=== PATIENT | female | born 1955 | race American Indian/Alaskan Native ===

== ENCOUNTER 2017-04-30 06:39 | Day surgery (SDC) | payer BC ==
[2017-04-27 11:33] VITALS: BMI 31.4
[2017-04-30] MEDS ORDERED: Phenylephrine 10 mg/ml Inj ONE (07:17)
[2017-04-30] MEDS ORDERED: Lidocaine 2% Inj (20ml) ONE (07:17)
[2017-04-30] MEDS ORDERED: Midazolam 2 MG/2 ML VIAL ONE ×2 (07:18→08:26)
[2017-04-30] MEDS ORDERED: Nitroglycerin 50mg in D5W 0 MG/0 ML BOTTLE IV ONE (07:19)
[2017-04-30] MEDS ORDERED: Iodixanol 320 MG/ML 100 ML BOTTLE IV ONE ×2 (07:19→09:02)
[2017-04-30] MEDS ORDERED: Iohexol 350mgl/ml 50 ML ONE (07:19)
[2017-04-30] MEDS ORDERED: Iodixanol 320 MG/ML 200 ML BOTTLE IV ONE (07:19)
[2017-04-30 07:31] LABS: BASO # 0.02 K/mm3 (0.0-2.0); BASO % 0.4 % (0.0-3.0); EOS # 0.1 (0.0-0.7); EOS % 2.6 % (1.5-5.0); GRAN # 2.81 (1.4-6.5); HEMATOCRIT 27.8 % (36.0-48.0); LYMPH # 1.2 (1.2-3.4); LYMPH % 27.3 % (22.0-35.0); MEAN CELL VOLUME 69.5 fl (80.0-105.0); MEAN CORPUSCULAR HGB CONC 31.7 g/dl (31.0-37.0); MONO # 0.4 (0.1-0.6); MONO % 7.7 % (1.0-6.0); PLATELET COUNT 159 10^3/uL (120.0-450.0); RED CELL DISTRIBUTION WIDTH 16.8 % (11.5-14.5); WHITE BLOOD COUNT 4.5 10^3/ul (4.5-11.0)
[2017-04-30 07:43] LABS: BLOOD UREA NITROGEN 27 mg/dL (7-21); CALCIUM 8.8 mg/dL (8.4-10.5); CARBON DIOXIDE 28 mmol/L (21-33); CHLORIDE 103 mmol/L (98-107); CHOLESTEROL 158 mg/dL (130-200); GFR AFRICAN-AMERICAN > 60; GLUCOSE,RANDOM 159 mg/dL (70-110); POTASSIUM 4.5 mmol/L (3.6-5.0); SODIUM 140 mmol/L (132-148)
[2017-04-30 07:45] LABS: PARTIAL THROMBOPLASTIN TIME 28.9 Seconds (25.1-36.5)
[2017-04-30] MEDS ORDERED: Sodium Chloride 0.9% 1,000 ML IV SCH (09:30)
--- NOTE | 2017-04-30 11:11 | CARDCATH ---
PROCEDURE DATE: 04/30/2017 HISTORY: The patient is a 62-year-old woman who is status post treatment for breast CA with multiple cardiac risk factors including diabetes mellitus, hypertension, hypercholesterolemia, who has been experiencing progressive shortness of breath on exertion. A stress test was notable for marked dyspnea with minimal exertion. A cardiac catheterization was recommended. PROCEDURE: Left heart catheterization with coronary arteriography and left ventriculogram followed by PTCA and stent of the circumflex artery. The right femoral artery was cannulated with a 6-Niuean sheath. There were no complications. The patient was given moderate sedation. I performed moderate sedation which included the presence of an independent trained observer that assisted in monitoring the patient's level of consciousness and physiologic status. After administration of Versed and fentanyl, my intra service time was 25 minutes. The right femoral artery was cannulated with 6-Niuean sheath. There were no complications. The findings on catheterization revealed a left ventricle that contracted normally. Estimated ejection fraction is 50-55%. Her coronary anatomy revealed a right dominant circulation. The RCA revealed diffuse atherosclerosis with a 50% stenosis in the proximal portion. The left main artery was unremarkable. The LAD and diagonal vessels revealed intimal irregularities without critical lesions. The circumflex artery revealed a 70% stenoses at the takeoff of a large obtuse marginal branch. The AV groove branch of the circumflex artery revealed intimal irregularities without significant stenoses. The patient was started on intravenous Angiomax. On the fluoroscopic guide, the guiding catheter was placed in the ostium of the left main artery. An ATW wire was used to cross the critical lesion. A 3.5 x 9 mm drug-eluting stent was placed and deployed at 10 atmospheres of pressure. Repeat coronary arteriography revealed an excellent result with no residual stenosis and ANDREA III flow. The Angio-Seal was used to close the femoral artery site. The patient tolerated the procedure well. In summary, the procedure with successful PTCA and stent of the circumflex artery, obtuse marginal branch with a drug-eluting stent. Cardiac catheterization reveals two-vessel CAD with a 50% proximal RCA stenosis as well as the obtuse marginal branch vessel. LV function is normal. Given these findings, the patient will need to remain on aspirin indefinitely and Plavix for at least a year and undergo a strict cardiac risk reduction program. Erich Slater MD [facility] # [id number]
--- NOTE | 2017-04-30 11:51 | CP.PCM.CON ---
History of Present Illness - History of Present Illness History of Present Illness: Heme/Onc Consult Note For Lev Wesley PGY2 Reason for consult: Anemia This is a 62yo female with past medical history of breast cancer s/p mastectomy and chemoradiation who was admitted for elective cardiac cath. Patient was seen last week by Dr. Griffith and her hgb was 9.6. She reported feeling short of breath on exertion and denies any overt blood loss. Dr. Slater spoke to Dr. Griffith to evaluate the patient her for anemia. Patient is status post cardiac cath this morning with stent placed in the circumflex artery. She tolerated the procedure well. This morning she denies chest pain, shortness of breath, nausea/vomiting/diarrhea, numbness/tingling, fever or chills. She does complain of fatigue. Past medical history: sickle cell trait, CAD, DM, HTN, breast cancer (ER/TN/Her- 2 all negative) s/p R mastectomy Past surgical history: hysterectomy, cholecystectomy, R mastectomy Home meds: As per AUG Allergies: NKDA Review of Systems - Review of Systems All systems: reviewed and no additional remarkable complaints except Review of Systems: + fatigue, dyspnea on exertion Past Patient History - Tetanus Immunizations Tetanus Immunization: Unknown - CARDIAC Hx Pacemaker: No - PULMONARY Hx Respiratory Disorders: No - NEUROLOGICAL Hx Paralysis: No - ENDOCRINE/METABOLIC Hx Diabetes Mellitus Type 2: Yes - HEMATOLOGICAL/ONCOLOGICAL Hx Blood Transfusions: Yes (2013) Hx Blood Transfusion Reaction: No - MUSCULOSKELETAL/RHEUMATOLOGICAL Hx Musculoskeletal Disorders: No - PSYCHIATRIC Hx Emotional Abuse: No Hx Physical Abuse: No Hx Substance Use: No - SURGICAL HISTORY Hx Surgeries: Yes - ANESTHESIA Hx Anesthesia Reactions: Yes (NAUSEA) Hx Malignant Hyperthermia: No Meds Allergies/Adverse Reactions: Allergies Allergy/AdvReac Type Severity Reaction Status Date / Time No Known Allergies Allergy Verified 01/06/14 11:23 - Medications Medications: Current Medications Aspirin (Ecotrin) 81 mg PO DAILY [facility] Last Admin: 04/30/17 11:25 Dose: 81 mg Atorvastatin Calcium (Lipitor) 20 mg PO DIN KLAUDIA Clopidogrel Bisulfate (Plavix) 75 mg PO DAILY [facility] Last Admin: 04/30/17 11:25 Dose: 75 mg Sodium Chloride (Sodium Chloride 0.9%) 1,000 mls @ 100 mls/hr IV .Q10H KLAUDIA Stop: 04/30/17 15:00 Metoprolol Tartrate (Lopressor) 25 mg PO BID [facility] Last Admin: 04/30/17 11:25 Dose: 25 mg Physical Exam - Constitutional Appears: No Acute Distress - Head Exam Head Exam: ATRAUMATIC, NORMAL INSPECTION, NORMOCEPHALIC - Eye Exam Eye Exam: Normal appearance, PERRL Pupil Exam: NORMAL ACCOMODATION, PERRL - ENT Exam ENT Exam: Mucous Membranes Moist - Respiratory Exam Respiratory Exam: Clear to Auscultation Bilateral, NORMAL BREATHING PATTERN. absent: Wheezes - Cardiovascular Exam Cardiovascular Exam: REGULAR RHYTHM, +S1, +S2 - GI/Abdominal Exam GI & Abdominal Exam: Soft. absent: Rebound, Rigid, Tenderness - Extremities Exam Extremities exam: Positive for: normal inspection. Negative for: pedal edema - Neurological Exam Neurological exam: Alert, CN II-XII Intact - Psychiatric Exam Psychiatric exam: Normal Affect, Normal Mood - Skin Skin Exam: Dry, Warm Additional comments: cath site in R femoral clean and dry . Results - Vital Signs Recent Vital Signs: Last Vital Signs Temp 98.6 F 04/30/17 07:20 Pulse 82 04/30/17 11:25 Resp 20 04/30/17 07:20 BP 130/78 04/30/17 11:25 Pulse Ox 96 04/30/17 07:20 - Labs Result Diagrams: 04/30/17 07:17 04/30/17 07:17 Labs: Laboratory Results - last 24 hr 04/30/17 04/30/17 04/30/17 07:17 07:17 07:17 WBC 4.5 D RBC 4.00 Hgb 8.8 L Hct 27.8 L MCV 69.5 L MCH 22.0 L MCHC 31.7 RDW 16.8 H Plt Count 159 Gran % 62.0 Lymph % (Auto) 27.3 Eagle % (Auto) 7.7 H Eos % (Auto) 2.6 Baso % (Auto) 0.4 Gran # 2.81 Lymph # 1.2 Eagle # 0.4 Eos # 0.1 Baso # 0.02 PT 11.0 INR 1.00 APTT 28.9 Sodium 140 Potassium 4.5 Chloride 103 Carbon Dioxide 28 Anion Gap 14 BUN 27 H Creatinine 1.1 Est GFR ( Amer) > 60 Est GFR (Non-Af Amer) 51 Random Glucose 159 H Calcium 8.8 Triglycerides 250 H Cholesterol 158 LDL Cholesterol Direct 69 HDL Cholesterol 49 Blood Type Antibody Screen BBK History Checked 04/30/17 07:17 WBC RBC Hgb Hct MCV MCH MCHC RDW Plt Count Gran % Lymph % (Auto) Eagle % (Auto) Eos % (Auto) Baso % (Auto) Gran # Lymph # Eagle # Eos # Baso # PT INR APTT Sodium Potassium Chloride Carbon Dioxide Anion Gap BUN Creatinine Est GFR ( Amer) Est GFR (Non-Af Amer) Random Glucose Calcium Triglycerides Cholesterol LDL Cholesterol Direct HDL Cholesterol Blood Type O NEGATIVE Antibody Screen Negative BBK History Checked Patient has bt Assessment & Plan - Assessment and Plan (Free Text) Assessment: This is a 62yo female with past medical history of breast cancer s/p mastectomy and chemoradiation who was admitted for elective cardiac cath. Patient was seen by Dr. Griffith last week with Hgb 9.6. She had dyspnea on exertion. Anemia can be secondary to sickle cell trait. Plan: - Will check iron studies - If ferritin >1000 will give Desferol - Will transfuse 1U (Pt agreed to transfusion) - Goal Hgb of 10.0 - Patient can follow up with Dr. Griffith next week for follow up Case seen, discussed and reviewed with Dr. Griffith. Lev Fox PGY2 - Date & Time Date: 04/30/17 Time: 11:00
[2017-04-30 13:06] LABS: IRON < 10 ug/dL (45-180)
--- NOTE | 2017-04-30 20:18 | CARD ---
APPROVED REPORT EKG Measurement Heart [id number] ID [id number] <Conclusion> Normal sinus rhythm Normal ECG
[2017-05-01 00:11] VITALS: RESP 18
[2017-05-01 06:01] VITALS: TEMP 97.8
[2017-05-01 06:33] LABS: BASO # 0.02 K/mm3 (0.0-2.0); BASO % 0.4 % (0.0-3.0); EOS # 0.1 (0.0-0.7); EOS % 1.6 % (1.5-5.0); GRAN # 2.97 (1.4-6.5); GRAN % 59.1 % (50.0-68.0); HEMATOCRIT 27.5 % (36.0-48.0); LYMPH # 1.6 (1.2-3.4); LYMPH % 31.5 % (22.0-35.0); MEAN CELL VOLUME 70.7 fl (80.0-105.0); MEAN CORPUSCULAR HEMOGLOBIN 22.1 pg (25.0-35.0); MEAN CORPUSCULAR HGB CONC 31.3 g/dl (31.0-37.0); MONO # 0.4 (0.1-0.6); MONO % 7.4 % (1.0-6.0); PLATELET COUNT 130 10^3/uL (120.0-450.0); RED CELL DISTRIBUTION WIDTH 17.1 % (11.5-14.5)
[2017-05-01 07:21] LABS: BLOOD UREA NITROGEN 23 mg/dL (7-21); CALCIUM 8.7 mg/dL (8.4-10.5); CARBON DIOXIDE 31 mmol/L (21-33); CHLORIDE 101 mmol/L (98-107); GFR AFRICAN-AMERICAN > 60; GLUCOSE,RANDOM 192 mg/dL (70-110); POTASSIUM 4.5 mmol/L (3.6-5.0); SODIUM 138 mmol/L (132-148)
[2017-05-01] MEDS ORDERED: Insulin Lispro (humaLOG) LOW Coverage SC SCH (07:30)
[2017-05-01 08:26] LABS: HEMATOCRIT 27.5 % (36.0-48.0)
[2017-05-01 09:08] VITALS: BP 154/66
--- NOTE | 2017-05-01 09:20 | CP.PCM.PN ---
Subjective - Date & Time of Evaluation Date of Evaluation: 05/01/17 Time of Evaluation: 09:13 - Subjective Subjective: Heme/Onc Progress Note for Lev Wesley PGY2 Patient seen and examined at bedside. As per nursing staff, there were no acute overnight events. Patient reports her shortness of breath improved. She denies chest pain, SOB, nausea/vomiting/diarrhea, numbness/tingling, fever or chills. She reports that she would really like to go home. Objective - Vital Signs/Intake and Output Vital Signs (last 24 hours): Temp Pulse Resp BP Pulse Ox 97.8 F 78 18 154/66 H 100 05/01/17 06:00 05/01/17 09:07 05/01/17 06:00 05/01/17 09:07 05/01/17 06:00 Intake and Output: 05/01/17 05/01/17 06:59 18:59 Intake Total 240 Balance 240 - Medications Medications: Current Medications Aspirin (Ecotrin) 81 mg PO DAILY [facility] Last Admin: 05/01/17 09:07 Dose: 81 mg Atorvastatin Calcium (Lipitor) 20 mg PO DIN [facility] Last Admin: 04/30/17 18:21 Dose: 20 mg Clopidogrel Bisulfate (Plavix) 75 mg PO DAILY [facility] Last Admin: 05/01/17 09:07 Dose: 75 mg Insulin Human Lispro (Humalog Low) 0 units SC ACHS [facility] PRN Reason: Protocol Last Admin: 05/01/17 08:03 Dose: 2 units Metoprolol Tartrate (Lopressor) 25 mg PO BID [facility] Last Admin: 05/01/17 09:07 Dose: 25 mg - Labs Labs: 05/01/17 08:00 05/01/17 06:00 PT 11.0 SECONDS (9.4-12.5) 04/30/17 07:17 INR 1.00 (0.93-1.08) 04/30/17 07:17 APTT 28.9 Seconds (25.1-36.5) 04/30/17 07:17 - Constitutional Appears: No Acute Distress - Head Exam Head Exam: ATRAUMATIC, NORMAL INSPECTION, NORMOCEPHALIC - Eye Exam Eye Exam: PERRL Pupil Exam: NORMAL ACCOMODATION, PERRL - ENT Exam ENT Exam: Mucous Membranes Moist - Respiratory Exam Respiratory Exam: Clear to Ausculation Bilateral, NORMAL BREATHING PATTERN. absent: Rales, Rhonchi, Wheezes - Cardiovascular Exam Cardiovascular Exam: REGULAR RHYTHM, +S1, +S2. absent: Gallop, Rubs - GI/Abdominal Exam GI & Abdominal Exam: Soft, Normal Bowel Sounds. absent: Tenderness - Extremities Exam Extremities Exam: Normal Inspection. absent: Calf Tenderness, Pedal Edema - Neurological Exam Neurological Exam: Alert, Awake, CN II-XII Intact - Skin Skin Exam: Dry, Warm Assessment and Plan - Assessment and Plan (Free Text) Assessment: This is a 62yo female with past medical history of breast cancer s/p mastectomy and chemoradiation who was admitted for elective cardiac cath. Patient was seen by Dr. Griffith last week with Hgb 9.6. She had dyspnea on exertion. Anemia can be secondary to sickle cell trait. Patient is status post 1U PRBC. Hgb stayed the same despite blood transfusion. Plan: - Iron studies showed low iron - Ferritin <1000 - Patient will need to keep Hgb above 10 - Recommend for OTC iron - Patient can have blood transfusion at the outpatient center. - Patient can follow up with Dr. Griffith next week for follow up Case seen, discussed and reviewed with Dr. Griffith. Lev Fox PGY2
[2017-05-01 10:07] VITALS: PULSE 75; O2SAT 99
--- NOTE | 2017-05-01 10:51 | PN ---
CARDIOLOGY FOLLOWUP DATE OF FOLLOWUP: 05/01/2017 SUBJECTIVE: The patient is chest pain free. No shortness of breath. The patient is ambulating in the [facility]. PHYSICAL EXAMINATION: VITAL SIGNS: Blood pressure is 140/74, the heart rate in the 70s. NECK: Negative JVD. LUNGS: Without rales. HEART: S1, S2. EXTREMITIES: Without edema. LABORATORY DATA: Hemoglobin is 8.7. Chemistries, BUN and creatinine is unremarkable. IMPRESSION: 1. Status post percutaneous transluminal coronary angioplasty and stent of the circumflex artery. 2. Coronary artery disease. 3. Hypercholesterolemia. 4. Chronic anemia. 5. History of breast cancer. Given these findings, the patient is doing well. The patient can be discharged today. Followup instructions have been given to the patient in detail. She will need to be on aspirin indefinitely and Plavix for least a year. Erich Slater MD
--- NOTE | 2017-05-01 22:14 | CARD ---
APPROVED REPORT EKG Measurement Heart [id number] <Conclusion> Normal sinus rhythm Normal ECG
== END 2017-05-01 12:01 | disposition home or self-care (01) ==
LOC: CATH 06:39 → 2RSO 09:31 → CATH 05-01 12:01
PROVIDERS: ATTEND Internal Medicine Cardiovascular Disease
DX: I25.10 Atherosclerotic heart disease of native coronary artery without angina pectoris (principal); I10 Essential (primary) hypertension; E78.00 Pure hypercholesterolemia, unspecified; E11.9 Type 2 diabetes mellitus without complications; Z85.3 Personal history of malignant neoplasm of breast; Z90.11 Acquired absence of right breast and nipple
CPT/HCPCS: 36415; 36430; 80048; 82728; 80061; 83540; 83550; 85025; 85610; 85730; 86850; 86900; 86920; 93005; 93458; 99152; 99153; C1760; C1769 ×2; C1874; C1887; C2629; C9600; J0583; J1644; J2250; J3010; J7040 ×2; P9016; Q9967 ×2

== ENCOUNTER 2017-08-03 14:36 | Emergency (ER) | payer BC ==
[2017-08-03 15:24] VITALS: BMI 30.7
--- NOTE | 2017-08-03 15:53 | ED PDOC ---
Arrival/HPI - General Chief Complaint: Chest Pain Time Seen by Provider: 08/03/17 14:47 Historian: Patient - History of Present Illness Narrative History of Present Illness (Text): 08/03/17 14:50 Nicole Merida is a 62 year old female, whose past medical history includes significant cardiac history, Coronary stents places in April 2017, right- sided breast cancer, mastectomy, and chemotherapy a few months ago, who presents to the emergency department sent by PMD complaining of back pain for 2 weeks that was severe this morning and chest pain but has resolved since arrival. As per PMD report, Patient had a CT scan of the abdomen which showed some lymphadenopathy. Patient denies any shortness of breath, fever, or any other complaints at this time. PMD: Dr. Wilkerson Oncologist: Dr. Griffith Time/Duration: < month Symptom Onset: Gradual Symptom Course: Unchanged Context: Home Past Medical History - Provider Review Nursing Documentation Reviewed: Yes - Tetanus Immunization Tetanus Immunization: Unknown - Cardiac Hx Pacemaker: No - Pulmonary Hx Respiratory Disorders: No - Neurological Hx Paralysis: No - Endocrine/Metabolic Hx Diabetes Mellitus Type 2: Yes - Hematological/Oncological Hx Blood Transfusions: Yes (2013) Hx Blood Transfusion Reaction: No - Musculoskeletal/Rheumatological Hx Musculoskeletal Disorders: No - Psychiatric Hx Emotional Abuse: No Hx Physical Abuse: No Hx Substance Use: No - Surgical History Hx Mastectomy: Yes (right) - Anesthesia Hx Anesthesia Reactions: Yes (NAUSEA) Hx Malignant Hyperthermia: No - Suicidal Assessment Feels Threatened In Home Enviroment: No Family/Social History - Physician Review Nursing Documentation Reviewed: Yes Family/Social History: No Known Family HX Smoking Status: Never Smoked Hx Alcohol Use: Yes (SPECIAL OCCASIONS) Hx Substance Use: No Allergies/Home Meds Allergies/Adverse Reactions: Allergies No Known Allergies Allergy (Verified 01/06/14 11:23) Home Medications: Home Meds Medication Instructions Recorded Confirmed Ergocalciferol (Vitamin D2) 50,000 iu PO MON 10/01/15 08/03/17 [Vitamin D] Gabapentin [Neurontin] 600 mg PO BID 10/01/15 08/03/17 Insulin Aspart, Recombinant 20 unit SC ACTID 10/01/15 08/03/17 [Novolog] Insulin Detemir [Levemir] 20 unit SC HS 10/01/15 08/03/17 Meclizine [Antivert] 12.5 mg PO BID PRN 10/01/15 08/03/17 Metoprolol Tartrate [Lopressor] 25 mg PO BID 10/01/15 08/03/17 Folic Acid 1 mg PO DAILY 04/27/17 08/03/17 Gemfibrozil 600 mg PO DAILY 04/27/17 08/03/17 Ramipril [Altace] 5 mg PO DAILY 04/27/17 08/03/17 Clopidogrel [Plavix] 75 mg PO DAILY 05/01/17 08/03/17 Ferrous Sulfate [Feosol] 325 mg PO BID 05/01/17 08/03/17 Review of Systems - Physician Review All systems were reviewed & negative as marked: Yes - Review of Systems Constitutional: absent: Fevers, Night Sweats Eyes: absent: Vision Changes ENT: absent: Hearing Changes Respiratory: absent: SOB, Cough Cardiovascular: Chest Pain. absent: Syncope Gastrointestinal: absent: Abdominal Pain Genitourinary Female: absent: Dysuria, Frequency Musculoskeletal: Back Pain. absent: Arthralgias Skin: absent: Rash, Pruritis Neurological: absent: Headache, Dizziness Endocrine: absent: Diaphoresis Hemo/Lymphatic: absent: Adenopathy Psychiatric: absent: Anxiety, Depression Physical Exam Vital Signs Reviewed: Yes Vital Signs Pulse Resp BP Pulse Ox 08/03/17 16:24 79 18 123/79 99 Appearance: Positive for: Other (obese) - Systems Exam Head: Present: Atraumatic, Normocephalic Pupils: Present: PERRL Extroacular Muscles: Present: EOMI Conjunctiva: Present: Normal Mouth: Present: Moist Mucous Membranes Neck: Present: Normal Range of Motion Respiratory/Chest: Present: Clear to Auscultation, Good Air Exchange, Other ( Venous access port to right upper chest). No: Respiratory Distress, Accessory Muscle Use, Tender to Palpation Cardiovascular: Present: Regular Rate and Rhythm, Normal S1, S2. No: Murmurs Abdomen: Present: Normal Bowel Sounds. No: Tenderness, Distention, Peritoneal Signs Back: Present: CVA Tenderness (Questionable CVA tenderness posteriorly), Other ( No pain with inspiration; Pain is not reproducible with palpation) Upper Extremity: Present: Normal Inspection. No: Cyanosis, Edema Lower Extremity: Present: Normal Inspection. No: Edema Neurological: Present: GCS=15, CN II-XII Intact, Speech Normal Skin: Present: Warm, Dry, Normal Color. No: Rashes Psychiatric: Present: Alert, Oriented x 3, Normal Insight, Normal Concentration Medical Decision Making ED Course and Treatment: 08/03/17 15:56 Impression: 62 year old female complaining of back pain for 2 weeks that was severe this morning and chest pain but has resolved since arrival. Plan: -- Chest X-ray -- Labs -- Reassess and disposition Progress Notes: EKG: Ordered, reviewed, and independently interpreted the EKG. Rate : 72 BPM Rhythm : NSR Interpretation : No ST-segment elevations or depressions, no T-wave inversions, normal intervals. - Lab Interpretations Lab Results: 08/03/17 15:16 08/03/17 15:16 Lab Results 08/03/17 15:16: Sodium 138, Potassium 4.6, Chloride 98, Carbon Dioxide 26, Anion Gap 19, BUN 19, Creatinine 1.9 H, Est GFR ( Amer) 33, Est GFR (Non- Af Amer) 27, Random Glucose 220 H, Calcium 9.9, Total Bilirubin 0.3, AST 31, ALT 31, Alkaline Phosphatase 101, Troponin I < 0.01, Total Protein 7.9, Albumin 4.2, Globulin 3.7, Albumin/Globulin Ratio 1.2 08/03/17 15:16: D-Dimer, Quantitative 254 H 08/03/17 15:16: WBC 6.6 D, RBC 4.21, Hgb 9.2 L, Hct 29.6 L, MCV 70.3 L, MCH 21.9 L, MCHC 31.1, RDW 16.9 H, Plt Count 190, MPV 10.2, Gran % 58.8, Lymph % ( Auto) 31.1, Parke % (Auto) 9.0 H, Eos % (Auto) 0.8 L, Baso % (Auto) 0.3, Gran # 3.85, Lymph # (Auto) 2.0, Parke # (Auto) 0.6, Eos # (Auto) 0.1, Baso # (Auto) 0.02 - RAD Interpretation Radiology Orders: 08/03/17 15:44 CHEST PORTABLE [RAD] Stat 08/03/17 16:24 LUNG PERF & VENT SCAN [NM] Stat - Scribe Statement The provider has reviewed the documentation as recorded by the Umair Jeffrey Provider Scribe Attestation: All medical record entries made by the Scribe were at my direction and personally dictated by me. I have reviewed the chart and agree that the record accurately reflects my personal performance of the history, physical exam, medical decision making, and the department course for this patient. I have also personally directed, reviewed, and agree with the discharge instructions and disposition. Disposition/Present on Arrival - Present on Arrival History of DVT/PE: No History of Uncontrolled Diabetes: No Urinary Catheter: No History of Decub. Ulcer: No History Surgical Site Infection Following: None - Disposition Referrals: Soraida Wilkerson DO [Primary Care Provider] - Follow up with primary Forms: [employer] (Czech)
[2017-08-03 16:05] LABS: BASO # 0.02 K/mm3 (0.0-2.0); BASO % 0.3 % (0.0-3.0); EOS # 0.1 (0.0-0.7); EOS % 0.8 % (1.5-5.0); GRAN # 3.85 (1.4-6.5); GRAN % 58.8 % (50.0-68.0); HEMOGLOBIN 9.2 g/dL (12.0-16.0); LYMPH % 31.1 % (22.0-35.0); MEAN CELL VOLUME 70.3 fl (80.0-105.0); MEAN CORPUSCULAR HEMOGLOBIN 21.9 pg (25.0-35.0); MEAN CORPUSCULAR HGB CONC 31.1 g/dl (31.0-37.0); MEAN PLATELET VOLUME 10.2 fl (7.0-11.0); MONO # 0.6 (0.1-0.6); RBC 4.21 10^6/uL (3.5-6.1); RED CELL DISTRIBUTION WIDTH 16.9 % (11.5-14.5); WHITE BLOOD COUNT 6.6 10^3/ul (4.5-11.0)
[2017-08-03 16:13] LABS: ALB/GLOB RATIO 1.2 (1.1-1.8); ALBUMIN 4.2 g/dL (3.0-4.8); ALT/SGPT 31 U/L (7-56); AST/SGOT 31 U/L (14-36); BLOOD UREA NITROGEN 19 mg/dL (7-21); CALCIUM 9.9 mg/dL (8.4-10.5); GFR AFRICAN-AMERICAN 33; GFR NON-AFRICAN AMERICAN 27
[2017-08-03 16:24] LABS: TROPONIN I < 0.01 ng/mL
[2017-08-03 16:36] VITALS: RESP 18
--- NOTE | 2017-08-03 17:26 | RAD ---
HISTORY: Right back pain. Portable study 15:54 COMPARISON: 04/26/2014 FINDINGS: LUNGS: No active pulmonary disease. PLEURA: No significant pleural effusion identified, no pneumothorax apparent. CARDIOVASCULAR: No radiographic findings to suggest acute or significant cardiovascular disease. OSSEOUS STRUCTURES: No significant abnormalities. VISUALIZED UPPER ABDOMEN: Normal. OTHER FINDINGS: Prior left mastectomy. This cons for differences in overall appearance of the 2 lungs. The right lung is hazy related to overlying breast tissue relative to the left. IMPRESSION: No active disease. No significant interval change compared to the prior examination(s).
--- NOTE | 2017-08-03 17:51 | CARD ---
APPROVED REPORT EKG Measurement Heart [id number] <Conclusion> Normal sinus rhythm Normal ECG
--- NOTE | 2017-08-03 18:35 | CT ---
CT chest without IV contrast CT abdomen without IV contrast Indication: Breast cancer, right chest pain Technique: Contiguous axial images were obtained through the chest and abdomen without intravenous contrast enhancement. Sagittal and coronal reconstructions were generated and reviewed. This CT exam was performed using 1 or more of the following dose reduction techniques: Automated exposure control, adjustment of the MAA and/or kV according to patient size, and/or use of iterative reconstruction technique. Radiation dose (DLP): 420.10 MGy-cm. Comparison: None available. Findings: Right-sided MediPort extends to the SVC. Visualized portions of the inferior thyroid gland appear unremarkable. The mediastinal and hilar vascular structures appear within normal limits. The heart appears within normal limits of size. Small left hilar calcification may reflect granuloma. No focal consolidation. No pleural effusion. No pneumothorax. Numerous bilateral pulmonary nodules consistent with metastases. Largest nodule measures approximately 15 mm at the left lower lobe. Extensive mesenteric and retroperitoneal soft tissue presumably due to bulky adenopathy. Additional prominent retroperitoneal lymph nodes evident. The noncontrast liver, spleen, and adrenal glands appear grossly unremarkable. No hydronephrosis or obstructing renal calculi evident. Cholecystectomy. 7 mm probable splenule. Right breast prosthesis. No acute osseous abnormality is detected. This patient with history of breast cancer, if concern for osseous metastases suggest further evaluation with nuclear medicine bone scan. Impression: Right-sided MediPort. Numerous bilateral pulmonary nodules consistent with metastases. Largest nodule measures approximately 15 mm at the left lower lobe. Recommend comparison with prior study in if indicated further evaluation with PET-CT if indicated. Extensive mesenteric and retroperitoneal soft tissue presumably due to metastatic disease/ bulky adenopathy. Additional prominent retroperitoneal lymph nodes evident. Additional findings as above.
[2017-08-03 21:02] LABS: URINE BILIRUBIN NEGATIVE (NEGATIVE); URINE BLOOD NEGATIVE (NEGATIVE); URINE GLUCOSE (UA) NEGATIVE (NEGATIVE); URINE LEUKOCYTE ESTERASE NEGATIVE Leu/uL (NEGATIVE); URINE NITRATE NEGATIVE (NEGATIVE); URINE PROTEIN 100 mg/dL (<30 mg/dL); URINE UROBILINOGEN 0.2 E.U./dL (<1 E.U./dL)
[2017-08-03 21:05] LABS: URINE COLOR YELLOW (YELLOW)
[2017-08-03 21:06] LABS: URINE APPEARANCE SL CLOUDY (CLEAR)
[2017-08-03 21:11] LABS: URINE RBC 0 - 2 /hpf (0-2)
[2017-08-03 21:12] LABS: URINE BACTERIA LARGE (NEG); URINE WBC 0 - 2 /hpf (0-6)
--- NOTE | 2017-08-03 22:25 | ED PDOC ---
Physical Exam Vital Signs Reviewed: Yes Vital Signs Pulse Resp BP Pulse Ox 08/03/17 16:24 79 18 123/79 99 Blood Pressure: Normal Pulse: Regular Respiratory Rate: Normal Appearance: Positive for: Well-Appearing, Non-Toxic, Comfortable Pain Distress: None Mental Status: Positive for: Alert and Oriented X 3 Medical Decision Making ED Course and Treatment: 08/03/17 22:24 Case signed out to me by Dr. De La Rosa. Pending VQ scan, CAT scan and urine results. VQ scan showed no PE, CT scan of chest, abdomen and pelvis showed new metastatic disease of lungs from previous breast cancer. Still awaiting on urine since 19:00. Patient is aware that pending urine results, refusing to be straight cath. 08/03/17 22:42 Case and results discussed with Dr. Patel, who advised patient to be discharged and to follow up with him as outpatient for followup PET scan. - Lab Interpretations Lab Results: 08/03/17 15:16 08/03/17 15:16 Lab Results 08/03/17 20:54: Urine Color Yellow, Urine Appearance Sl cloudy, Urine pH 6.0, Ur Specific [place] 1.025, Urine Protein 100 H, Urine Glucose (UA) Negative, Urine Ketones Trace H, Urine Blood Negative, Urine Nitrate Negative, Urine Bilirubin Negative, Urine Urobilinogen 0.2, Ur Leukocyte Esterase Negative, Urine RBC 0 - 2, Urine WBC 0 - 2, Ur Epithelial Cells 10 - 12, Urine Bacteria Large 08/03/17 15:16: Sodium 138, Potassium 4.6, Chloride 98, Carbon Dioxide 26, Anion Gap 19, BUN 19, Creatinine 1.9 H, Est GFR ( Amer) 33, Est GFR (Non- Af Amer) 27, Random Glucose 220 H, Calcium 9.9, Total Bilirubin 0.3, AST 31, ALT 31, Alkaline Phosphatase 101, Troponin I < 0.01, Total Protein 7.9, Albumin 4.2, Globulin 3.7, Albumin/Globulin Ratio 1.2 08/03/17 15:16: D-Dimer, Quantitative 254 H 08/03/17 15:16: WBC 6.6 D, RBC 4.21, Hgb 9.2 L, Hct 29.6 L, MCV 70.3 L, MCH 21.9 L, MCHC 31.1, RDW 16.9 H, Plt Count 190, MPV 10.2, Gran % 58.8, Lymph % ( Auto) 31.1, [place] % (Auto) 9.0 H, Eos % (Auto) 0.8 L, Baso % (Auto) 0.3, Gran # 3.85, Lymph # (Auto) 2.0, [place] # (Auto) 0.6, Eos # (Auto) 0.1, Baso # (Auto) 0.02 I have reviewed the lab results: Yes - RAD Interpretation Radiology Orders: 08/03/17 15:44 CHEST PORTABLE [RAD] Stat 08/03/17 16:24 LUNG PERF & VENT SCAN [NM] Stat 08/03/17 17:19 CHEST W/O CONTRAST [CT] Stat 08/03/17 17:20 ABDOMEN W/O CONTRAST [CT] Stat - 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 - Scribe Statement The provider has reviewed the documentation as recorded by the Umair Leong Provider Scribe Attestation: All medical record entries made by the Scribe were at my direction and personally dictated by me. I have reviewed the chart and agree that the record accurately reflects my personal performance of the history, physical exam, medical decision making, and the department course for this patient. I have also personally directed, reviewed, and agree with the discharge instructions and disposition. Disposition/Present on Arrival - Present on Arrival Any Indicators Present on Arrival: No History of DVT/PE: No History of Uncontrolled Diabetes: No Urinary Catheter: No History of Decub. Ulcer: No History Surgical Site Infection Following: None - Disposition Have Diagnosis and Disposition been Completed?: Yes Diagnosis: Atypical chest pain, Back pain, Metastatic disease Disposition: HOME/ ROUTINE Disposition Time: 22:45 Patient Plan: Discharge Condition: GOOD Discharge Instructions (ExitCare): Chest Pain (ED) Additional Instructions: Mrs Merida- So sorry that you are going through all of this right now.... See Dr PATEL tomorrow and move towards the PET Scan. Return to us if any problems. Attila- Dr. Toni Castro Referrals: Soraida Wilkerson DO [Primary Care Provider] - Follow up with primary Forms: [employer] (J[place]ican)
--- NOTE | 2017-08-03 23:08 | CARD ---
APPROVED REPORT EKG Measurement Heart [id number] <Conclusion> Normal sinus rhythm Normal ECG
[2017-08-03 23:12] VITALS: O2SAT 100
[2017-08-03 23:15] VITALS: BP 126/88; PULSE 82
--- NOTE | 2017-08-04 10:10 | NM ---
COMPARISON: Portable chest 08/03/2017 TECHNIQUE: 30.3 mCi technetium 99-m DTPA aerosol. 2.95 mCI technetium 99-m MAA administered intravenously. FINDINGS: VENTILATION COMPONENT: Normal. PERFUSION COMPONENT: Normal. IMPRESSION: Lowprobability ventilation perfusion scan for pulmonary embolism.
== END 2017-08-03 23:05 | disposition home or self-care (01) ==
LOC: ED 14:36
DX: R07.89 Other chest pain (principal); M54.9 Dorsalgia, unspecified; C79.9 Secondary malignant neoplasm of unspecified site

== ENCOUNTER 2017-08-20 07:19 | Day surgery (SDC) | payer BC ==
[2017-08-11 11:06] VITALS: BMI 30.4
[2017-08-20 08:01] LABS: BASO # 0.01 K/mm3 (0.0-2.0); BASO % 0.2 % (0.0-3.0); EOS # 0.1 (0.0-0.7); EOS % 1.8 % (1.5-5.0); GRAN # 3.75 (1.4-6.5); GRAN % 62.9 % (50.0-68.0); HEMOGLOBIN 8.7 g/dL (12.0-16.0); LYMPH # 1.6 (1.2-3.4); LYMPH % 27.5 % (22.0-35.0); MEAN CELL VOLUME 70.5 fl (80.0-105.0); MEAN CORPUSCULAR HEMOGLOBIN 21.6 pg (25.0-35.0); MEAN CORPUSCULAR HGB CONC 30.6 g/dl (31.0-37.0); MONO # 0.5 (0.1-0.6); MONO % 7.6 % (1.0-6.0); RBC 4.03 10^6/uL (3.5-6.1)
[2017-08-20 08:14] LABS: INR 1.01 (0.93-1.08); PARTIAL THROMBOPLASTIN TIME 30.3 Seconds (25.1-36.5); PROTHROMBIN TIME 11.6 SECONDS (9.4-12.5)
[2017-08-20 08:18] LABS: BLOOD UREA NITROGEN 25 mg/dL (7-21); CALCIUM 9.5 mg/dL (8.4-10.5); GFR AFRICAN-AMERICAN > 60; GFR NON-AFRICAN AMERICAN 51
[2017-08-20] MEDS ORDERED: Midazolam 2 MG/2 ML VIAL ONE ×2 (09:12→09:42)
[2017-08-20] MEDS ORDERED: Lidocaine 1% Inj (20ml) ONE (09:27)
[2017-08-20] MEDS ORDERED: Oxycodone/Acetaminophen 5/325 mg Tab PO PRN (10:08)
[2017-08-20] MEDS ORDERED: Sodium Chloride 0.45% 1,000 ML IV SCH (10:15)
[2017-08-20 11:17] VITALS: TEMP 98.6
[2017-08-20 11:54] VITALS: BP 150/99; PULSE 74; RESP 18; O2SAT 96
--- NOTE | 2017-08-20 20:22 | CT ---
PROCEDURE: CT guided retroperitoneal lymph node biopsy. HISTORY: Metastatic breast CA. Confluent retroperitoneal lymphadenopathy. Evaluate for metastatic disease PHYSICIAN(S): Erich Chery MD. TECHNIQUE: The relative risks and indications of the procedure were explained to the patient and consent obtained. The patient was placed prone on the CT scanner and preliminary images through the mid av obtained. Conscious sedation and monitoring were provided throughout the procedure by a nurse. Confluent adenopathy is noted measuring approximately 3.6 x 6.7 cm the level of the kidneys.. A right posterior paraspinal approach was selected and the area prepped and draped in the usual sterile fashion. 1% Xylocaine was used to anesthetize the skin and soft tissues. A 17-gauge guiding needle was advanced into the 3.6 x 6.7 cm compliment adenopathy in the pericaval region. Its position was confirmed with CT. Using coaxial technique, multiple core biopsies were obtained. The postprocedure images show no evidence of significant hemorrhage. IMPRESSION: 1. CT-guided retroperitoneal lymph node biopsy as described above.
== END 2017-08-20 12:40 | disposition home or self-care (01) ==
LOC: SDS 07:19
PROVIDERS: ATTEND Radiology Vascular & Interventional Radiology
DX: C83.30 Diffuse large B-cell lymphoma, unspecified site (principal); I10 Essential (primary) hypertension; E11.9 Type 2 diabetes mellitus without complications; E66.9 Obesity, unspecified; D64.9 Anemia, unspecified; Z68.30 Body mass index [BMI] 30.0-30.9, adult; Z85.3 Personal history of malignant neoplasm of breast
CPT/HCPCS: 36415; 38505; 77012; 80048; 85025; 85610; 85730; 88305; 99152; 99153; J1642; J2250; J2405; J3010; J7030

== ENCOUNTER 2018-05-24 17:55 | Inpatient (IN) | payer BC ==
[2018-05-24 18:17] VITALS: BMI 27.0
--- NOTE | 2018-05-24 18:17 | ED PDOC ---
Arrival/HPI - General Historian: Patient - History of Present Illness Narrative History of Present Illness (Text): 05/24/18 18:15 63yo female with pmhx of breast CA, nonhodkgin lymphoma, lung lesion, referred to ED by Dr. Griffith for admission for intractable right arm pain. Patient's son by the bedside states right arm has been intermittent for over a month now, but this pain started yesterday and worse this time. Also report headache. States right arm pain starts from her shoulder to her distal upper arm. States she is on analgesic at home. Denies trauma, focal weakness. paresthesia, chest pain, SOB, diaphoresis, facial droop, arm swelling, redness, fever, chills, any other complaint. Past Medical History - Provider Review Nursing Documentation Reviewed: Yes - Tetanus Immunization Tetanus Immunization: Unknown - Cardiac Hx Hypertension: Yes - Pulmonary Hx Respiratory Disorders: No - Neurological Hx Paralysis: No - Endocrine/Metabolic Hx Diabetes Mellitus Type 2: Yes - Hematological/Oncological Hx Blood Transfusions: Yes (2013) Hx Blood Transfusion Reaction: No - Musculoskeletal/Rheumatological Hx Musculoskeletal Disorders: No - Psychiatric Hx Emotional Abuse: No Hx Physical Abuse: No Hx Substance Use: No - Surgical History Hx Mastectomy: Yes (right) - Anesthesia Hx Anesthesia Reactions: Yes (NAUSEA) Hx Malignant Hyperthermia: No - Suicidal Assessment Feels Threatened In Home Enviroment: No Family/Social History - Physician Review Nursing Documentation Reviewed: Yes Family/Social History: Unknown Family HX Smoking Status: Never Smoked Hx Alcohol Use: Yes (SPECIAL OCCASIONS) Hx Substance Use: No Allergies/Home Meds Allergies/Adverse Reactions: Allergies No Known Allergies Allergy (Verified 01/06/14 11:23) Home Medications: Home Meds Medication Instructions Recorded Confirmed Ergocalciferol (Vitamin D2) 50,000 iu PO MON 10/01/15 03/25/18 [Vitamin D] Gabapentin [Neurontin] 600 mg PO BID 10/01/15 05/24/18 Insulin Aspart, Recombinant 20 unit SC ACTID 10/01/15 03/25/18 [Novolog] Insulin Detemir [Levemir] 20 unit SC HS 10/01/15 03/25/18 Metoprolol Tartrate [Lopressor] 25 mg PO BID 10/01/15 05/24/18 RX: Meclizine [Antivert] 12.5 mg PO BID PRN 10/01/15 05/24/18 RX: Folic Acid 1 mg PO DAILY 04/27/17 05/24/18 RX: Gemfibrozil 600 mg PO DAILY 04/27/17 08/20/17 Clopidogrel [Plavix] 75 mg PO DAILY 05/01/17 05/24/18 RX: Ferrous Sulfate [Feosol] 325 mg PO BID 05/01/17 03/25/18 RX: traMADol [Ultram] 50 mg PO DAILY PRN 08/11/17 05/24/18 Aspirin [Adult Low Dose Aspirin EC] 81 mg PO DAILY 03/25/18 05/24/18 Atorvastatin [Lipitor] 20 mg PO DAILY 03/25/18 03/25/18 Diazepam [Valium] 2 mg PO HS PRN 05/24/18 05/24/18 Oxycodone HCl [Oxycontin] 10 mg PO Q6 05/24/18 05/24/18 Oxycodone HCl [Roxicodone] 5 mg PO Q6 05/24/18 05/24/18 RX: Morphine Sulfate [Morphine 15 mg PO Q12 05/24/18 05/24/18 Sulfate ER] RX: Omeprazole 20 mg PO DAILY 05/24/18 05/24/18 Repaglinide [Prandin] 0.5 mg PO BID 05/24/18 05/24/18 Zolpidem [Ambien] 5 mg PO HS 05/24/18 05/24/18 cloNIDine [clonidine HCl] 0.1 mg PO DAILY 05/24/18 05/24/18 Review of Systems - Physician Review All systems were reviewed & negative as marked: Yes - Review of Systems Constitutional: Normal Eyes: Normal ENT: Normal Respiratory: Normal Cardiovascular: Normal Gastrointestinal: Normal Genitourinary Female: Normal Musculoskeletal: Arthralgias (Right arm pain) Skin: Normal Neurological: Headache. absent: Dizziness, Focal Weakness Endocrine: Normal Hemo/Lymphatic: Normal Psychiatric: Normal Physical Exam Vital Signs Reviewed: Yes Temperature: Afebrile Blood Pressure: Hypertensive Pulse: Regular Respiratory Rate: Normal Appearance: Positive for: Well-Appearing, Non-Toxic, Comfortable Pain Distress: None Mental Status: Positive for: Alert and Oriented X 3 - Systems Exam Head: Present: Atraumatic, Normocephalic Pupils: Present: PERRL Extroacular Muscles: Present: EOMI Conjunctiva: Present: Normal Mouth: Present: Moist Mucous Membranes Neck: Present: Normal Range of Motion Respiratory/Chest: Present: Clear to Auscultation, Good Air Exchange. No: Respiratory Distress, Accessory Muscle Use Cardiovascular: Present: Regular Rate and Rhythm, Normal S1, S2. No: Murmurs Abdomen: No: Tenderness, Distention, Peritoneal Signs Back: Present: Normal Inspection Upper Extremity: Present: NORMAL PULSES, Tenderness (Right shoulder and upper arm), Neurovascularly Intact, Capillary Refill < 2s. No: Cyanosis, Edema, Normal ROM (Limited on abduction secondary to pain), Swelling, Erythema, [place] rature Abnormalties Lower Extremity: Present: Normal Inspection. No: Edema Neurological: Present: GCS=15, CN II-XII Intact, Speech Normal, Motor Func Grossly Intact, Normal Sensory Function Skin: Present: Warm, Dry, Normal Color. No: Rashes Psychiatric: Present: Alert, Oriented x 3, Normal Insight, Normal Concentration Medical Decision Making ED Course and Treatment: 05/24/18 22:14 CT Head without Intravenous Contrast. CLINICAL HISTORY: Headache pt uncooperative TECHNIQUE: Axial computed tomography images of the head/brain without intravenous contrast. Study was technically limited due to motion artifact. 2280.00 mGy-cm COMPARISON: None provided. FINDINGS: BRAIN No acute intraparenchymal hemorrhage. No mass lesion. No CT evidence for acute territorial infarct. No midline shift or extra-axial collections. VENTRICLES: No hydrocephalus. ORBITS: The orbits are unremarkable. SINUSES AND MASTOIDS: The paranasal sinuses and mastoid air cells are clear. BONES: No fracture. SOFT TISSUES: Unremarkable. IMPRESSION: No acute intracranial abnormality. Technically limited study. 05/25/18 01:17 Pt was referred to ED by Dr. Griffith for admission for intractable pain to her right arm. Labs EKG Head CT shoulder xray EKG NSR @ 93bpm Head CT as noted above Shoulder xray - No acute finding Lab was reviewed and hypomagnesia was noted which was repleted Her BP was elevated in ED and she noted that she did not take her evening BP medication and it was given. On re evaluation it improved. Result was DW the pt and pt was admitted. Disposition/Present on Arrival - Present on Arrival Any Indicators Present on Arrival: No History of DVT/PE: No History of Uncontrolled Diabetes: No Urinary Catheter: No History Surgical Site Infection Following: None - Disposition Have Diagnosis and Disposition been Completed?: Yes Diagnosis: Intractable pain, Hypomagnesemia Disposition: HOSPITALIZED Disposition Time: 22:10 Patient Plan: Admission Patient Problems: Current Active Problems Problem Status Onset Hypomagnesemia Acute Intractable pain Acute Condition: FAIR
[2018-05-24 20:35] LABS: GRAN # 2.41 (1.4-6.5); GRAN % 77.2 % (50.0-68.0); LYMPH # 0.6 (1.2-3.4); LYMPH % 19.9 % (22.0-35.0); MEAN CELL VOLUME 69.8 fl (80.0-105.0); MEAN CORPUSCULAR HEMOGLOBIN 22.6 pg (25.0-35.0); MEAN CORPUSCULAR HGB CONC 32.4 g/dl (31.0-37.0); MONO # 0.1 (0.1-0.6); MONO % 2.9 % (1.0-6.0); PLATELET COUNT 115 10^3/uL (120.0-450.0); RBC 4.43 10^6/uL (3.5-6.1); RED CELL DISTRIBUTION WIDTH 15.2 % (11.5-14.5); WHITE BLOOD COUNT 3.1 10^3/uL (4.5-11.0)
[2018-05-24 20:40] LABS: INR 1.06; PARTIAL THROMBOPLASTIN TIME 55.6 Seconds (25.1-36.5); PROTHROMBIN TIME 12.1 SECONDS (9.4-12.5)
[2018-05-24 20:44] LABS: ALB/GLOB RATIO 1.6 (1.1-1.8); ALBUMIN 3.6 g/dL (3.0-4.8); ALT/SGPT 32 U/L (7-56); AST/SGOT 30 U/L (14-36); BLOOD UREA NITROGEN 15 mg/dL (7-21); CALCIUM 7.9 mg/dL (8.4-10.5); GFR NON-AFRICAN AMERICAN > 60
[2018-05-24 20:55] LABS: TROPONIN I 0.02 ng/mL
[2018-05-24] MEDS: Magnesium Sulfate 1 gm in D5W 1 GM/100 ML BAG IVPB ONE ×2 (21:45→22:30)
[2018-05-24 22:59] LABS: VENOUS BLOOD GAS BASE EXCESS 2.4 mmol/L (0.0-2.0); VENOUS BLOOD GAS PO2 78 mm/Hg (30-55); VENOUS BLOOD PH 7.36 (7.32-7.43)
--- NOTE | 2018-05-25 08:03 | CT ---
Date of service: 05/24/2018 PROCEDURE: CT HEAD WITHOUT CONTRAST. HISTORY: headache COMPARISON: None available. TECHNIQUE: Axial computed tomography images were obtained through the head/brain without intravenous contrast. Radiation dose: Total exam DLP = 2342.02 mGy-cm. This CT exam was performed using one or more of the following dose reduction techniques: Automated exposure control, adjustment of the mA and/or kV according to patient size, and/or use of iterative reconstruction technique. The patient was uncooperative. There is motion artifact. FINDINGS: HEMORRHAGE: No intracranial hemorrhage. BRAIN: No mass effect or edema. No atrophy or chronic microvascular ischemic changes. VENTRICLES: Unremarkable. No hydrocephalus. CALVARIUM: Unremarkable. PARANASAL SINUSES: Unremarkable as visualized. No significant inflammatory changes. MASTOID AIR CELLS: Unremarkable as visualized. No inflammatory changes. OTHER FINDINGS: The report concurs with the preliminary [facility] report IMPRESSION: No acute intracranial findings
[2018-05-25] MEDS ORDERED: DiphenhydrAMINE 50 mg/ml Inj IVP STA (08:16)
[2018-05-25] MEDS ORDERED: Morphine 15 mg Immediate Release Tab PO PRN (08:22)
[2018-05-25] MEDS: Sodium Chloride 0.9% 1,000 ML IV SCH ×2 (09:07→22:26)
[2018-05-25 09:27] LABS: GRAN # 2.96 (1.4-6.5); GRAN % 69.8 % (50.0-68.0); HEMOGLOBIN 10.6 g/dL (12.0-16.0); LYMPH # 0.7 (1.2-3.4); LYMPH % 17.5 % (22.0-35.0); MEAN CELL VOLUME 68.6 fl (80.0-105.0); MEAN CORPUSCULAR HEMOGLOBIN 22.6 pg (25.0-35.0); MONO # 0.5 (0.1-0.6); MONO % 12.7 % (1.0-6.0); RBC 4.68 10^6/uL (3.5-6.1); RED CELL DISTRIBUTION WIDTH 15.1 % (11.5-14.5); WHITE BLOOD COUNT 4.2 10^3/uL (4.5-11.0)
[2018-05-25 09:40] LABS: ALB/GLOB RATIO 1.7 (1.1-1.8); ALBUMIN 4.2 g/dL (3.0-4.8); ALT/SGPT 38 U/L (7-56); AST/SGOT 34 U/L (14-36); BLOOD UREA NITROGEN 21 mg/dL (7-21); CALCIUM 9.5 mg/dL (8.4-10.5); GFR NON-AFRICAN AMERICAN > 60
--- NOTE | 2018-05-25 09:40 | RAD ---
Date of service: 05/24/2018 HISTORY: Sepsis Patient COMPARISON: Portable chest 08/03/2017. FINDINGS: LUNGS: Right MediPort unchanged in position. Increased interstitial markings are appreciate the mid to inferior lung zones though slightly greater the right than left. PLEURA: No significant pleural effusion identified, no pneumothorax apparent. CARDIOVASCULAR: No aortic atherosclerotic calcification present. Normal cardiac size. Hilar vascular markings appear somewhat prominent and pulmonary vascular congestion is suggested. OSSEOUS STRUCTURES: No significant abnormalities. VISUALIZED UPPER ABDOMEN: Normal. OTHER FINDINGS: None. IMPRESSION: Mild pulmonary vascular congestion suggested including increased interstitial markings though interstitial pulmonary process such as atypical pneumonitis is not excluded. Further clinical correlation advised. No additional interval changes.
--- NOTE | 2018-05-25 09:43 | RAD ---
Date of service: 05/24/2018 PROCEDURE: Radiographs of the Right Shoulder HISTORY: shoulder pain COMPARISON: No prior. FINDINGS: BONES: No acute fracture or destructive bony lesion identified. JOINTS: Mild degenerative changes seen the acromioclavicular joint, borderline at the glenohumeral joint. No dislocation identified. SOFT TISSUES: Normal. OTHER FINDINGS: None. IMPRESSION: No acute fracture or dislocation right shoulder. Limited degenerative changes acromioclavicular joint.
[2018-05-25 11:10] LABS: PLATELET COUNT 109 10^3/uL (120.0-450.0)
[2018-05-25] MEDS: Morphine 15 mg SR Tab PO SCH ×2 (12:48→22:11)
[2018-05-25] MEDS ORDERED: Magnesium Sulfate 2 GM in 50 ml Water IVPB ONE (12:51)
[2018-05-25] MEDS ORDERED: Magnesium Sulfate 2 GM in Sodium Chloride 0.9% 100 ML IV ONE (12:51)
--- NOTE | 2018-05-25 14:00 | CP.PCM.CON ---
History of Present Illness - History of Present Illness History of Present Illness: Ms Merida is a 63 year old female with a history of a right breast cancer in 2014 status post mastectomy now with increasing pain in the right arm. She was originally diagnosed in 2013. She underwent a mastectomy followed by ACT chemotherapy. She had radiation therapy with Dr Holder to 4600cGy to the right SCV region and 5040cGy to the right chestwall with a scar boost of 1000cGy. She did well until July 2017 when she was found to have pulmonary nodules as well as mesentery and retroperitoneal nodes. 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 She was treated with chemotherapy at [facility] and reportedly did well. Because of the pulmonary nodules persisted, she reportedly had a lung biopsy which revealed metastatic breast cancer. She was recently started on Keytruda yesterday with you. She was admitted yesterday due to intractable right arm pain. She had a CT of the head which was negative. She also had an x-ray of the right shoulder which was negative for fracture. She had a CT/PET on February 22, 2018 which revealed in the left IJ region, 3 subcentimeter nodes 3-4mm with SUV of 6.8. There was a linear focus of hypermetabolism on the right lateral breast which persistent with SUV of 7.2. There were multiple subcentimeter nodes in the right axillary region with a SUV of 10.3 which was worse than before. There were a few subpectoral nodes as well. There was a right paratracheal node measuring 2.0cm with a SUV of 17. There was a new left paratracheal node with a SUV of 6.3 measuring 0.8 x 1cm. There were a few hypermetabolic lung nodules which were worse than prior exam. There were no enlarged nodes in the abdomen or pelvis. We were asked to see the patient to ascertain possibility of reirradiation. Review of Systems - Musculoskeletal Musculoskeletal: Muscle Weakness Additional comments: pain in right axillary and chestwall Past Patient History - Infectious Disease Hx of Infectious Diseases: None - Tetanus Immunizations Tetanus Immunization: Unknown - Past Social History Smoking Status: Never Smoked Alcohol: None - CARDIAC Hx Hypercholesterolemia: Yes Hx Hypertension: Yes - PULMONARY Hx Respiratory Disorders: No - NEUROLOGICAL Hx Paralysis: No - ENDOCRINE/METABOLIC Hx Diabetes Mellitus Type 2: Yes - HEMATOLOGICAL/ONCOLOGICAL Hx Cancer: Yes (BREAST) - MUSCULOSKELETAL/RHEUMATOLOGICAL Hx Unsteady Gait: Yes - PSYCHIATRIC Hx Substance Use: (UNKNOWN) - SURGICAL HISTORY Hx Mastectomy: Yes (right breast cancer status post mastectomy in 2013, chemo and radiation ) - ANESTHESIA Hx Anesthesia Reactions: Yes (NAUSEA) Hx Malignant Hyperthermia: No Meds Allergies/Adverse Reactions: Allergies Allergy/AdvReac Type Severity Reaction Status Date / Time No Known Allergies Allergy Verified 01/06/14 11:23 - Medications Medications: Current Medications Aspirin (Ecotrin) 81 mg PO DAILY [facility] Last Admin: 05/25/18 09:11 Dose: 81 mg Atorvastatin Calcium (Lipitor) 20 mg PO DIN [facility] Clonidine HCl (Catapres) 0.1 mg PO Q4H PRN PRN Reason: hypertension Clopidogrel Bisulfate (Plavix) 75 mg PO DAILY [facility] Last Admin: 05/25/18 09:11 Dose: 75 mg Sodium Chloride (Sodium Chloride 0.9%) 1,000 mls @ 75 mls/hr IV .[id number] [facility] Last Admin: 05/25/18 09:07 Dose: 75 mls/hr Insulin Detemir (Levemir) 12 unit SC HS [facility] Insulin Human Lispro (Humalog Low) 0 units SC ACHS [facility]; Protocol Insulin Human Lispro (Humalog) 4 units SC AC [facility] Losartan Potassium (Cozaar) 50 mg PO DAILY [facility] Magnesium Oxide (Mag-Ox) 400 mg PO BID [facility] Metoprolol Succinate (Toprol Xl) 25 mg PO BRK [facility] Morphine Sulfate (Morphine Extended Release Tab) 15 mg PO Q12 [facility] Last Admin: 05/25/18 12:48 Dose: 15 mg Morphine Sulfate (Morphine Immediate Release Tab) 15 mg PO Q4 PRN PRN Reason: Pain, severe (8-10) Physical Exam - Eye Exam Eye Exam: EOMI - Respiratory Exam Respiratory Exam: Clear to Auscultation Bilateral - Cardiovascular Exam Cardiovascular Exam: REGULAR RHYTHM - GI/Abdominal Exam GI & Abdominal Exam: Normal Bowel Sounds - Extremities Exam Additional comments: right axillary adenopathy and capsular contracture along lateral implant from her radiation in 2014 - Neurological Exam Neurological exam: Alert, CN II-XII Intact Additional comments: right upper extremity weakness 4/5 Results - Vital Signs Recent Vital Signs: Last Vital Signs Temp 98.6 F 05/25/18 08:30 Pulse 77 05/25/18 09:11 Resp 18 05/25/18 08:30 BP 170/92 H 05/25/18 09:11 Pulse Ox 99 05/25/18 08:30 - Labs Result Diagrams: 05/25/18 09:00 05/25/18 09:00 Labs: Laboratory Results - last 24 hr 05/24/18 05/24/18 05/24/18 20:20 20:20 20:20 WBC 3.1 L RBC 4.43 Hgb 10.0 L Hct 30.9 L MCV 69.8 L MCH 22.6 L MCHC 32.4 RDW 15.2 H Plt Count 115 L Gran % 77.2 H Lymph % (Auto) 19.9 L [place] % (Auto) 2.9 Eos % (Auto) 0.0 L Baso % (Auto) 0.0 Gran # 2.41 Lymph # (Auto) 0.6 L [place] # (Auto) 0.1 Eos # (Auto) 0.0 Baso # (Auto) 0.00 PT 12.1 INR 1.06 APTT 55.6 H pO2 VBG pH VBG pCO2 VBG HCO3 VBG Total CO2 VBG O2 Sat (Calc) VBG Base Excess VBG Potassium Glucose Lactate FiO2 Sodium Potassium Chloride Carbon Dioxide Anion Gap BUN Creatinine Est GFR ( Amer) Est GFR (Non-Af Amer) POC Glucose (mg/dL) Random Glucose Calcium Phosphorus Magnesium Total Bilirubin AST ALT Alkaline Phosphatase Troponin I Total Protein Albumin Globulin Albumin/Globulin Ratio Procalcitonin 0.05 L Venous Blood Potassium Blood Type Antibody Screen BBK History Checked 05/24/18 05/24/18 05/24/18 20:20 22:20 22:20 WBC RBC Hgb Hct MCV MCH MCHC RDW Plt Count Gran % Lymph % (Auto) [place] % (Auto) Eos % (Auto) Baso % (Auto) Gran # Lymph # (Auto) [place] # (Auto) Eos # (Auto) Baso # (Auto) PT INR APTT pO2 78 H VBG pH 7.36 VBG pCO2 51.0 VBG HCO3 28.8 H VBG Total CO2 30.4 H VBG O2 Sat (Calc) 96.3 H VBG Base Excess 2.4 H VBG Potassium 4.5 Glucose 266 H Lactate 1.9 FiO2 21.0 Sodium 136 134.0 Potassium 3.7 Chloride 104 98.0 Carbon Dioxide 24 Anion Gap 12 BUN 15 Creatinine 0.6 L Est GFR ( Amer) > 60 Est GFR (Non-Af Amer) > 60 POC Glucose (mg/dL) Random Glucose 220 H Calcium 7.9 L Phosphorus 3.0 Magnesium 1.1 L Total Bilirubin 0.2 AST 30 ALT 32 Alkaline Phosphatase 74 Troponin I 0.02 D Total Protein 5.8 Albumin 3.6 Globulin 2.2 Albumin/Globulin Ratio 1.6 Procalcitonin Venous Blood Potassium 4.5 Blood Type O NEGATIVE Antibody Screen Negative BBK History Checked Patient has bt 05/25/18 05/25/18 05/25/18 07:41 08:17 09:00 WBC 4.2 L D RBC 4.68 Hgb 10.6 L Hct 32.1 L MCV 68.6 L MCH 22.6 L MCHC 33.0 RDW 15.1 H Plt Count 109 L Gran % 69.8 H Lymph % (Auto) 17.5 L [place] % (Auto) 12.7 H Eos % (Auto) 0.0 L Baso % (Auto) 0.0 Gran # 2.96 Lymph # (Auto) 0.7 L [place] # (Auto) 0.5 Eos # (Auto) 0.0 Baso # (Auto) 0.00 PT INR APTT pO2 VBG pH VBG pCO2 VBG HCO3 VBG Total CO2 VBG O2 Sat (Calc) VBG Base Excess VBG Potassium Glucose Lactate FiO2 Sodium Potassium Chloride Carbon Dioxide Anion Gap BUN Creatinine Est GFR ( Amer) Est GFR (Non-Af Amer) POC Glucose (mg/dL) 199 H 194 H Random Glucose Calcium Phosphorus Magnesium Total Bilirubin AST ALT Alkaline Phosphatase Troponin I Total Protein Albumin Globulin Albumin/Globulin Ratio Procalcitonin Venous Blood Potassium Blood Type Antibody Screen BBK History Checked 05/25/18 09:00 WBC RBC Hgb Hct MCV MCH MCHC RDW Plt Count Gran % Lymph % (Auto) [place] % (Auto) Eos % (Auto) Baso % (Auto) Gran # Lymph # (Auto) [place] # (Auto) Eos # (Auto) Baso # (Auto) PT INR APTT pO2 VBG pH VBG pCO2 VBG HCO3 VBG Total CO2 VBG O2 Sat (Calc) VBG Base Excess VBG Potassium Glucose Lactate FiO2 Sodium 134 Potassium 3.8 Chloride 97 L Carbon Dioxide 26 Anion Gap 14 BUN 21 Creatinine 0.8 Est GFR ( Amer) > 60 Est GFR (Non-Af Amer) > 60 POC Glucose (mg/dL) Random Glucose 227 H Calcium 9.5 Phosphorus Magnesium Total Bilirubin 0.4 AST 34 ALT 38 Alkaline Phosphatase 82 Troponin I Total Protein 6.6 Albumin 4.2 Globulin 2.4 Albumin/Globulin Ratio 1.7 Procalcitonin Venous Blood Potassium Blood Type Antibody Screen BBK History Checked Assessment & Plan - Assessment and Plan (Free Text) Assessment: Ms Merida has a history of a right breast cancer status post mastectomy, chemotherapy and radiation in 2013/2014 now with metastases to the lung and nodes. She is not a great historian, but states that she has had pain in the right axillary and chestwall region since 2013. However, it is assumed this has been recently getting worse. Her last imaging study was in January 2018. She will be getting a MRI of the shoulder and head for further evaluation. She may benefit from possible reirradiation especially if her axillary disease is affecting the brachial plexus, however we will need to obtain her radiation plan and records from Dr Holder. There would be some risk with retreatment including further soft tissue fibrosis and damage to the nerves given the location of her metastases. We will finalize a recommendation after we are able to review recent imaging studies.
--- NOTE | 2018-05-25 15:18 | CARD ---
APPROVED REPORT Date of service: 05/24/2018 EKG Measurement Heart [id number] <Conclusion> Normal sinus rhythm Normal ECG
[2018-05-25] MEDS ORDERED: Gadodiamide 287 MG/ML VIAL (15ML) IV ONE (15:58)
[2018-05-25] MEDS ORDERED: Insulin Reg-LOW-Coverage SC SCH (16:30)
--- NOTE | 2018-05-25 17:40 | MRI ---
Date of service: 05/25/2018 PROCEDURE: MRI BRAIN WITH AND WITHOUT CONTRAST HISTORY: Change in mental status COMPARISON: No prior similar study available for comparison. CT of the head without contrast was performed on 05/24/2018 TECHNIQUE: Multiplanar, multisequence MR images of the brain were obtained with and without intravenous contrast enhancement. FINDINGS: HEMORRHAGE: None DWI: There are small less than 5 millimeter foci of diffusion restriction noted in the left frontal left parietal left thalamus and right frontal lobes suggestive of acute lacunar infarcts. Given the distribution of these diffusion restriction foci in multiple territory the possibility of embolic disease should be considered. BRAIN PARENCHYMA: No mass,mass effect or edema. Mild volume loss and mild periventricular white matter changes are noted suggestive but nonspecific for chronic microvascular ischemic changes. ENHANCEMENT: No evidence of enhancing mass lesion in the brain parenchyma. The coronal and sagittal T1 postcontrast images degraded by motion. VENTRICLES: Unremarkable. No hydrocephalus. CRANIUM: Unremarkable. ORBITS: Grossly unremarkable. PARANASAL SINUSES/MASTOIDS: Clear VASCULAR SYSTEM: Skull base flow voids intact. OTHER FINDINGS: None . 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 Further assessment of the carotid arteries by CTA or MRA is suggested. No evidence of enhancing mass lesion in the brain.
--- NOTE | 2018-05-25 18:35 | CON ---
DATE OF CONSULTATION: 05/25/2018 NEUROLOGY CONSULTATION CHIEF COMPLAINT: Change in mental status. HISTORY OF PRESENT ILLNESS: This is a 63-year-old woman with history of right breast cancer in 2014, status post mastectomy, chemotherapy and radiation in 2013 and 2015 with metastasis to the lungs and nodes. She is not a great historian, but states that she had pain in right axilla and chest wall region since 2014; however, symptoms recently getting worse, going from her right shoulder, down to the right forearm, for which she is getting MRI of her right shoulder. I was consulted for change in mental status. She became more agitated, and there was a behavioral change and was not cooperating; therefore, an MRI of the brain was ordered during my evaluation with her, and the MRI showed some scarred infarcts, especially in the right frontal lobe, tiny infarct as well as some scarred on the left MCA territory, especially in the periventricular area, preliminary with some underlying chronic ischemic changes, but no evidence of mets. Therefore, we will consult Cardiology given that she has a history of cancer with hypercoagulable state and likely get another echo as well as a carotid Doppler. Her right arm pain could be a neurologic-form pain from underlying cancer given that she had mastectomy in the right breast area. Currently, she is alert and oriented to person and place, but combative, not cooperative and giving some answers, but moves all extremities equally. PAST MEDICAL HISTORY: As above. ALLERGIES: NO KNOWN DRUG ALLERGIES. SOCIAL HISTORY: No illicit drug use, smoking, or EtOH abuse. FAMILY HISTORY: Noncontributory. MEDICATIONS: Reviewed by nurses' reconciliation sheet. REVIEW OF SYSTEMS: A 14-point review of systems is negative except as per the HPI. PHYSICAL EXAMINATION: VITAL SIGNS: Temperature 98.6, pulse rate 77, blood pressure of 170/90, respiratory rate of 18, oxygen saturation 99% on room air. GENERAL: The patient is lying in bed, mildly lethargic, following simple commands. HEENT: Atraumatic, normocephalic. PERRLA. Extraocular muscles intact. NECK: Supple. No JVD, no adenopathy noted. LUNGS: Clear to auscultation. No adventitious sounds. HEART: S1, S2. Normal rate and rhythm. No murmurs, rubs or gallops. ABDOMEN: Soft, nontender and nondistended. Bowel sounds are present. EXTREMITIES: No clubbing. No cyanosis. Peripheral pulses 2+ felt bilaterally. BREAST: Visual findings, there is a right axillary adenopathy and capsular contracture along the lateral implants from her radiation in 2015. NEUROLOGIC: The patient is alert and oriented to person and place. Recall after 5 minutes is 0/3. Poor attention span. Slow thought process. Agitated behaviorally and follows simple commands. Cranial nerves II through XII are intact. Motor exam: Has some questionable right upper extremity weakness due to pain; otherwise, moves all extremities. Toes are upgoing bilaterally. Sensory exam: Decreased light touch, pinprick up to the calves bilaterally. Decreased vibration of the toes. DTRs are 2+ throughout and 1 at both knees and ankles. Coordination: Gait is deferred for now. LABORATORY DATA: Sodium is 134, potassium 3.8, chloride 97, carbon dioxide 26, BUN of 14, creatinine 2.1, random glucose of 227. ASSESSMENT AND PLAN: This is a 63-year-old woman with history of right breast cancer, status post mastectomy, chemotherapy and radiation therapy in 2013 and 2014, metastasized to the lungs and to nodes; history of coronary artery disease as well as dyslipidemia; type 2 diabetes mellitus; diabetic peripheral neuropathy, who comes in for right shoulder pain, right chest wall pain to the right forearm, seems neuralgiform in nature, undergoing MRI of the right shoulder at this point and was consulted for change in mental status, seems more combative and agitated. MRI of the brain was done, preliminarily read by me in the MRI machine showing some small punctate infarcts in the right frontal area as well as the left frontal as well as the left periventricular areas, likely secondary to hypercoagulable state and diffuse atherosclerotic disease with uncontrolled hypertension. At this time, we will recommend: 1. Aspirin 81 mg. In addition, we will likely recommend, if Cardiology agrees, Eliquis 2.5 mg p.o. b.i.d. instead of Plavix for her hypercoagulable state. 2. Lipitor, instead of 20, 40 mg p.o. daily to consider for dyslipidemia given elevated LDL and triglycerides. 3. MRI of the right shoulder to assess for any issues causing her pain and could recommend gabapentin 200 mg p.o. at bedtime for neuropathic relief. 4. Follow up with Oncology and Radiation Oncology in regards to her underlying cancer and continue current present medical management. I recommend Cardiology consult for underlying hypercoagulable state regarding new infarcts, hypertension, and coronary artery disease, and their recommendations to [place]. In addition, get a carotid Doppler and echocardiogram. Thank you for this consult. Bari Buitrago MD
--- NOTE | 2018-05-25 19:33 | US ---
PROCEDURE: Bilateral carotid artery duplex ultrasound HISTORY: Carotid stenosis PHYSICIAN(S): Erich Chery MD. TECHNIQUE: Duplex sonography and color-flow Doppler were used to evaluate the carotid bifurcations and limited segments of the vertebral arteries bilaterally. FINDINGS: There is mild smooth hypoechoic plaque noted at the carotid bifurcations bilaterally. The peak systolic velocity in the proximal right internal carotid artery is 69 cm/sec. This corresponds to a 20 to 39% proximal right ICA stenosis. Normal systolic velocities are noted in the proximal right external carotid artery. There is antegrade flow in the right vertebral artery. The peak systolic velocity in the proximal left internal carotid artery is 82 cm/sec. This corresponds to a 20 to 39% proximal left ICA stenosis. Normal systolic velocities are noted in the proximal left external carotid artery. There is antegrade flow in the left vertebral artery. IMPRESSION: 1. Bilateral 20-39% proximal ICA stenoses. 2. Antegrade flow in both vertebral arteries.
--- NOTE | 2018-05-25 20:26 | CON ---
DATE: 05/25/2018 ENDOCRINOLOGY CONSULT HISTORY OF PRESENT ILLNESS: This is a 63-year-old female with metastatic breast carcinoma, and now being referred for diabetic evaluation and management. PAST MEDICAL HISTORY: History of type 2 insulin-requiring diabetes, currently on a combination of Levemir using 20 units subcu at bedtime daily with NovoLog also given as 20 units t.i.d. before meals as ordered; history of hypertension and dyslipidemia; history of a previously diagnosed right breast carcinoma in 2013, and she underwent a right mastectomy, and now presents with severe right arm pain. She received chemo and radiation therapy at that time. 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 However, the subsequent biopsy showed metastatic breast cancer on the pulmonary nodules as noted thereof. FAMILY HISTORY: Positive for hypertension and diabetes. SOCIAL HISTORY: The patient has supportive family. No known substance use. REVIEW OF SYSTEMS: As mentioned above. Admits to generalized body weakness with progressive bouts of dizziness and lightheadedness with episodic bouts of confusion and disorientation as per the family members. No chest pains or palpitations, but admits progressive shortness of breath, initially on exertion, then at rest. Her oral intake has been variable with nausea, dyspepsia, and episodic vomiting episodes with vague upper abdominal pains. PHYSICAL EXAMINATION: GENERAL: This is an average built female, in no apparent distress. VITAL SIGNS: Blood pressure of 140/80, pulse of 100 beats per minute regular, temperature 98, respirations 20, height is 5 feet 9 inches, weight is 183 pounds. HEENT: Head, normocephalic. Eyes anicteric with pink conjunctivae. Fundoscopy not possible at this time. Ears, nose and throat, otherwise normal. NECK: Supple. Thyroid gland is normal in size. No carotid bruits or any cervical adenopathy. CARDIOPULMONARY: Some adynamic precordium. S1, S2 is rapid and regular. LUNGS: Show scattered rhonchi. ABDOMEN: Flat, soft with positive bowel sounds. EXTREMITIES: No peripheral edema. Pulses are +2 bilaterally. LABORATORY DATA: Her chemistry showed a BUN of 21, sodium 134, potassium 3.8, chloride 97, CO2 of 26, glucose 227, and creatinine 0.8. ASSESSMENT: This is a 63-year-old female with uncontrolled and decompensated type 2 insulin-requiring diabetes, presenting here with severe intractable right arm pain and currently being followed closely by oncology for metastatic breast carcinoma with lung metastases. PLAN OF MANAGEMENT: Because of the variability of her oral intake, we will modify her current insulin regimen to a much lower dosing of a combination of NovoLog given as 4 units t.i.d. before meals to start today. We will add basal insulin with Levemir given as 12 units subcu at bedtime daily to start tonight. We will modify the coverage scale to obviate hypoglycemia and detailed orders have been given. We will obtain serial chemistries and supplement accordingly as needed. We will follow with you. Shelly Velez MD
[2018-05-25] MEDS ORDERED: Insulin Detemir 100 units/ml Vial (Levemir) SC SCH (22:00)
[2018-05-25] MEDS: Insulin Lispro (humaLOG) LOW Coverage SC SCH (22:10)
--- NOTE | 2018-05-25 22:10 | CON ---
DATE OF CONSULTATION: 05/25/2018 The patient admitted for Dr. Donell Rivero and Dr. Griffith. Referring MD is Dr. Rivero. REASON FOR CONSULTATION: Evaluation of a patient, unknown to me, who presents with hypertension, uncontrolled. HISTORY OF PRESENT ILLNESS: The patient is a 63-year-old -[place] female who is a very poor historian. There is limited information in the medical record. The patient apparently has a history of non-Hodgkin's lymphoma treated in the past according to the patient. History of breast cancer, status post possible right lumpectomy. History of hypertension. History of NIDDM. History of anemia with leukopenia. The patient presented to the hospital complaining of intractable right arm pain. The patient was noted to have elevated blood pressure readings with systolics in the 174-190 range with diastolics in the 78-108 range. As best as I could tell, her only outpatient blood pressure medication is that of a beta-lindsay. The patient denies having any headaches, dizziness or lightheadedness. No chest pains. No shortness of breath or palpitations. 24 hours into her hospitalization, she is still continuing to run systolics greater than 170, hence we are asked to evaluate the patient for her hypertension. She had been started on clonidine 0.1 mg twice a day by the admitting physicians. PAST MEDICAL HISTORY: Significant for that of breast cancer, history of non-Hodgkin's lymphoma, history of hypertension, history of NIDDM, anemia and leukopenia. FAMILY HISTORY: The patient does not know what her parents from. SOCIAL HISTORY: No history of cigarette smoking. Positive history of social alcohol use. MEDICATIONS AT HOME: I am not certain if the patient is taking these, include that of Prandin, OxyContin, Roxicodone, Valium, morphine, Ambien, p.r.n. clonidine, omeprazole, folic acid, Antivert, Neurontin, aspirin, Ultram, Lopressor and Plavix. CURRENT MEDICATIONS IN HOSPITAL: Ecotrin, Lipitor, morphine, Plavix, normal saline 75 mL an hour and clonidine 0.1 mg twice a day according to the nursing staff. ALLERGIES: NO KNOWN ALLERGIES TO MEDICATIONS. REVIEW OF SYSTEMS: Difficult to obtain. [employer] plus systems reviewed with the patient. GENERAL: The patient states appetite and weight have been stable. ENT: Denies any hearing or visual problems. PULMONARY: Denies any shortness of breath. No history of asthma, bronchitis or emphysema. CARDIAC: No past history of coronary artery disease according to the patient. GI: No nausea, no vomiting, no diarrhea, no constipation, no abdominal pain. : No history of chronic kidney disease. No history of UTIs. 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 ENDOCRINE: History of diabetes as noted above. MUSCULOSKELETAL: Right shoulder pain as noted above in chief complaint. NEURO: No past history of CVA, TIA, seizures or syncope. HEME/ONC: History of malignancy and lymphoma as noted above. History of anemia. PSYCHIATRIC: History is negative. PHYSICAL EXAMINATION: GENERAL: The patient is currently seen on 3R, lying supine in bed. She is not speaking much to me, which I think is her decision to not share her history and complaints with me. VITAL SIGNS: Blood pressure presently 170/92, temperature 98.6, respiratory rate 80 with a pulse of 77. Pulse ox is 99%. HEENT: Exam shows her to be normocephalic, atraumatic. Conjunctivae are pale. Sclerae nonicteric. Pupils reactive to light and accommodation. Extraocular muscles are intact. Posterior pharynx is normal. NECK: Supple. No neck vein distention. No thyromegaly. No lymphadenopathy. No bruits. CHEST: Clear to auscultation and percussion. No rales, rhonchi or wheezing. CARDIOVASCULAR: Regular rate and rhythm without audible murmurs, rubs or gallops. ABDOMEN: Soft. Bowel sounds normal. No rebound, guarding or masses. EXTREMITIES: No lower extremity cyanosis, clubbing or edema. Distal lower extremity pulses are 1 to 2+ bilaterally. NEURO: Shows her to be alert, oriented x3. The patient communicates very little. There appears to be no gross focal motor or sensory deficits. LABORATORY DATA AND IMAGING: Admitting head CT showed no acute findings. Admitting EKG showed normal sinus rhythm. CBC: White blood cell count 4.2, up from 3.1; hemoglobin 10.6; platelet count is 109,000. Coags: PT of 12.1, PTT of 55.6. Blood gas on admission pH 7.36, pO2 of 78 with a pCO2 of 51. Lactate level was 1.9, normal. This was on room air. Chemistry showed normal chemistries. BUN 15, today 21; creatinine 0.6, today 0.8. Glucose today is 227. Calcium is 9.5. Phosphorus is 3.0. Magnesium is 1.1. Albumin level is 4.2. Liver enzymes are normal. Microbiology: No cultures available for comment. ASSESSMENT: 1. Uncontrolled hypertension. It appears that the patient does have a history of hypertension. She had been on beta-lindsay therapy at home. She had been receiving clonidine 0.1 mg twice a day in the hospital. I will start the patient on an angiotensin receptor lindsay/CRIS inhibitor in light of the fact that she has diabetes. This would give her more protection than that of a calcium channel lindsay. I will also keep her on clonidine at 0.1 mg every 4-6 hours with parameters. 2. History of [id number] diabetes mellitus. The patient should continue on Accu-Cheks. She had been on Prandin in the outpatient setting. Her glucose control appears to be elevated. The patient should probably be placed on a sliding scale insulin regimen, but I will leave that decision up to Dr. Rivero and Dr. Griffith. 3. History of breast cancer. Apparently, she is status post a lumpectomy, not a mastectomy. Unclear to me what else the patient had received for her breast cancer treatment or if indeed this is stable. 4. History of non-Hodgkin's lymphoma. The patient states she had received therapy for this. 5. History of mild pancytopenia, anemia, low white blood cell count, low platelet count. Perhaps the patient received recent chemotherapy. The patient again will be evaluated by Dr. Griffith. PLAN: 1. The patient is mildly hypomagnesemic. I will supplement magnesium with an IV mag sulfate rider and start the patient on oral magnesium supplements. 2. Start the patient on angiotensin receptor lindsay therapy with p.r.n. clonidine. We will try to get a systolic blood pressure of 130-140 with diastolics in the 70-80 range. The patient may also be restarted back on her beta-lindsay. 3. We will discuss with Dr. Griffith and Dr. Rivero the missing parts of her medical history that are unobtainable from speaking to the patient. 4. Continue to monitor labs on a regular basis. 5. Close renal followup and monitoring of her hypertension. Thank you for letting me partake and share in the care of your patient. Clem Marino MD
[2018-05-26 07:19] LABS: EOS % 0.7 % (1.5-5.0); GRAN # 2.23 (1.4-6.5); GRAN % 73.1 % (50.0-68.0); HEMOGLOBIN 9.2 g/dL (12.0-16.0); LYMPH # 0.5 (1.2-3.4); MEAN CELL VOLUME 69.8 fl (80.0-105.0); MEAN CORPUSCULAR HEMOGLOBIN 22.4 pg (25.0-35.0); MEAN CORPUSCULAR HGB CONC 32.2 g/dl (31.0-37.0); MONO # 0.3 (0.1-0.6); MONO % 9.2 % (1.0-6.0); PLATELET COUNT 97 10^3/uL (120.0-450.0); RED CELL DISTRIBUTION WIDTH 15.3 % (11.5-14.5); WHITE BLOOD COUNT 3.1 10^3/uL (4.5-11.0)
[2018-05-26 07:31] LABS: LDL CHOLESTEROL 84 mg/dL (0-129)
[2018-05-26 07:32] LABS: ALB/GLOB RATIO 1.5 (1.1-1.8); ALBUMIN 3.4 g/dL (3.0-4.8); ALT/SGPT 36 U/L (7-56); AST/SGOT 32 U/L (14-36); BLOOD UREA NITROGEN 20 mg/dL (7-21); CALCIUM 8.9 mg/dL (8.4-10.5); GFR NON-AFRICAN AMERICAN > 60; HDL CHOLESTEROL 45 mg/dL (29-60)
--- NOTE | 2018-05-26 07:41 | HP ---
DATE OF EXAM: 05/25/2018 LOCATION: The patient is in room 375, bed 2. HISTORY OF PRESENT ILLNESS: This is a 63-year-old -[place] female, who is under my care for progressive stage IV metastatic triple-negative breast cancer, recently diagnosed with progressive disease as evidenced on the most recent PET/CT scan on 02/22/2018, with metastatic disease, evidenced in the right axilla, in and around the capsules of the reconstructed right breast, in the mediastinum, in the neck, and multiple areas in both lung espinosa along with some retroperitoneal disease as well. The liver appears to be spared of the disease. The patient was recently diagnosed to have metastatic disease in the lung when she had a CT-guided biopsy of these lung lesions at [facility], which confirmed it to be adenocarcinoma that was triple-negative consistent with her original breast cancer. The patient was worked up further to see what type of medication she may be a candidate for and the tumor tissue was sent for [facility] along with blood being sent for next generation sequencing as well. The patient tested positive for microsatellite instability high or MSI high and by virtue of that, she was eligible for a new drug called Keytruda (pembrolizumab), which she received one dose yesterday prior to admission. The patient has been complaining of increasing pain involving the right axilla, extending down to the right arm and forearm, consistent with right brachial plexopathy. Pain in a scale of 0 to 10 is 9/10. Pain is preventing her from able to hold her arms down and she appears most comfortable when she keeps her arm in the sling. The pain seems to be severe, radiating from the shoulder down to her mid forearm. She has inability to make a fist with her right hand. She is unable to hold objects with her right hand and she is not able to write as well. All of these have been progressively worsening over the past few weeks, probably around 6 weeks. PAST MEDICAL HISTORY: Significant for the fact that she was diagnosed to have carcinoma of the right breast, high-grade stage II, for which she underwent mastectomy and reconstructive surgery done at [place], following which the patient came to see me for systemic chemotherapy. Since she has triple-negative breast cancer, the patient was treated with combination of anthracycline along with Cytoxan and Taxane, for which she received 6 cycles of chemotherapy. The patient had a rough course during the treatment cycles where she required blood transfusions as a result of the direct body effects of the chemotherapy. She also had [place] counts with infection requiring group factor support. The patient improved from that, doing relatively well till 04/2016, and there was a question that she was having some shoulder pain and right breast capsular pain, for which she had an MRI done,and following which she also had MRI of the shoulders as well and there was a concern about a right axillary mass, which was biopsied, was reported as negative. The patient in 04/2017, was having sudden onset of exertional dyspnea and she was noted to have left anterior descending artery occlusion based on a stress testing. She underwent stenting. Subsequent to that, the patient was , but still having considerable amount of mid back pain, which prompted us to do additional testing. CAT scan of the abdomen and pelvis at that time showed progressive intraabdominal disease consistent without a progression from a breast cancer and new primary. CT-guided biopsy of that lesion was consistent with non-Hodgkin's lymphoma. Further testing to check for double hit lymphoma was negative. The patient is then referred to Dr. Gimenez and Dr. Yang in [facility] for treatment with R-CHOP and possibly she has had chemotherapy. Since the patient has started anthracycline based chemotherapy for breast cancer, there was a concern how she is able to stand the chemotherapy for her non-Hodgkin's lymphoma. The patient is able to continue the R-CHOP therapy and had completed the treatment in 11/2017. Subsequently, when she has rescanning of her abdomen, chest, and pelvis done, the patient was noted to have lesions in the lungs, which were of concern to the doctors and she ended up having a CT-guided biopsy, which confirmed it to be metastatic breast cancer and not progressive lymphoma. At that time, the patient was referred back to us for further management of her breast cancer. The patient also has a history of diabetes mellitus, sees Dr. Guzman and she is on multiple medicines including insulin. The patient also has had progressive neuropathy as related to her diabetes and probably as a sequelae of her chemotherapy as well, for which she is on gabapentin and uses a cane to walk, more so over the last 6 months. The patient also has history of glaucoma and has had surgery on her eyes related again to her diabetes. The patient is on active care as far as her eyes are concerned under the supervision of combination machine tool setter. The patient is currently admitted from the office to the ER because of progressively worsening pain in the right arm extending down to her forearm and to her hand. Pain on scale of 0 to 10, being 9/10. In addition to this, the patient was noted both by the family and by us, to be slightly confused, even before the initiation of therapy with Keytruda and our feeling was that something could be involving in her head such as brain metastasis as well. In view of this, the patient had been already set up for an MRI of the head and MRI of the shoulder as an outpatient, and because the symptoms were worsening, we decided that we would bring her to the emergency room into the hospital to get further workup including neurologic workup, get an MRI of the head, CAT scan of the head and shoulder to further ascertain direction of management as far as treatment is concerned. The patient already received one dose of Keytruda and she would not be due for another treatment for her underlying malignancy for the next 3 weeks. REVIEW OF SYSTEMS: Main complaints have been worsening pain in the right arm, right axilla, and right shoulder, extending from the scapular region on the right side putting down all the way to the right middle finger suggestive of radiculopathy involving C6, C7, and T1 dermatomes. The patient also has had very poor appetite and is losing weight steadily with no appetite to speak of. The patient also has been complaining of intermittent diarrhea, probably related to diabetes, has a C. diff done as an outpatient, has been negative. The patient denies any history of fevers or chills. Complains of vague nausea, but actually the patient is not having any of these. Denies any history of significant hemoptysis. The patient has been complaining of headache and blood pressures have been elevated while in the office with a diastolic being in the high 90s. ALLERGIES: THE PATIENT HAS NO KNOWN ALLERGIES. HOME MEDICATIONS: Reviewed. She is on vitamin D2 50,000 units once a week, Neurontin 600 mg b.i.d. She is on insulin Novolog 20 units subcu t.i.d., she is on Levemir 20 units at bedtime, she is on metoprolol 25 mg b.i.d., meclizine 12.5 mg b.i.d., folic acid 1 mg daily, gemfibrozil 60 mg daily, Plavix 75 mg p.o. daily, ferrous sulfate 325 mg p.o. b.i.d., Ultram 50 mg p.o. daily, aspirin 81 mg daily, Lipitor 20 mg daily, diazepam 2 mg p.o. at bedtime, oxycodone 5 mg p.o. every 6 hours p.r.n., OxyContin 10 mg p.o. every 12 hours. She is also on morphine sulfate extended release 15 mg every 12 hours, omeprazole 20 mg p.o. daily, Prandin 0.5 mg b.i.d., Ambien 5 mg p.o. h.s. and clonidine 0.5 mg b.i.d. for hypertension. PHYSICAL EXAMINATION: VITAL SIGNS: Reviewed. The patient is afebrile. Blood pressure is 160/94, T-max is 98.4, respirations are 18 per minute. GENERAL: The patient is mildly confused, but still oriented to time, place, and person. She knows she is in [facility]. She is able to recognize my name and talk to me in great detail. The patient is awake, alert, and oriented. HEENT: Head is normocephalic, atraumatic. The patient has alopecia post-chemotherapy. Conjunctivae pale. Sclerae are anicteric. Pupils are equally reactive to light and accommodation. Examination of the oropharynx reveals tongue to be coated and dry. No oropharyngeal lesions are noted. Extraocular muscles are within normal limits. NECK: Supple. There is no adenopathy. No jugular venous distention noted. MENTAL STATUS: The patient is alert and oriented x3, but intermittently, she had episodes of confusion. LUNGS: Clear to percussion and auscultation without any adventitious sounds. CARDIOVASCULAR SYSTEM: Reveals the PMI to be in the fifth intercostal space inside the midclavicular line. S1 and S2 are normal. No gallop or murmur is heard. ABDOMEN: Soft, nontender. No rebound, rigidity or guarding is noted. No epigastric tenderness is noted. BACK: Reveals it to be normal to inspection and palpation. EXTREMITIES: Examination of the upper extremities, the patient is complaining of pain in the right shoulder, right arm, forearm extending up to the hand. The patient has no palpable masses in the right axilla. Pain scale on the scale of 0 to 10, it is 9/10, involving the right upper extremity. Left arm is unremarkable. Examination of the lower extremities reveals there is no cyanosis, clubbing or edema. BREASTS: Examination of the chest reveals the patient to be status post mastectomy with breast reconstruction. There is definitely scarring around the capsular part of the right breast implant. Left breast is unremarkable. No masses are felt. Axilla are negative. NEUROLOGIC: Except for intermittent confusion, no focal deficits are discernable. SKIN: Turgor is normal. No skin lesions are noted. No rashes are noted. LABORATORY DATA: Reviewed, that was done in the emergency room and they reveal the following. Chemistries are grossly within normal limits. Calcium is within normal limits. CBC does not show any dramatic changes as far as evaluation of the CBC is concerned. The patient has a CT of the head with IV contrast, which is negative for metastasis. The patient had shoulder x-rays, which also does not any obvious disease in the right shoulder. CT scans have shown extensive disease in the right axilla, right capsular area, the right breast prosthesis ascending to involve the lymph nodes in the back of the mediastinum and bilateral lung metastases. Liver appeared to be spared. Retroperitoneal lymph nodes were also positive on the PET/CT scan dated 02/22/2018. ASSESSMENT, NOTES, AND PLAN: This is a 63-year-old female with triple-negative breast cancer, currently with documented progressive disease in the lungs, the mediastinum and involving the right axilla with right brachial plexopathy, is now admitted with not only intractable pain, but change in her mental status with intermittent confusion, one will be concerned about evolving brain metastasis or metabolic changes from an underlying malignancy. Hypercoagulable state is to be thought about and strokes or cardiovascular events or embolic events related to underlying cancer has to be also kept in the differential diagnosis. PLAN: The patient is going to be started on IV fluids. We are going to put her on insulin coverage. She is going to be evaluated and assessed by Shelly Velez, media planner / buyer. She is going to be seen by Nephrology to control her blood pressure. We are going to get evaluation by Neurology for altered mental status. The patient is going to be also assessed by Dr. Kovacs, radiation oncologist to see if she is a candidate for additional radiation besides the radiation she had 4-1/2 years ago, when she was initially discovered with right breast carcinoma. Radiation at that time had been given at [facility] in [place]. The patient is also going to be worked up for hypercoag state to make sure that may not be a positive factor for a change in her mental status. Blood work for a.m. has been requested. We will manage the patient aggressively and take appropriate actions depending on the findings. I had detailed discussion with patient's family. In the meantime, we are going to put her back on narcotics to control the pain, insulin on a sliding scale till we get a better control over her mental situation. Time spent with the patient was greater than 80 minutes in correlating all the facts and discussing in detail with the various consultants and more importantly, discussing in detail with the patient's family, letting them know as to what is happening with the patient, what the overall outcome could be, and which direction we should proceed. Please make a note, this is a complex patient with multiple comorbid medical issues. Doris Griffith MD
[2018-05-26] MEDS: Insulin Lispro (humaLOG) LOW Coverage SC SCH ×4 (07:49→21:33)
[2018-05-26] MEDS: Insulin Lispro 1 UNITS/0.01 ML SC SCH ×3 (08:03→17:22)
[2018-05-26] MEDS: Morphine 15 mg SR Tab PO SCH ×2 (09:03→21:33)
[2018-05-26] MEDS: Magnesium Oxide 400 mg Tab UD PO SCH ×2 (09:03→17:23)
[2018-05-26] MEDS: Metoprolol Succinate 25 mg XL Tab PO SCH (09:04)
--- NOTE | 2018-05-26 11:11 | PN ---
DATE: 05/26/2018 NEUROLOGY FOLLOWUP CHIEF COMPLAINT: Follow up for change in mental status. SUBJECTIVE: The patient is mildly confused and agitated at times overnight. I placed her placed on Seroquel 25 mg p.o. q.h.s. for agitation. She is on pain meds as well, which can make her delirious. She has had scattered embolic small ____ restricted diffusion infarcts involving multiple masseter muscle on the left suggestive of acute lacunar infarct slightly due to embolic infarcts. A carotid Doppler showed 20% to 39% proximal ICA stenosis and antegrade flow in the vertebral arteries. No evidence of any enhancing mass or lesions in the brain. PAST MEDICAL HISTORY: History of right breast cancer in 2013, status post mastectomy, chemotherapy, radiation in 2013 and 2015 with metastasis to lungs and nodes. REVIEW OF SYSTEMS: A 14-point review of systems is as per HPI. FAMILY HISTORY: Noncontributory. MEDICATIONS: Reviewed by nurse's reconciliation sheet. ALLERGIES: NO KNOWN DRUG ALLERGIES. SOCIAL HISTORY: No illicit drug use, smoking, or EtOH abuse. FAMILY HISTORY: Noncontributory. LABORATORY DATA: Sodium 138, potassium 3.4, chloride 102, carbon dioxide 31, BUN 20, creatinine 0.8, random glucose is 103. PHYSICAL EXAMINATION VITAL SIGNS: Temperature 97.5, pulse rate of 77, blood pressure of ____/89, respiratory rate 20, oxygen saturation 99% on room air. GENERAL: The patient is mildly lethargic, in no acute distress. Following simple commands. HEENT: Head is atraumatic, normocephalic. PERRLA. Extraocular muscles intact. NECK: Supple. No JVD, No adenopathy noted. LUNGS: Decreased breath sounds bilaterally. HEART: S1, S2. Normal rate and rhythm. No murmur, rubs, or gallops. ABDOMEN: Soft, nontender, and nondistended. Bowel sounds are present. EXTREMITIES: No clubbing. No cyanosis. Peripheral pulses are 2+ bilaterally. BREASTS: Visual findings of axillary adenopathy, capsular contracture along the lateral implants from her radiation in 2014. NEUROLOGIC: The patient is alert and oriented to person and place. Recall after 5 minutes is 0/3. Poor attention span and slow thought process, agitated in behavior and follows simple commands. Cranial nerves II through XII intact. Motor exam, some questionable right upper extremity weakness due to pain, otherwise moves all extremities. Toes are upgoing bilaterally. Sensory exam; decreased light touch and pinprick up to the calves bilaterally. Decreased vibration of the toes. DTRs are 2+ throughout and 1 in both knees and ankles. Coordination and gait are deferred for now. ASSESSMENT AND PLAN: This is a 63-year-old woman with history of right breast cancer, status post mastectomy, chemotherapy, radiation therapy in 2013 and 2015, metastasis to the lungs, to the nodes; history of coronary artery disease; dyslipidemia; type 2 diabetes mellitus; diabetic peripheral neuropathy; right shoulder pain; right chest wall pain, and right forearm pain which seems neuralgiform in nature and status post MRI of the right shoulder, result pending. She was confused and therefore I was called to evaluate. She had an MRI of the brain done which showed small scattered punctate lacunar infarction, multiple vascular territories more in the left than the right, which is likely secondary to hypercoagulable state with diffuse atherosclerotic disease/embolic phenomena. At this time, we will recommend: 1. Aspirin 81 in addition to possible Eliquis 2.5 mg p.o. b.i.d. instead of Plavix for underlying hypercoagulable state and scattered embolic infarcts. We will need Cardiology's recommendation in regards to the Eliquis. 2. We will recommend Lipitor 40 mg p.o. daily for dyslipidemia. She has elevated triglycerides and LDL. 3. Keep blood sugars between 140 to 180. 4. Seroquel 25 mg p.o. q.h.s. for agitation and combative behavior and could consider psychiatric consult. 5. Follow up with Oncology and Radiation Oncology in regards to her underlying cancer management. 6. Delirium precautions. Bari Buitrago MD
--- NOTE | 2018-05-26 11:39 | CP.PCM.PN ---
Subjective - Date & Time of Evaluation Date of Evaluation: 05/26/18 Time of Evaluation: 10:00 - Subjective Subjective: Tyler Recio-Internal Medicine Resident- Hematology Oncology Progress Note Subjective: Patient seen and examined at bedside. No acute events overnight. Patient states right shoulder pain has improved to a 6/10. Offers no new complaints at this time. Denies fever, chills, chest pain, nausea/vomiting. 12 Point ROS negative except as indicated in HPI Physical Examination: - Constitutional Appears: Non-toxic, No Acute Distress - Head Exam Head Exam: ATRAUMATIC, NORMOCEPHALIC - Eye Exam Eye Exam: EOMI, Normal appearance - ENT Exam ENT Exam: Mucous Membranes Moist - Neck Exam Neck exam: Positive for: Full Rom, Normal Inspection. Negative for: Lymphadenopathy, Meningismus, Tenderness, Thyromegaly - Respiratory Exam Respiratory Exam: CTA bilaterally absent: Accessory Muscle Use, Decreased Breath Sounds, Rales, Rhonchi, Wheezes, Respiratory Distress - Cardiovascular Exam Cardiovascular Exam: REGULAR RHYTHM, RRR, +S1, +S2. absent: Bradycardia, Tachycardia - GI/Abdominal Exam GI & Abdominal Exam: obese, soft, ostomy right mid abdomen - Extremities Exam Extremities exam: negative for clubbing, cyanosis - Neurological Exam Neurological exam: Awake, Alert, Oriented x3 - Psychiatric Exam Psychiatric exam: Normal Affect, Normal Mood - Skin Skin Exam: Dry, Intact, Warm Assessment and Plan: Patient is a 63 year old female with past medical history of triple negative breast cancer s/p mastectomy and chemoradiation who was admitted for evaluation and treatment of intractable pain and intermittent confusion. Stage IV Triple Negative Breast Cancer; Non Hodgkins Lymphoma - s/p chemo with anthracycline, cytoxan, and taxane - pain control- morphine 12mg PO q12 scheduled - pain control- morphine 15 mg PO q4h prn pain Shoulder Pain - Dr. Kovacs consulted- appreciate recommendations- potential radiation to affected area pending imaging results/review - MRI Right shoulder- Partial articular surface tear of the supraspinatus tendon at the distal insertion - right shoulder sling ordered- help decrease distention of brachial plexus Altered Mental Status - potentially secondary to TIAs - neuro consulted- appreciate recommendations HX of CAD - Dr. Griffith spoke with Dr. Slater- will start patient on full dose eliquis due to dilation of heart chambers, stop aspirn - continue metoprolol 25mg PO - Echo official read pending Hx of HPL - increase statin from 20mg to 40mg PO HS Hx of HTN - continue losartan 50mg PO daily - continue clonidine 0.1 mg PO q4h prn Hx of Diabetes Mellitus - endocrinology (Dr. Velez) consulted- appreciate recommendations - continue levemir 12 units HS - continue lispro 4 units AC Decreased Appetite - film projector operator consulted appreciate recommendations - calorie count for 2 days - periactin 2mg PO daily Palliative care consulted for advanced directive. Please make note this is a complex patient with multiple comorbid medical issues. We will continue to monitor the patient patient aggressively. Time spend with the patient is greater than 45 minutes. Patient case discussed with and plan approved by attending physician, Dr. Abhishek osei Objective - Vital Signs/Intake and Output Vital Signs (last 24 hours): Temp Pulse Resp BP Pulse Ox 98.5 F 85 20 140/89 96 05/26/18 06:00 05/26/18 09:04 05/26/18 06:00 05/26/18 09:04 05/26/18 06:00 Intake and Output: 05/26/18 05/26/18 06:59 18:59 Intake Total 2220 Balance 2220 - Medications Medications: Current Medications Aspirin (Ecotrin) 81 mg PO DAILY [facility] Last Admin: 05/26/18 09:02 Dose: 81 mg Atorvastatin Calcium (Lipitor) 20 mg PO DIN [facility] Clonidine HCl (Catapres) 0.1 mg PO Q4H PRN PRN Reason: hypertension Clopidogrel Bisulfate (Plavix) 75 mg PO DAILY [facility] Last Admin: 05/26/18 09:04 Dose: 75 mg Sodium Chloride (Sodium Chloride 0.9%) 1,000 mls @ 75 mls/hr IV .[id number] [facility] Last Admin: 05/25/18 22:26 Dose: Not Given Insulin Detemir (Levemir) 12 unit SC HS [facility] Last Admin: 05/25/18 22:10 Dose: 12 units Insulin Human Lispro (Humalog Low) 0 units SC ACHS [facility]; Protocol Last Admin: 05/26/18 07:49 Dose: Not Given Insulin Human Lispro (Humalog) 4 units SC AC [facility] Last Admin: 05/26/18 08:03 Dose: 4 unit Losartan Potassium (Cozaar) 50 mg PO DAILY [facility] Last Admin: 05/26/18 09:02 Dose: 50 mg Magnesium Oxide (Mag-Ox) 400 mg PO BID [facility] Last Admin: 05/26/18 09:03 Dose: 400 mg Metoprolol Succinate (Toprol Xl) 25 mg PO BRK [facility] Last Admin: 05/26/18 09:04 Dose: 25 mg Morphine Sulfate (Morphine Extended Release Tab) 15 mg PO Q12 [facility] Last Admin: 05/26/18 09:03 Dose: 15 mg Morphine Sulfate (Morphine Immediate Release Tab) 15 mg PO Q4 PRN PRN Reason: Pain, severe (8-10) Quetiapine Fumarate (Seroquel) 25 mg PO HS [facility]; Protocol Last Admin: 05/25/18 22:11 Dose: Not Given - Labs Labs: 05/26/18 07:00 05/26/18 06:35 PT 12.1 SECONDS (9.4-12.5) 05/24/18 20:20 INR 1.06 05/24/18 20:20 APTT 30.5 Seconds (25.1-36.5) 05/26/18 06:35
[2018-05-26] MEDS: Sodium Chloride 0.9% 1,000 ML IV SCH (12:51)
--- NOTE | 2018-05-26 13:04 | MRI ---
Date of service: 05/25/2018 PROCEDURE: HISTORY: Pain COMPARISON: TECHNIQUE: FINDINGS: Partial articular surface tear with associated mild abnormal enhancement of the supraspinatus tendon at the distal insertionwithout full-thickness component, retraction or asymmetric muscle atrophy. . Moderate acromioclavicular osteoarthritis with narrowing of the subacromial space. The biceps tendon is intact and screw. No labral tear or Hill-Sachs defect. Small subcortical cyst formation in the anterior humeral head. Mild degenerative changes of the glenohumeral joint with articular cartilage wear and subcortical marrow reactive changes in the bony glenoid. Mild subcoracoid bursitis. IMPRESSION: Partial articular surface tear of the supraspinatus tendon at the distal insertion.
[2018-05-26] MEDS ORDERED: Iodixanol 320 MG/ML 100 ML BOTTLE IV ONE (13:56)
--- NOTE | 2018-05-26 14:40 | CT ---
Date of service: 05/26/2018 PROCEDURE: CT Chest without contrast HISTORY: pt w/ right ax LAD with pain in chest and axilla COMPARISON: 08/14/2017 TECHNIQUE: Contiguous axial images were obtained through the chest without intravenous contrast enhancement. Sagittal and coronal reconstructions were performed. Radiation dose: Total exam DLP = 382.94 mGy-cm. This CT exam was performed using one or more of the following dose reduction techniques: Automated exposure control, adjustment of the mA and/or kV according to patient size, and/or use of iterative reconstruction technique. FINDINGS: LUNGS: Right MediPort catheter tip in place. Significant worsening in numerous bilateral intraparenchymal and juxtapleural masses metabolic metastatic disease. MEDIASTINUM: Unremarkable thoracic aorta. No aneurysm. Normal sized heart. Main pulmonary artery unremarkable. No vascular congestion. Extensive confluent right paratracheal, AP window and subcarinal lymphadenopathy. No aortic atherosclerotic calcification. PLEURA: No pleural fluid. No pneumothorax. BONES: No fracture. No destructive lesion. UPPER ABDOMEN: Extensive confluent retroperitoneal lymphadenopathy in the region of the celiac axis. Heterogeneous enhancement in the right hepatic lobe status post cholecystectomy with intrahepatic biliary dilatation. OTHER FINDINGS: Right breast augmentation IMPRESSION: Extensive worsening of metastatic disease with innumerable lung parenchymal masses as well as extensive confluent mediastinal and retroperitoneal lymphadenopathy.
--- NOTE | 2018-05-26 15:35 | CON ---
CARDIOLOGY CONSULTATION DATE: 05/26/2018 HISTORY OF PRESENT ILLNESS: The patient is a 63-year-old woman who presents with CVA. There is suggestion of a thromboembolic phenomenon. PAST MEDICAL HISTORY: Notable for breast CA. In addition, the patient's cardiac status reveals an ejection fraction in the 30% range. In addition, she is status post PTCA and stent of the circumflex artery more than a year ago. Her recent stress test shows no changes in terms of new ischemic areas. PHYSICAL EXAMINATION GENERAL: The patient is awake, alert, in no acute distress. VITAL SIGNS: Stable. NECK: Negative JVD. LUNGS: Without rales. HEART: S1 and S2. EXTREMITIES: Without edema. LABORATORY DATA: EKG is normal sinus rhythm with no acute changes. Hemoglobin is 9. IMPRESSION 1. Cerebrovascular accident with high probability of thromboembolic phenomenon. 2. Ischemic dilated cardiomyopathy with dilated left ventricle as well as left atrium. 3. Coronary artery disease. 4. Stable angina. 5. History of breast cancer. Given these findings, the patient should be on anticoagulation. We will discontinue her Plavix and continue on a baby aspirin. We will start her on Eliquis 5 mg b.i.d. Erich Slater MD
--- NOTE | 2018-05-26 17:33 | CARD ---
APPROVED REPORT Date of service: 05/26/2018 EXAM: Two-dimensional and M-mode echocardiogram with Doppler and color Doppler. INDICATION BUBBLE STUDY/CVA..R/O PFO 2D DIMENSIONS Left Atrium (2D)3.7 (1.6-4.0cm)IVSd1.1 (0.7-1.1cm) LVDd4.3 (3.9-5.9cm)PWd1.1 (0.7-1.1cm) LVDs3.2 (2.5-4.0cm)FS (%) 25.5 % LVEF (%)50.5 (>50%) M-Mode DIMENSIONS Aortic Root3.00 (2.2-3.7cm)Aortic Cusp Exc.1.80 (1.5-2.0cm) Aortic Valve AoV Peak Cefdqrwf598.0cm/Duc Peak GR.5mmHg Mitral Valve MV E Vopoeksw44.3cm/sMV A Ydpbwbkx00.9cm/sE/A ratio0.8 TDI Lateral E' Peak V5.17cm/sMedial E' Peak V3.41cm/sE/Lateral E'13.6 E/Medial E'20.6 Pulmonary Valve PV Peak Zccfdzjv04.1cm/sPV Peak Grad.1mmHg Tricuspid Valve TR Peak Ugdocctz495dt/sRAP [id number] Peak Gr.13mmHg [id number] LEFT VENTRICLE The left ventricle is normal size. There is normal left ventricular wall thickness. Left ventricle systolic function is borderline. There is normal LV segmental wall motion. Transmitral Doppler flow pattern is Grade I-abnormal relaxation pattern. RIGHT VENTRICLE The right ventricle is normal size. There is normal right ventricular wall thickness. The right ventricular systolic function is normal. ATRIA The left atrium size is normal. The right atrium size is normal. The interatrial septum is intact with no evidence for an atrial septal defect. AORTIC VALVE The aortic valve is mildly thickened. No aortic regurgitation is present. There is no aortic valvular stenosis. MITRAL VALVE The mitral valve is mildly thickened. There is no mitral valve regurgitation noted. There is no mitral valve stenosis. TRICUSPID VALVE The tricuspid valve is normal in structure. There is trace tricuspid regurgitation. GREAT VESSELS The aortic root is normal in size. The IVC is normal in size and collapses >50% with inspiration. PERICARDIAL EFFUSION There is a trace pericardial effusion. <Conclusion> The left ventricle is normal size. There is normal left ventricular wall thickness. Left ventricle systolic function is borderline. There is normal LV segmental wall motion. Transmitral Doppler flow pattern is Grade I-abnormal relaxation pattern. No PFO seen
[2018-05-26] MEDS ORDERED: Insulin Detemir 100 units/ml Vial (Levemir) SC SCH (22:23)
--- NOTE | 2018-05-26 23:54 | PN ---
DATE: 05/26/2018 SUBJECTIVE: The patient is seen sitting in bed. She is awake. She is alert. She is complaining of being weak and diaphoretic. Her sugar was low. PHYSICAL EXAMINATION: GENERAL: Middle-aged lady, sitting in bed. VITAL SIGNS: Blood pressure 140/89, heart rate 85, respiratory rate 20, temperature 98.2. HEENT: Normocephalic, atraumatic, positive pallor. NECK: Supple, no JVD. LUNGS: Bilateral equal air entry, bilateral equal expansion, no rales. CARDIAC: S1 and S2, regular rate and rhythm, no murmur, no rub. ABDOMEN: Obese, distended, soft, nontender, bowel sounds present. EXTREMITIES: No lower extremity edema. LABORATORY DATA: WBC 3.1, hemoglobin 9, hematocrit 28.6, platelets 97. Sodium 138, potassium 3.4, chloride 102, CO2 of 31, BUN 20, creatinine 0.8, glucose 103, calcium 8.9, phosphorus 3.1, magnesium 1.9, albumin 3.4. CURRENT MEDICATIONS: Catapres, Cozaar, Ecotrin, Eliquis, insulin, Lipitor, magnesium oxide, morphine, Periactin, Seroquel, normal saline, and Toprol-XL. ASSESSMENT: 1. Hypertension, fair control at this time. 2. Mdf-ogvqnpk-ihahalaun diabetes mellitus. 3. Hypokalemia. 4. History of breast cancer. 5. History of non-Hodgkin's lymphoma. 6. Pancytopenia. PLAN: 1. Replace potassium. 2. Replace magnesium p.r.n. 3. Continue losartan. 4. Monitor fingersticks closely. 5. Monitor daily labs. Smita Reed MD
[2018-05-27] MEDS: Sodium Chloride 0.9% 1,000 ML IV SCH ×2 (00:20→20:28)
[2018-05-27 06:59] LABS: EOS # 0.1 (0.0-0.7); EOS % 2.5 % (1.5-5.0); GRAN # 1.51 (1.4-6.5); GRAN % 63.5 % (50.0-68.0); HEMOGLOBIN 8.7 g/dL (12.0-16.0); LYMPH # 0.5 (1.2-3.4); LYMPH % 21.8 % (22.0-35.0); MEAN CELL VOLUME 70.3 fl (80.0-105.0); MEAN CORPUSCULAR HEMOGLOBIN 22.3 pg (25.0-35.0); MEAN CORPUSCULAR HGB CONC 31.8 g/dl (31.0-37.0); MONO # 0.3 (0.1-0.6); MONO % 12.2 % (1.0-6.0); RBC 3.9 10^6/uL (3.5-6.1); RED CELL DISTRIBUTION WIDTH 15.6 % (11.5-14.5); WHITE BLOOD COUNT 2.4 10^3/uL (4.5-11.0)
[2018-05-27 07:24] LABS: ALB/GLOB RATIO 1.4 (1.1-1.8); ALBUMIN 3.1 g/dL (3.0-4.8); ALT/SGPT 32 U/L (7-56); AST/SGOT 31 U/L (14-36); BLOOD UREA NITROGEN 15 mg/dL (7-21); CALCIUM 8.6 mg/dL (8.4-10.5); GFR NON-AFRICAN AMERICAN > 60
--- NOTE | 2018-05-27 08:19 | PN ---
DATE: 05/26/2018 ENDOCRINOLOGY FOLLOWUP NOTE LOCATION: In room 376. SUBJECTIVE: This is a 63-year-old female with a known history of metastatic breast carcinoma, admitted with generalized body weakness and supervening nausea, dyspepsia and vomiting and is now being followed closely for metabolic management. Her oral intake remains quite variable with suboptimal meal portions at this time. LABORATORY DATA: Her latest glucose levels have ranged from 75 to 94 mg/dL. Her hemoglobin A1c is 7.2%. ASSESSMENT AND PLAN: So, at this time, we will modify her basal insulin to a much lower dose of Levemir given as 6 units subcutaneously at bedtime daily to start tonight as ordered. We will discontinue her Humalog given as 4 units t.i.d. before meals as ordered. We will also continue the IV hydration as given and obtain serial chemistries and supplement accordingly as needed. We will follow. Shelly Velez MD
[2018-05-27] MEDS: Potassium Chloride 10 mEq ER Tab PO SCH (08:51)
[2018-05-27] MEDS: Metoprolol Succinate 25 mg XL Tab PO SCH (08:52)
[2018-05-27] MEDS: Morphine 15 mg SR Tab PO SCH ×2 (09:58→21:49)
[2018-05-27] MEDS: Magnesium Oxide 400 mg Tab UD PO SCH ×3 (09:59→18:50)
[2018-05-27] MEDS: Insulin Lispro (humaLOG) LOW Coverage SC SCH ×4 (10:00→21:48)
--- NOTE | 2018-05-27 10:43 | CP.PCM.CON ---
History of Present Illness - History of Present Illness History of Present Illness: Palliative consult requested by Dr Claire Griffith Reason: Advance Directive 63 year old female with history of triple negative breast cancer s/p chemo and radiation who presented to ED on with pain in right shoulder, right axilla extending down the right arm. She is unable to hold objects or perform with right hand. [facility] PET Ct 02/22/18 showed disease progression in right axilla, mediastinum, neck,both lungs and retropertoneum. She also presented with altered mental status and agitation. Labs 05/24: Wbc 3.1, Hgb 10, Plt 115,Na 136, K 3.7, Bun 12, Machine Rug Cleaner 15, Glucose 220, Boogie 7.9, AST 30, ALT 32, Troponi 0.02,Alb 3.6 Chest x ray 05/24: pulmonary vascualr congestion possible atypical pneumonia CT of Head 05/24: No acute findings. Right shoulder x ray 05/24: no acute fracture or dislocation, limited degenerative changes acromioclavicular joint MRI of brain 05/25: scattered small > 5 ml foci of diffusion restriction in the brain bilaterally involving multiple vascular territories L>R, suggestive of acute lacunar infarcts likely due to embolic infarcts. MRI right shoulder 05/25: partial articular surface tear of the supraspinatus tendon at distal insertion. CTA US: Bilateral 20-39% proximal ICA stenosis, antegrade flow in both vertebral arteries. Chest CT: extensive worsening metastatic disease in innumerable lung parenchymal masses as well as extensive confluent mediastinal retroperitoneal lymphadenopathy. ECHO: LV normal size, LV systolic function borderline, transmittal doppler kerry w pattern is Grade 1 abnormal relaxation PMHX: right triple negative breast cancer dx 2014, s/p chemotherapy and XRT, DM, HTN, CAD PSHx: right mastectomy with reconstruction Social History: Non smoker, no alcohol or drug use. Family History: Non contributory Advance Care Planning: As per HPI, otherwise negative 12 point review. Past Patient History - Infectious Disease Hx of Infectious Diseases: None - Tetanus Immunizations Tetanus Immunization: Unknown - Past Social History Smoking Status: Never Smoked - CARDIAC Hx Hypercholesterolemia: Yes Hx Hypertension: Yes - PULMONARY Hx Respiratory Disorders: No - NEUROLOGICAL Hx Paralysis: No - ENDOCRINE/METABOLIC Hx Diabetes Mellitus Type 2: Yes - HEMATOLOGICAL/ONCOLOGICAL Hx Cancer: Yes (BREAST) - MUSCULOSKELETAL/RHEUMATOLOGICAL Hx Unsteady Gait: Yes - PSYCHIATRIC Hx Substance Use: (UNKNOWN) - SURGICAL HISTORY Hx Mastectomy: Yes (right breast cancer status post mastectomy in 2014, chemo and radiation ) - ANESTHESIA Hx Anesthesia Reactions: Yes (NAUSEA) Hx Malignant Hyperthermia: No Meds Allergies/Adverse Reactions: Allergies Allergy/AdvReac Type Severity Reaction Status Date / Time No Known Allergies Allergy Verified 01/06/14 11:23 - Medications Medications: Current Medications Apixaban (Eliquis) 5 mg PO BID [facility]; Protocol Last Admin: 05/27/18 10:00 Dose: 5 mg Aspirin (Ecotrin) 81 mg PO DAILY [facility] Last Admin: 05/27/18 10:00 Dose: 81 mg Atorvastatin Calcium (Lipitor) 20 mg PO DIN [facility] Last Admin: 05/26/18 17:23 Dose: 20 mg Clonidine HCl (Catapres) 0.1 mg PO Q4H PRN PRN Reason: hypertension Cyproheptadine HCl (Periactin) 2 mg PO DAILY [facility] Last Admin: 05/27/18 09:56 Dose: 2 mg Sodium Chloride (Sodium Chloride 0.9%) 1,000 mls @ 75 mls/hr IV .[id number] [facility] Last Admin: 05/27/18 00:20 Dose: 75 mls/hr Insulin Detemir (Levemir) 6 unit [facility] Insulin Human Lispro (Humalog Low) 0 units SC [facility]; Protocol Last Admin: 05/27/18 10:00 Dose: Not Given Losartan Potassium (Cozaar) 50 mg PO DAILY [facility] Last Admin: 05/27/18 09:59 Dose: 50 mg Magnesium Oxide (Mag-Ox) 400 mg PO BID [facility] Last Admin: 05/27/18 09:59 Dose: 400 mg Metoprolol Succinate (Toprol Xl) 25 mg PO BRK [facility] Last Admin: 05/27/18 08:52 Dose: 25 mg Morphine Sulfate (Morphine Extended Release Tab) 15 mg PO Q12 [facility] Last Admin: 05/27/18 09:58 Dose: 15 mg Morphine Sulfate (Morphine Immediate Release Tab) 15 mg PO Q4 PRN PRN Reason: Pain, severe (8-10) Potassium Chloride (Klor-Con 10) 40 meq PO BRK [facility] Last Admin: 05/27/18 08:51 Dose: 40 meq Quetiapine Fumarate (Seroquel) 25 mg PO HS [facility]; Protocol Last Admin: 05/26/18 21:34 Dose: 25 mg Physical Exam - Constitutional Appears: No Acute Distress, Chronically Ill - Head Exam Head Exam: NORMOCEPHALIC - Eye Exam Eye Exam: Normal appearance, PERRL - ENT Exam ENT Exam: Mucous Membranes Moist, Normal Oropharynx - Neck Exam Neck exam: Positive for: Normal Inspection - Respiratory Exam Respiratory Exam: Decreased Breath Sounds, Rhonchi, NORMAL BREATHING PATTERN - Cardiovascular Exam Cardiovascular Exam: REGULAR RHYTHM, +S1, +S2 - GI/Abdominal Exam GI & Abdominal Exam: Normal Bowel Sounds, Soft Additional comments: no tenderness or guarding - Extremities Exam Additional comments: right shoulder in sling, limited ROM of arm/shoulder, tingling/ numbness in fingers - Back Exam Back exam: NORMAL INSPECTION - Neurological Exam Neurological exam: Alert Additional comments: oriented to place and self - Psychiatric Exam Psychiatric exam: Normal Mood - Skin Skin Exam: Dry, Pallor - Additional Findings Additional findings: Palliative performance scale rating 50% Results - Vital Signs Recent Vital Signs: Last Vital Signs Temp 98.4 F 05/27/18 06:00 Pulse 79 05/27/18 09:59 Resp 20 05/27/18 06:00 BP 143/92 H 05/27/18 09:59 Pulse Ox 97 05/27/18 06:00 - Labs Result Diagrams: 05/27/18 06:30 05/27/18 06:30 Labs: Laboratory Results - last 24 hr 05/26/18 05/26/18 05/26/18 06:35 07:17 11:42 WBC RBC Hgb Hct MCV MCH MCHC RDW Plt Count MPV Gran % Lymph % (Auto) Mcpherson % (Auto) Eos % (Auto) Baso % (Auto) Gran # Lymph # (Auto) Mcpherson # (Auto) Eos # (Auto) Baso # (Auto) Sodium Potassium Chloride Carbon Dioxide Anion Gap BUN Creatinine Est GFR ( Amer) Est GFR (Non-Af Amer) POC Glucose (mg/dL) 94 59 L Random Glucose Hemoglobin A1c 7.2 H Calcium Total Bilirubin AST ALT Alkaline Phosphatase Total Protein Albumin Globulin Albumin/Globulin Ratio 05/26/18 05/26/18 05/27/18 16:10 21:03 01:38 WBC RBC Hgb Hct MCV MCH MCHC RDW Plt Count MPV Gran % Lymph % (Auto) Mcpherson % (Auto) Eos % (Auto) Baso % (Auto) Gran # Lymph # (Auto) Mcpherson # (Auto) Eos # (Auto) Baso # (Auto) Sodium Potassium Chloride Carbon Dioxide Anion Gap BUN Creatinine Est GFR ( Amer) Est GFR (Non-Af Amer) POC Glucose (mg/dL) 84 75 73 Random Glucose Hemoglobin A1c Calcium Total Bilirubin AST ALT Alkaline Phosphatase Total Protein Albumin Globulin Albumin/Globulin Ratio 05/27/18 05/27/18 05/27/18 06:30 06:30 08:00 WBC 2.4 L D RBC 3.90 Hgb 8.7 L Hct 27.4 L MCV 70.3 L MCH 22.3 L MCHC 31.8 RDW 15.6 H Plt Count 89 L MPV Gran % 63.5 Lymph % (Auto) 21.8 L Mcpherson % (Auto) 12.2 H Eos % (Auto) 2.5 Baso % (Auto) 0.0 Gran # 1.51 Lymph # (Auto) 0.5 L Mcpherson # (Auto) 0.3 Eos # (Auto) 0.1 Baso # (Auto) 0.00 Sodium 138 Potassium 4.2 Chloride 105 Carbon Dioxide 30 Anion Gap 7 L BUN 15 Creatinine 0.8 Est GFR ( Amer) > 60 Est GFR (Non-Af Amer) > 60 POC Glucose (mg/dL) 85 Random Glucose 88 Hemoglobin A1c Calcium 8.6 Total Bilirubin 0.2 AST 31 ALT 32 Alkaline Phosphatase 71 Total Protein 5.2 L Albumin 3.1 Globulin 2.1 Albumin/Globulin Ratio 1.4 Assessment & Plan - Assessment and Plan (Free Text) Assessment: 63 year old female with history of metastatic triple negative breast cancer s/p right mastectomy, reconstructive surgery,chemotherapy and XRT who is admitted with intractable pain right shoulder,altered mental status and new bilateral lacunar infarcts The patient is alert oriented to place and self. Thought process slow. She is not agitated. She is able to follow command, has difficulty answering complex questions. She complains of numbness and tingling in right fingers. She is unable to use fork/spoon with right hand. She understands that she has progressive breast cancer and states that she intends to continue treatment of cancer. Advance care planning discussion ensued. She knows what an Advance Directive is, verbalized that it has to do with resuscitation. She states that she knows this important to take care of but not ready today. She indicated that she wants her son Armin to be her health care surrogate. I encouraged her to discuss resuscitation wishes with her son. I offered to return on another day to complete an Advance Directive with her, she was agreeable to this plan Time spent with patient in goals of care and advance care planning discussion, 20 minutes Plan: Goals of care and advance care planning AMS: improving. Neuro following. Shoulder pain: Morphine sulfate 15 mg ER twice daily, Morphine 15 mg IR as needed for breakthrough pain. Would consider adding Lyrica Breast Cancer: Dr Griffith following, received one tx with Keytruda, will resume treatment as an out patient. Cardio/CAD/HTN: Cozaar, Toprol, Eliquis, Ecotrin,Catapress. Cardiology flowing DM: Levemir daily, fingersticks ACHS, Humulin as needed
--- NOTE | 2018-05-27 13:03 | PN ---
DATE: 05/27/2018 ENDO FOLLOWUP NOTE LOCATION: Room 376. SUBJECTIVE: This is a 63-year-old female with recent uncontrolled type 2 insulin-requiring diabetes presenting here with intractable upper abdominal pain with progressive shortness of breath and generalized body weakness and is currently undergoing closer workup and management for underlying metastatic breast carcinoma. Her oral intake remains variable with suboptimal meal portions as noted. Her glucose levels overnight were still fluctuating and low normal with a glucose level of 85-196 mg/dL. It was 75 at bedtime last night. Her chemistry showed a BUN of 15, sodium 138, potassium 4.2, chloride 105, CO2 of 30, glucose 88 and creatinine 0.8. So at this time, we will actually also discontinue her Levemir, a small dose of 6 units subcutaneously at bedtime daily as given. We will obtain serial chemistries and supplement accordingly as needed. We will also continue the very low dose correction scale using Humalog insulin as given. We will obtain serial chemistries and supplement accordingly as needed. We will follow up with you. Shelly Velez MD
[2018-05-27] MEDS ORDERED: Gadodiamide 287 MG/ML VIAL (15ML) IV ONE (14:34)
--- NOTE | 2018-05-27 15:22 | PN ---
CARDIOLOGY FOLLOWUP DATE: 05/27/2018 SUBJECTIVE: The patient is tolerating her Eliquis so far. PHYSICAL EXAMINATION: VITAL SIGNS: Blood pressure is 143/92 and heart rates in the 80s. NECK: Negative JVD. LUNGS: Without rales. HEART: S1 and S2. EXTREMITIES: change. LABORATORY DATA: Hemoglobin is 8.7. Chemistries; BUN and creatinine is unremarkable. IMPRESSION: 1. Breast cancer. 2. Anemia. 3. Coronary artery disease. 4. Status post cerebrovascular accident. 5. Dilated cardiomyopathy. PLAN: Given these findings, we will need to continue her on her Eliquis and Plavix. We will monitor her CBC carefully. Erich Slater MD
--- NOTE | 2018-05-27 15:28 | MRI ---
Date of service: 05/27/2018 PROCEDURE: MR CERVICAL SPINE WITH AND WITHOUT CONTRAST HISTORY: r/o mets COMPARISON: None available. TECHNIQUE: Multiecho multiplanar sequences were performed through the cervical spine with and without the use of intravenous contrast. 15 cc of Omniscan FINDINGS: Normal lordotic curvature. Craniocervical junction unremarkable. Vertebral body heights preserved. No marrow signal abnormality. Normal cervical cord. No paraspinal abnormality. No abnormal enhancement C2-3: No disc herniation, spinal canal stenosis or neural foraminal narrowing. C3-4: No disc herniation, spinal canal stenosis or neural foraminal narrowing. C4-5: No disc herniation, spinal canal stenosis or neural foraminal narrowing. C5-C6: There is a mild disc bulge at C5-6 without significant stenosis. C6-C7: No disc herniation, spinal canal stenosis or neuroforaminal narrowing. C7-T1: No disc herniation, spinal canal stenosis or neural foraminal narrowing. OTHER FINDINGS: None. IMPRESSION: Mild disc bulge at C5-6 without stenosis. No enhancing abnormalities. No evidence of metastatic disease
--- NOTE | 2018-05-27 20:47 | PN ---
DATE: 05/27/2018 SUBJECTIVE: The patient is seen lying in bed. She is comfortable. PHYSICAL EXAMINATION: GENERAL: Middle-aged lady lying in bed. VITAL SIGNS: Blood pressure 143/92, heart rate 79, respiratory rate 20, temperature 98.4. HEENT: Normocephalic and atraumatic. Positive pallor. NECK: Supple. No JVD. LUNGS: Bilateral equal air entry. Bilateral equal expansion. EXTREMITIES: No lower extremity edema. LABORATORY DATA: WBC 2.4, hemoglobin 8.7, hematocrit 27, and platelets 89. Sodium 138, potassium 4.2, chloride 105, CO2 of 30, BUN 15, creatinine 0.8, glucose 88, calcium 8.6, and albumin 3.1. Blood cultures, no growth. C-spine MRI, normal lordotic curvature. Craniocervical junction unremarkable. No marrow signal abnormality. Normal cervical cord. ASSESSMENT: 1. Intractable pain. 2. Altered mental status. 3. Non-insulin dependent diabetes mellitus. 4. Hypertension. 5. Metastatic breast cancer with metastasis to the lungs, mediastinum, and right axilla. PLAN: 1. Blood pressure control is acceptable at this time. Blood pressure is somewhat elevated because of pain. Pain control is necessary. 2. Continue losartan. 3. Monitor fingersticks. 4. Replace potassium. Smita Reed MD
[2018-05-28 07:34] LABS: BASO # 0.01 K/mm3 (0.0-2.0); BASO % 0.4 % (0.0-3.0); EOS # 0.1 (0.0-0.7); EOS % 4.1 % (1.5-5.0); GRAN # 1.45 (1.4-6.5); GRAN % 59.9 % (50.0-68.0); HEMOGLOBIN 8.6 g/dL (12.0-16.0); LYMPH # 0.6 (1.2-3.4); MEAN CELL VOLUME 71.4 fl (80.0-105.0); MEAN CORPUSCULAR HGB CONC 30.8 g/dl (31.0-37.0); MONO # 0.3 (0.1-0.6); MONO % 11.6 % (1.0-6.0); PLATELET COUNT 82 10^3/uL (120.0-450.0); RBC 3.91 10^6/uL (3.5-6.1); RED CELL DISTRIBUTION WIDTH 15.7 % (11.5-14.5); WHITE BLOOD COUNT 2.4 10^3/uL (4.5-11.0)
--- NOTE | 2018-05-28 07:52 | PN ---
DATE: 05/27/2018 ONCOLOGY PROGRESS NOTE LOCATION: The patient is in room 376, bed 1. SUBJECTIVE: This is a 63-year-old -[place] female who is admitted to the hospital with new onset of altered mental status along with pain in the right upper extremity, radiating from the right axilla to the arm, forearm and to the hand with inability to make a fist with the right hand. Along with it, the patient noted to have progressive change in the mental status for which the patient is admitted to the hospital with background history of the patient having diabetes mellitus, coronary artery disease, status post stenting. Past medical history is significant for the fact that she was diagnosed with triple negative breast cancer, treated four and half years ago. After she had a right breast mastectomy with reconstructive surgery, the patient is treated with chemotherapy along with postoperative radiation. The patient was doing well to about a year ago. The patient appeared to have new onset of pain in the lower and mid back, and she was also having pain in the right axilla at that time. Workup revealed the patient has retroperitoneal masses which were biopsied. The biopsy came back consistent with non-Hodgkin lymphoma. The patient had changes in the lung at that time, which were thought to be . Her prior biopsies to check for recurrent breast cancer were negative. The biopsy of the retroperitoneal mass was consistent with high-grade non-Hodkgin lymphoma for which the patient was given six cycles of chemotherapy at [facility]. The last treatment had been completed in 11/2017. Subsequent to that, the patient went back for followup PET/CT scan for surveillance. New lung lesions were noted and they were biopsied. Biopsy came back consistent with recurrent breast carcinoma. The patient is referred back to us for further management. The patient's tumor tissue in the meantime was also sent to [facility], and the tissue was positive for microsatellite instability high and this allowed us to start the patient on drug called Keytruda, the first dose of which was given to the patient prior to current admission. Subjectively, the patient appears to be feeling better. She is more awake, oriented to time, place and person. No nausea. She tells me the pain in the right arm, right axilla, right forearm is definitely improved in the current dose of pain medicine and the pain is score of 0 to 10 is least to 5 at this time. The patient is able to ambulate with assistance; however, the physical therapy came to take her around with walking. The patient is able to walk with assistance to the bathroom, otherwise she uses a cane. The patient denies any history of nausea or vomiting. Denies any history of diarrhea this morning. The patient says she felt more comfortable and had something for breakfast as well. PHYSICAL EXAMINATION: GENERAL: The patient is awake, alert and oriented. VITAL SIGNS: Stable. Blood pressure is 143/92, heart rate is 79, respirations 20, and T-max is 98.4. HEENT: Head is normocephalic, atraumatic. Conjunctivae pale. Sclerae are anicteric. Pupils are equally reactive to light and accommodation. The patient has alopecia related to chemotherapy. NECK: Supple. There is no adenopathy. No jugular venous distention noted. LUNGS: Clear to percussion and auscultation. ABDOMEN: Examination of the abdomen reveals it to be soft and nontender. Bowel sounds are present. No rebound, rigidity or guarding is noted. CHEST: Examination of the chest wall reveals the patient to be status post mastectomy of the right side with right breast reconstruction. The patient has capsular contraction of the right breast prosthesis with some indurations along the lateral contraction. No definite masses are felt in the axillary or supraclavicular areas. The left breast was unremarkable. EXTREMITIES: Reveals no cyanosis, clubbing or edema. NEUROLOGIC: Neurologic examination reveals higher functions to be normal. No focal deficits are noted. Plantars are flexors. GENITOURINARY: Deferred. RECTAL: Deferred. LABORATORY DATA: Revealed a white count of 0.4, hemoglobin 8.7, hematocrit 27 and platelet count of 89,000. Sodium 138, potassium 4.2, chloride 105, CO2 of 35, BUN 50, creatinine 0.8, glucose 88, calcium 8.6. Albumin 3.4. Blood cultures revealed no growth. The patient is scheduled to have a bone scan and MRI of the cervical spine this afternoon. 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 Altered mental status is clinically improving. 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 The patient had an echocardiogram/Doppler done and was seen by Dr. Erich Slater. The patient has been started on Eliquis at this time 5 mg b.i.d. Plavix has been stopped and aspirin has been continued. We will continue current medications. We will get input from Radiation Oncology to give value for additional radiation to the right axilla. In the meantime, we will get input from Neurology as well to manage her right axillary pain. The patient may need to be started on Lyrica. to take a look of the bone scan and the MRI of her spine to see if we could correlate which area could be the causative factor for the patient's pain. In the meantime, we will continue to replace her potassium and continue with other medications as ordered. Labs for morning have been requested and will act appropriately according to the findings on the labs in the morning. I had a detailed discussion with the patient's family including the patient's sister and niece. I told them at this point in time the mental confusion hopefully will get better as the multifocal minor strokes will improve in the meantime, will have a better control overall. The patient is status post Keytruda, and hopefully with that treatment, we should see some objective responses from the tumor perspective. Time spent with the patient is greater than 80 minutes in correlating all the information, talking to the family and trying to speed up the scheduling for the MRI and bone scan today. Please make a note that this is a complex patient with multiple comorbid medical issues. Doris Griffith MD
[2018-05-28 07:57] LABS: ALB/GLOB RATIO 1.5 (1.1-1.8); ALBUMIN 3.2 g/dL (3.0-4.8); ALT/SGPT 35 U/L (7-56); AST/SGOT 42 U/L (14-36); BLOOD UREA NITROGEN 11 mg/dL (7-21); CALCIUM 8.7 mg/dL (8.4-10.5); GFR NON-AFRICAN AMERICAN > 60
[2018-05-28] MEDS: Insulin Lispro (humaLOG) LOW Coverage SC SCH ×4 (09:16→23:02)
[2018-05-28] MEDS: Sodium Chloride 0.9% 1,000 ML IV SCH (09:18)
[2018-05-28] MEDS: Potassium Chloride 10 mEq ER Tab PO SCH (09:20)
[2018-05-28] MEDS: Morphine 15 mg SR Tab PO SCH ×2 (09:22→23:03)
[2018-05-28] MEDS: Magnesium Oxide 400 mg Tab UD PO SCH ×2 (09:22→17:22)
[2018-05-28] MEDS: Metoprolol Succinate 25 mg XL Tab PO SCH (09:24)
--- NOTE | 2018-05-28 09:33 | CP.PCM.PN ---
Subjective - Date & Time of Evaluation Date of Evaluation: 05/28/18 Time of Evaluation: 09:30 - Subjective Subjective: Ms Merida has metastatic breast cancer. She has been complaining of right shoulder and arm pain with decreased strength. The etiology of her brachial plexus-like symptoms is not clear to to us. The MRI of the C spine and shoulder did not show obvious pathology for her brachial plexus symptoms. She does have lateral capsular contracture of the right chest and implant which could possible cause of her pain, however it's not clear that this would cause brachial plexus symptoms. We will touch base further with Dr Griffith about her case. Objective - Vital Signs/Intake and Output Vital Signs (last 24 hours): Temp Pulse Resp BP Pulse Ox 98.1 F 76 20 143/89 96 05/28/18 06:00 05/28/18 09:24 05/28/18 06:00 05/28/18 09:24 05/28/18 06:00 Intake and Output: 05/28/18 05/28/18 06:59 18:59 Intake Total 920 Balance 920 - Medications Medications: Current Medications Apixaban (Eliquis) 5 mg PO BID [facility]; Protocol Last Admin: 05/28/18 09:16 Dose: 5 mg Aspirin (Ecotrin) 81 mg PO DAILY [facility] Last Admin: 05/28/18 09:16 Dose: 81 mg Atorvastatin Calcium (Lipitor) 20 mg PO DIN [facility] Last Admin: 05/27/18 18:50 Dose: 20 mg Clonidine HCl (Catapres) 0.1 mg PO Q4H PRN PRN Reason: hypertension Cyproheptadine HCl (Periactin) 2 mg PO DAILY [facility] Last Admin: 05/28/18 09:23 Dose: 2 mg Sodium Chloride (Sodium Chloride 0.9%) 1,000 mls @ 75 mls/hr IV .[id number] [facility] Last Admin: 05/28/18 09:18 Dose: 75 mls/hr Insulin Human Lispro (Humalog Low) 0 units SC [facility]; Protocol Last Admin: 05/28/18 09:16 Dose: Not Given Losartan Potassium (Cozaar) 50 mg PO DAILY [facility] Last Admin: 05/28/18 09:15 Dose: 50 mg Magnesium Oxide (Mag-Ox) 400 mg PO BID [facility] Last Admin: 05/28/18 09:22 Dose: 400 mg Metoprolol Succinate (Toprol Xl) 25 mg PO BRK [facility] Last Admin: 05/28/18 09:24 Dose: 25 mg Morphine Sulfate (Morphine Extended Release Tab) 15 mg PO Q12 KLAUDIA Last Admin: 05/28/18 09:22 Dose: 15 mg Morphine Sulfate (Morphine Immediate Release Tab) 15 mg PO Q4 PRN PRN Reason: Pain, severe (8-10) Potassium Chloride (Klor-Con 10) 40 meq PO BRK [facility] Last Admin: 05/28/18 09:20 Dose: 40 meq Pregabalin (Lyrica) 75 mg PO BID [facility] Last Admin: 05/28/18 09:21 Dose: 75 mg Quetiapine Fumarate (Seroquel) 25 mg PO HS [facility]; Protocol Last Admin: 05/27/18 21:50 Dose: 25 mg - Labs Labs: 05/28/18 07:15 05/28/18 07:15 PT 12.1 SECONDS (9.4-12.5) 05/24/18 20:20 INR 1.06 05/24/18 20:20 APTT 30.5 Seconds (25.1-36.5) 05/26/18 06:35
--- NOTE | 2018-05-28 11:04 | CP.PCM.PN ---
Subjective - Date & Time of Evaluation Date of Evaluation: 05/28/18 Time of Evaluation: 08:30 - Subjective Subjective: Tyler Recio-Internal Medicine Resident- Hematology Oncology Progress Note Subjective: Patient seen and examined at bedside. No acute events overnight. Patient states right shoulder pain has resolved. Offers no new complaints at this time. Denies fever, chills, chest pain, nausea/vomiting. 12 Point ROS negative except as indicated in HPI Physical Examination: - Constitutional Appears: Non-toxic, No Acute Distress - Head Exam Head Exam: ATRAUMATIC, NORMOCEPHALIC - Eye Exam Eye Exam: EOMI, Normal appearance - ENT Exam ENT Exam: Mucous Membranes Moist - Neck Exam Neck exam: Positive for: Full Rom, Normal Inspection. Negative for: Lymphadenopathy, Meningismus, Tenderness, Thyromegaly - Respiratory Exam Respiratory Exam: CTA bilaterally absent: Accessory Muscle Use, Decreased Breath Sounds, Rales, Rhonchi, Wheezes, Respiratory Distress - Cardiovascular Exam Cardiovascular Exam: REGULAR RHYTHM, RRR, +S1, +S2. absent: Bradycardia, Tachycardia - GI/Abdominal Exam GI & Abdominal Exam: soft, nontender to touch, no guarding, no rebound tenderness - Extremities Exam Extremities exam: negative for clubbing, cyanosis, right arm in shoulder sling - Neurological Exam Neurological exam: Awake, Alert, Oriented x3 - Psychiatric Exam Psychiatric exam: Normal Affect, Normal Mood - Skin Skin Exam: Dry, Intact, Warm Assessment and Plan: Patient is a 63 year old female with past medical history of triple negative breast cancer s/p mastectomy and chemoradiation, CAD, HPL, HTN, DM, and sickle cell trait who was admitted for evaluation and treatment of intractable pain and intermittent confusion. Stage IV Triple Negative Breast Cancer; Non Hodgkins Lymphoma - s/p chemo with anthracycline, cytoxan, and taxane - pain control- morphine 12mg PO q12 scheduled - pain control- morphine 15 mg PO q4h prn pain Shoulder Pain - Dr. Kovacs consulted- appreciate recommendations- potential radiation to affected area- waiting definitive plan - MRI Right shoulder- Partial articular surface tear of the supraspinatus tendon at the distal insertion - Cervical spine with and without contrast- Mild disc bulge at C5-6 without stenosis. No enhancing abnormalities. No evidence of metastatic disease - Right shoulder sling ordered- help decrease distention of brachial plexus - nuclear bone scan completed- official read pending Altered Mental Status, Intermittent Hallucinations - potentially secondary to TIAs - Neuro consulted- appreciate recommendations Anemia, Sickle Cell Trait - Hgb 8.6 from 8.7 - monitor closely via CBC in AM - peripheral smear ordered and pending - type and screen 2 units pRBCs Thrombocytopenia - Platelet count 82 from 89 - manual platelet count ordered and pending HX of CAD - Dr. Griffith spoke with Dr. Slater- continue full dose eliquis - continue metoprolol 25mg PO - Echocardiogram- LVEF 50.5% Hx of HPL - continue with lipitor 20mg Hx of HTN - continue losartan 50mg PO daily - continue clonidine 0.1 mg PO q4h prn Hx of Diabetes Mellitus - endocrinology (Dr. Velez) consulted- appreciate recommendations - continue lispro ISS Decreased Appetite - delivery person consulted appreciate recommendations- Glucerna shake 3/day- vanilla - calorie count for 2 days - periactin 2mg PO daily Palliative care consulted for advanced directive. She wants her son Armin to be her health care surrogate. Not ready to complete advanced directive at this time. Please make note this is a complex patient with multiple comorbid medical issues. We will continue to monitor the patient patient aggressively. Dr. Griffith had extensive conversation with family regarding patients management. Time spend with the patient is greater than 45 minutes. Patient case discussed with and plan approved by attending physician, Dr. Griffith. Objective - Vital Signs/Intake and Output Vital Signs (last 24 hours): Temp Pulse Resp BP Pulse Ox 98.1 F 76 20 143/89 96 05/28/18 06:00 05/28/18 09:24 05/28/18 06:00 05/28/18 09:24 05/28/18 06:00 Intake and Output: 05/28/18 05/28/18 06:59 18:59 Intake Total 920 Balance 920 - Medications Medications: Current Medications Apixaban (Eliquis) 5 mg PO BID [facility]; Protocol Last Admin: 05/28/18 09:16 Dose: 5 mg Aspirin (Ecotrin) 81 mg PO DAILY [facility] Last Admin: 05/28/18 09:16 Dose: 81 mg Atorvastatin Calcium (Lipitor) 20 mg PO DIN [facility] Last Admin: 05/27/18 18:50 Dose: 20 mg Clonidine HCl (Catapres) 0.1 mg PO Q4H PRN PRN Reason: hypertension Cyproheptadine HCl (Periactin) 2 mg PO DAILY [facility] Last Admin: 05/28/18 09:23 Dose: 2 mg Sodium Chloride (Sodium Chloride 0.9%) 1,000 mls @ 75 mls/hr IV .[id number] [facility] Last Admin: 05/28/18 09:18 Dose: 75 mls/hr Insulin Human Lispro (Humalog Low) 0 units SC [facility]; Protocol Last Admin: 05/28/18 09:16 Dose: Not Given Losartan Potassium (Cozaar) 50 mg PO DAILY [facility] Last Admin: 05/28/18 09:15 Dose: 50 mg Magnesium Oxide (Mag-Ox) 400 mg PO BID [facility] Last Admin: 05/28/18 09:22 Dose: 400 mg Metoprolol Succinate (Toprol Xl) 25 mg PO BRK [facility] Last Admin: 05/28/18 09:24 Dose: 25 mg Morphine Sulfate (Morphine Extended Release Tab) 15 mg PO Q12 [facility] Last Admin: 05/28/18 09:22 Dose: 15 mg Morphine Sulfate (Morphine Immediate Release Tab) 15 mg PO Q4 PRN PRN Reason: Pain, severe (8-10) Potassium Chloride (Klor-Con 10) 40 meq PO BRK [facility] Last Admin: 05/28/18 09:20 Dose: 40 meq Pregabalin (Lyrica) 75 mg PO BID [facility] Last Admin: 05/28/18 09:21 Dose: 75 mg Quetiapine Fumarate (Seroquel) 25 mg PO HS [facility]; Protocol Last Admin: 05/27/18 21:50 Dose: 25 mg - Labs Labs: 05/28/18 07:15 05/28/18 07:15 PT 12.1 SECONDS (9.4-12.5) 05/24/18 20:20 INR 1.06 05/24/18 20:20 APTT 30.5 Seconds (25.1-36.5) 05/26/18 06:35
--- NOTE | 2018-05-28 11:11 | NM ---
Date of service: In in 05/27/2018 PROCEDURE: Whole Body Bone Scan HISTORY: assess extent of bone metastases COMPARISON: None available. TECHNIQUE: Following administration of 15.4 miCu of Tc MDP multiplanar whole body images were obtained. FINDINGS: Evidence for bony metastatic disease: None. Degenerative uptake: None. Physiologic uptake: Normal physiologic activity in the kidneys. Other findings: None. IMPRESSION: No evidence of bony metastatic disease.
[2018-05-28 11:21] LABS: PLATELET COUNT MANUAL 92 K/mm3 (120-450)
--- NOTE | 2018-05-28 15:08 | PN ---
DATE: 05/28/2018 SUBJECTIVE: The patient is seen lying in bed. The patient is awake. She is comfortable. She denies any pain. She denies any shortness of breath. She denies any headache. PHYSICAL EXAMINATION: GENERAL: Middle-aged lady sitting in bed. VITAL SIGNS: Blood pressure 143/89, heart rate 76, respiratory rate 20, and temperature 98.1. HEENT: Normocephalic, atraumatic, positive pallor. NECK: Supple, no JVD. LUNGS: Bilateral equal entry, bilateral equal expansion. CARDIAC: S1, S2, regular rate and rhythm, no murmur, no rub. ABDOMEN: Obese, distended, soft, nontender, bowel sounds present. EXTREMITIES: No lower extremity edema. LABORATORY DATA: WBC 2.4, hemoglobin 8.6, hematocrit 28 and platelets 82. Sodium 138, potassium 4.3, chloride 105, CO2 of 29, BUN 11, creatinine 0.8, glucose 123, calcium 8.7 and albumin 3.2. CURRENT MEDICATIONS: 1. Losartan 50. 2. Catapres 0.1 every 4 hours p.r.n. 3. Toprol XL 25. ASSESSMENT: 1. Hypertension, suboptimally controlled. 2. Stage IV breast cancer. 3. Intractable pain. 4. Non insulin dependent diabetes mellitus. PLAN: 1. Increase losartan to 100 mg daily. 2. Pain management. 3. Fingerstick monitoring and insulin coverage. Smita Reed MD
--- NOTE | 2018-05-28 16:04 | PN ---
DATE: 05/28/2018 ENDOCRINOLOGY FOLLOWUP NOTE LOCATION: In room 376. SUBJECTIVE: This is a 63-year-old female with metastatic breast carcinoma, presenting here with intractable upper abdominal pain and progressive shortness of breath, and is now being followed closely for metabolic management. Her oral intake remains variable with suboptimal meal portions and so the insulin regimen was actually discontinued yesterday as noted. Her glycemic levels are fluctuating overnight with glucose values ranging from 131 to 219 today as noted. Her bedtime glucose was 208. LABORATORY DATA: Her chemistry showed a BUN of 11, sodium 138, potassium 4.3, chloride 105, CO2 of 29, glucose 123, and creatinine 0.8. ASSESSMENT AND PLAN: So at this time, we will restart her oral hypoglycemic therapy and since she was on Prandin at home, we will start back the Prandin at 1 mg p.o. three times a day before meals as ordered. We will obtain serial chemistries and supplement accordingly as needed. We will also titrate her dose regimen accordingly. Moreover, if fasting hyperglycemic levels persist, then we will consider the addition of basal insulin and/or a basal and bolus insulin regimen as indicated. We will follow. Shelly Velez MD
--- NOTE | 2018-05-28 17:29 | PN ---
DATE: 05/28/2018 CHIEF COMPLAINT: Followup for change in mental status. SUBJECTIVE: The patient is seen and examined at bedside. The patient is lying in her bed, following commands, more attentive, moving all extremities, less agitated. Her right shoulder and arm pain is likely secondary to neuralgiform issue with brachial plexus scenario. MRI of the C-spine and shoulder did not show any obvious pathology for brachial plexus syndrome, likely from neuralgiform nature, for which I placed her on Lyrica with which she is feeling much better for her pain. She is on Eliquis since she has had embolic infarcts, underlying cardiomyopathy and hypercoagulable state. REVIEW OF SYSTEMS: A 14-point review of systems is as per HPI. PAST MEDICAL HISTORY: History of right breast cancer in 2013, status post mastectomy, chemotherapy, radiation in 2013 and 2015 with metastasis to lungs and nodes. FAMILY HISTORY: Noncontributory. MEDICATIONS: Reviewed by nurse's reconciliation sheet. ALLERGIES: NO KNOWN DRUG ALLERGIES. SOCIAL HISTORY: No illicit drug use, smoking, or EtOH abuse. LABORATORY DATA: Sodium is 138, potassium 4.3, chloride 105, carbon dioxide 29, BUN 11, creatinine 0.8, and random glucose 123. PHYSICAL EXAMINATION: VITAL SIGNS: Temperature 98.1, pulse rate of 76, blood pressure of 143/89, respiratory rate 20, oxygen saturation 96% on room air. GENERAL: The patient is sitting up in bed, in no acute distress. HEENT: Atraumatic, normocephalic. PERRLA. Extraocular muscles are intact. NECK: Supple. No JVD. No adenopathy noted. LUNGS: Clear to auscultation. No adventitious sounds. HEART: S1 and S2. Normal rate and rhythm. No murmurs, rubs or gallops. ABDOMEN: Soft, nontender and nondistended. Bowel sounds are present. EXTREMITIES: No clubbing. No cyanosis. Peripheral pulses 2+ felt bilaterally. NEUROLOGIC: The patient is alert and oriented to person and place. The recall after 5 minutes is 0/3. Poor attention span and thought process. Cranial nerves II through XII are intact. Motor: Moves all extremities equally except for right upper extremity weakness due to right shoulder pain. Toes are upgoing bilaterally. Sensory: Decreased light touch and pinprick up to the calves bilaterally. Decreased vibration of the toes. DTRs are 2+ throughout and 1 at both knees and ankles. Coordination and gait, deferred for now. ASSESSMENT AND PLAN: This is a 63-year-old woman with history of right breast cancer, status post mastectomy, chemotherapy, radiation therapy in 2013 and 2014, metastasis to the lungs and nodes; history of coronary artery disease and dyslipidemia; history of type 2 diabetes mellitus; diabetic peripheral neuropathy; right shoulder pain, right chest wall pain, and right forearm pain, which are neuralgiform in nature. MRI of the C-spine and bone scan are unremarkable as well as MRI of the shoulder. Transient altered mental status and confusion secondary to embolic infarcts in multiple vascular territories. She is now on Eliquis 5 mg p.o. b.i.d. and aspirin 81 mg p.o. daily for stroke prevention, which she will continue with and continue with Seroquel 25 mg p.o. at bedtime for agitation and behavior and continue Lyrica 75 mg p.o. b.i.d. for neuropathic pain. We will follow up with an electromyography as an outpatient in regards to her brachial plexus issue. Continue current present oncology and hematology management. Bari Buitrago MD
--- NOTE | 2018-05-28 18:19 | PN ---
DATE: 05/28/2018 SUBJECTIVE: The patient is sitting in bed, feeling fatigued, but no chest pain and no shortness of breath. PHYSICAL EXAMINATION: VITAL SIGNS: Blood pressure 143/89, heart rates in the 70s. NECK: Negative JVD. LUNGS: Without rales. HEART: S1 and S2. EXTREMITIES: Without edema. LABORATORY DATA: Glucose is 123 . BUN and creatinine are unremarkable. Hemoglobin is 8.6 compared to 8.7 yesterday and 9.2 the day before. IMPRESSION: 1. Anemia. 2. History of breast carcinoma. 3. Cerebrovascular accident. 4. Dilated cardiomyopathy. 5. Coronary artery disease. PLAN: Given these findings, we will continue the patient's Plavix and Eliquis. We will need to follow her hemoglobin carefully over the next several days. Erich Slater MD
[2018-05-29] MEDS: Sodium Chloride 0.9% 1,000 ML IV SCH (03:59)
[2018-05-29 07:34] LABS: WHITE BLOOD COUNT 2.5 10^3/uL (4.5-11.0)
[2018-05-29 07:35] LABS: BASO # 0.08 K/mm3 (0.0-2.0); BASO % 3.2 % (0.0-3.0); EOS # 0.1 (0.0-0.7); EOS % 3.6 % (1.5-5.0); GRAN # 1.32 (1.4-6.5); GRAN % 53.5 % (50.0-68.0); HEMOGLOBIN 7.9 g/dL (12.0-16.0); LYMPH # 0.6 (1.2-3.4); LYMPH % 25.5 % (22.0-35.0); MEAN CELL VOLUME 71.3 fl (80.0-105.0); MEAN CORPUSCULAR HEMOGLOBIN 22.4 pg (25.0-35.0); MEAN CORPUSCULAR HGB CONC 31.5 g/dl (31.0-37.0); MONO # 0.4 (0.1-0.6); MONO % 14.2 % (1.0-6.0); PLATELET COUNT 107 10^3/uL (120.0-450.0); RBC 3.52 10^6/uL (3.5-6.1); RED CELL DISTRIBUTION WIDTH 15.8 % (11.5-14.5)
[2018-05-29] MEDS: Insulin Lispro (humaLOG) LOW Coverage SC SCH ×4 (08:32→22:42)
[2018-05-29 08:34] LABS: BLOOD UREA NITROGEN 13 mg/dL (7-21); CALCIUM 8.3 mg/dL (8.4-10.5); GFR NON-AFRICAN AMERICAN > 60
[2018-05-29] MEDS: Potassium Chloride 10 mEq ER Tab PO SCH (08:45)
[2018-05-29] MEDS: Morphine 15 mg SR Tab PO SCH ×2 (09:49→21:24)
[2018-05-29] MEDS: Magnesium Oxide 400 mg Tab UD PO SCH ×2 (09:49→17:32)
[2018-05-29] MEDS: Metoprolol Succinate 25 mg XL Tab PO SCH (09:50)
--- NOTE | 2018-05-29 15:57 | PN ---
DATE: 05/29/2018 ENDO FOLLOWUP NOTE LOCATION: Room 376. SUBJECTIVE: This is a 63-year-old female with metastatic breast carcinoma and extremely variable oral intake with suboptimal meal portions and is now being followed closely for metabolic management. She was taken off insulin therapy, both basal and bolus, because of supervening hypoglycemic episodes from the variable oral intake as given. LABORATORY DATA: Her latest chemistries showed a BUN of 13, sodium 136, potassium 4.2, chloride 104, CO2 of 29, glucose 86, and creatinine 0.7. Her glucose levels are fluctuating, but improved and have ranged from 113 to 234 mg/dL. ASSESSMENT AND PLAN: So, at this time, we actually discontinued her basal and bolus insulin regimen to obviate further symptomatic bouts of hypoglycemia as noted thereof. We will start her on a low-dose oral hypoglycemic therapy with Prandin given as 2 mg by mouth three times a day before meals as ordered. We will obtain serial chemistries and supplement accordingly as needed. We will follow. Shelly Velez MD
--- NOTE | 2018-05-29 18:08 | PN ---
DATE: 05/29/2018 SUBJECTIVE: The patient is seen sitting in bed. She is awake, she is alert. She is comfortable. She reports that her pain is gone. She reports that she was a little dizzy when she sat down. PHYSICAL EXAMINATION: GENERAL: Elderly lady sitting in bed. VITAL SIGNS: Blood pressure 125/79, heart rate 79, respiratory rate 18 and temperature 97.9. HEENT: Normocephalic, atraumatic, positive pallor. NECK: Supple, no JVD. LUNGS: Bilateral equal air entry, bilateral equal expansion. CARDIAC: S1 and S2, regular rate and rhythm, no murmur, no rub. ABDOMEN: Distended, soft, nontender, bowel sounds present. EXTREMITIES: 1+ pitting edema. LABORATORY DATA: WBC 2.5, hemoglobin 7.9, hematocrit 25, platelets 107. Sodium 136, potassium 4.2, chloride 104, CO2 of 29, BUN 13, creatinine 0.7, glucose 86, calcium 8.3. MEDICATIONS: Losartan 100, dose increased yesterday. IMPRESSION: 1. Hypertension, well controlled now. 2. Stage IV breast cancer with lung metastases. 3. Non-insulin dependent diabetes mellitus. 4. Intractable pain. 5. Pancytopenia. PLAN: 1. Continue losartan 100 mg. 2. Pain management. 3. Treatment of breast cancer as per Oncology team. Smita Reed MD
[2018-05-30 06:57] LABS: EOS # 0.1 (0.0-0.7); EOS % 4.2 % (1.5-5.0); GRAN # 1.23 (1.4-6.5); GRAN % 52.2 % (50.0-68.0); HEMOGLOBIN 7.9 g/dL (12.0-16.0); LYMPH # 0.7 (1.2-3.4); LYMPH % 27.5 % (22.0-35.0); MEAN CELL VOLUME 70.8 fl (80.0-105.0); MEAN CORPUSCULAR HEMOGLOBIN 21.9 pg (25.0-35.0); MONO # 0.4 (0.1-0.6); MONO % 16.1 % (1.0-6.0); PLATELET COUNT 82 10^3/uL (120.0-450.0); RED CELL DISTRIBUTION WIDTH 15.7 % (11.5-14.5); WHITE BLOOD COUNT 2.4 10^3/uL (4.5-11.0)
[2018-05-30 07:52] LABS: BLOOD UREA NITROGEN 13 mg/dL (7-21); CALCIUM 8.3 mg/dL (8.4-10.5); GFR NON-AFRICAN AMERICAN > 60
[2018-05-30] MEDS: Insulin Lispro (humaLOG) LOW Coverage SC SCH ×4 (08:18→21:37)
[2018-05-30] MEDS: Potassium Chloride 10 mEq ER Tab PO SCH (09:00)
[2018-05-30] MEDS: Magnesium Oxide 400 mg Tab UD PO SCH ×2 (09:12→17:14)
[2018-05-30] MEDS: Morphine 15 mg SR Tab PO SCH ×2 (09:13→21:36)
[2018-05-30] MEDS: Sodium Chloride 0.9% 1,000 ML IV SCH ×2 (09:15→21:36)
[2018-05-30] MEDS: Metoprolol Succinate 25 mg XL Tab PO SCH (09:15)
[2018-05-30 10:38] LABS: BASO # 0.01 K/mm3 (0.0-2.0); BASO % 0.4 % (0.0-3.0); EOS # 0.1 (0.0-0.7); EOS % 3.3 % (1.5-5.0); GRAN # 1.57 (1.4-6.5); GRAN % 57.2 % (50.0-68.0); HEMOGLOBIN 8.5 g/dL (12.0-16.0); LYMPH # 0.8 (1.2-3.4); LYMPH % 29.6 % (22.0-35.0); MEAN CELL VOLUME 71.2 fl (80.0-105.0); MEAN CORPUSCULAR HEMOGLOBIN 22.1 pg (25.0-35.0); MONO # 0.3 (0.1-0.6); MONO % 9.5 % (1.0-6.0); PLATELET COUNT 88 10^3/uL (120.0-450.0); RBC 3.85 10^6/uL (3.5-6.1); RED CELL DISTRIBUTION WIDTH 15.8 % (11.5-14.5); WHITE BLOOD COUNT 2.7 10^3/uL (4.5-11.0)
[2018-05-30 11:10] LABS: ALB/GLOB RATIO 1.2 (1.1-1.8); ALBUMIN 2.1 g/dL (3.0-4.8); ALT/SGPT 31 U/L (7-56); AST/SGOT 23 U/L (14-36); BLOOD UREA NITROGEN 10 mg/dL (7-21); CALCIUM 6.3 mg/dL (8.4-10.5); GFR NON-AFRICAN AMERICAN > 60
--- NOTE | 2018-05-30 16:17 | CP.PCM.PN ---
Subjective - Date & Time of Evaluation Date of Evaluation: 05/29/18 Time of Evaluation: 18:00 - Subjective Subjective: Patient feels pain is controlled; states she had issues with night staff and did not feel well taken care of. Continues to work with PT and unsteady on feet ROS: 12 ROS negative otherwise Objective - Vital Signs/Intake and Output Vital Signs (last 24 hours): Temp Pulse Resp BP Pulse Ox 98 F 64 20 119/78 96 05/30/18 08:06 05/30/18 09:15 05/30/18 08:06 05/30/18 09:15 05/30/18 08:06 Intake and Output: 05/30/18 05/30/18 06:59 18:59 Intake Total 5100 Output Total 0 Balance 5100 - Medications Medications: Current Medications Apixaban (Eliquis) 5 mg PO BID [facility]; Protocol Last Admin: 05/30/18 09:11 Dose: 5 mg Aspirin (Ecotrin) 81 mg PO DAILY [facility] Last Admin: 05/30/18 09:10 Dose: 81 mg Atorvastatin Calcium (Lipitor) 20 mg PO DIN [facility] Last Admin: 05/29/18 17:31 Dose: 20 mg Clonidine HCl (Catapres) 0.1 mg PO Q4H PRN PRN Reason: hypertension Cyproheptadine HCl (Periactin) 2 mg PO DAILY [facility] Last Admin: 05/30/18 09:13 Dose: 2 mg Sodium Chloride (Sodium Chloride 0.9%) 1,000 mls @ 75 mls/hr IV .[id number] [facility] Last Admin: 05/30/18 09:15 Dose: 75 mls/hr Insulin Human Lispro (Humalog Low) 0 units SC ACHS [facility]; Protocol Last Admin: 05/30/18 12:27 Dose: Not Given Losartan Potassium (Cozaar) 100 mg PO DAILY [facility] Last Admin: 05/30/18 09:10 Dose: 100 mg Magnesium Oxide (Mag-Ox) 400 mg PO BID [facility] Last Admin: 05/30/18 09:12 Dose: 400 mg Metoprolol Succinate (Toprol Xl) 25 mg PO BRK [facility] Last Admin: 05/30/18 09:15 Dose: 25 mg Morphine Sulfate (Morphine Extended Release Tab) 15 mg PO Q12 [facility] Last Admin: 05/30/18 09:13 Dose: 15 mg Potassium Chloride (Klor-Con 10) 40 meq PO BRK [facility] Last Admin: 05/30/18 09:00 Dose: 40 meq Pregabalin (Lyrica) 75 mg PO BID [facility] Last Admin: 05/30/18 09:12 Dose: 75 mg Quetiapine Fumarate (Seroquel) 25 mg PO HS [facility]; Protocol Last Admin: 05/29/18 21:25 Dose: 25 mg Repaglinide (Prandin) 2 mg PO AC [facility] Last Admin: 05/30/18 12:07 Dose: 2 mg - Labs Labs: 05/30/18 10:10 05/30/18 10:10 PT 12.1 SECONDS (9.4-12.5) 05/24/18 20:20 INR 1.06 05/24/18 20:20 APTT 30.5 Seconds (25.1-36.5) 05/26/18 06:35 - Constitutional Appears: Non-toxic, No Acute Distress - Respiratory Exam Respiratory Exam: Clear to Ausculation Bilateral, NORMAL BREATHING PATTERN - Cardiovascular Exam Cardiovascular Exam: REGULAR RHYTHM, +S1, +S2. absent: Murmur - GI/Abdominal Exam GI & Abdominal Exam: Soft, Normal Bowel Sounds. absent: Tenderness - Extremities Exam Extremities Exam: Full ROM, Normal Capillary Refill, Normal Inspection. absent: Joint Swelling, Pedal Edema Assessment and Plan - Assessment and Plan (Free Text) Assessment: Ms. Merida leticia 63 y/o AA female with pmhx significant HTN; PLD; HTN; DM; sickle cell trait; and now recurrent metastatic triple negative breast cancer previously s/p mastectomy; AC-T; adjuvant XRT now with MSI high disease and s/p C1 of pembro who presents to the hospital with refractory left shoulder pain and intermittient confusion. At present patient's pain has resolved with ER BID morphine. Unclear eitology of confusion: polypharmacy; stroke; delerium in setting of pain? Confusion better. Continues to be unsteady on feet per PT and would likely benefit from short acute rehabe stay and will be evaulated on Thursday. Ander Griffith MD Oncology
--- NOTE | 2018-05-30 16:18 | CP.PCM.PN ---
Subjective - Date & Time of Evaluation Date of Evaluation: 05/30/18 Time of Evaluation: 18:00 - Subjective Subjective: No active complaints this AM; had difficulty sleeping over night but no issues with overnight staff ROS: 12 ROS otherwise negative Objective - Vital Signs/Intake and Output Vital Signs (last 24 hours): Temp Pulse Resp BP Pulse Ox 98 F 64 20 119/78 96 05/30/18 08:06 05/30/18 09:15 05/30/18 08:06 05/30/18 09:15 05/30/18 08:06 Intake and Output: 05/30/18 05/30/18 06:59 18:59 Intake Total 5100 Output Total 0 Balance 5100 - Medications Medications: Current Medications Apixaban (Eliquis) 5 mg PO BID [facility]; Protocol Last Admin: 05/30/18 09:11 Dose: 5 mg Aspirin (Ecotrin) 81 mg PO DAILY [facility] Last Admin: 05/30/18 09:10 Dose: 81 mg Atorvastatin Calcium (Lipitor) 20 mg PO DIN [facility] Last Admin: 05/29/18 17:31 Dose: 20 mg Clonidine HCl (Catapres) 0.1 mg PO Q4H PRN PRN Reason: hypertension Cyproheptadine HCl (Periactin) 2 mg PO DAILY [facility] Last Admin: 05/30/18 09:13 Dose: 2 mg Sodium Chloride (Sodium Chloride 0.9%) 1,000 mls @ 75 mls/hr IV .[id number] [facility] Last Admin: 05/30/18 09:15 Dose: 75 mls/hr Insulin Human Lispro (Humalog Low) 0 units SC ACHS [facility]; Protocol Last Admin: 05/30/18 12:27 Dose: Not Given Losartan Potassium (Cozaar) 100 mg PO DAILY [facility] Last Admin: 05/30/18 09:10 Dose: 100 mg Magnesium Oxide (Mag-Ox) 400 mg PO BID [facility] Last Admin: 05/30/18 09:12 Dose: 400 mg Metoprolol Succinate (Toprol Xl) 25 mg PO BRK [facility] Last Admin: 05/30/18 09:15 Dose: 25 mg Morphine Sulfate (Morphine Extended Release Tab) 15 mg PO Q12 [facility] Last Admin: 05/30/18 09:13 Dose: 15 mg Potassium Chloride (Klor-Con 10) 40 meq PO BRK [facility] Last Admin: 05/30/18 09:00 Dose: 40 meq Pregabalin (Lyrica) 75 mg PO BID [facility] Last Admin: 05/30/18 09:12 Dose: 75 mg Quetiapine Fumarate (Seroquel) 25 mg PO HS [facility]; Protocol Last Admin: 05/29/18 21:25 Dose: 25 mg Repaglinide (Prandin) 2 mg PO AC [facility] Last Admin: 05/30/18 12:07 Dose: 2 mg - Labs Labs: 05/30/18 10:10 05/30/18 10:10 PT 12.1 SECONDS (9.4-12.5) 05/24/18 20:20 INR 1.06 05/24/18 20:20 APTT 30.5 Seconds (25.1-36.5) 05/26/18 06:35 - Constitutional Appears: Non-toxic - Respiratory Exam Respiratory Exam: Clear to Ausculation Bilateral, NORMAL BREATHING PATTERN - Cardiovascular Exam Cardiovascular Exam: REGULAR RHYTHM, +S1, +S2. absent: Murmur - GI/Abdominal Exam GI & Abdominal Exam: Soft, Normal Bowel Sounds. absent: Tenderness - Extremities Exam Extremities Exam: Full ROM, Normal Capillary Refill, Normal Inspection. absent: Joint Swelling, Pedal Edema Assessment and Plan - Assessment and Plan (Free Text) Assessment: Ms. Merida leticia 63 y/o AA female with pmhx significant HTN; PLD; HTN; DM; sickle cell trait; and now recurrent metastatic triple negative breast cancer p reviously s/p mastectomy; AC-T; adjuvant XRT now with MSI high disease and s/p C1 of pembro who presents to the hospital with refractory left shoulder pain and intermittient confusion. At present patient's pain has resolved with ER BID morphine. Unclear eitology of confusion: polypharmacy; stroke; delerium in setting of pain? Confusion better. Continues to be unsteady on feet per PT and would likely benefit from short acute rehabe stay and will be evaulated on Thursday. Ander Griffith MD Oncology
--- NOTE | 2018-05-30 16:24 | PN ---
DATE: 05/30/2018 ENDO FOLLOWUP NOTE Room number 376. SUBJECTIVE: This is a 63-year-old female with metastatic breast carcinoma, presenting here with intractable upper abdominal pain and diffuse polymyalgia and generalized body weakness and is now being followed closely for metabolic management. Her glycemic levels are also fluctuating, but improved as her oral intake remains variable with suboptimal meal portions as noted. Her latest glucose values have ranged from 73 to 116 mg/dL. Her bedtime glucose was 219 mg/dL. Her latest chemistry showed a BUN of 10, sodium 142, potassium 3.2, chloride 116, CO2 of 21, glucose 91 and creatinine 0.6. Her albumin levels are very low at 2.1 with a calcium level of 6.3 and a corrected calcium of 8.2 mg/dl. So at this time, we will continue the oral hypoglycemic therapy as given with Prandin at 2 mg p.o. three times a day before meals as ordered. We will obtain serial chemistries and supplement accordingly needed. We will follow with you. Shelly Velez MD
[2018-05-31 06:49] LABS: GRAN # 1.22 (1.4-6.5); GRAN % 61.4 % (50.0-68.0); HEMOGLOBIN 7.8 g/dL (12.0-16.0); LYMPH # 0.6 (1.2-3.4); LYMPH % 28.6 % (22.0-35.0); MEAN CELL VOLUME 71.7 fl (80.0-105.0); MEAN CORPUSCULAR HEMOGLOBIN 22.3 pg (25.0-35.0); MEAN CORPUSCULAR HGB CONC 31.1 g/dl (31.0-37.0); MONO # 0.2 (0.1-0.6); PLATELET COUNT 78 10^3/uL (120.0-450.0)
[2018-05-31] MEDS ORDERED: Dextrose 50% SYRINGE Inj (50 ml) IVP ONE ×2 (07:19→17:44)
[2018-05-31] MEDS ORDERED: Dextrose 50% SYRINGE Inj (50 ml) ONE (07:20)
[2018-05-31] MEDS: Insulin Lispro (humaLOG) LOW Coverage SC SCH ×4 (08:06→22:47)
[2018-05-31 08:23] VITALS: RESP 20
[2018-05-31] MEDS: Sodium Chloride 0.9% 1,000 ML IV SCH ×2 (08:35→18:44)
[2018-05-31] MEDS: Potassium Chloride 10 mEq ER Tab PO SCH (08:36)
[2018-05-31] MEDS: Metoprolol Succinate 25 mg XL Tab PO SCH (08:37)
[2018-05-31 09:02] LABS: BASO # 0.01 K/mm3 (0.0-2.0); BASO % 0.4 % (0.0-3.0); EOS % 1.4 % (1.5-5.0); GRAN % 56.1 % (50.0-68.0); LYMPH # 0.9 (1.2-3.4); LYMPH % 31.9 % (22.0-35.0); MEAN CELL VOLUME 71.6 fl (80.0-105.0); MEAN CORPUSCULAR HGB CONC 30.7 g/dl (31.0-37.0); MONO # 0.3 (0.1-0.6); MONO % 10.2 % (1.0-6.0); PLATELET COUNT 105 10^3/uL (120.0-450.0); RBC 4.09 10^6/uL (3.5-6.1); WHITE BLOOD COUNT 2.9 10^3/uL (4.5-11.0)
[2018-05-31] MEDS: Morphine 15 mg SR Tab PO SCH ×3 (09:15→21:23)
[2018-05-31] MEDS: Magnesium Oxide 400 mg Tab UD PO SCH ×2 (09:15→17:16)
[2018-05-31 09:20] LABS: ALB/GLOB RATIO 1.3 (1.1-1.8); ALBUMIN 2.8 g/dL (3.0-4.8); ALT/SGPT 32 U/L (7-56); AST/SGOT 32 U/L (14-36); BLOOD UREA NITROGEN 19 mg/dL (7-21); CALCIUM 8.2 mg/dL (8.4-10.5); GFR NON-AFRICAN AMERICAN 56
--- NOTE | 2018-05-31 10:54 | MRI ---
Date of service: 05/29/2018 PROCEDURE: MRI of the right brachial plexus HISTORY: right brachial plexus sx(attention to rt brachial) COMPARISON: CT of the chest dated 05/26/2018 TECHNIQUE: MRI of the right brachial plexus was performed in multiple planes using multiple pulse sequences. FINDINGS: There is some thickening of the right brachial plexus and infiltration of the fat planes surrounding the brachial plexus suspicious for either tumor infiltration or lymphedema. The finding is separate from the site of surgery and separate from the right axillary lymph node. There is definite asymmetry in the appearance of the brachial plexus. The fat planes are more distinct on the left. Sagittal images through the cervical spine show disc degeneration and disc bulging at C4-5 and C5-6. The study was reviewed with Dr. Kovacs. Fat-suppressed postcontrast imaging may be helpful for further evaluation. This may help differentiate tumor infiltration from lymphedema. There is discrepancy with the [place] rad report which reported a normal brachial plexus IMPRESSION: There is some thickening of the right brachial plexus and infiltration of the fat planes surrounding the brachial plexus suspicious for either tumor infiltration or lymphedema.
--- NOTE | 2018-05-31 12:46 | PN ---
DATE: 05/31/2018 SUBJECTIVE: The patient is awake, alert without pain. PHYSICAL EXAMINATION: VITAL SIGNS: Blood pressure 157/95, heart rates in the 70s. NECK: Negative JVD. LUNGS: Without rales. HEART: Reveal S1, S2. EXTREMITIES: Without edema. LABORATORY DATA: Hemoglobin 9 once it was drawn properly. BUN and creatinine unremarkable. The glucose is low. IMPRESSION: 1. Stable angina. 2. Coronary artery disease. 3. Hypertension. 4. The patient is tolerating Eliquis without evidence of bleeding. 5. Diabetes mellitus. Given these findings, we will recheck the glucose. By mouth juice was given. Erich Slater MD
--- NOTE | 2018-05-31 15:20 | CP.PCM.PN ---
Subjective - Date & Time of Evaluation Date of Evaluation: 05/31/18 Time of Evaluation: 08:00 - Subjective Subjective: Joi Church DO, PGY-2: Hematology and Oncology Progress Note for Dr. Griffith Patient was seen and examined at bedside. Patient reports feeling cold, but denies fevers. Chart review indicates patient had episodes of hypoglycemia. Otherwise, patient reports her pain is in control. Furthermore, patient does not appear to be confused on the two separate occasions that she was examined today. Objective - Vital Signs/Intake and Output Vital Signs (last 24 hours): Temp Pulse Resp BP Pulse Ox 98 F 72 20 157/95 H 94 L 05/31/18 08:23 05/31/18 08:37 05/31/18 08:23 05/31/18 08:37 05/31/18 08:23 Intake and Output: 05/31/18 05/31/18 06:59 18:59 Intake Total 1020 Balance 1020 - Medications Medications: Current Medications Apixaban (Eliquis) 5 mg PO BID [facility]; Protocol Last Admin: 05/31/18 09:15 Dose: 5 mg Aspirin (Ecotrin) 81 mg PO DAILY [facility] Last Admin: 05/31/18 09:15 Dose: 81 mg Atorvastatin Calcium (Lipitor) 20 mg PO DIN [facility] Last Admin: 05/30/18 17:14 Dose: 20 mg Clonidine HCl (Catapres) 0.1 mg PO Q4H PRN PRN Reason: hypertension Cyproheptadine HCl (Periactin) 2 mg PO DAILY [facility] Last Admin: 05/31/18 09:14 Dose: 2 mg Sodium Chloride (Sodium Chloride 0.9%) 1,000 mls @ 75 mls/hr IV .[id number] [facility] Last Admin: 05/31/18 08:35 Dose: 75 mls/hr Insulin Human Lispro (Humalog Low) 0 units SC ACHS [facility]; Protocol Last Admin: 05/31/18 11:40 Dose: Not Given Losartan Potassium (Cozaar) 100 mg PO DAILY [facility] Last Admin: 05/31/18 09:15 Dose: 100 mg Magnesium Oxide (Mag-Ox) 400 mg PO BID [facility] Last Admin: 05/31/18 09:15 Dose: 400 mg Metoprolol Succinate (Toprol Xl) 25 mg PO BRK [facility] Last Admin: 05/31/18 08:37 Dose: 25 mg Morphine Sulfate (Morphine Extended Release Tab) 15 mg PO Q12 [facility] Last Admin: 05/31/18 09:21 Dose: Not Given Potassium Chloride (Klor-Con 10) 40 meq PO BRK [facility] Last Admin: 05/31/18 08:36 Dose: 40 meq Pregabalin (Lyrica) 75 mg PO BID [facility] Last Admin: 05/31/18 09:14 Dose: 75 mg Quetiapine Fumarate (Seroquel) 25 mg PO HS [facility]; Protocol Last Admin: 05/30/18 21:36 Dose: 25 mg Repaglinide (Prandin) 2 mg PO AC [facility] Last Admin: 05/31/18 12:02 Dose: Not Given - Labs Labs: 05/31/18 08:55 05/31/18 06:00 PT 12.1 SECONDS (9.4-12.5) 05/24/18 20:20 INR 1.06 05/24/18 20:20 APTT 30.5 Seconds (25.1-36.5) 05/26/18 06:35 - Constitutional Appears: Well, Non-toxic - Head Exam Head Exam: ATRAUMATIC, NORMOCEPHALIC - Eye Exam Eye Exam: EOMI, Normal appearance - ENT Exam ENT Exam: Mucous Membranes Moist - Neck Exam Neck Exam: Normal Inspection - Respiratory Exam Respiratory Exam: Clear to Ausculation Bilateral, NORMAL BREATHING PATTERN. absent: Accessory Muscle Use - Cardiovascular Exam Cardiovascular Exam: RRR, +S1, +S2 - GI/Abdominal Exam GI & Abdominal Exam: Soft, Normal Bowel Sounds. absent: Guarding, Rebound - Extremities Exam Extremities Exam: Normal Inspection. absent: Calf Tenderness - Neurological Exam Neurological Exam: Alert, Awake, Oriented x3 - Psychiatric Exam Psychiatric exam: Normal Affect, Normal Mood - Skin Skin Exam: Dry, Intact, Normal Color, Warm Assessment and Plan - Assessment and Plan (Free Text) Assessment: 63 year old female with a past medical history of significant HTN; PLD; HTN; DM; sickle cell trait; and now recurrent metastatic triple negative breast cancer previously s/p mastectomy; AC-T; adjuvant XRT now with MSI high disease and s/p C1 of pembro who presents to the hospital with refractory left shoulder pain and intermittient confusion. At present patient's pain has resolved with ER BID morphine. Unclear etiology of confusion: polypharmacy; stroke; delirium in setting of pain. Confusion appears to has resolved at this point; however, patient remains unsteady on feet per physical therapy. Important to note, patient does use a walker at home and has good social support. Case was discussed with social work nurse/case management. Awaiting placement to [facility], [facility], or [facility].
[2018-05-31] MEDS ORDERED: Dextrose 50% SYRINGE Inj (50 ml) IV PRN (18:33)
--- NOTE | 2018-05-31 23:35 | PN ---
DATE: 05/31/2018 SUBJECTIVE: The patient is seen sitting in bed. She is awake, she is alert, she is comfortable. She denies any pain. She denies any shortness of breath. PHYSICAL EXAMINATION: GENERAL: An elderly lady sitting in bed. VITAL SIGNS: Blood pressure 157/95, heart rate 72, respiratory rate 20, temperature 98. HEENT: Normocephalic, atraumatic, positive pallor. NECK: Supple, no JVD. LUNGS: Bilateral equal air entry, bilateral rhonchi, no rales. EXTREMITIES: No lower extremity edema. INTAKE AND OUTPUT. 2220/not charted. LABORATORY DATA WBC 2.9, hemoglobin 9, hematocrit 29, platelets 105. Sodium 140, potassium 4.7, chloride 110, CO2 of 25, BUN 19, creatinine 1, glucose , calcium 8.2. AST 32, ALT 32, albumin 2.8. ASSESSMENT: 1. Hypertension, well controlled at this time. 2. Stage IV breast cancer with mediastinal lymphadenopathy. 3. [id number] diabetes mellitus. 4. Hypertension. PLAN: 1. Continue current antihypertensives. 2. Monitor WBC count/hemoglobin/platelet count. 3. Oncology followup. Smita Reed MD
[2018-06-01] MEDS: Sodium Chloride 0.9% 1,000 ML IV SCH (01:56)
--- NOTE | 2018-06-01 02:52 | PN ---
DATE: 05/31/2018 LOCATION: Room 376. SUBJECTIVE: This is a 63-year-old female with recent uncontrolled type 2 insulin-requiring diabetes presenting here with intractable upper abdominal pain and extremely suboptimal oral intake and has now been taken off all insulin therapy on admission and switched over to oral hypoglycemic therapy as given thereof. However, overnight, she has developed supervening hypoglycemic episodes, the latest of which today was 32 mg/dL at dinner time as noted. Her chemistry showed a BUN of 19, sodium 140, potassium 4.7, chloride 110, CO2 of 25, glucose 35, and creatinine 1. So at this time, we will discontinue all the oral hypoglycemic therapy given at a very low dose of Prandin at 2 mg t.i.d. before meals as ordered. We will continue the low-dose correction scale using Humalog insulin as ordered. We will obtain serial chemistries and supplement accordingly as needed. We will also continue the IV hydration as given and obtain serial chemistries accordingly. We will follow. Shelly Velez MD
[2018-06-01 06:34] VITALS: BP 127/68; PULSE 92; TEMP 98.5; O2SAT 95
[2018-06-01] MEDS: Insulin Lispro (humaLOG) LOW Coverage SC SCH ×2 (07:54→11:31)
[2018-06-01] MEDS: Potassium Chloride 10 mEq ER Tab PO SCH (08:42)
[2018-06-01] MEDS: Metoprolol Succinate 25 mg XL Tab PO SCH (08:43)
[2018-06-01] MEDS: Magnesium Oxide 400 mg Tab UD PO SCH (10:04)
[2018-06-01] MEDS: Morphine 15 mg SR Tab PO SCH (10:05)
--- NOTE | 2018-06-01 11:03 | CP.PCM.PN ---
Subjective - Date & Time of Evaluation Date of Evaluation: 06/01/18 Time of Evaluation: 11:00 - Subjective Subjective: We have been following Ms Magnolia at the request of Dr Griffith. She had a MRI to evaluate the brachial plexus which shows thickening on the right side (either tumor infiltration vs lymphedema). For further evaluation, we will order a PET as an outpatient to ascertain whether she will require reirradiation. This was discussed with Dr Griffith regarding the plan. Objective - Vital Signs/Intake and Output Vital Signs (last 24 hours): Temp Pulse Resp BP Pulse Ox 98.5 F 92 H 20 127/68 95 06/01/18 09:07 06/01/18 09:07 06/01/18 09:07 06/01/18 09:07 06/01/18 09:07 Intake and Output: 06/01/18 06/01/18 06:59 18:59 Intake Total 900 Balance 900 - Medications Medications: Current Medications Apixaban (Eliquis) 5 mg PO BID [facility]; Protocol Last Admin: 06/01/18 10:04 Dose: 5 mg Aspirin (Ecotrin) 81 mg PO DAILY [facility] Last Admin: 06/01/18 10:04 Dose: 81 mg Atorvastatin Calcium (Lipitor) 20 mg PO DIN [facility] Last Admin: 05/31/18 17:16 Dose: 20 mg Clonidine HCl (Catapres) 0.1 mg PO Q4H PRN PRN Reason: hypertension Cyproheptadine HCl (Periactin) 2 mg PO DAILY [facility] Last Admin: 06/01/18 10:04 Dose: 2 mg Dextrose (Dextrose 50% Inj) 0 ml IV STAT PRN; Protocol PRN Reason: Hypoglycemia Protocol Sodium Chloride (Sodium Chloride 0.9%) 1,000 mls @ 75 mls/hr IV .[id number] [facility] Last Admin: 06/01/18 01:56 Dose: 75 mls/hr Dextrose (Dextrose 5% In Water 1000 Ml) 1,000 mls @ 0 mls/hr IV .Q0M PRN; Protocol PRN Reason: Hypoglycemia Protocol Insulin Human Lispro (Humalog Low) 0 units SC ACHS [facility]; Protocol Last Admin: 06/01/18 07:54 Dose: Not Given Losartan Potassium (Cozaar) 100 mg PO DAILY [facility] Last Admin: 06/01/18 10:04 Dose: 100 mg Magnesium Oxide (Mag-Ox) 400 mg PO BID [facility] Last Admin: 06/01/18 10:04 Dose: 400 mg Metoprolol Succinate (Toprol Xl) 25 mg PO BRK [facility] Last Admin: 06/01/18 08:43 Dose: 25 mg Morphine Sulfate (Morphine Extended Release Tab) 15 mg PO Q12 [facility] Last Admin: 06/01/18 10:05 Dose: 15 mg Potassium Chloride (Klor-Con 10) 40 meq PO BRK [facility] Last Admin: 06/01/18 08:42 Dose: 40 meq Pregabalin (Lyrica) 75 mg PO BID [facility] Last Admin: 06/01/18 10:04 Dose: 75 mg Quetiapine Fumarate (Seroquel) 25 mg PO HS [facility]; Protocol Last Admin: 05/31/18 21:22 Dose: 25 mg - Labs Labs: 05/31/18 08:55 05/31/18 06:00 PT 12.1 SECONDS (9.4-12.5) 05/24/18 20:20 INR 1.06 05/24/18 20:20 APTT 30.5 Seconds (25.1-36.5) 05/26/18 06:35
--- NOTE | 2018-06-01 14:13 | CP.PCM.DIS ---
Provider - Provider Date of Admission: 05/24/18 22:10 Attending physician: Donell Rivero MD Consults: 05/25/18 02:34 Social Work Referral Routine Comment: PROTOCOL Physician Instructions: Reason For Exam: PROTOCOL 05/25/18 08:27 Physician Consult Routine Comment: Consulting Provider: Shelly Velez Consulting Physician: Shelly Velez Reason for Consult: Diabetes Physician Consult Routine Comment: Consulting Provider: Jacob Buitrago Consulting Physician: Jacob Buitrago Reason for Consult: Change in mental status 05/25/18 08:32 Physician Consult Routine Comment: Consulting Provider: Smita Reed Consulting Physician: Smita Reed Reason for Consult: HTN Physician Consult Routine Comment: Consulting Provider: Tiff Kovacs Consulting Physician: Tiff Kovacs Reason for Consult: Radiation 05/25/18 16:46 Physician Consult Routine Comment: Consulting Provider: Erich Slater Consulting Physician: Erich Slater Reason for Consult: pt with small scattered cva, consider eliquis for hyeprcoable state 05/26/18 10:56 Palliative Care Consult Routine Comment: Consulting Provider: Ngozi Blackmon Physician Instructions: Reason For Exam: advanced directive 05/29/18 14:29 TCU [Evaluation for TRCU] Routine Comment: Physician Instructions: Reason For Exam: gait training and stregthening Time Spent in preparation of Discharge (in minutes): 60 Diagnosis - Discharge Diagnosis (1) Brachial plexopathy Status: Acute Priority: High Hospital Course - Lab Results Lab Results: Micro Results 05/24/18 22:20 Blood Blood Culture - Final NO GROWTH AFTER 5 DAYS 05/24/18 22:20 Blood Gram Stain - Final TEST NOT PERFORMED 05/24/18 21:26 Blood Blood Culture - Final NO GROWTH AFTER 5 DAYS 05/24/18 21:26 Blood Gram Stain - Final TEST NOT PERFORMED Most Recent Lab Values WBC 2.9 10^3/uL (4.5-11.0) L D 05/31/18 08:55 RBC 4.09 10^6/uL (3.5-6.1) 05/31/18 08:55 Hgb 9.0 g/dL (12.0-16.0) L 05/31/18 08:55 Hct 29.3 % (36.0-48.0) L 05/31/18 08:55 MCV 71.6 fl (80.0-105.0) L 05/31/18 08:55 MCH 22.0 pg (25.0-35.0) L 05/31/18 08:55 MCHC 30.7 g/dl (31.0-37.0) L 05/31/18 08:55 RDW 16.0 % (11.5-14.5) H 05/31/18 08:55 Plt Count 105 10^3/uL (120.0-450.0) L 05/31/18 08:55 Manual Plt Count 92 K/mm3 (120-450) L 05/28/18 08:45 MPV fl (7.0-11.0) 05/27/18 06:30 Gran % 56.1 % (50.0-68.0) 05/31/18 08:55 Lymph % (Auto) 31.9 % (22.0-35.0) 05/31/18 08:55 [place] % (Auto) 10.2 % (1.0-6.0) H 05/31/18 08:55 Eos % (Auto) 1.4 % (1.5-5.0) L 05/31/18 08:55 Baso % (Auto) 0.4 % (0.0-3.0) 05/31/18 08:55 Gran # 1.60 (1.4-6.5) 05/31/18 08:55 Lymph # (Auto) 0.9 (1.2-3.4) L 05/31/18 08:55 [place] # (Auto) 0.3 (0.1-0.6) 05/31/18 08:55 Eos # (Auto) 0.0 (0.0-0.7) 05/31/18 08:55 Baso # (Auto) 0.01 K/mm3 (0.0-2.0) 05/31/18 08:55 Differential Comment See pathology report 05/28/18 08:45 PT 12.1 SECONDS (9.4-12.5) 05/24/18 20:20 INR 1.06 05/24/18 20:20 APTT 30.5 Seconds (25.1-36.5) 05/26/18 06:35 pO2 78 mm/Hg (30-55) H 05/24/18 22:20 VBG pH 7.36 (7.32-7.43) 05/24/18 22:20 VBG pCO2 51.0 (40-60) 05/24/18 22:20 VBG HCO3 28.8 mmol/l (21-28) H 05/24/18 22:20 VBG Total CO2 30.4 mmol.L (22-28) H 05/24/18 22:20 VBG O2 Sat (Calc) 96.3 % (40-65) H 05/24/18 22:20 VBG Base Excess 2.4 mmol/L (0.0-2.0) H 05/24/18 22:20 VBG Potassium 4.5 mmol/L (3.6-5.2) 05/24/18 22:20 Sodium 134.0 mmol/L (132-148) 05/24/18 22:20 Chloride 98.0 mmol/L (98-107) 05/24/18 22:20 Glucose 266 mg/dl (65-105) H 05/24/18 22:20 Lactate 1.9 mmol/L (0.7-2.1) 05/24/18 22:20 FiO2 21.0 % 05/24/18 22:20 Sodium 140 mmol/L (132-148) 05/31/18 06:00 Potassium 4.7 mmol/L (3.6-5.0) 05/31/18 06:00 Chloride 110 mmol/L (98-107) H 05/31/18 06:00 Carbon Dioxide 25 mmol/L (21-33) 05/31/18 06:00 Anion Gap 9 (10-20) L 05/31/18 06:00 BUN 19 mg/dL (7-21) 05/31/18 06:00 Creatinine 1.0 mg/dl (0.7-1.2) 05/31/18 06:00 Est GFR ( Amer) > 60 05/31/18 06:00 Est GFR (Non-Af Amer) 56 05/31/18 06:00 POC Glucose (mg/dL) 177 mg/dL (65-110) H 06/01/18 11:12 Random Glucose 35 mg/dL (70-110) L* D 05/31/18 06:00 Hemoglobin A1c 7.2 % (4.2-6.5) H 05/26/18 06:35 Calcium 8.2 mg/dL (8.4-10.5) L 05/31/18 06:00 Phosphorus 3.1 mg/dL (2.5-4.5) 05/26/18 06:35 Magnesium 1.9 mg/dL (1.7-2.2) 05/26/18 06:35 Total Bilirubin 0.1 mg/dL (0.2-1.3) L 05/31/18 06:00 AST 32 U/L (14-36) 05/31/18 06:00 ALT 32 U/L (7-56) 05/31/18 06:00 Alkaline Phosphatase 68 U/L (38-126) 05/31/18 06:00 Troponin I 0.02 ng/mL D 05/24/18 20:20 Total Protein 4.9 g/dL (5.8-8.3) L 05/31/18 06:00 Albumin 2.8 g/dL (3.0-4.8) L 05/31/18 06:00 Globulin 2.1 gm/dL 05/31/18 06:00 Albumin/Globulin Ratio 1.3 (1.1-1.8) 05/31/18 06:00 Triglycerides 202 mg/dL (35-160) H 05/26/18 06:35 Cholesterol 163 mg/dL (130-200) 05/26/18 06:35 LDL Cholesterol Direct 84 mg/dL (0-129) 05/26/18 06:35 HDL Cholesterol 45 mg/dL (29-60) 05/26/18 06:35 Procalcitonin 0.05 NG/ML (0.19-0.49) L 05/24/18 20:20 TSH 3rd Generation 1.26 mIU/mL (0.46-4.68) 05/26/18 06:35 Venous Blood Potassium 4.5 mmol/L (3.6-5.2) 05/24/18 22:20 Blood Type O NEGATIVE 05/28/18 15:00 Antibody Screen Negative 05/28/18 15:00 BBK History Checked Patient has bt 05/28/18 15:00 - Hospital Course Hospital Course: Assessment and Plan: Patient is a 63 year old female with past medical history of triple negative breast cancer s/p mastectomy and chemoradiation, CAD, HPL, HTN, DM, and sickle cell trait who was admitted for evaluation and treatment of intr actable pain and intermittent confusion. The patient underwent an MRI of the head that showed a Scattered small less than 5 millimeter foci of diffusion restriction in the brain bilaterally involving multiple vascular territories more on the left suggestive of acute lacunar infarcts likely due to embolic infarcts. MRI of the right shoulder showed a partial articular surface tear of the supraspinatus tendon at the distal insertion. MRI of the cervical spine with and without contrast showed a mild disc bulge at C5-6 without stenosis. No enhancing abnormalities. No evidence of metastatic disease. A nuclear bone scan was performed and showed no evidence of metastatic bone disease. MRI of the neck and shoulders showed some thickening of the right brachial plexus and infiltration of the fat planes surrounding the brachial plexus suspicious for either tumor infiltration or lymphedema. Right shoulder sling was ordered which help decrease distention of brachial plexus. Dr. Kovacs was consulted who deferred radiation as an inpatient. She recommended an outpatient PET scan and then to revisit the irradiation of the right arm swelling. Cardiology was also consulted and recommended switching the patient to Eliquis from Plavix given the high likelihood of a thromboembolic phenomena. An echocardiogram was performed that showed an EF of 50, no PFO or vegetations. Dr. Reed, academic physician was consultd for hypertension. During the course of the patient's hospital stay she had a decrease in appetite and was given Pericactin along with the reconciliation clerk recommending Glucerna three times a day. The patient was evaluated by PT and recommended to go home with homecare services. The patient's confusion resolved during the course of her admission. She did have episodic hypoglycemia that was treated with D50. Endocrinology was consulted and discontinued the patient's Prandin. The patient is on insulin at home. The patient was discharged with instructions to follow up with Dr. Buitrago for an outpatient EGD and Dr. Griffith in the office next week. - Date & Time of H&P Date of H&P: 06/01/18 Time of H&P: 14:13 Discharge Exam - Head Exam Head Exam: ATRAUMATIC, NORMOCEPHALIC - Eye Exam Eye Exam: EOMI, Normal appearance - ENT Exam ENT Exam: Mucous Membranes Moist - Neck Exam Neck exam: Normal Inspection - Respiratory Exam Respiratory Exam: Clear to PA & Lateral, NORMAL BREATHING PATTERN. absent: Accessory Muscle Use - Cardiovascular Exam Cardiovascular Exam: RRR, +S1, +S2 - GI/Abdominal Exam GI & Abdominal Exam: Normal Bowel Sounds. absent: Guarding, Rebound - Extremities Exam Additional comments: right arm swollen compared to left - Neurological Exam Neurological exam: CN II-XII Intact, Oriented x3 - Psychiatric Exam Psychiatric exam: Normal Affect, Normal Mood - Skin Skin Exam: Dry, Intact, Normal Color, Warm Discharge Plan - Discharge Medications Prescriptions: Apixaban [Eliquis] 5 mg PO BID #60 tab Cyproheptadine [Periactin] 2 mg PO DAILY #30 tab Magnesium Oxide [Mag-Ox] 400 mg PO DAILY #30 tab Potassium Chloride [Klor-Con 10] 40 meq PO BRK #30 ter QUEtiapine [Seroquel] 25 mg PO HS #30 tab - Follow Up Plan Condition: FAIR Disposition: HOME/ ROUTINE Instructions: Stroke (DC), Low Blood Sugar, Adult (DC), Acute Pain, Adult (DC), Lymphedema (DC), Low Magnesium Level (DC) Additional Instructions: 1) Patient to follow up with Dr. Griffith's office next week. 2) Patient to follow up with neurology, Dr. Buitrago, for outpatient EEG. 3) Please take any medication as directed, unless otherwise indicated. May return to ED if experiencing worsening of symptoms. Referrals: Doris Griffith MD [Staff Provider] - Bari Buitrago MD [Staff Provider] -
--- NOTE | 2018-06-01 19:50 | PN ---
DATE: 06/01/2018 SUBJECTIVE: The patient is currently seen on 3R. She is preparing for discharge. Her blood pressure control has significantly improved during hospitalization with adjustment and addition of medications. MEDICATIONS Medication list reviewed. The patient is on p.r.n. clonidine which she will not take at home, losartan, Ecotrin, Eliquis, sliding scale insulin, potassium, Lipitor, Lyrica, magnesium oxide, morphine, Periactin, Seroquel, and Toprol. OBJECTIVE: INTAKE/OUTPUT: Intake is 900, output is not charted. VITAL SIGNS: Present blood pressure 127/68. Pulse of 92, temperature 98.5 with a respiratory rate of 20. HEENT: Shows her to be normocephalic, atraumatic. Conjunctivae are pale. Sclerae nonicteric. NECK: Supple. No neck vein distention. CHEST: Clear to auscultation and percussion. No rales, rhonchi or wheezing. CARDIOVASCULAR: Regular rate and rhythm without audible murmurs, rubs or gallops. ABDOMEN: Soft. Bowel sounds normal. No rebound, no guarding or masses. EXTREMITIES: No lower extremity cyanosis, clubbing or edema. LABORATORY DATA AND IMAGING: Last CBC from yesterday; white blood cell count 2.9, hemoglobin 9, platelet count 105,000, all consistent with stable pancytopenia. Chemistry showed normal electrolytes. BUN 19 with a creatinine of 1. Glucose was initially low, repeat was 66. Calcium 8.2 with an albumin of 2.8. Last magnesium level was improved at 1.9. Microbiology, all blood cultures were negative. ASSESSMENT: 1. Hypertension, currently well controlled on p.r.n. use of clonidine with addition of an angiotensin receptor lindsay. 2. History of ojq-udnxqyh-wrumzncgm diabetes mellitus. Glucose control has been borderline low. Adjustments in her medications to be made prior to discharge. 3. History of breast cancer, found to be stage IV breast cancer with mediastinal lymphadenopathy, being followed by Oncology. 4. Past history of non-Hodgkin's lymphoma. 5. History of pancytopenia, stable. This is being evaluated by Dr. Griffith. The patient is status post recent chemotherapy. PLAN: 1. The patient is stable for discharge home on current dose of losartan 100 mg a day. The patient does not require clonidine upon discharge. 2. Follow up with Dr. Griffith and Dr. Rivero for management of her malignancy. 3. Agree with discharge home. 4. No followup necessary in our office unless blood pressure is difficult to control. Clem Marino MD
--- NOTE | 2018-06-01 23:17 | PN ---
DATE: 06/01/2018 LOCATION: Room 376. This is a 63-year-old female with metastatic breast carcinoma with intractable upper abdominal pain and episodic vomiting episodes with persistent suboptimal meal portions and is now being followed closely for metabolic management. She had developed symptomatic hypoglycemia yesterday and all her oral hypoglycemic therapy was discontinued otherwise. Today, her glucose levels have improved and have ranged from 104-120 and 177 mg/dL. Her latest chemistry showed a BUN of 19, sodium 140, potassium 4.7, chloride 110, CO2 of 25, glucose 35, and creatinine 1.0. So at this time, we will continue the low-dose correction scale using NovoLog insulin as ordered. We will hold off the resumption of her oral hypoglycemic therapy pending the improvement of her oral intake, otherwise. We will obtain serial chemistries and supplement accordingly needed. We will follow. Shelly Velez MD
[2018-06-02 13:03] LABS: C-PEPTIDE 3.02 ng/mL (0.80-3.85)
== END 2018-06-01 15:40 | disposition home health service (06) | DRG 840 ==
LOC: ED 17:55 → ERH 22:10 → 3RSO 05-25 00:35
PROVIDERS: ADMIT Family Medicine; ATTEND Family Medicine
DX: C85.94 Non-Hodgkin lymphoma, unspecified, lymph nodes of axilla and upper limb (principal); I63.81 Other cerebral infarction due to occlusion or stenosis of small artery; C78.00 Secondary malignant neoplasm of unspecified lung; D68.59 Other primary thrombophilia; I42.0 Dilated cardiomyopathy; D61.818 Other pancytopenia; R44.3 Hallucinations, unspecified; M79.621 Pain in right upper arm; Z85.3 Personal history of malignant neoplasm of breast; R41.82 Altered mental status, unspecified; I10 Essential (primary) hypertension; E11.42 Type 2 diabetes mellitus with diabetic polyneuropathy; Z79.4 Long term (current) use of insulin; Z79.899 Other long term (current) drug therapy; E83.42 Hypomagnesemia; Z92.21 Personal history of antineoplastic chemotherapy; Z90.10 Acquired absence of unspecified breast and nipple; C50.911 Malignant neoplasm of unspecified site of right female breast; I25.10 Atherosclerotic heart disease of native coronary artery without angina pectoris; I25.5 Ischemic cardiomyopathy; C50.919 Malignant neoplasm of unspecified site of unspecified female breast; I25.118 Atherosclerotic heart disease of native coronary artery with other forms of angina pectoris; E11.649 Type 2 diabetes mellitus with hypoglycemia without coma; R59.0 Localized enlarged lymph nodes; C85.10 Unspecified B-cell lymphoma, unspecified site; D57.3 Sickle-cell trait; E78.00 Pure hypercholesterolemia, unspecified; E78.5 Hyperlipidemia, unspecified; E87.6 Hypokalemia; G54.0 Brachial plexus disorders; H40.9 Unspecified glaucoma; I65.23 Occlusion and stenosis of bilateral carotid arteries; M35.3 Polymyalgia rheumatica; M75.101 Unspecified rotator cuff tear or rupture of right shoulder, not specified as traumatic; Z17.1 Estrogen receptor negative status [ER-]; Z86.73 Personal history of transient ischemic attack (TIA), and cerebral infarction without residual deficits; Z79.01 Long term (current) use of anticoagulants; Z79.02 Long term (current) use of antithrombotics/antiplatelets; Z79.82 Long term (current) use of aspirin; Z90.11 Acquired absence of right breast and nipple; Z92.3 Personal history of irradiation; Z95.5 Presence of coronary angioplasty implant and graft

== ENCOUNTER 2018-06-10 18:06 | Inpatient (IN) | payer BC ==
--- NOTE | 2018-06-10 18:32 | ED PDOC ---
Arrival/HPI - General Chief Complaint: Medical Clearance Time Seen by Provider: 06/10/18 18:07 Historian: Patient - History of Present Illness Narrative History of Present Illness (Text): 06/10/18 18:21 63 year old female, on Eliquis, with past medical history of triple negative breast cancer s/p mastectomy and chemoradiation, CAD, HPL, HTN, DM (on Insulin, levamir and NovoLog), and sickle cell trait, presents to the ED via EMS accompanied by family for evaluation of an episode of hypoglycemia prior to arrival. As per family, patient was found unresponsive in bed when EMS was called immediately. Upon EMS arrival, patient was found to have a blood sugar of 37 with pinpoint pupils. Patient was given 1 amp of D50 and narcan with improvement to symptoms. Family states patient was given insulin at 12pm today but did not follow-up with diet intake. Family denies giving patient any morphine today. Upon arrival to the ED, patient is awake and alert and has a blood sugar of 123. Patient reports feeling cold but denies any other associated somatic complaints. Patient denies any fevers, headache, dizziness, chest pain, shortness of breath, cough, abdominal pain, nausea, vomiting, back pain, neck pain, or any other complaints. PMD: Dr. Wilkerson Oncologist: Dr. Griffith Time/Duration: Prior to Arrival Symptom Onset: Gradual Symptom Course: Improving Activities at Onset: Light Context: Home Past Medical History - Provider Review Nursing Documentation Reviewed: Yes - Infectious Disease Hx of Infectious Diseases: None - Tetanus Immunization Tetanus Immunization: Unknown - Cardiac Hx Cardiac Disorders: Yes Hx Hypertension: Yes - Pulmonary Hx Respiratory Disorders: No - Neurological Hx Neurological Disorder: No - HEENT Hx HEENT Disorder: No - Renal Hx Renal Disorder: No - Endocrine/Metabolic Hx Endocrine Disorders: Yes Hx Diabetes Mellitus Type 2: Yes - Hematological/Oncological Hx Blood Disorders: Yes Hx Cancer: Yes (BREAST) - Integumentary Hx Dermatological Disorder: No - Musculoskeletal/Rheumatological Hx Musculoskeletal Disorders: Yes Hx Unsteady Gait: Yes - Gastrointestinal Hx Gastrointestinal Disorders: No - Genitourinary/Gynecological Hx Genitourinary Disorders: No - Psychiatric Hx Psychophysiologic Disorder: No Hx Substance Use: No (UNKNOWN) - Surgical History Hx Mastectomy: Yes (right breast cancer status post mastectomy in 2013, chemo and radiation ) - Anesthesia Hx Anesthesia Reactions: Yes (NAUSEA) Hx Malignant Hyperthermia: No - Suicidal Assessment Feels Threatened In Home Enviroment: No Family/Social History - Physician Review Nursing Documentation Reviewed: Yes Family/Social History: Unknown Family HX Smoking Status: Never Smoked Hx Alcohol Use: No (UNKNOWN) Hx Substance Use: No (UNKNOWN) Allergies/Home Meds Allergies/Adverse Reactions: Allergies No Known Allergies Allergy (Verified 06/10/18 18:18) Home Medications: Home Meds Medication Instructions Recorded Confirmed Ergocalciferol (Vitamin D2) 50,000 iu PO MON 10/01/15 06/10/18 [Vitamin D2] Gabapentin [Neurontin] 600 mg PO BID 10/01/15 06/10/18 Meclizine [Antivert] 12.5 mg PO BID PRN 10/01/15 06/10/18 Metoprolol Tartrate [Lopressor] 25 mg PO BID 10/01/15 06/10/18 Folic Acid 1 mg PO DAILY 04/27/17 06/10/18 Gemfibrozil 600 mg PO DAILY 04/27/17 06/10/18 Ferrous Sulfate [Feosol] 325 mg PO BID 05/01/17 06/10/18 Diazepam [Valium] 2 mg PO HS PRN 05/24/18 06/10/18 Potassium Chloride [Potassium 40 meq PO DAILY 06/10/18 06/10/18 Chloride Inj] QUEtiapine [Seroquel] 25 mg PO DAILY 06/10/18 06/10/18 Review of Systems - Physician Review All systems were reviewed & negative as marked: Yes - Review of Systems Constitutional: absent: Fevers Respiratory: absent: SOB, Cough Cardiovascular: absent: Chest Pain Gastrointestinal: absent: Abdominal Pain, Diarrhea, Nausea, Vomiting Genitourinary Female: absent: Dysuria, Urine Output Changes Musculoskeletal: absent: Back Pain, Neck Pain Skin: absent: Rash Neurological: absent: Headache, Dizziness Endocrine: Other (Hypoglycemia) Psychiatric: absent: Anxiety Physical Exam Vital Signs Reviewed: Yes Temperature: Hypothermic Blood Pressure: Normal Pulse: Tachycardic Respiratory Rate: Normal Appearance: Positive for: Well-Appearing, Non-Toxic, Comfortable Pain Distress: None Mental Status: Positive for: other (Alert and Oriented x 2) Finger Stick Blood Glucose: 123 - Systems Exam Head: Present: Atraumatic, Normocephalic Pupils: Present: Other (2mm and reactive) Extroacular Muscles: Present: EOMI. No: Gaze Palsy Conjunctiva: Present: Normal. No: Injected Ears: Present: Normal Pharnyx: Present: Normal. No: ERYTHEMA, EXUDATE Nose (External): Present: Atraumatic. No: Abrasion Neck: Present: Normal Range of Motion. No: Meningeal Signs, MIDLINE TENDERNESS Respiratory/Chest: Present: Clear to Auscultation, Good Air Exchange. No: Respiratory Distress, Accessory Muscle Use Cardiovascular: Present: Regular Rate and Rhythm, Normal S1, S2. No: Murmurs Abdomen: No: Tenderness, Distention, Peritoneal Signs Back: Present: Normal Inspection. No: CVA Tenderness, Midline Tenderness, Paraspinal Tenderness, Pain with Leg Raise Upper Extremity: Present: Normal Inspection, Normal ROM, NORMAL PULSES, Neurovascularly Intact, Norm 2-Pt Discrimination. No: Cyanosis, Edema, Tenderness, Swelling Lower Extremity: Present: Normal Inspection, NORMAL PULSES, Normal ROM, Neurovascularly Intact, Capillary Refill < 2 s. No: Edema, Tenderness, Swelling Neurological: Present: GCS=15, CN II-XII Intact, Speech Normal, Motor Func Grossly Intact, Normal Sensory Function Skin: Present: Warm, Dry, Normal Color. No: Rashes Psychiatric: Present: Alert, Oriented x 3, Normal Insight, Normal Concentration Medical Decision Making ED Course and Treatment: 06/10/18 18:29 Impression: 63 year old female w/ hx of CAD w/ stent x1 on eliquis and ASA, Breast CA w/ met (no current chemo) presents to the ED for evaluation of hypoglycemia, AMS. No sulfyonurea usage. Took Insulin lunchtime 20U prior to eating, but did not eat very much. Then became AMS, and was noted by EMS to by hypoglycemic in the 30s. Was given narcan for ?pinpoint pupils: pt and family bedside denied giving pts morphine today however. Improvement in Blood sugar and mentation w/ D50 given by EMS. Likely hypoglycemic 2/2 not eating but will seek admit/obs given low temp and comorbidities. Differential Diagnosis included but are not limited to: Hypoglycemia Plan: -- VBG -- CT of Head -- Labs -- Chest X-ray -- Blood Culture -- Urinalysis -- Reassess and disposition Prior Visits: Notes and results from previous visits were reviewed. Progress Notes: 06/10/18 18:29 EKG: Ordered, reviewed, and independently interpreted the EKG. Rate : 81 BPM Rhythm : NSR Interpretation : No STEMI. 06/10/18 20:53 pt noted falling on her coccyx yesterday- but no rash, induration, crepitus or erythema on exam. Pending XR. FUll ROM to b/l HIPS w/ out pain. n.v intact distally. glucose 143 s/p meal per RN. Pt in NAD, at baseline per family and pt bedside. Pt notes feeling better. trop elevated: pt denies any CP however. No CP today at all. Pending UA, CTH read. appreciate consult w/ Dr. You: (IM FOR REBEKAH): to admit to his service, endorsed pending CTH and UA. appreciate consult w/ Dr. Slater: (CARDS): Lovenox 1mg/kg and he will see in AM. 06/10/18 21:04 weight 186.6: 84mg of Lovenox ordered. CTH negative - EKG Interpretation Interpreted by ED Physician: Yes Type: 12 lead EKG - Scribe Statement The provider has reviewed the documentation as recorded by the Scribe George Mcguire. All medical record entries made by the Scribe were at my direction and personally dictated by me. I have reviewed the chart and agree that the record accurately reflects my personal performance of the history, physical exam, medical decision making, and the department course for this patient. I have also personally directed, reviewed, and agree with the discharge instructions and disposition. Disposition/Present on Arrival - Present on Arrival Any Indicators Present on Arrival: No History of DVT/PE: No History of Uncontrolled Diabetes: No Urinary Catheter: No History of Decub. Ulcer: No History Surgical Site Infection Following: None - Disposition Have Diagnosis and Disposition been Completed?: Yes Diagnosis: Troponin level elevated, Hypoglycemia Disposition Time: 20:58 Patient Problems: Current Active Problems Problem Status Onset Hypoglycemia Acute Troponin level elevated Acute Condition: GOOD Forms: [email or web address] ([place])
[2018-06-10 19:12] LABS: VENOUS BLOOD GAS BASE EXCESS -0.3 mmol/L (0.0-2.0); VENOUS BLOOD GAS PO2 79 mm/Hg (30-55); VENOUS BLOOD PH 7.29 (7.32-7.43)
[2018-06-10 19:24] LABS: BASO # 0.01 K/mm3 (0.0-2.0); BASO % 0.3 % (0.0-3.0); EOS # 0.1 (0.0-0.7); EOS % 1.8 % (1.5-5.0); GRAN # 1.57 (1.4-6.5); GRAN % 45.9 % (50.0-68.0); HEMOGLOBIN 9.8 g/dL (12.0-16.0); LYMPH # 1.3 (1.2-3.4); MEAN CORPUSCULAR HEMOGLOBIN 22.5 pg (25.0-35.0); MEAN CORPUSCULAR HGB CONC 31.7 g/dl (31.0-37.0); MONO # 0.5 (0.1-0.6); PLATELET COUNT 118 10^3/uL (120.0-450.0); RBC 4.35 10^6/uL (3.5-6.1); RED CELL DISTRIBUTION WIDTH 16.6 % (11.5-14.5); WHITE BLOOD COUNT 3.4 10^3/uL (4.5-11.0)
[2018-06-10 19:34] LABS: ALB/GLOB RATIO 1.4 (1.1-1.8); ALT/SGPT 30 U/L (7-56); AST/SGOT 70 U/L (14-36); BLOOD UREA NITROGEN 36 mg/dL (7-21); CALCIUM 9.5 mg/dL (8.4-10.5); GFR NON-AFRICAN AMERICAN 50
[2018-06-10] MEDS ORDERED: Enoxaparin 80 mg Syringe SC ONE (21:03)
[2018-06-10 21:10] VITALS: BMI 26.0
--- NOTE | 2018-06-10 21:39 | CARD ---
APPROVED REPORT Date of service: 06/10/2018 EKG Measurement Heart [id number] <Conclusion> Normal sinus rhythm Nonspecific ST and T wave abnormality Prolonged QT Abnormal ECG
[2018-06-10] MEDS: Insulin Reg-LOW-Coverage SC SCH (23:27)
--- NOTE | 2018-06-11 06:55 | CP.PCM.HP ---
<Bipin Blood - Last Filed: 06/11/18 14:17> History of Present Illness - History of Present Illness History of Present Illness: H&P for Dr. Soria Service CC: unresponsiveness 2/2 acute hypoglycemia This is a 63 yo F with PMH of Triple negative Breast Cancer s/p mastectomy on active Chemo (last chemo 05/31/18), CAD s/p 1 stent, HLD, HTN, DMII on insulin, and sickle trait who presented to [facility] [place] from home after being found unresponsive at home, and was found to have a blood glucose of 37 and pinpoint pupils. Was given 1x narcan and 1x D50 in the field, with immediate improvement in symptoms. Upon arrival to the ED, patient was awake and alert, with a blood glucose of 123. Has no recall of events leading to or immediately after this event. Family reports and patient admits that she took her 12pm insulin yesterday, but ate little due to lack of appetite and did not eating anything later in the day. Patient denies similar presentation in the past. Denies any morphine or opioid medication use at home, but home med list does include several medications than can be sedating. At time of exam this AM, patient has no acute complaints, and denies chest pain, shortness of breath, nausea, emesis, focal/generalized weakness, fevers, chills, diarrhea, dysuria, hematuria, urinary frequency, paresthesias, vision changes, room spinning, or dizziness. Only complaint is fatigue/malaise. Of note, workup in the ED was concerning for an elevated troponin of 0.20, for which Cardio was consulted, and recommended therapeutic Lovenox (1mg/kg) be initiated, pending cardiac cath today. 12-system ROS reviewed and negative, except as above PMH: as above PSH: R mastectomy with reconstruction, chest port placement Fam Hx: patient denies any family hx, specifically denies family hx of breast cancer/DM/CAD Soc Hx: denies tobacco/alcohol/illicits/IVDA Meds: KEYLA reviewed and confirmed PMD: Dr. Wilkerson Cardio: Dr. Slater Heme-Onc: Dr. Griffith Present on Admission - Present on Admission Any Indicators Present on Admission: No History of DVT/PE: No History of Uncontrolled Diabetes: No Review of Systems - Review of Systems All systems: reviewed and no additional remarkable complaints except (as per HPI) Past Patient History - Infectious Disease Hx of Infectious Diseases: None - Tetanus Immunizations Tetanus Immunization: Unknown - Past Social History Smoking Status: Never Smoked - CARDIAC Hx Cardiac Disorders: Yes Hx Hypertension: Yes - PULMONARY Hx Respiratory Disorders: No - NEUROLOGICAL Hx Neurological Disorder: No - HEENT Hx HEENT Problems: No - RENAL Hx Chronic Kidney Disease: No - ENDOCRINE/METABOLIC Hx Endocrine Disorders: Yes Hx Diabetes Mellitus Type 2: Yes - HEMATOLOGICAL/ONCOLOGICAL Hx Blood Disorders: Yes Hx Cancer: Yes (BREAST) - INTEGUMENTARY Hx Dermatological Problems: No - MUSCULOSKELETAL/RHEUMATOLOGICAL Hx Falls: Yes - GASTROINTESTINAL Hx Gastrointestinal Disorders: No - GENITOURINARY/GYNECOLOGICAL Hx Genitourinary Disorders: No - PSYCHIATRIC Hx Psychophysiologic Disorder: No - SURGICAL HISTORY Hx Mastectomy: Yes (right breast cancer status post mastectomy in 2013, chemo and radiation ) - ANESTHESIA Hx Anesthesia Reactions: Yes (NAUSEA) Hx Malignant Hyperthermia: No Meds Allergies/Adverse Reactions: Allergies Allergy/AdvReac Type Severity Reaction Status Date / Time No Known Allergies Allergy Verified 06/10/18 18:18 Physical Exam - Constitutional Appears: Non-toxic, No Acute Distress - Head Exam Head Exam: ATRAUMATIC, NORMAL INSPECTION, NORMOCEPHALIC - Eye Exam Eye Exam: EOMI, Normal appearance, PERRL. absent: Conjunctival injection, Nystagmus, Scleral icterus Pupil Exam: NORMAL ACCOMODATION, PERRL. absent: Fixed, Irregular, Unequal - ENT Exam ENT Exam: Mucous Membranes Moist - Neck Exam Neck exam: Positive for: Full Rom, Normal Inspection - Respiratory Exam Respiratory Exam: Clear to Auscultation Bilateral, NORMAL BREATHING PATTERN. absent: Accessory Muscle Use, Chest Wall Tenderness, Decreased Breath Sounds, Rales, Rhonchi, Wheezes - Cardiovascular Exam Cardiovascular Exam: REGULAR RHYTHM, RRR, +S1, +S2. absent: Bradycardia, Tachycardia, Irregular Rhythm, JVD, +S4 - GI/Abdominal Exam GI & Abdominal Exam: Normal Bowel Sounds, Soft. absent: Diminished Bowel Sounds, Distended, Firm, Hyperactive Bowel Sounds, Hypoactive Bowel Sounds, Rig id, Tenderness - Extremities Exam Extremities exam: Positive for: normal capillary refill, normal inspection, pedal pulses present. Negative for: calf tenderness, pedal edema, tenderness - Back Exam Back exam: absent: CVA tenderness (L), CVA tenderness (R) - Neurological Exam Additional comments: awake and alert, oriented to self/location/year, following all commands appropriately, moving all extremities spontaneously Motor grossly intact and equal in bilateral extremity pairings, sensation in all extremity pairings intact - Psychiatric Exam Psychiatric exam: Normal Affect, Normal Mood - Skin Skin Exam: Dry, Intact, Normal Color, Warm Results - Vital Signs Recent Vital Signs: Last Vital Signs Temp 98.1 F 06/11/18 06:00 Pulse 88 06/11/18 06:00 Resp 18 06/11/18 06:00 BP 131/70 06/11/18 06:00 Pulse Ox 100 06/11/18 06:00 - Labs Result Diagrams: 06/11/18 07:45 06/11/18 07:45 Labs: Laboratory Results - last 24 hr 06/10/18 06/10/18 06/10/18 18:43 18:43 18:43 WBC 3.4 L RBC 4.35 Hgb 9.8 L Hct 30.9 L MCV 71.0 L MCH 22.5 L MCHC 31.7 RDW 16.6 H Plt Count 118 L Gran % 45.9 L Lymph % (Auto) 38.0 H Iron % (Auto) 14.0 H Eos % (Auto) 1.8 Baso % (Auto) 0.3 Gran # 1.57 Lymph # (Auto) 1.3 Iron # (Auto) 0.5 Eos # (Auto) 0.1 Baso # (Auto) 0.01 pO2 79 H VBG pH 7.29 L VBG pCO2 57.0 VBG HCO3 27.4 VBG Total CO2 29.1 H VBG O2 Sat (Calc) 96.8 H VBG Base Excess -0.3 L VBG Potassium 4.3 Sodium 142.0 142 Chloride 107.0 105 Glucose 42 L Lactate 1.7 FiO2 21.0 Potassium 4.4 Carbon Dioxide 29 Anion Gap 11 BUN 36 H Creatinine 1.1 Est GFR ( Amer) > 60 Est GFR (Non-Af Amer) 50 Random Glucose 44 L* D Calcium 9.5 Magnesium 2.1 Total Bilirubin 0.3 AST 70 H D ALT 30 Alkaline Phosphatase 84 Troponin I 0.20 H* D Total Protein 6.9 Albumin 4.0 Globulin 2.9 Albumin/Globulin Ratio 1.4 TSH 3rd Generation Venous Blood Potassium 4.3 06/10/18 19:30 WBC RBC Hgb Hct MCV MCH MCHC RDW Plt Count Gran % Lymph % (Auto) Iron % (Auto) Eos % (Auto) Baso % (Auto) Gran # Lymph # (Auto) Iron # (Auto) Eos # (Auto) Baso # (Auto) pO2 VBG pH VBG pCO2 VBG HCO3 VBG Total CO2 VBG O2 Sat (Calc) VBG Base Excess VBG Potassium Sodium Chloride Glucose Lactate FiO2 Potassium Carbon Dioxide Anion Gap BUN Creatinine Est GFR ( Amer) Est GFR (Non-Af Amer) Random Glucose Calcium Magnesium Total Bilirubin AST ALT Alkaline Phosphatase Troponin I Total Protein Albumin Globulin Albumin/Globulin Ratio TSH 3rd Generation 0.59 Venous Blood Potassium Assessment & Plan - Assessment and Plan (Free Text) Assessment: 1) Acute syncopal/unresponsive episode - ddx: hypoglycemia vs TIA/Stroke vs ACS vs medication induced 2) Hypoglycemic to 37 - 2/2 insulin use without PO intake 3) Elevated troponin of 0.2 - r/o ACS 4) CAD with stenting 5) HLD 6) HTN 7) DMII on insulin 8) Sickle cell trait 9) Triple negative Breast Cancer s/p R mastectomy and on active chemo (last tx 05/31/18) Plan: -Unresponsiveness most likely 2/2 acute hypoglycemia to 37, resolved with D50 admission in field, continue to monitor ACHS blood sugars -due to unresponsive episode, will hold all home medications that have potential to be sedating until initial workup completed -Holding home insulin, will cover with sliding scale to prevent recurrent hypoglycemic episode, can adjust home insulin regimen based on requirements while on sliding scale -Trop elevated at 0.2, repeat improving, pending cath as per Cardio, will follow up -Eliquis held pending cath, received therapeutic lovenox (1mg/kg) overnight, defer to Cardio for restarting AC -Lipid panel ordered, continue statin given hx HLD and CAD -continue aspirin given hx of CAD, not on plavix as per Cardio during last admission, preferred Eliquis over Plavix -BP well controlled, continue home losartan and metoprolol -Cardio consulted given elevated trop, Heme-onc consulted given breast cancer hx on active chemo regimen; appreciate all recs -Stressed to patient absolute importance of eating when taking insulin, must each any time after insulin administration regardless of whether patient has an appetite or not, reviewed risks of diet non-compliance with insulin use including severe hypoglycemia, coma, stroke-like symptoms, cardiac arrest, and ; patient expressed understanding and stated she will comply with instructions -PT consulted to assess gait Reviewed and discussed with attending, Dr. Soria <Sherman Soria - Last Filed: 06/11/18 17:42> Results - Vital Signs Recent Vital Signs: Last Vital Signs Temp 98.3 F 06/11/18 16:37 Pulse 78 06/11/18 16:37 Resp 20 06/11/18 16:37 BP 157/87 H 06/11/18 16:37 Pulse Ox 100 06/11/18 06:00 - Labs Result Diagrams: 06/11/18 07:45 06/11/18 07:45 Labs: Laboratory Results - last 24 hr 06/10/18 06/10/18 06/10/18 18:43 18:43 18:43 WBC 3.4 L RBC 4.35 Hgb 9.8 L Hct 30.9 L MCV 71.0 L MCH 22.5 L MCHC 31.7 RDW 16.6 H Plt Count 118 L Gran % 45.9 L Lymph % (Auto) 38.0 H Iron % (Auto) 14.0 H Eos % (Auto) 1.8 Baso % (Auto) 0.3 Gran # 1.57 Lymph # (Auto) 1.3 Iron # (Auto) 0.5 Eos # (Auto) 0.1 Baso # (Auto) 0.01 Neutrophils % (Manual) Lymphocytes % (Manual) Monocytes % (Manual) Eosinophils % (Manual) Platelet Evaluation Hypochromasia Poikilocytosis (manual Anisocytosis (manual) pO2 79 H VBG pH 7.29 L VBG pCO2 57.0 VBG HCO3 27.4 VBG Total CO2 29.1 H VBG O2 Sat (Calc) 96.8 H VBG Base Excess -0.3 L VBG Potassium 4.3 Sodium 142.0 142 Chloride 107.0 105 Glucose 42 L Lactate 1.7 FiO2 21.0 Potassium 4.4 Carbon Dioxide 29 Anion Gap 11 BUN 36 H Creatinine 1.1 Est GFR ( Amer) > 60 Est GFR (Non-Af Amer) 50 POC Glucose (mg/dL) Random Glucose 44 L* D Calcium 9.5 Phosphorus Magnesium 2.1 Total Bilirubin 0.3 AST 70 H D ALT 30 Alkaline Phosphatase 84 Troponin I 0.20 H* D Total Protein 6.9 Albumin 4.0 Globulin 2.9 Albumin/Globulin Ratio 1.4 TSH 3rd Generation Venous Blood Potassium 4.3 Blood Type Antibody Screen Crossmatch BBK History Checked 06/10/18 06/11/18 06/11/18 19:30 07:30 07:45 WBC 2.6 L D RBC 3.58 Hgb 8.0 L Hct 25.2 L MCV 70.4 L MCH 22.3 L MCHC 31.7 RDW 16.7 H Plt Count 106 L Gran % 42.3 L Lymph % (Auto) 34.1 Iron % (Auto) 22.0 H Eos % (Auto) 1.2 L Baso % (Auto) 0.4 Gran # 1.08 L Lymph # (Auto) 0.9 L Iron # (Auto) 0.6 Eos # (Auto) 0.0 Baso # (Auto) 0.01 Neutrophils % (Manual) 48 L Lymphocytes % (Manual) 32 Monocytes % (Manual) 18 H Eosinophils % (Manual) 2 Platelet Evaluation Low Hypochromasia Slight Poikilocytosis (manual Slight Anisocytosis (manual) Slight pO2 VBG pH VBG pCO2 VBG HCO3 VBG Total CO2 VBG O2 Sat (Calc) VBG Base Excess VBG Potassium Sodium Chloride Glucose Lactate FiO2 Potassium Carbon Dioxide Anion Gap BUN Creatinine Est GFR ( Amer) Est GFR (Non-Af Amer) POC Glucose (mg/dL) Random Glucose Calcium Phosphorus Magnesium Total Bilirubin AST ALT Alkaline Phosphatase Troponin I 0.13 H* D Total Protein Albumin Globulin Albumin/Globulin Ratio TSH 3rd Generation 0.59 Venous Blood Potassium Blood Type Antibody Screen Crossmatch BBK History Checked 06/11/18 06/11/18 06/11/18 07:45 07:58 11:30 WBC RBC Hgb Hct MCV MCH MCHC RDW Plt Count Gran % Lymph % (Auto) Iron % (Auto) Eos % (Auto) Baso % (Auto) Gran # Lymph # (Auto) Iron # (Auto) Eos # (Auto) Baso # (Auto) Neutrophils % (Manual) Lymphocytes % (Manual) Monocytes % (Manual) Eosinophils % (Manual) Platelet Evaluation Hypochromasia Poikilocytosis (manual Anisocytosis (manual) pO2 VBG pH VBG pCO2 VBG HCO3 VBG Total CO2 VBG O2 Sat (Calc) VBG Base Excess VBG Potassium Sodium 140 Chloride 107 Glucose Lactate FiO2 Potassium 4.9 Carbon Dioxide 27 Anion Gap 11 BUN 39 H Creatinine 1.3 H Est GFR ( Amer) 50 Est GFR (Non-Af Amer) 42 POC Glucose (mg/dL) 135 H Random Glucose 127 H Calcium 8.7 Phosphorus 4.1 Magnesium 1.8 Total Bilirubin 0.2 AST 48 H D ALT 33 Alkaline Phosphatase 77 Troponin I Total Protein 5.4 L Albumin 3.0 Globulin 2.4 Albumin/Globulin Ratio 1.3 TSH 3rd Generation Venous Blood Potassium Blood Type O NEGATIVE Antibody Screen Negative Crossmatch See Detail BBK History Checked Patient has bt 06/11/18 06/11/18 12:40 16:13 WBC RBC Hgb Hct MCV MCH MCHC RDW Plt Count Gran % Lymph % (Auto) Iron % (Auto) Eos % (Auto) Baso % (Auto) Gran # Lymph # (Auto) Iron # (Auto) Eos # (Auto) Baso # (Auto) Neutrophils % (Manual) Lymphocytes % (Manual) Monocytes % (Manual) Eosinophils % (Manual) Platelet Evaluation Hypochromasia Poikilocytosis (manual Anisocytosis (manual) pO2 VBG pH VBG pCO2 VBG HCO3 VBG Total CO2 VBG O2 Sat (Calc) VBG Base Excess VBG Potassium Sodium Chloride Glucose Lactate FiO2 Potassium Carbon Dioxide Anion Gap BUN Creatinine Est GFR ( Amer) Est GFR (Non-Af Amer) POC Glucose (mg/dL) 184 H 207 H Random Glucose Calcium Phosphorus Magnesium Total Bilirubin AST ALT Alkaline Phosphatase Troponin I Total Protein Albumin Globulin Albumin/Globulin Ratio TSH 3rd Generation Venous Blood Potassium Blood Type Antibody Screen Crossmatch BBK History Checked Assessment & Plan - Assessment and Plan (Free Text) Plan: The patient was seen and examined by me. I reviewed the note of the medical concierge and agree with the assessment and plan. I have reviewed the medications and the last labs. Pt was admitted to the hospital for hypoglycemia. She had altered mental status and it improved with D50. She has a hx of Breast Cancer and has been getting treatment from her oncologist. She had an elevated troponin and has a hx of CAD. Spoke to Dr Slater from Oncology and pt will be going to cath. DM-2 will be controlled with insulin and ISS. She may need TCU but was not accepted. Pain is controlled. She has a portacath in the right chest. She states she has a difficulty in walking. She will need TCU for evaluation. Pt does not have CP at this time. She is on Losartan for her HTN. She has an elevated Cr and was s tarted on IVF. She will be given contrast and will need repeat Cr in the morning.
[2018-06-11 07:57] LABS: BASO # 0.01 K/mm3 (0.0-2.0); BASO % 0.4 % (0.0-3.0); EOS % 1.2 % (1.5-5.0); GRAN # 1.08 (1.4-6.5); GRAN % 42.3 % (50.0-68.0); LYMPH # 0.9 (1.2-3.4); LYMPH % 34.1 % (22.0-35.0); MEAN CELL VOLUME 70.4 fl (80.0-105.0); MEAN CORPUSCULAR HEMOGLOBIN 22.3 pg (25.0-35.0); MEAN CORPUSCULAR HGB CONC 31.7 g/dl (31.0-37.0); MONO # 0.6 (0.1-0.6); PLATELET COUNT 106 10^3/uL (120.0-450.0); RBC 3.58 10^6/uL (3.5-6.1); RED CELL DISTRIBUTION WIDTH 16.7 % (11.5-14.5); WHITE BLOOD COUNT 2.6 10^3/uL (4.5-11.0)
[2018-06-11 08:17] LABS: ALB/GLOB RATIO 1.3 (1.1-1.8); CALCIUM 8.7 mg/dL (8.4-10.5)
--- NOTE | 2018-06-11 08:20 | CT ---
Date of service: 06/10/2018 PROCEDURE: CT HEAD WITHOUT CONTRAST. HISTORY: ams, hx of ca COMPARISON: Comparison is made to the previous study dated 05/24/2018 TECHNIQUE: Axial computed tomography images were obtained through the head/brain without intravenous contrast. Radiation dose: Total exam DLP = 907.13 mGy-cm. This CT exam was performed using one or more of the following dose reduction techniques: Automated exposure control, adjustment of the mA and/or kV according to patient size, and/or use of iterative reconstruction technique. FINDINGS: HEMORRHAGE: No intracranial hemorrhage. BRAIN: No mass effect or edema. Mild volume loss and mild to moderate chronic microvascular white matter ischemic changes are again noted. VENTRICLES: Unremarkable. No hydrocephalus. CALVARIUM: Unremarkable. PARANASAL SINUSES: Unremarkable as visualized. No significant inflammatory changes. MASTOID AIR CELLS: Unremarkable as visualized. No inflammatory changes. OTHER FINDINGS: None. IMPRESSION: No evidence of acute intracranial hemorrhage intracranial collection mass effect or midline shift. Preliminary report was submitted by [facility] Radiology contains concordant findings.
[2018-06-11] MEDS: Insulin Reg-LOW-Coverage SC SCH ×4 (08:31→22:20)
[2018-06-11] MEDS ORDERED: Sodium Chloride 0.9% 1,000 ML IV SCH (08:45)
[2018-06-11 09:23] LABS: EOSINOPHIL 2 % (0.0-3.0); LYMPHOCYTE 32 % (22.0-35.0); MONOCYTE 18 % (1.0-6.0); NEUTROPHIL 48 % (50.0-70.0)
[2018-06-11 09:25] LABS: ANISOCYTOSIS SLIGHT; HYPOCHROMIA SLIGHT; POIKILOCYTOSIS SLIGHT
[2018-06-11 09:26] LABS: PLATELET ESTIMATE LOW (NORMAL)
--- NOTE | 2018-06-11 09:27 | RAD ---
Date of service: 06/10/2018 HISTORY: hx of ca, ams COMPARISON: 05/24/2018 single-view chest. 05/26/2018 CT thorax TECHNIQUE: Chest PA and lateral FINDINGS: LUNGS: Stable infiltrates, nodules and confluent pulmonary masses. PLEURA: No significant pleural effusion identified. No pneumothorax apparent. CARDIOVASCULAR: No aortic atherosclerotic calcification present. Venous access catheter in stable, satisfactory position. Normal cardiac size. No pulmonary vascular congestion. OSSEOUS STRUCTURES: No significant abnormalities. VISUALIZED UPPER ABDOMEN: Normal. OTHER FINDINGS: None. IMPRESSION: No significant interval change compared to the prior examination(s).
--- NOTE | 2018-06-11 09:33 | CP.PCM.CON ---
<Joi Church - Last Filed: 06/11/18 14:59> History of Present Illness - History of Present Illness History of Present Illness: Joi Church DO, PGY-2: Hematology and Oncology Consult Note for Dr. Griffith 63 year old female with past medical history of NHL with completion of treatment in 11/2017, CAD, HPL, HTN, DM, and sickle cell trait, stage IV triple negative breast cancer (right sided) s/p mastectomy with reconstruction with metastasis to right axilla, mediastinum, neck, bilateral lung espinosa,and pericapsular area of the reconstructed right breast who is currently maintained on Keytruda which was last given 05/24. The patient most recent hospital stay was for intractable right arm pain thought to be from a right brachial plexopathy. Her hospital course was complicated by episodic hypoglycemia, severe right arm pain, and loss of appetite. Yesterday, the oseas ent took her Novolog at around noon but did not eat. Her family was with her at this time and tried to encourage the patient to eat, but they were unsuccessful. The patient was brought in by EMS for unresponsiveness likely secondary to hypoglycemia. In the ED the patient was given Narcan and an ampule of D50 IVP with improvement of her symptoms. Her blood sugar was above 120 thereafter. She is on scheduled pain medication for her cancer pain and also for the right brachial plexopathy. In the ED the patient was also noted to have a troponin of 0.20. In the morning AM labs showed a hemoglobin of 8.0. Cardiology was consulted and the patient is going for a coronary catheterzation. We have order ed for two units of PRBCs fiven the patient has CAD and in anticipation of the blood loss the patient will incur from undergoing a left heart catheterization. She last took her Eliquis 5 mg yesterday in the PM. Otherwise, the patient denies fever, chills, nausea, vomiting, diarrhea. PMH: NHL with completion of treatment in 11/2017, CAD, HPL, HTN, DM, and sickle cell trait, stage IV triple negative breast cancer (right sided) s/p mastectomy with reconstruction with metastasis to right axilla, mediastinum, neck, bilateral lung espinosa,and pericapsular area of the reconstructed right breast who is currently maintained on Keytruda which was last given 05/24. The patient most recent hospital stay was for intractable right arm pain thought to be from a right brachial plexopathy. PSH: Right mastectomy with reconstruction Allergies: NKA Social: Denies alcohol, tobacco, or illicit drug use . Review of Systems - Review of Systems All systems: reviewed and no additional remarkable complaints except (as per HPI) Past Patient History - Infectious Disease Hx of Infectious Diseases: None - Tetanus Immunizations Tetanus Immunization: Unknown - Past Social History Smoking Status: Never Smoked - CARDIAC Hx Cardiac Disorders: Yes Hx Hypertension: Yes - PULMONARY Hx Respiratory Disorders: No - NEUROLOGICAL Hx Neurological Disorder: No - HEENT Hx HEENT Problems: No - RENAL Hx Chronic Kidney Disease: No - ENDOCRINE/METABOLIC Hx Endocrine Disorders: Yes Hx Diabetes Mellitus Type 2: Yes - HEMATOLOGICAL/ONCOLOGICAL Hx Blood Disorders: Yes Hx Cancer: Yes (BREAST) - INTEGUMENTARY Hx Dermatological Problems: No - MUSCULOSKELETAL/RHEUMATOLOGICAL Hx Falls: Yes - GASTROINTESTINAL Hx Gastrointestinal Disorders: No - GENITOURINARY/GYNECOLOGICAL Hx Genitourinary Disorders: No - PSYCHIATRIC Hx Psychophysiologic Disorder: No - SURGICAL HISTORY Hx Mastectomy: Yes (right breast cancer status post mastectomy in 2013, chemo and radiation ) - ANESTHESIA Hx Anesthesia Reactions: Yes (NAUSEA) Hx Malignant Hyperthermia: No Meds Allergies/Adverse Reactions: Allergies Allergy/AdvReac Type Severity Reaction Status Date / Time No Known Allergies Allergy Verified 06/10/18 18:18 - Medications Medications: Current Medications Aspirin (Ecotrin) 81 mg PO DAILY [facility] Atorvastatin Calcium (Lipitor) 20 mg PO DIN [facility] Last Admin: 06/10/18 23:31 Dose: 20 mg Folic Acid (Folic Acid) 1 mg PO DAILY [facility] Gabapentin (Neurontin) 600 mg PO BID [facility]; Protocol Gemfibrozil (Lopid) 600 mg PO DAILY [facility] Sodium Chloride (Sodium Chloride 0.9%) 1,000 mls @ 75 mls/hr IV .[id number] [facility] Stop: 06/12/18 11:24 Insulin Human Regular (Humulin R Low) 0 units SC [facility]; Protocol Last Admin: 06/11/18 08:31 Dose: Not Given Losartan Potassium (Cozaar) 100 mg PO DAILY [facility] Metoprolol Tartrate (Lopressor) 25 mg PO BID [facility] Last Admin: 06/10/18 21:21 Dose: 25 mg Physical Exam - Constitutional Appears: Non-toxic, No Acute Distress - Head Exam Head Exam: ATRAUMATIC, NORMOCEPHALIC - Eye Exam Eye Exam: EOMI, Normal appearance - ENT Exam ENT Exam: Mucous Membranes Moist, Normal Oropharynx - Neck Exam Neck exam: Positive for: Normal Inspection - Respiratory Exam Respiratory Exam: Clear to Auscultation Bilateral, NORMAL BREATHING PATTERN - Cardiovascular Exam Cardiovascular Exam: RRR, +S1, +S2 - GI/Abdominal Exam GI & Abdominal Exam: Normal Bowel Sounds, Soft - Extremities Exam Extremities exam: Positive for: normal inspection. Negative for: calf tenderness - Neurological Exam Neurological exam: Alert, CN II-XII Intact, Oriented x3 - Psychiatric Exam Psychiatric exam: Normal Affect, Normal Mood - Skin Skin Exam: Dry, Intact, Normal Color, Warm Results - Vital Signs Recent Vital Signs: Last Vital Signs Temp 98.1 F 06/11/18 06:00 Pulse 88 06/11/18 06:00 Resp 18 06/11/18 06:00 BP 131/70 06/11/18 06:00 Pulse Ox 100 06/11/18 06:00 - Labs Result Diagrams: 06/11/18 07:45 06/11/18 07:45 Labs: Laboratory Results - last 24 hr 06/10/18 06/10/18 06/10/18 18:43 18:43 18:43 WBC 3.4 L RBC 4.35 Hgb 9.8 L Hct 30.9 L MCV 71.0 L MCH 22.5 L MCHC 31.7 RDW 16.6 H Plt Count 118 L Gran % 45.9 L Lymph % (Auto) 38.0 H [place] % (Auto) 14.0 H Eos % (Auto) 1.8 Baso % (Auto) 0.3 Gran # 1.57 Lymph # (Auto) 1.3 [place] # (Auto) 0.5 Eos # (Auto) 0.1 Baso # (Auto) 0.01 Neutrophils % (Manual) Lymphocytes % (Manual) Monocytes % (Manual) Eosinophils % (Manual) Platelet Evaluation Hypochromasia Poikilocytosis (manual Anisocytosis (manual) pO2 79 H VBG pH 7.29 L VBG pCO2 57.0 VBG HCO3 27.4 VBG Total CO2 29.1 H VBG O2 Sat (Calc) 96.8 H VBG Base Excess -0.3 L VBG Potassium 4.3 Sodium 142.0 142 Chloride 107.0 105 Glucose 42 L Lactate 1.7 FiO2 21.0 Potassium 4.4 Carbon Dioxide 29 Anion Gap 11 BUN 36 H Creatinine 1.1 Est GFR ( Amer) > 60 Est GFR (Non-Af Amer) 50 POC Glucose (mg/dL) Random Glucose 44 L* D Calcium 9.5 Phosphorus Magnesium 2.1 Total Bilirubin 0.3 AST 70 H D ALT 30 Alkaline Phosphatase 84 Troponin I 0.20 H* D Total Protein 6.9 Albumin 4.0 Globulin 2.9 Albumin/Globulin Ratio 1.4 TSH 3rd Generation Venous Blood Potassium 4.3 06/10/18 06/11/18 06/11/18 19:30 07:30 07:45 WBC 2.6 L D RBC 3.58 Hgb 8.0 L Hct 25.2 L MCV 70.4 L MCH 22.3 L MCHC 31.7 RDW 16.7 H Plt Count 106 L Gran % 42.3 L Lymph % (Auto) 34.1 [place] % (Auto) 22.0 H Eos % (Auto) 1.2 L Baso % (Auto) 0.4 Gran # 1.08 L Lymph # (Auto) 0.9 L [place] # (Auto) 0.6 Eos # (Auto) 0.0 Baso # (Auto) 0.01 Neutrophils % (Manual) 48 L Lymphocytes % (Manual) 32 Monocytes % (Manual) 18 H Eosinophils % (Manual) 2 Platelet Evaluation Low Hypochromasia Slight Poikilocytosis (manual Slight Anisocytosis (manual) Slight pO2 VBG pH VBG pCO2 VBG HCO3 VBG Total CO2 VBG O2 Sat (Calc) VBG Base Excess VBG Potassium Sodium Chloride Glucose Lactate FiO2 Potassium Carbon Dioxide Anion Gap BUN Creatinine Est GFR ( Amer) Est GFR (Non-Af Amer) POC Glucose (mg/dL) Random Glucose Calcium Phosphorus Magnesium Total Bilirubin AST ALT Alkaline Phosphatase Troponin I 0.13 H* D Total Protein Albumin Globulin Albumin/Globulin Ratio TSH 3rd Generation 0.59 Venous Blood Potassium 06/11/18 06/11/18 07:45 07:58 WBC RBC Hgb Hct MCV MCH MCHC RDW Plt Count Gran % Lymph % (Auto) [place] % (Auto) Eos % (Auto) Baso % (Auto) Gran # Lymph # (Auto) [place] # (Auto) Eos # (Auto) Baso # (Auto) Neutrophils % (Manual) Lymphocytes % (Manual) Monocytes % (Manual) Eosinophils % (Manual) Platelet Evaluation Hypochromasia Poikilocytosis (manual Anisocytosis (manual) pO2 VBG pH VBG pCO2 VBG HCO3 VBG Total CO2 VBG O2 Sat (Calc) VBG Base Excess VBG Potassium Sodium 140 Chloride 107 Glucose Lactate FiO2 Potassium 4.9 Carbon Dioxide 27 Anion Gap 11 BUN 39 H Creatinine 1.3 H Est GFR ( Amer) 50 Est GFR (Non-Af Amer) 42 POC Glucose (mg/dL) 135 H Random Glucose 127 H Calcium 8.7 Phosphorus 4.1 Magnesium 1.8 Total Bilirubin 0.2 AST 48 H D ALT 33 Alkaline Phosphatase 77 Troponin I Total Protein 5.4 L Albumin 3.0 Globulin 2.4 Albumin/Globulin Ratio 1.3 TSH 3rd Generation Venous Blood Potassium Assessment & Plan - Assessment and Plan (Free Text) Assessment: 63 year old female with past medical history of NHL with completion of treatment in 11/2017, CAD, HPL, HTN, DM, and sickle cell trait, stage IV triple negative breast cancer (right sided) s/p mastectomy with reconstruction with metastasis to right axilla, mediastinum, neck, bilateral lung espinosa,and pericapsular area of the reconstructed right breast who is currently maintained on Keytruda which was last given 05/24. She is going for cardiac catheterization in the setting on known CAD with a hemoglobin of 8.0 We ordered for two units of PRBCs. We will follow with you. - Date & Time Date: 06/11/18 Time: 15:00 <Doris Griffith P - Last Filed: 06/12/18 13:10> Meds - Medications Medications: Current Medications Aspirin (Ecotrin) 81 mg PO DAILY [facility] Last Admin: 06/12/18 09:39 Dose: 81 mg Atorvastatin Calcium (Lipitor) 20 mg PO DIN [facility] Last Admin: 06/11/18 17:35 Dose: 20 mg Cyproheptadine HCl (Periactin) 2 mg PO DAILY [facility] Last Admin: 06/12/18 09:39 Dose: 2 mg Ergocalciferol (Drisdol 50,000 Intl Units Cap) 1 cap PO QWK [facility] Ferrous Sulfate (Feosol) 324 mg PO BID [facility] Last Admin: 06/12/18 09:39 Dose: 324 mg Folic Acid (Folic Acid) 1 mg PO DAILY [facility] Last Admin: 06/12/18 09:39 Dose: 1 mg Gabapentin (Neurontin) 600 mg PO BID [facility]; Protocol Last Admin: 06/12/18 09:39 Dose: 600 mg Gemfibrozil (Lopid) 600 mg PO DAILY [facility] Last Admin: 06/12/18 09:39 Dose: 600 mg Insulin Human Regular (Humulin R Low) 0 units SC ACHS [facility]; Protocol Last Admin: 06/12/18 12:08 Dose: 2 units Magnesium Oxide (Mag-Ox) 400 mg PO DAILY [facility] Last Admin: 06/12/18 09:40 Dose: 400 mg Metoprolol Tartrate (Lopressor) 25 mg PO BID [facility] Last Admin: 06/12/18 09:40 Dose: 25 mg Morphine Sulfate (Morphine) 2 mg IVP Q3H PRN PRN Reason: Pain, severe (8-10) Last Admin: 06/12/18 09:36 Dose: 2 mg Results - Vital Signs Recent Vital Signs: Last Vital Signs Temp 99.3 F 06/12/18 12:00 Pulse 77 06/12/18 12:00 Resp 18 06/12/18 12:00 BP 111/71 06/12/18 12:00 Pulse Ox 99 06/12/18 05:38 - Labs Result Diagrams: 06/12/18 07:30 06/12/18 07:30 Labs: Laboratory Results - last 24 hr 06/10/18 06/10/18 06/10/18 18:16 19:28 20:39 WBC RBC Hgb Hct MCV MCH MCHC RDW Plt Count Gran % Lymph % (Auto) [place] % (Auto) Eos % (Auto) Baso % (Auto) Gran # Lymph # (Auto) [place] # (Auto) Eos # (Auto) Baso # (Auto) Sodium Potassium Chloride Carbon Dioxide Anion Gap BUN Creatinine Est GFR ( Amer) Est GFR (Non-Af Amer) POC Glucose (mg/dL) 123 H 83 147 H Random Glucose Calcium Phosphorus Magnesium Total Bilirubin AST ALT Alkaline Phosphatase Total Protein Albumin Globulin Albumin/Globulin Ratio Blood Type Antibody Screen Crossmatch BBK History Checked 06/11/18 06/11/18 06/11/18 11:30 16:13 22:00 WBC RBC Hgb Hct MCV MCH MCHC RDW Plt Count Gran % Lymph % (Auto) [place] % (Auto) Eos % (Auto) Baso % (Auto) Gran # Lymph # (Auto) [place] # (Auto) Eos # (Auto) Baso # (Auto) Sodium Potassium Chloride Carbon Dioxide Anion Gap BUN Creatinine Est GFR ( Amer) Est GFR (Non-Af Amer) POC Glucose (mg/dL) 207 H 296 H Random Glucose Calcium Phosphorus Magnesium Total Bilirubin AST ALT Alkaline Phosphatase Total Protein Albumin Globulin Albumin/Globulin Ratio Blood Type O NEGATIVE Antibody Screen Negative Crossmatch See Detail BBK History Checked Patient has bt 06/12/18 06/12/18 06/12/18 07:30 07:30 07:40 WBC 3.8 L D RBC 4.17 Hgb 9.9 L Hct 30.6 L MCV 73.4 L D MCH 23.7 L MCHC 32.4 RDW 17.1 H Plt Count 113 L Gran % 49.6 L Lymph % (Auto) 30.5 [place] % (Auto) 19.1 H Eos % (Auto) 0.5 L Baso % (Auto) 0.3 Gran # 1.87 Lymph # (Auto) 1.2 [place] # (Auto) 0.7 H Eos # (Auto) 0.0 Baso # (Auto) 0.01 Sodium 138 Potassium 5.6 H* Chloride 109 H Carbon Dioxide 22 Anion Gap 13 BUN 47 H Creatinine 1.4 H Est GFR ( Amer) 46 Est GFR (Non-Af Amer) 38 POC Glucose (mg/dL) 248 H Random Glucose 244 H Calcium 8.5 Phosphorus 4.2 Magnesium 1.8 Total Bilirubin 0.3 AST 120 H D ALT 52 Alkaline Phosphatase 105 Total Protein 5.4 L Albumin 3.3 Globulin 2.1 Albumin/Globulin Ratio 1.6 Blood Type Antibody Screen Crossmatch BBK History Checked 06/12/18 11:26 WBC RBC Hgb Hct MCV MCH MCHC RDW Plt Count Gran % Lymph % (Auto) [place] % (Auto) Eos % (Auto) Baso % (Auto) Gran # Lymph # (Auto) [place] # (Auto) Eos # (Auto) Baso # (Auto) Sodium Potassium Chloride Carbon Dioxide Anion Gap BUN Creatinine Est GFR ( Amer) Est GFR (Non-Af Amer) POC Glucose (mg/dL) 238 H Random Glucose Calcium Phosphorus Magnesium Total Bilirubin AST ALT Alkaline Phosphatase Total Protein Albumin Globulin Albumin/Globulin Ratio Blood Type Antibody Screen Crossmatch BBK History Checked Attending/Attestation - Attestation I have personally seen and examined this patient.: Yes I have fully participated in the care of the patient.: Yes I have reviewed all pertinent clinical information: Yes
--- NOTE | 2018-06-11 09:36 | RAD ---
Date of service: 06/10/2018 PROCEDURE: Radiographs of the Sacrum and Coccyx HISTORY: tailbone pain s/p fall yesterday to tailbone only COMPARISON: None available. TECHNIQUE: Frontal and lateral views of the sacrum and coccyx FINDINGS: BONES: Sacrum and coccyx unremarkable. No fracture or focal lesion. SACROILIAC JOINTS: Unremarkable. OTHER FINDINGS: None. IMPRESSION: Unremarkable radiographs of the sacrum and coccyx.
--- NOTE | 2018-06-11 09:50 | CON ---
DATE: 06/10/2018 CARDIOLOGY CONSULTATION HISTORY: The patient is a 63-year-old woman who presented with a syncopal episode. There are no issues. The patient's syncope was improved after giving IV D5 water. PAST MEDICAL HISTORY: Includes diabetes mellitus, on multiple medications; hypertension; hypercholesterolemia; and history of PTCA and stent. The patient apparently had not eaten all day. The patient's past medical history also includes a history of breast CA, treated. In the emergency room, she was found to have borderline elevated troponins. Her stress test 2 months ago was unremarkable. SOCIAL HISTORY: She denies smoking. REVIEW OF SYSTEMS: Fourteen-point review of systems is reviewed. No additional cardiac symptoms are noted. PHYSICAL EXAMINATION: VITAL SIGNS: Blood pressure is 131/70, heart rate is in the 80s. NECK: Negative JVD. LUNGS: Without rales. HEART: With S1, S2. EXTREMITIES: Without edema. EKG shows no acute changes. LABORATORIES: The glucose varies from 44-177. Troponins are 0.2. Hemoglobin is 9.8. IMPRESSION: 1. Jci-IW-myoeuvrvl myocardial infarction. 2. Syncope. 3. Likely due to hypoglycemia. 4. Diabetes mellitus. 5. Coronary artery disease. 6. History of percutaneous transluminal coronary angioplasty and stent. 7. Hypertension. 8. Hypercholesterolemia. 9. History of breast carcinoma. 10. History of sickle cell trait. Given these findings, I have discussed with the patient in detail to be regular in terms of her oral intake given the amount of insulin that she is on. In addition, given her elevated troponins, we will proceed to cardiac catheterization. Erich Slater MD
[2018-06-11] MEDS ORDERED: Iodixanol 320 MG/ML 200 ML BOTTLE IV ONE (11:07)
[2018-06-11] MEDS ORDERED: Lidocaine 2% Inj (20ml) ONE (11:07)
[2018-06-11] MEDS ORDERED: Iohexol 350mgl/ml 50 ML ONE (11:07)
[2018-06-11] MEDS ORDERED: Iodixanol 320 MG/ML 100 ML BOTTLE IV ONE (11:07)
[2018-06-11] MEDS ORDERED: Nitroglycerin 50mg in D5W 0 MG/0 ML BOTTLE IV ONE (11:07)
[2018-06-11] MEDS ORDERED: Midazolam 2 MG/2 ML VIAL ONE ×3 (11:16→11:31)
--- NOTE | 2018-06-11 15:18 | CON ---
CARDIOLOGY CONSULTATION DATE: 06/11/2018 HISTORY OF PRESENT ILLNESS: The patient is a 63-year-old woman with a history of CAD and stents in the past who presents with a borderline elevated troponins of 0.2 and 0.13. Because of this, the patient is brought for cardiac catheterization. PROCEDURE: Left heart catheterization with coronary and left ventriculogram and supra-aortic valvular injection. The right femoral artery was cannulated with 6-Syriac sheath. There were no complications. FINDINGS ON CATHETERIZATION: Revealed a normal LV function with an EF of 70%. Her coronary anatomy revealed a codominant circulation. The left main artery was unremarkable. The stent in the circumflex is patent. The LAD and diagonal vessel are free of significant disease. The RCA revealed diffuse intimal irregularities without critical lesions. There is a 50% stenosis in the mid RCA. Supra-aortic valvular injection revealed no aortic insufficiency. Angio-Seal was used to close the femoral artery site. The patient tolerated the procedure well. In summary, the procedure revealed normal LV function. Patent stents in the circumflex artery. A 50% stenosis in the mid RCA. Given these findings, the patient's borderline elevated troponins cannot be explained by her coronary anatomy. We will obtain a d-dimer to see whether we need to rule out pulmonary embolism. Erich Slater MD
[2018-06-11] MEDS: Morphine 2 mg/ml ISec IVP PRN (18:32)
[2018-06-12 08:07] LABS: BASO # 0.01 K/mm3 (0.0-2.0); BASO % 0.3 % (0.0-3.0); EOS % 0.5 % (1.5-5.0); GRAN # 1.87 (1.4-6.5); GRAN % 49.6 % (50.0-68.0); HEMOGLOBIN 9.9 g/dL (12.0-16.0); LYMPH # 1.2 (1.2-3.4); LYMPH % 30.5 % (22.0-35.0); MEAN CELL VOLUME 73.4 fl (80.0-105.0); MEAN CORPUSCULAR HEMOGLOBIN 23.7 pg (25.0-35.0); MEAN CORPUSCULAR HGB CONC 32.4 g/dl (31.0-37.0); MONO # 0.7 (0.1-0.6); MONO % 19.1 % (1.0-6.0); PLATELET COUNT 113 10^3/uL (120.0-450.0); RBC 4.17 10^6/uL (3.5-6.1); RED CELL DISTRIBUTION WIDTH 17.1 % (11.5-14.5); WHITE BLOOD COUNT 3.8 10^3/uL (4.5-11.0)
[2018-06-12 08:33] LABS: ALB/GLOB RATIO 1.6 (1.1-1.8); ALBUMIN 3.3 g/dL (3.0-4.8); CALCIUM 8.5 mg/dL (8.4-10.5)
[2018-06-12] MEDS: Morphine 2 mg/ml ISec IVP PRN (09:36)
[2018-06-12] MEDS: Insulin Reg-LOW-Coverage SC SCH ×4 (09:38→22:07)
[2018-06-12] MEDS: Magnesium Oxide 400 mg Tab UD PO SCH (09:40)
--- NOTE | 2018-06-12 10:01 | PN ---
CARDIOLOGY FOLLOWUP DATE: 06/12/2018 SUBJECTIVE: The patient is stable post cardiac catheterization and her stent in the circumflex artery was patent. PHYSICAL EXAMINATION: VITAL SIGNS: Blood pressure 130/75 and heart rate in the 70s. NECK: Negative JVD. LUNGS: Without rales. HEART: Reveal S1 and S2. EXTREMITIES: Without edema. The right groin site reveals mild ecchymoses. LABORATORY DATA: His creatinine is 1.4 compared to yesterday's 1.3 and glucose 244. Given these cath findings, her elevated troponins are not explainable. We will obtain a CT scan of the chest today to rule out pulmonary embolism. Erich Slater MD
[2018-06-12] MEDS ORDERED: Sod Polystyrene Sulf 15 gm/60 ml Susp PO ONE (10:17)
--- NOTE | 2018-06-12 22:06 | PN ---
DATE: 06/12/2018 SUBJECTIVE: The patient is a 63-year-old with history of CA breast, port in her left chest, came to emergency room because she was found unresponsive. She was found to be hypoglycemic. She has history of CA breast, status post mastectomy, currently on chemotherapy, under care of Dr. Griffith. The patient was complaining of shortness of breath. Dr. Erich Slater was consulted, was evaluated by Dr. Erich Slater. Recommended for CT angio, but the patient's creatinine had jumped up as compared to yesterday. We will obtain VQ scan. PHYSICAL EXAMINATION: GENERAL: Looks pale, mild shortness of breath. VITAL SIGNS: She is afebrile. Pulse 77, respiratory 18, and blood pressure 111/71. LUNGS: Bilateral fair airflow. No rhonchi or crackle. HEART: S1, S2 audible. ABDOMEN: Soft and nontender. No rebound or guarding. NEUROLOGICAL: The patient is awake, alert, oriented, and able to communicate. Moves all extremity, has generalized weakness. Poor oral intake. LABORATORY DATA: WBC 3.8, hemoglobin 9.9, hematocrit 30.6, and platelet of 113. Chemistry: Sodium 138, potassium 5.6, chloride 109, CO2 of 22, BUN 47, creatinine 1.4, and blood sugar of 246. The patient had hyperkalemia, will be given Kayexalate. ASSESSMENT: 1. Shortness of breath, etiology is still unclear. The patient had cardiac catheterization done that shows normal left ventricular function with ejection fraction 70%. Left main is unremarkable. Circumflex stent is patent. Left anterior descending and diagonals are free of disease and right coronary artery has diffuse intimal irregularity without critical lesions. 2. Mild renal insufficiency. 3. Hypertension. 4. Hyperlipidemia. 5. Insulin-dependent diabetes. 6. Sickle cell trait. 7. Pancytopenia. PLAN: The patient's losartan is on hold. VQ scan has been ordered. We will follow up electrolyte, CBC and CMP in a.m. Monitor blood sugary. Kayexalate is given. Awaiting for VQ scan and then, we will make a further decision depending on how the patient's VQ scan is and how her performance in physical therapy. Meghan Borges MD [facility] # [id number]
[2018-06-13] MEDS ORDERED: cefTRIAXone 2 GM IN NS 2 GM/100 ML BAG IVPB STA (06:45)
[2018-06-13 07:22] LABS: PH,URINE 5.5 (4.7-8.0); URINE BILIRUBIN NEGATIVE (NEGATIVE); URINE BLOOD NEGATIVE (NEGATIVE); URINE GLUCOSE (UA) NEGATIVE (NEGATIVE); URINE LEUKOCYTE ESTERASE NEGATIVE Leu/uL (NEGATIVE); URINE PROTEIN NEGATIVE mg/dL (<30 mg/dL); URINE UROBILINOGEN 0.2 E.U./dL (<1 E.U./dL)
[2018-06-13 07:31] LABS: URINE APPEARANCE CLEAR (CLEAR); URINE COLOR YELLOW (YELLOW); WHITE BLOOD COUNT 3.6 10^3/uL (4.5-11.0)
[2018-06-13 07:32] LABS: EOS % 0.3 % (1.5-5.0); GRAN # 2.13 (1.4-6.5); LYMPH # 0.8 (1.2-3.4); LYMPH % 22.4 % (22.0-35.0); MEAN CELL VOLUME 73.4 fl (80.0-105.0); MEAN CORPUSCULAR HEMOGLOBIN 24.1 pg (25.0-35.0); MEAN CORPUSCULAR HGB CONC 32.8 g/dl (31.0-37.0); MONO # 0.7 (0.1-0.6); MONO % 18.3 % (1.0-6.0); PLATELET COUNT 84 10^3/uL (120.0-450.0); RBC 2.74 10^6/uL (3.5-6.1); RED CELL DISTRIBUTION WIDTH 17.8 % (11.5-14.5)
[2018-06-13 07:59] LABS: HEMOGLOBIN 6.6 g/dL (12.0-16.0)
[2018-06-13 08:16] LABS: ALB/GLOB RATIO 1.2 (1.1-1.8); ALBUMIN 2.8 g/dL (3.0-4.8); CALCIUM 7.9 mg/dL (8.4-10.5)
[2018-06-13] MEDS: Insulin Reg-LOW-Coverage SC SCH ×4 (08:25→22:02)
[2018-06-13 09:07] LABS: HEMOGLOBIN 8.3 g/dL (12.0-16.0); MEAN CELL VOLUME 73.8 fl (80.0-105.0); MEAN CORPUSCULAR HEMOGLOBIN 23.9 pg (25.0-35.0); MEAN CORPUSCULAR HGB CONC 32.4 g/dl (31.0-37.0); PLATELET COUNT 114 10^3/uL (120.0-450.0); RBC 3.47 10^6/uL (3.5-6.1); RED CELL DISTRIBUTION WIDTH 17.9 % (11.5-14.5)
[2018-06-13] MEDS: Magnesium Oxide 400 mg Tab UD PO SCH (10:23)
[2018-06-13] MEDS: Sodium Chloride 0.45% 1,000 ML IV SCH ×2 (11:38→22:00)
--- NOTE | 2018-06-13 13:15 | RAD ---
HISTORY: fever COMPARISON: Chest x-ray performed 06/10/18, CT chest without contrast performed 08/03/17 TECHNIQUE: Chest PA and lateral FINDINGS: Right-sided MediPort extends expected location of the SVC. LUNGS: Interval decrease in interstitial edema/infection. 2.8 cm rounded mass persists at the left lung base. 2.0 cm left lung apex rounded opacity. No significant pleural effusion. No definite pneumothorax . CARDIOVASCULAR: Heart size appears within normal limits. No atherosclerotic calcification present. OSSEOUS STRUCTURES: Degenerative changes. VISUALIZED UPPER ABDOMEN: Unremarkable. OTHER FINDINGS: None. IMPRESSION: Right-sided MediPort extends to the expected location of the SVC. Interval decrease in interstitial edema/infection. 2.8 cm rounded mass persists at the left lung base. 2.0 cm left lung apex rounded opacity.
--- NOTE | 2018-06-13 22:58 | PN ---
DATE: 06/13/2018 SUBJECTIVE: The patient is a 63-year-old, complaining of generalized weakness and poor appetite. According to the nurse, her urine output is only 300 mL. Last shift, complained of generalized weakness. PHYSICAL EXAMINATION VITAL SIGNS: She is afebrile. Pulse 96, respirations 20, blood pressure 99/65. LUNGS: Bilateral fair airflow, decreased at bases. HEART: S1 and S2 audible. ABDOMEN: Soft and nontender. No rebound, no guarding. NEUROLOGICAL: The patient is awake, alert, oriented, able to communicate. LABORATORY DATA: WBC 5, hemoglobin 8.3, hematocrit 25.6, platelets 114. Chemistry: Sodium 143, potassium 4.1, chloride 110, CO2 of 27, BUN 59, creatinine 1.8, blood sugar 212. Blood cultures are negative. X-ray of chest was done that shows right-sided Port-A-cath, interval decrease in interstitial edema, left lung has a 2.8 cm round mass. V/Q scan is of low probability for pulmonary embolism. ASSESSMENT: 1. Poor oral intake, renal insufficiency. 2. Metastatic breast cancer. 3. Status post cardiac catheterization done and was found to have normal left ventricular function. Circumflex stent is patent. 4. History of hypertension. 5. Insulin-dependent diabetes. 6. Anemia. Earlier hemoglobin was 6.6, repeat one is 8.3. PLAN: We will start the patient on IV fluids since her oral intake is very poor. We will continue her on aspirin. She is on ferrous sulfate, probably will benefit from IV Venofer since her oral intake is poor. We will follow up her electrolytes and she will be seen in a.m. Meghan Borges MD
--- NOTE | 2018-06-13 23:40 | PN ---
DATE: 06/13/2018 ONCOLOGY PROGRESS NOTE LOCATION: The patient is in room 273, bed 2. SUBJECTIVE: This is a 63-year-old female with a diagnosis of metastatic recurrent triple-negative breast cancer, currently started on Keytruda because she has MSI high tumor. She is admitted to the hospital with recent history of fall because of low blood sugar, apparently when she comes, she hit her sacrum. X-rays of the sacral bone have been negative. The patient has been on IV fluids and just on low-dose insulin coverage at this point in time. CT of the head was negative for metastatic disease. During the hospital course, the patient's troponin was borderline elevated. She had a cardiac cath done, which showed no new acute blockage. There was a disease in the right coronary artery, which was felt that could be managed medically. The patient is on cardiac medications and her troponin are trending down. PAST MEDICAL HISTORY: Significant for triple negative breast cancer involving the right breast, status post mastectomy, reconstructive surgery, followed by that the patient had a CT-based chemotherapy and radiation therapy to the chest wall. The patient did best for about four and half years and now has recurrent disease in the right axilla, mediastinum, neck, nose and in the lungs has evidence on the PET-CT scan and biopsy-proven metastatic disease in the lungs. The patient also in the interm was treated for non-Hodgkin's lymphoma, it was discovered in 04/2017. The patient was treated with R-CHOP chemotherapy in the interim through 11/2017 and there had been in remission for the non-Hodgkin's and then recently discovered to have a cause of her breast cancer for which she was started on Keytruda and she has had one dose of Keytruda in the recent past. The patient had fluctuating problems with the blood sugars and she is a poor diabetic and has had several complications related to her diabetes including neuropathy in the lower extremities and eye issues related to her diabetes. Currently, the sugars have been running low as the patient's appetite has been decreased. The patient has been started on 1 dose of antibiotics. Blood cultures were drawn and apparently this morning the patient had low-grade temperature. Obviously, chest x-ray was also ordered and the patient received one dose of Rocephin IV. The patient was anemic and received 2 units of blood transfusion postcardiac cath on Thursday. PHYSICAL EXAMINATION: GENERAL: The patient was examined in bed. The patient is awake, alert, and oriented. The patient tells me pain has improved, but not gone. She is able to move both her upper and lower extremities with eliminated. The patient tells me she is thirsty, but she has no nausea or vomiting. The patient does not have any chills at the time of examination. VITAL SIGNS: Revealed T-max of 98.6, pulse rate is 96, blood pressure 99/63 with respirations of 20 per minute. The patient is not short of breath HEENT: Head is normocephalic and atraumatic. The patient has alopecia, on chemotherapy. Examination of the oropharynx reveals no oropharyngeal lesions. Tongue is moist. NECK: Supple. There is no adenopathy. No jugular venous distention noted. CHEST: On examination of the chest wall, the patient has induration of the prosthesis and implant that she has in the right breast with fullness in the right axilla. The patient has right arm lymphedema noted. Left breast is unremarkable. Left arm is unremarkable. LUNGS: Relatively clear to percussion and auscultation with decreased breath sounds in the bases. CARDIOVASCULAR: Reveals S1 and S2 to be normal. No gallop or murmur is heard. ABDOMEN: Soft and nontender. Bowel sounds are present. No rebound, rigidity or guarding is noted. EXTREMITIES: There is no cyanosis, clubbing or edema in the lower extremities. NEUROLOGIC: Reveals higher functions to be normal. The patient is able to respond appropriately to me. She knows she is in the hospital. She was able to recognize by name and knew where she was and what treatments were being offered to her. The patient is depressed as she appears she is very weak except for the thirst, she has very minimal appetite. GENITOURINARY AND RECTAL: Deferred. The patient had apparently problems with urinating and she was distended on bladder ultrasound. The patient has a Rodgers catheter inserted. Cultures today have been negative as far as the urine cultures are concern. LABORATORY DATA: Today reveals a white count of 5, hemoglobin 8.3, hematocrit 25 and platelet count of 114,000. Chemistries were reviewed and chemistry revealed sodium of 143, K of 4.1, chloride 110, CO2 of 27, BUN of 59, and creatinine 1.8. Blood sugar is 233. Total protein 5.3 then albumin of 2.8. MEDICATIONS: The patient's medications were reviewed. She is on vitamin D 50,000 units once a week, Ecotrin 81 mg daily, Feosol 324 mg b.i.d., folic acid 1 mg daily, insulin coverage on a low dose algorithm, Lipitor 20 mg daily, Lopid 600 mg daily, Lopressor 25 mg b.i.d., magnesium oxide 400 mg daily, morphine sulfate mg IV every 3 hours p.r.n., and gabapentin 600 mg p.o. b.i.d. She is on IV fluids 1000 mL normal saline 60 mL an hour, Tylenol p.r.n., the patient got one dose of Rocephin early this morning of 2 g pending ID evaluation. ASSESSMENT, NOTES, AND PLAN: The patient had a V/Q scan as requested by Dr. Slater has not been officially read, but looking at it, it appears the V/Q scan is unremarkable. No evidence of lung involvement blood clots at this point in time. Chest x-rays have been done early this morning shows no acute changes, some changes consistent with lung metastasis in both lung espinosa. The patient is very weak, failure to thrive, no appetite. Background history of stage IV metastatic carcinoma of the breast. The patient is unable to turn herself in bed, requires a lot of assistance. Detail discussion with the patient and speak to the family. The patient is definitely obviously deconditioned especially over the last 10 days. The patient is called for antibiotics for now. Speak to PMD, speak to the family, and put the Keytruda on hold, which we had been due for next week. We will try to start the patient on active physical therapy and see if we can push enteral alimentation for dietary consult evaluation. The patient is on Periactin without much help. She may need something to boost her appetite after discussing with the family trying to see if she is a candidate for either Marinol or Megace to increase her appetite. The patient prognostically because of the recurrence of the cancer as metastatic disease is guarded, but she has no evidence of metastatic disease either to the brain or obliviously in the liver. We are trying to be cautiously optimistic and aggressive with her management as she will respond dramatically to the Keytruda if we are able to continue the treatments. Most important aspect of her management right now would be try to control of her sugars from going down and to avoid any given arrangements especially when oral intake is not that great. We will try to get input from diabetic specialist, Dr. Velez as well. Time spent with the patient is greater than 45 minutes in correlating all the data and talking to the immediate family. Please make a note that this is a complex patient with multiple comorbid medical issues. Labs per a.m. have been requested. Doris Griffith MD
[2018-06-14] MEDS ORDERED: Vancomycin 1.5 GM in Sodium Chloride 0.9% 500 ML IVPB ONE (06:24)
[2018-06-14 07:19] LABS: ALB/GLOB RATIO 1.2 (1.1-1.8); ALBUMIN 2.7 g/dL (3.0-4.8); CALCIUM 8.3 mg/dL (8.4-10.5)
[2018-06-14 07:35] LABS: BASO # 0.01 K/mm3 (0.0-2.0); BASO % 0.3 % (0.0-3.0); EOS % 1.1 % (1.5-5.0); GRAN # 2.23 (1.4-6.5); GRAN % 60.6 % (50.0-68.0); HEMOGLOBIN 7.1 g/dL (12.0-16.0); LYMPH # 0.9 (1.2-3.4); LYMPH % 23.9 % (22.0-35.0); MEAN CORPUSCULAR HGB CONC 32.4 g/dl (31.0-37.0); MONO # 0.5 (0.1-0.6); MONO % 14.1 % (1.0-6.0); PLATELET COUNT 107 10^3/uL (120.0-450.0); RBC 2.96 10^6/uL (3.5-6.1); RED CELL DISTRIBUTION WIDTH 17.9 % (11.5-14.5); WHITE BLOOD COUNT 3.7 10^3/uL (4.5-11.0)
--- NOTE | 2018-06-14 08:39 | PN ---
DATE: 06/13/2018 SUBJECTIVE: The patient is comfortable in bed. OBJECTIVE: VITAL SIGNS: Blood pressure 99/63, heart rates in the 90s. NECK: Negative JVD. LUNGS: Without rales. HEART: S1, S2. EXTREMITIES: Without edema. LABORATORY DATA: Hemoglobin is 8.3. Chemistries, the creatinine is up to 1.8 from a creatinine of 1.1 on admission. VQ scan is negative. IMPRESSION: 1. [id number] myocardial infarction. 2. Patent stents noted in the circumflex artery. 3. 50% stenosis in the right coronary artery. 4. No cardiac or pulmonary cause of her elevated troponins can be found. 5. Contrast nephropathy. 6. Diabetes mellitus. PLAN: Given these findings, we will continue the IV fluids and monitor her creatinine. We will follow her creatinine in the morning. Erich Slater MD
[2018-06-14] MEDS: Insulin Reg-LOW-Coverage SC SCH ×4 (08:42→23:32)
[2018-06-14] MEDS: Magnesium Oxide 400 mg Tab UD PO SCH (10:44)
[2018-06-14] MEDS: Cefepime 1gm in NS 100ml 1 GM/100 ML BAG IVPB SCH (10:49)
--- NOTE | 2018-06-14 11:42 | CP.PCM.CON ---
History of Present Illness - History of Present Illness History of Present Illness: Palliative consult requested by Dr Claire Griffith copied to Dr Elpidio Soria Reason: Goals of care 63 year old female who presented to ED on 06/13 with hypoglycemia, poor appetite, right arm pain and swelling. Workup revealed her to be anemic, Hgb 8.0 she is s/p II U PRBC's. Troponin was elevated at 0.20. Cardiac catheterization was done 06/11 > findings of normal LV function, EF 70%, LAD and diagonal vessel free of significant disease. RCA revealed diffuse intimal irregularities w/o critical lesions, 50 % stenosis in mid RCA. No aortic insufficiency, patent stents in the circumflex artery. Chest x ray: 06/13: interval decrease in interstitial edema , 2.8 cm rounded mass persists in LL base, 2.0 cm left lung apex rounded opacity Head CT: No evidence of intracranial findings findings. X ray Sacrum and Coccyx: Unremarkable, no acute findings VQ scan : Negative for PE PMHx: triple negative metastatic breast cancer currently receiving Keytruda immunotherpy, NHL s/p tx in 11/2017, CAD, HTN, HLD, DM, right brachial plexopathy, intractable pain,sickle cell trait PSHx: right mastectomy and reconstructive surgery, left chest port a cath Social History: Never smoker, no alcohol or drug use. Family History:Non contributory Advance Care Planning: The patient has an Advanced Directive. Review of Systems - Review of Systems All systems: reviewed and no additional remarkable complaints except - Constitutional Constitutional: Anorexia, Weakness - EENT Additional comments: negative - Breasts Additional comments: s/p surgery - Cardiovascular Cardiovascular: Dyspnea on Exertion - Respiratory Additional comments: negative - Gastrointestinal Gastrointestinal: Diarrhea - Genitourinary Additional comments: negative - Reproductive: Female Reproductive:Female: Post Menopausal - Musculoskeletal Additional comments: right arm swelling, weakness and pain - Neurological Additional comments: negative - Psychiatric Additional comments: negative - Endocrine Additional Comments: negative Past Patient History - Infectious Disease Hx of Infectious Diseases: None - Tetanus Immunizations Tetanus Immunization: Unknown - Past Social History Smoking Status: Never Smoked - CARDIAC Hx Cardiac Disorders: Yes Hx Hypertension: Yes - PULMONARY Hx Respiratory Disorders: No - NEUROLOGICAL Hx Neurological Disorder: No - HEENT Hx HEENT Problems: No - RENAL Hx Chronic Kidney Disease: No - ENDOCRINE/METABOLIC Hx Endocrine Disorders: Yes Hx Diabetes Mellitus Type 2: Yes - HEMATOLOGICAL/ONCOLOGICAL Hx Blood Disorders: Yes Hx Cancer: Yes (BREAST) - INTEGUMENTARY Hx Dermatological Problems: No - MUSCULOSKELETAL/RHEUMATOLOGICAL Hx Falls: Yes - GASTROINTESTINAL Hx Gastrointestinal Disorders: No - GENITOURINARY/GYNECOLOGICAL Hx Genitourinary Disorders: No - PSYCHIATRIC Hx Psychophysiologic Disorder: No - SURGICAL HISTORY Hx Mastectomy: Yes (right breast cancer status post mastectomy in 2013, chemo and radiation ) - ANESTHESIA Hx Anesthesia Reactions: Yes (NAUSEA) Hx Malignant Hyperthermia: No Meds Allergies/Adverse Reactions: Allergies Allergy/AdvReac Type Severity Reaction Status Date / Time No Known Allergies Allergy Verified 06/10/18 18:18 - Medications Medications: Current Medications Acetaminophen (Tylenol 325mg Tab) 650 mg PO Q4H PRN PRN Reason: Temp greater than 100.4*F Last Admin: 06/14/18 10:48 Dose: 650 mg Aspirin (Ecotrin) 81 mg PO DAILY [facility] Last Admin: 06/14/18 10:43 Dose: 81 mg Atorvastatin Calcium (Lipitor) 20 mg PO DIN [facility] Last Admin: 06/13/18 17:21 Dose: 20 mg Cyproheptadine HCl (Periactin) 2 mg PO DAILY [facility] Last Admin: 06/14/18 10:43 Dose: 2 mg Ergocalciferol (Drisdol 50,000 Intl Units Cap) 1 cap PO QWK [facility] Ferrous Sulfate (Feosol) 324 mg PO BID [facility] Last Admin: 06/14/18 10:44 Dose: 324 mg Folic Acid (Folic Acid) 1 mg PO DAILY [facility] Last Admin: 06/14/18 10:44 Dose: 1 mg Gabapentin (Neurontin) 600 mg PO BID [facility]; Protocol Last Admin: 06/14/18 10:44 Dose: 600 mg Gemfibrozil (Lopid) 600 mg PO DAILY [facility] Last Admin: 06/14/18 10:43 Dose: 600 mg Cefepime HCl (Maxipime 1gm) 1 gm in 100 mls @ 25 mls/hr IVPB Q24H [facility]; Protocol Last Admin: 06/14/18 10:49 Dose: 25 mls/hr Insulin Human Regular (Humulin R Low) 0 units SC ACHS [facility]; Protocol Last Admin: 06/14/18 08:42 Dose: Not Given Magnesium Oxide (Mag-Ox) 400 mg PO DAILY [facility] Last Admin: 06/14/18 10:44 Dose: 400 mg Metoprolol Tartrate (Lopressor) 25 mg PO BID [facility] Last Admin: 06/14/18 10:43 Dose: 25 mg Morphine Sulfate (Morphine) 2 mg IVP Q3H PRN PRN Reason: Pain, severe (8-10) Last Admin: 06/12/18 09:36 Dose: 2 mg Physical Exam - Constitutional Appears: Chronically Ill - Head Exam Head Exam: NORMAL INSPECTION - Eye Exam Eye Exam: Normal appearance, PERRL - ENT Exam ENT Exam: Mucous Membranes Moist, Normal Oropharynx - Neck Exam Neck exam: Positive for: Normal Inspection - Respiratory Exam Respiratory Exam: Decreased Breath Sounds, NORMAL BREATHING PATTERN - Cardiovascular Exam Cardiovascular Exam: REGULAR RHYTHM, +S1, +S2 - GI/Abdominal Exam GI & Abdominal Exam: Normal Bowel Sounds, Soft - Extremities Exam Additional comments: right arm lymphedema and limited ROM - Neurological Exam Neurological exam: Alert, Oriented x3 - Skin Skin Exam: Dry, Warm - Additional Findings Additional findings: palliative performance scale rating 30% Results - Vital Signs Recent Vital Signs: Last Vital Signs Temp 99.4 F 06/14/18 06:00 Pulse 98 H 06/14/18 06:00 Resp 20 06/14/18 06:00 BP 141/82 06/14/18 06:00 Pulse Ox 98 06/14/18 06:00 - Labs Result Diagrams: 06/14/18 07:00 06/14/18 05:00 Labs: Laboratory Results - last 24 hr 06/13/18 06/13/18 06/13/18 07:42 11:28 16:32 WBC RBC Hgb Hct MCV MCH MCHC RDW Plt Count MPV Gran % Lymph % (Auto) Thomas % (Auto) Eos % (Auto) Baso % (Auto) Gran # Lymph # (Auto) Thomas # (Auto) Eos # (Auto) Baso # (Auto) Sodium Potassium Chloride Carbon Dioxide Anion Gap BUN Creatinine Est GFR ( Amer) Est GFR (Non-Af Amer) POC Glucose (mg/dL) 186 H 233 H 212 H Random Glucose Calcium Phosphorus Magnesium Total Bilirubin AST ALT Alkaline Phosphatase Total Protein Albumin Globulin Albumin/Globulin Ratio Crossmatch BBK History Checked 06/13/18 06/14/18 06/14/18 21:24 05:00 05:00 WBC Cancelled RBC Cancelled Hgb Cancelled Hct Cancelled MCV Cancelled MCH Cancelled MCHC Cancelled RDW Cancelled Plt Count Cancelled MPV Cancelled Gran % Cancelled Lymph % (Auto) Cancelled Thomas % (Auto) Cancelled Eos % (Auto) Cancelled Baso % (Auto) Cancelled Gran # Cancelled Lymph # (Auto) Cancelled Thomas # (Auto) Cancelled Eos # (Auto) Cancelled Baso # (Auto) Cancelled Sodium 139 Potassium 3.9 Chloride 106 Carbon Dioxide 29 Anion Gap 8 L BUN 47 H Creatinine 1.2 Est GFR ( Amer) 55 Est GFR (Non-Af Amer) 46 POC Glucose (mg/dL) 188 H Random Glucose 146 H Calcium 8.3 L Phosphorus 3.5 Magnesium 1.9 Total Bilirubin 0.4 AST 40 H D ALT 41 Alkaline Phosphatase 80 Total Protein 5.1 L Albumin 2.7 L Globulin 2.4 Albumin/Globulin Ratio 1.2 Crossmatch BBK History Checked 06/14/18 06/14/18 06/14/18 07:00 07:53 11:00 WBC 3.7 L D RBC 2.96 L Hgb 7.1 L Hct 21.9 L MCV 74.0 L MCH 24.0 L MCHC 32.4 RDW 17.9 H Plt Count 107 L MPV Gran % 60.6 Lymph % (Auto) 23.9 Thomas % (Auto) 14.1 H Eos % (Auto) 1.1 L Baso % (Auto) 0.3 Gran # 2.23 Lymph # (Auto) 0.9 L Thomas # (Auto) 0.5 Eos # (Auto) 0.0 Baso # (Auto) 0.01 Sodium Potassium Chloride Carbon Dioxide Anion Gap BUN Creatinine Est GFR ( Amer) Est GFR (Non-Af Amer) POC Glucose (mg/dL) 146 H Random Glucose Calcium Phosphorus Magnesium Total Bilirubin AST ALT Alkaline Phosphatase Total Protein Albumin Globulin Albumin/Globulin Ratio Crossmatch See Detail BBK History Checked Patient has bt Assessment & Plan - Assessment and Plan (Free Text) Assessment: 63 year old female with history of multiple comorbidities( see PMH) who is admitted with hypoglycemia which has since resolved, anemia s/p transfusion, elevated tropinin s/p cardiac catheterization > RCA 50 % stenosis, LV/EF normal, left arm swelling/pain, decreased appetite and deconditioning The patient is alert and oriented She is complaining of having frequent loose BM's. Her cousin, Tresa Dent is at bedside. Advance care planning discussion ensued. The patient's sister/POA, Alannah Beck was listening in via speaker phone. Alannah states that the patient has an Advanced Directive in which she states that she wants to be DNR/DNI. Nicole affirms that these are her wishes. POLST directive explained, question answered. The patient is proceeded to complete POLST Directive. The patient does have some difficulty signing due to lypmphedema of right arm. Ms. Dent witnessed patents signatur e. POLST directive is placed in chart, copies given to family, but was able o initial form. Time spent in goals of care and advance care planning with patient and family 30 minutes Plan: [place] of care and advance care planning, POLST DNR/DNI Acute on chronic anemia s/p II U PRBC's,resolved, Ferrous Sulfate/ Folic Acid. Hypoglycemia resolved. Endocrinology following , continue finger sticks ACHS, regular insulin as ordered Deconditioning: PT/OT Cardiology following: s/p catheterization , LV/EF normal, 50% stenosis mid RCA, continue Metoprolol, Ecotrin,Lipitor. Breast cancer; Dr Griffith following
--- NOTE | 2018-06-14 14:40 | PN ---
CARDIOLOGY FOLLOWUP DATE: 06/14/2018 SUBJECTIVE: The patient is in bed, weak. PHYSICAL EXAMINATION: VITAL SIGNS: Blood pressure is 141/82 and heart rate is in the 90s. NECK: Negative JVD. LUNGS: Without rales. HEART: S1 and S2. EXTREMITIES: Without edema. LABORATORY DATA: Hemoglobin is down to 7.1. Chemistries, BUN and creatinine is 47 and 1.2. IMPRESSION: 1. Marked anemia. 2. Stable angina. 3. Coronary artery disease. 4. Patent stent in the circumflex artery. 5. Resolution of her contrast nephropathy. 6. Diabetes mellitus. Given these findings, the patient's cardiac status is stable. Will need to discuss with Dr. Borges about packed red blood cell transfusions. Erich Slater MD
--- NOTE | 2018-06-14 19:32 | CP.PCM.CON ---
<Jj Wolfe - Last Filed: 06/14/18 19:22> History of Present Illness - History of Present Illness History of Present Illness: ID Consult Note Consulted for Fevers 63 year old female with past medical history stage 4 breast cancer s/p mastectomy, CAD s/p stent placement, HLD, HTN, and DM 2 presented to the hospital for hypoglycemia. Patent took insulin at night and did not eat afterwar d. Patient was admitted and started on Vancomycin and Cefepime. Today, patient states she has abdominal discomfort. Patient denies chest pain, shortness of breath, nausea, vomiting, diarrhea, fever, chills, numbness, tingling, changes in vision. Medical Hx: as above Surgical Hx: R mastectomy with reconstruction, chest port placement Family Hx: Noncontributory Social Hx: denies alcohol, tobacco, or illicit drug use Medications: Reviewed, as per MAR Review of Systems - Review of Systems Review of Systems: 12 point ROS as per HPI, otherwise negative Past Patient History - Infectious Disease Hx of Infectious Diseases: None - Tetanus Immunizations Tetanus Immunization: Unknown - Past Social History Smoking Status: Never Smoked - CARDIAC Hx Cardiac Disorders: Yes Hx Hypertension: Yes - PULMONARY Hx Respiratory Disorders: No - NEUROLOGICAL Hx Neurological Disorder: No - HEENT Hx HEENT Problems: No - RENAL Hx Chronic Kidney Disease: No - ENDOCRINE/METABOLIC Hx Endocrine Disorders: Yes Hx Diabetes Mellitus Type 2: Yes - HEMATOLOGICAL/ONCOLOGICAL Hx Blood Disorders: Yes Hx Cancer: Yes (BREAST) - INTEGUMENTARY Hx Dermatological Problems: No - MUSCULOSKELETAL/RHEUMATOLOGICAL Hx Falls: Yes - GASTROINTESTINAL Hx Gastrointestinal Disorders: No - GENITOURINARY/GYNECOLOGICAL Hx Genitourinary Disorders: No - PSYCHIATRIC Hx Psychophysiologic Disorder: No - SURGICAL HISTORY Hx Mastectomy: Yes (right breast cancer status post mastectomy in 2013, chemo and radiation ) - ANESTHESIA Hx Anesthesia Reactions: Yes (NAUSEA) Hx Malignant Hyperthermia: No Meds Allergies/Adverse Reactions: Allergies Allergy/AdvReac Type Severity Reaction Status Date / Time No Known Allergies Allergy Verified 06/10/18 18:18 - Medications Medications: Current Medications Acetaminophen (Tylenol 325mg Tab) 650 mg PO Q4H PRN PRN Reason: Temp greater than 100.4*F Last Admin: 06/14/18 10:48 Dose: 650 mg Aspirin (Ecotrin) 81 mg PO DAILY [facility] Last Admin: 06/14/18 10:43 Dose: 81 mg Atorvastatin Calcium (Lipitor) 20 mg PO DIN [facility] Last Admin: 06/14/18 18:43 Dose: 20 mg Cyproheptadine HCl (Periactin) 2 mg PO DAILY [facility] Last Admin: 06/14/18 10:43 Dose: 2 mg Ergocalciferol (Drisdol 50,000 Intl Units Cap) 1 cap PO QWK [facility] Ferrous Sulfate (Feosol) 324 mg PO BID [facility] Last Admin: 06/14/18 17:33 Dose: 324 mg Folic Acid (Folic Acid) 1 mg PO DAILY [facility] Last Admin: 06/14/18 10:44 Dose: 1 mg Gabapentin (Neurontin) 600 mg PO BID [facility]; Protocol Last Admin: 06/14/18 17:32 Dose: 600 mg Gemfibrozil (Lopid) 600 mg PO DAILY [facility] Last Admin: 06/14/18 10:43 Dose: 600 mg Cefepime HCl (Maxipime 1gm) 1 gm in 100 mls @ 25 mls/hr IVPB Q24H [facility]; Protocol Last Admin: 06/14/18 10:49 Dose: 25 mls/hr Insulin Human Regular (Humulin R Low) 0 units SC ACHS [facility]; Protocol Last Admin: 06/14/18 17:33 Dose: Not Given Magnesium Oxide (Mag-Ox) 400 mg PO DAILY [facility] Last Admin: 06/14/18 10:44 Dose: 400 mg Metoprolol Tartrate (Lopressor) 25 mg PO BID [facility] Last Admin: 06/14/18 17:33 Dose: 25 mg Physical Exam - Constitutional Appears: Non-toxic, No Acute Distress - Head Exam Head Exam: ATRAUMATIC, NORMAL INSPECTION, NORMOCEPHALIC - ENT Exam ENT Exam: Mucous Membranes Moist - Respiratory Exam Respiratory Exam: Clear to Auscultation Bilateral, NORMAL BREATHING PATTERN. absent: Rales, Rhonchi, Wheezes - Cardiovascular Exam Cardiovascular Exam: RRR, +S1, +S2 - GI/Abdominal Exam GI & Abdominal Exam: Normal Bowel Sounds, Soft, Tenderness (Mild, diffuse) - Extremities Exam Extremities exam: Positive for: normal inspection. Negative for: pedal edema - Neurological Exam Neurological exam: Alert, CN II-XII Intact, Oriented x3 - Psychiatric Exam Psychiatric exam: Normal Affect, Normal Mood - Skin Skin Exam: Dry, Intact, Warm Results - Vital Signs Recent Vital Signs: Last Vital Signs Temp 98.7 F 06/14/18 18:53 Pulse 97 H 06/14/18 18:53 Resp 20 06/14/18 18:53 BP 139/86 06/14/18 18:53 Pulse Ox 98 06/14/18 06:00 - Labs Result Diagrams: 06/14/18 07:00 06/14/18 05:00 Labs: Laboratory Results - last 24 hr 06/11/18 06/13/18 06/14/18 11:30 21:24 05:00 WBC Cancelled RBC Cancelled Hgb Cancelled Hct Cancelled MCV Cancelled MCH Cancelled MCHC Cancelled RDW Cancelled Plt Count Cancelled MPV Cancelled Gran % Cancelled Lymph % (Auto) Cancelled [place] % (Auto) Cancelled Eos % (Auto) Cancelled Baso % (Auto) Cancelled Gran # Cancelled Lymph # (Auto) Cancelled [place] # (Auto) Cancelled Eos # (Auto) Cancelled Baso # (Auto) Cancelled Sodium Potassium Chloride Carbon Dioxide Anion Gap BUN Creatinine Est GFR ( Amer) Est GFR (Non-Af Amer) POC Glucose (mg/dL) 188 H Random Glucose Calcium Phosphorus Magnesium Total Bilirubin AST ALT Alkaline Phosphatase Total Protein Albumin Globulin Albumin/Globulin Ratio Procalcitonin Blood Type Antibody Screen Crossmatch See Detail BBK History Checked 06/14/18 06/14/18 06/14/18 05:00 07:00 07:00 WBC 3.7 L D RBC 2.96 L Hgb 7.1 L Hct 21.9 L MCV 74.0 L MCH 24.0 L MCHC 32.4 RDW 17.9 H Plt Count 107 L MPV Gran % 60.6 Lymph % (Auto) 23.9 [place] % (Auto) 14.1 H Eos % (Auto) 1.1 L Baso % (Auto) 0.3 Gran # 2.23 Lymph # (Auto) 0.9 L [place] # (Auto) 0.5 Eos # (Auto) 0.0 Baso # (Auto) 0.01 Sodium 139 Potassium 3.9 Chloride 106 Carbon Dioxide 29 Anion Gap 8 L BUN 47 H Creatinine 1.2 Est GFR ( Amer) 55 Est GFR (Non-Af Amer) 46 POC Glucose (mg/dL) Random Glucose 146 H Calcium 8.3 L Phosphorus 3.5 Magnesium 1.9 Total Bilirubin 0.4 AST 40 H D ALT 41 Alkaline Phosphatase 80 Total Protein 5.1 L Albumin 2.7 L Globulin 2.4 Albumin/Globulin Ratio 1.2 Procalcitonin 0.79 H Blood Type Antibody Screen Crossmatch BBK History Checked 06/14/18 06/14/18 06/14/18 07:53 11:00 11:28 WBC RBC Hgb Hct MCV MCH MCHC RDW Plt Count MPV Gran % Lymph % (Auto) [place] % (Auto) Eos % (Auto) Baso % (Auto) Gran # Lymph # (Auto) [place] # (Auto) Eos # (Auto) Baso # (Auto) Sodium Potassium Chloride Carbon Dioxide Anion Gap BUN Creatinine Est GFR ( Amer) Est GFR (Non-Af Amer) POC Glucose (mg/dL) 146 H 217 H Random Glucose Calcium Phosphorus Magnesium Total Bilirubin AST ALT Alkaline Phosphatase Total Protein Albumin Globulin Albumin/Globulin Ratio Procalcitonin Blood Type O NEGATIVE Antibody Screen Negative Crossmatch See Detail BBK History Checked Patient has bt 06/14/18 17:23 WBC RBC Hgb Hct MCV MCH MCHC RDW Plt Count MPV Gran % Lymph % (Auto) [place] % (Auto) Eos % (Auto) Baso % (Auto) Gran # Lymph # (Auto) [place] # (Auto) Eos # (Auto) Baso # (Auto) Sodium Potassium Chloride Carbon Dioxide Anion Gap BUN Creatinine Est GFR ( Amer) Est GFR (Non-Af Amer) POC Glucose (mg/dL) 138 H Random Glucose Calcium Phosphorus Magnesium Total Bilirubin AST ALT Alkaline Phosphatase Total Protein Albumin Globulin Albumin/Globulin Ratio Procalcitonin Blood Type Antibody Screen Crossmatch BBK History Checked Assessment & Plan - Assessment and Plan (Free Text) Plan: SIRS without current evidence of infection Hx of stage 4 breast cancer s/p mastectomy, Hx of CAD s/p stent placement Hx of HLD Hx of HTN Hx of DM 2 Plan Patient currently afebrile with no mild leukopenia Urine and Blood cultures negative at 24 hours Will obtain abdominal US Will continue with Vancomycin and Cefepime Will continue to monitor Bhagwandin, PGY-3 <Hardik Aquino S - Last Filed: 06/14/18 22:15> Meds - Medications Medications: Current Medications Acetaminophen (Tylenol 325mg Tab) 650 mg PO Q4H PRN PRN Reason: Temp greater than 100.4*F Last Admin: 06/14/18 10:48 Dose: 650 mg Acetaminophen (Tylenol 325mg Tab) 650 mg PO ONCE ONE Stop: 06/14/18 23:01 Aspirin (Ecotrin) 81 mg PO DAILY [facility] Last Admin: 06/14/18 10:43 Dose: 81 mg Atorvastatin Calcium (Lipitor) 20 mg PO DIN [facility] Last Admin: 06/14/18 18:43 Dose: 20 mg Cyproheptadine HCl (Periactin) 2 mg PO DAILY [facility] Last Admin: 06/14/18 10:43 Dose: 2 mg Diphenhydramine HCl (Benadryl) 25 mg IVP ONCE ONE Stop: 06/14/18 23:01 Ergocalciferol (Drisdol 50,000 Intl Units Cap) 1 cap PO QWK [facility] Ferrous Sulfate (Feosol) 324 mg PO BID [facility] Last Admin: 06/14/18 17:33 Dose: 324 mg Folic Acid (Folic Acid) 1 mg PO DAILY [facility] Last Admin: 06/14/18 10:44 Dose: 1 mg Gabapentin (Neurontin) 600 mg PO BID [facility]; Protocol Last Admin: 06/14/18 17:32 Dose: 600 mg Gemfibrozil (Lopid) 600 mg PO DAILY [facility] Last Admin: 06/14/18 10:43 Dose: 600 mg Hydrocortisone Sodium Succinate (Solu-Cortef) 100 mg IVP ONCE ONE Stop: 06/14/18 23:01 Cefepime HCl (Maxipime 1gm) 1 gm in 100 mls @ 25 mls/hr IVPB Q24H [facility]; Protocol Last Admin: 06/14/18 10:49 Dose: 25 mls/hr Insulin Human Regular (Humulin R Low) 0 units SC ACHS [facility]; Protocol Last Admin: 06/14/18 17:33 Dose: Not Given Magnesium Oxide (Mag-Ox) 400 mg PO DAILY [facility] Last Admin: 06/14/18 10:44 Dose: 400 mg Metoprolol Tartrate (Lopressor) 25 mg PO BID [facility] Last Admin: 06/14/18 17:33 Dose: 25 mg Results - Vital Signs Recent Vital Signs: Last Vital Signs Temp 98.8 F 06/14/18 19:38 Pulse 98 H 06/14/18 19:38 Resp 18 06/14/18 19:38 BP 142/81 06/14/18 19:38 Pulse Ox 98 06/14/18 06:00 - Labs Result Diagrams: 06/14/18 07:00 06/14/18 05:00 Labs: Laboratory Results - last 24 hr 06/11/18 06/13/18 06/14/18 11:30 21:24 05:00 WBC Cancelled RBC Cancelled Hgb Cancelled Hct Cancelled MCV Cancelled MCH Cancelled MCHC Cancelled RDW Cancelled Plt Count Cancelled MPV Cancelled Gran % Cancelled Lymph % (Auto) Cancelled [place] % (Auto) Cancelled Eos % (Auto) Cancelled Baso % (Auto) Cancelled Gran # Cancelled Lymph # (Auto) Cancelled [place] # (Auto) Cancelled Eos # (Auto) Cancelled Baso # (Auto) Cancelled Sodium Potassium Chloride Carbon Dioxide Anion Gap BUN Creatinine Est GFR ( Amer) Est GFR (Non-Af Amer) POC Glucose (mg/dL) 188 H Random Glucose Calcium Phosphorus Magnesium Total Bilirubin AST ALT Alkaline Phosphatase Total Protein Albumin Globulin Albumin/Globulin Ratio Procalcitonin Blood Type Antibody Screen Crossmatch See Detail BBK History Checked 06/14/18 06/14/18 06/14/18 05:00 07:00 07:00 WBC 3.7 L D RBC 2.96 L Hgb 7.1 L Hct 21.9 L MCV 74.0 L MCH 24.0 L MCHC 32.4 RDW 17.9 H Plt Count 107 L MPV Gran % 60.6 Lymph % (Auto) 23.9 [place] % (Auto) 14.1 H Eos % (Auto) 1.1 L Baso % (Auto) 0.3 Gran # 2.23 Lymph # (Auto) 0.9 L [place] # (Auto) 0.5 Eos # (Auto) 0.0 Baso # (Auto) 0.01 Sodium 139 Potassium 3.9 Chloride 106 Carbon Dioxide 29 Anion Gap 8 L BUN 47 H Creatinine 1.2 Est GFR ( Amer) 55 Est GFR (Non-Af Amer) 46 POC Glucose (mg/dL) Random Glucose 146 H Calcium 8.3 L Phosphorus 3.5 Magnesium 1.9 Total Bilirubin 0.4 AST 40 H D ALT 41 Alkaline Phosphatase 80 Total Protein 5.1 L Albumin 2.7 L Globulin 2.4 Albumin/Globulin Ratio 1.2 Procalcitonin 0.79 H Blood Type Antibody Screen Crossmatch BBK History Checked 06/14/18 06/14/18 06/14/18 07:53 11:00 11:28 WBC RBC Hgb Hct MCV MCH MCHC RDW Plt Count MPV Gran % Lymph % (Auto) [place] % (Auto) Eos % (Auto) Baso % (Auto) Gran # Lymph # (Auto) [place] # (Auto) Eos # (Auto) Baso # (Auto) Sodium Potassium Chloride Carbon Dioxide Anion Gap BUN Creatinine Est GFR ( Amer) Est GFR (Non-Af Amer) POC Glucose (mg/dL) 146 H 217 H Random Glucose Calcium Phosphorus Magnesium Total Bilirubin AST ALT Alkaline Phosphatase Total Protein Albumin Globulin Albumin/Globulin Ratio Procalcitonin Blood Type O NEGATIVE Antibody Screen Negative Crossmatch See Detail BBK History Checked Patient has bt 06/14/18 06/14/18 17:23 21:50 WBC RBC Hgb Hct MCV MCH MCHC RDW Plt Count MPV Gran % Lymph % (Auto) [place] % (Auto) Eos % (Auto) Baso % (Auto) Gran # Lymph # (Auto) [place] # (Auto) Eos # (Auto) Baso # (Auto) Sodium Potassium Chloride Carbon Dioxide Anion Gap BUN Creatinine Est GFR ( Amer) Est GFR (Non-Af Amer) POC Glucose (mg/dL) 138 H 162 H Random Glucose Calcium Phosphorus Magnesium Total Bilirubin AST ALT Alkaline Phosphatase Total Protein Albumin Globulin Albumin/Globulin Ratio Procalcitonin Blood Type Antibody Screen Crossmatch BBK History Checked Assessment & Plan - Assessment and Plan (Free Text) Plan: Infectious diseases Attending Physician Attestation Patient seen and examined, discussed with medical office worker. I have reviewed the patient's history of present illness, past medical, social, personal and family histories, pertinent physical exam findings, course so far in this hospital admission, pertinent laboratory and imaging results. I agree with the above findings, assessment and plan. 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 Follow up plan for removal vancomycin and Cefepime for patient with SIRS, R/O sepsis. Follow up blood, urine cx and check ultrasound of the abdomen.
--- NOTE | 2018-06-14 20:06 | US ---
Date of service: 06/14/2018 HISTORY: abdominal pain COMPARISON: None. TECHNIQUE: Sonographic evaluation of the abdomen. FINDINGS: LIVER: Measures 17.5 cm. Mild increased echogenicity of the liver parenchyma. No intrahepatic bile duct dilatation. Liver is also noted to be mildly heterogeneous in echogenicity without focal mass. GALLBLADDER: Gallbladder is been previously removed. COMMON BILE DUCT: Measures 4 mm. No stones. No dilatation. PANCREAS: Unremarkable as visualized. No mass. No ductal dilatation. RIGHT KIDNEY: Measures 9.9cm. Normal echogenicity. No calculus, mass, or hydronephrosis. LEFT KIDNEY: Measures 11cm. Normal echogenicity. No calculus, mass, or hydronephrosis. SPLEEN: 8.2 centimeters in length. Normal echogenicity. AORTA: No aneurysmal dilatation. IVC: Unremarkable. OTHER FINDINGS: None. IMPRESSION: Mildly heterogeneous liver which is also noted to be enlarged. This may reflect an element of fatty infiltration. No focal liver mass or intrahepatic ductal dilatation. No evidence of common bile duct dilatation. Normal size spleen. Status post cholecystectomy.
[2018-06-14] MEDS ORDERED: DiphenhydrAMINE 50 mg/ml Inj IVP ONE (23:00)
[2018-06-15 07:22] LABS: EOS % 0.3 % (1.5-5.0); GRAN # 2.95 (1.4-6.5); GRAN % 78.9 % (50.0-68.0); HEMOGLOBIN 9.6 g/dL (12.0-16.0); LYMPH # 0.6 (1.2-3.4); LYMPH % 14.7 % (22.0-35.0); MEAN CELL VOLUME 76.5 fl (80.0-105.0); MEAN CORPUSCULAR HEMOGLOBIN 25.3 pg (25.0-35.0); MEAN CORPUSCULAR HGB CONC 33.1 g/dl (31.0-37.0); MONO # 0.2 (0.1-0.6); MONO % 6.1 % (1.0-6.0); PLATELET COUNT 92 10^3/uL (120.0-450.0); RBC 3.79 10^6/uL (3.5-6.1); RED CELL DISTRIBUTION WIDTH 17.2 % (11.5-14.5); WHITE BLOOD COUNT 3.7 10^3/uL (4.5-11.0)
--- NOTE | 2018-06-15 09:03 | PN ---
DATE: 06/14/2018 SUBJECTIVE: The patient has no complaints of chest pain or shortness of breath. She does says she is weak. PHYSICAL EXAMINATION GENERAL: The patient is lying in bed, flat, comfortable. VITAL SIGNS: Temperature is 98.8, pulse of 95, blood pressure 149/92, and respirations 18. HEENT: No oral lesion. Anicteric sclerae. Moist mucosa. NECK: No JVD, adenopathy, or thyromegaly. CARDIOVASCULAR: S1 and S2, regular. No murmurs, rubs, or gallops. LUNGS: Clear to auscultation bilaterally. No wheeze, rales, or rhonchi. ABDOMEN: Bowel sounds are positive, soft, nontender and nondistended. EXTREMITIES: No cyanosis, clubbing or edema. LABORATORY DATA: White count is 13.7, hemoglobin 7.1. Creatinine is 1.2. ASSESSMENT: 1. Hypoglycemia, resolved. 2. Acute anemia secondary to malignancy. 3. Coronary artery disease. 4. Right-sided Port-A-Cath. 5. Diabetes type 2. 6. Hypertension. 7. Dyslipidemia. 8. Sickle cell trait. PLAN: The patient is currently comfortable. She is going to be on ergocalciferol for her vitamin D. She is on folic acid daily. She is on Lipitor for dyslipidemia, as well as gemfibrozil. She is on metoprolol for coronary artery disease. She is on antibiotics of cefepime. She had blood culture and urine culture that have been negative. Her repeat hemoglobin is low at 7.1. I will give her 2 units of transfusion. I did speak to Dr. Griffith from Oncology. The patient will may need subacute rehab, she is open to the idea. The patient has been accepted to TCU. We will plan on discharging to TCU tomorrow. Sherman Soria MD
--- NOTE | 2018-06-15 09:08 | PN ---
DATE: 06/14/2018 LOCATION: The patient is in room 276, bed 2. PROBLEM: This is a 63-year-old female with pat medical history of stage IV carcinoma of the breast, currently on Keytruda given about two weeks ago, was admitted to the hospital with hypoglycemic episode. The patient was revived and has improved, and she is on low dose insulin coverage. The patient was recently documented to have recurrent disease in the right axilla, mediastinum, neck and retroperitoneal area based on the PET CT scan. CT-guided biopsy of the lung was positive for triple negative breast cancer. The patient had MSI high tumor as reported on the [facility] analysis. Since, she was started on Keytruda. The patient has a history of non-Hodgkin lymphoma high grade which she was treated with R-CHOP chemotherapy, completed in 11/2017. The patient has a history of coronary artery disease and had a stent placed into the left anterior descending artery in 04/2017. During this admission, the patient again had a slight bump in the troponin, had a cardiac cath done which showed the stent to be patent. There was additional disease in the coronary arteries, which could be medically managed. The patient was anemic and was transfused with 2 units of blood. Subjectively, the patient is examined while in bed. A sister was at the bedside. The patient has been complaining of some right lower quadrant abdominal discomfort. Denies any history of chest pain, shortness of breath, nausea, vomiting, diarrhea, fevers, or chills. The patient has tingling and numbness in the right arm, which was related to right brachial plexopathy. The patient has difficulty in raising the arm above the shoulder related to again the right branchial plexopathy. PHYSICAL EXAMINATION: GENERAL: The patient is examined in bed. The patient appears to be nontoxic, in no acute distress. The patient is awake, alert, and oriented and responsive to time, place, and person. Answered all my questions appropriately. VITAL SIGNS: Stable. T-max is 98.4, pulse is 97, respirations 20, blood pressure is 139/86, and pulse ox is 98% on room air. HEENT: Head is normocephalic and atraumatic. The patient has history of post chemotherapy. Conjunctivae pale. Sclerae are anicteric. Pupils are equal and reactive to light and accommodation. Examination of the oropharynx reveals no oropharyngeal lesions. Tongue is moist. No ulcerations are noted. NECK: Supple. There is no adenopathy. No jugular venous distention noted. CHEST: Examination of the chest wall reveals the patient is status post modified radical mastectomy and breast reconstruction with induration around the breast prosthesis. The patient has induration in the right axilla as well. No definite palpable masses are noted. Left breast is unremarkable. Supraclavicular nodes are negative. LUNGS: Clear to percussion and auscultation. HEART: Examination of cardiovascular system reveals PMI in the fifth intercostal space, inside the midclavicular line. S1 and S2 are normal. No gallop or murmur is heard. ABDOMEN: Soft. There is no right upper quadrant tenderness. The patient has vague right low quadrant tenderness in the appendical area. There is no rebound, rigidity or guarding noted. Bowel sounds are hyperactive. EXTREMITIES: Examination of lower extremities reveals no cyanosis, clubbing, or edema. NEUROLOGIC: Reveals higher functions to be normal. No focal deficits are noted. The patient has right arm lymphedema with neuropathic pain with history of brachial plexopathy involving the right axilla. GENITOURINARY: Deferred. RECTAL: Deferred. SKIN: Examination reveals to be dry, intact, and warm. LABORATORY DATA: From today was reviewed. White count 3.7, hemoglobin of 7.1, hematocrit 21.9, and platelet count of 107,000. Sodium is 139, potassium is 3.9, chloride 106, CO2 of 29, BUN 47, creatinine 1.2. Blood sugar is 146. MEDICATIONS: The patient's medications were reviewed. At this point in time, the patient after yesterday's event had been placed on vancomycin and Merrem. Has been seen by ID at this time and has been placed on broad-spectrum antibiotics. The patient's medications include Tylenol p.r.n., Ecotrin 81 mg daily, Lipitor 20 mg p.o. daily, Periactin 2 mg p.o. daily, vitamin D 50,000 units once a week, ferrous sulfate 324 mg b.i.d., folic acid 1 mg daily, Neurontin 600 mg p.o. b.i.d., gemfibrozil 600 mg p.o. daily, Maxipime 1 g IV every 12 hours, insulin coverage low dose, magnesium oxide 400 mg p.o. daily, metoprolol tartrate 25 mg p.o. b.i.d. ASSESSMENT, NOTES, AND PLAN: The patient has progressive stage IV metastatic carcinoma of the breast. In the background history of this, the patient is status post chemotherapy with Keytruda, which is the form of immunotherapy, currently in the hospital after hypoglycemic episode related to her diabetes and insulin therapy. The patient had developed low grade infection with urinary tract infection clinically for which she has been put on broad-spectrum antibiotics. The patient currently is afebrile and does not have any over evidence of sepsis. The patient has a history of history of coronary artery disease, status post stent placement. The patient is significantly symptomatically anemic and is going to get 2 units of blood today to try to help her with cardiac workload as well. We will continue to monitor the patient very carefully. The patient's dietary intake will be also monitored. Dietary consult has been obtained and calorie consult has also been requested. The patient will be assessed for TRCU or bedside physical therapy, so that she can be mobilized to walk around prior to initiation of her next course of treatment. Routine post exam instructions have been given to the patient. I spoke in detail to the patient and her sister. All questions were answered to the best of my ability. Family was counseled. I spoke to Ngozi Blackmon in order to facilitate post for the patient as the patient and sister were concerned about her disease progression and they wanted to make sure that nothing is done against her wishes as far as aggression measures are concerned. Ngozi Blackmon told me that she is going to take care her today after discussing with the patient later on. Please make a note that this is a complex patient with multiple comorbid medical issues. Time spent with the patient is greater than 45 minutes and correlating all the data and discussion about finding with the patient and the appropriate health personnel involved in her care. Doris Griffith MD
[2018-06-15] MEDS: Magnesium Oxide 400 mg Tab UD PO SCH (09:41)
[2018-06-15] MEDS: Insulin Reg-LOW-Coverage SC SCH ×2 (09:41→12:11)
[2018-06-15] MEDS ORDERED: Insulin Regular 1 UNITS/0.01 ML ML SC ONE (11:52)
[2018-06-15] MEDS: Cefepime 1gm in NS 100ml 1 GM/100 ML BAG IVPB SCH (12:02)
--- NOTE | 2018-06-15 12:34 | DS ---
HISTORY OF PRESENT ILLNESS: The patient has no complaints of any chest pain or shortness of breath or headaches or dizziness. She did receive transfusion yesterday for 2 units because of her hemoglobin that was low. The patient has a fairly extensive history for her breast cancer. The patient has no hypoglycemia episode at this point. She is open to going to a subacute rehab. The patient has abdominal ultrasound that was done and it showed mild heterogeneous liver that was enlarged. There maybe some infiltration there, but no other acute evidence. She is waiting to be discharged to either TCU or subacute rehab. PHYSICAL EXAMINATION: VITAL SIGNS: Temperature is 98, pulse of 86, blood pressure is 133/75, respirations 18. GENERAL: The patient is lying in bed, flat, comfortable. HEENT: No oral lesion. Anicteric sclerae. Moist mucosa. NECK: No JVD, adenopathy, or thyromegaly. CARDIOVASCULAR: S1 and S2, regular. No murmurs, rubs, or gallops. LUNGS: Clear to auscultation bilaterally. No wheeze, rales, or rhonchi. In the right chest, there is a port that is in place. ABDOMEN: Bowel sounds are positive, soft, nontender and nondistended. EXTREMITIES: no cyanosis, clubbing or edema. ASSESSMENT: 1. Hypoglycemia, resolved. 2. Acute anemia secondary to malignancy, improved. 3. Coronary artery disease. 4. Breast cancer. 5. Right-sided Port-A-Cath. 6. Diabetes type 2. 7. Hypertension. 8. Dyslipidemia. 9. Sickle cell trait. PLAN: The patient is currently comfortable. The patient is being followed by [facility], and Dr. Griffith from Oncology. Ngozi Blackmon is the palliative care nurse practitioner. The patient is on aspirin daily. The patient is on iron for anemia. The patient had heparin for DVT prophylaxis. She is at risk because she is not walking well and has malignancy. Patient is on gemfibrozil for her dyslipidemia. She is going to be on cefepime for her antibiotics. She is on Neurontin for neuropathy. She has cultures that were done negative. She is being followed by Infectious Disease as well. The patient is currently on Tylenol as needed, she is receiving. She is on a heart-healthy diet. CONDITION: Stable. ACTIVITIES: Increase as tolerated. Sherman Soria MD
--- NOTE | 2018-06-15 14:45 | CP.PCM.PN ---
<Jj Wolfe - Last Filed: 06/15/18 14:42> Subjective - Date & Time of Evaluation Date of Evaluation: 06/15/18 Time of Evaluation: 10:15 - Subjective Subjective: ID progress note Patient doing well this morning with no complaints. She states she ate her food with no issues. Denies chest pain, shortness of breath, nausea, vomiting, diarrhea, fever, chills. Objective - Vital Signs/Intake and Output Vital Signs (last 24 hours): Temp Pulse Resp BP Pulse Ox 97.8 F 86 18 154/98 H 98 06/15/18 12:00 06/15/18 12:00 06/15/18 12:00 06/15/18 12:00 06/14/18 06:00 Intake and Output: 06/15/18 06/15/18 06:59 18:59 Intake Total 890 Output Total 900 Balance -10 - Medications Medications: Current Medications Acetaminophen (Tylenol 325mg Tab) 650 mg PO Q4H PRN PRN Reason: Temp greater than 100.4*F Last Admin: 06/14/18 10:48 Dose: 650 mg Aspirin (Ecotrin) 81 mg PO DAILY ON LICENSE OF [facility] Last Admin: 06/15/18 09:41 Dose: 81 mg Atorvastatin Calcium (Lipitor) 20 mg PO DIN ON LICENSE OF [facility] Last Admin: 06/14/18 18:43 Dose: 20 mg Cyproheptadine HCl (Periactin) 2 mg PO DAILY ON LICENSE OF [facility] Last Admin: 06/15/18 09:42 Dose: 2 mg Ergocalciferol (Drisdol 50,000 Intl Units Cap) 1 cap PO QWK ON LICENSE OF [facility] Ferrous Sulfate (Feosol) 324 mg PO BID ON LICENSE OF [facility] Last Admin: 06/15/18 09:42 Dose: 324 mg Folic Acid (Folic Acid) 1 mg PO DAILY ON LICENSE OF [facility] Last Admin: 06/15/18 09:42 Dose: 1 mg Gabapentin (Neurontin) 600 mg PO BID ON LICENSE OF [facility]; Protocol Last Admin: 06/15/18 09:42 Dose: 600 mg Gemfibrozil (Lopid) 600 mg PO DAILY ON LICENSE OF [facility] Last Admin: 06/15/18 09:42 Dose: 600 mg Heparin Sodium (Porcine) (Heparin) 5,000 units SC Q12 ON LICENSE OF [facility]; Protocol Last Admin: 06/15/18 09:42 Dose: 5,000 units Cefepime HCl (Maxipime 1gm) 1 gm in 100 mls @ 25 mls/hr IVPB Q24H ON LICENSE OF [facility]; Protocol Last Admin: 06/15/18 12:02 Dose: 25 mls/hr Insulin Human Regular (Humulin R High) 0 units SC ACHS ON LICENSE OF [facility]; Protocol Magnesium Oxide (Mag-Ox) 400 mg PO DAILY ON LICENSE OF [facility] Last Admin: 06/15/18 09:41 Dose: 400 mg Metoprolol Tartrate (Lopressor) 25 mg PO BID ON LICENSE OF [facility] Last Admin: 06/15/18 09:41 Dose: 25 mg - Labs Labs: 06/15/18 06:00 06/14/18 05:00 - Constitutional Appears: Non-toxic, No Acute Distress - Head Exam Head Exam: ATRAUMATIC, NORMAL INSPECTION, NORMOCEPHALIC - ENT Exam ENT Exam: Mucous Membranes Moist - Respiratory Exam Respiratory Exam: Clear to Ausculation Bilateral, NORMAL BREATHING PATTERN. absent: Rales, Rhonchi, Wheezes - Cardiovascular Exam Cardiovascular Exam: RRR, +S1, +S2 Additional comments: Right upper chest port - GI/Abdominal Exam GI & Abdominal Exam: Soft, Normal Bowel Sounds. absent: Tenderness - Extremities Exam Extremities Exam: Normal Inspection. absent: Pedal Edema - Neurological Exam Neurological Exam: Alert, Awake, Oriented x3 - Psychiatric Exam Psychiatric exam: Normal Affect, Normal Mood - Skin Skin Exam: Intact, Normal Color, Warm Assessment and Plan - Assessment and Plan (Free Text) Plan: SIRS Hx of stage 4 breast cancer s/p mastectomy Hx of CAD s/p stent placement Hx of HLD Hx of HTN Hx of DM 2 Plan Patient afebrile with mild leukopenia Blood and urine cultures negative at 48ss hours Abdominal US shows enlarged liver, likely secondary to fatty infiltration Will discontinue antibiotics at this time and monitor patient closely Yaneth, PGY-3 <Hardik Aquino S - Last Filed: 06/15/18 16:20> Objective - Vital Signs/Intake and Output Vital Signs (last 24 hours): Temp Pulse Resp BP Pulse Ox 97.8 F 86 18 154/98 H 98 06/15/18 12:00 06/15/18 12:00 06/15/18 12:00 06/15/18 12:00 06/14/18 06:00 Intake and Output: 12/18/18 12/18/18 06:59 18:59 Intake Total 890 Output Total 900 Balance -10 - Medications Medications: Current Medications Acetaminophen (Tylenol 325mg Tab) 650 mg PO Q4H PRN PRN Reason: Temp greater than 100.4*F Last Admin: 06/14/18 10:48 Dose: 650 mg Aspirin (Ecotrin) 81 mg PO DAILY ON LICENSE OF [facility] Last Admin: 06/15/18 09:41 Dose: 81 mg Atorvastatin Calcium (Lipitor) 20 mg PO DIN ON LICENSE OF [facility] Last Admin: 06/14/18 18:43 Dose: 20 mg Cyproheptadine HCl (Periactin) 2 mg PO DAILY ON LICENSE OF [facility] Last Admin: 06/15/18 09:42 Dose: 2 mg Ergocalciferol (Drisdol 50,000 Intl Units Cap) 1 cap PO QWK ON LICENSE OF [facility] Ferrous Sulfate (Feosol) 324 mg PO BID ON LICENSE OF [facility] Last Admin: 06/15/18 09:42 Dose: 324 mg Folic Acid (Folic Acid) 1 mg PO DAILY ON LICENSE OF [facility] Last Admin: 06/15/18 09:42 Dose: 1 mg Gabapentin (Neurontin) 600 mg PO BID ON LICENSE OF [facility]; Protocol Last Admin: 06/15/18 09:42 Dose: 600 mg Gemfibrozil (Lopid) 600 mg PO DAILY ON LICENSE OF [facility] Last Admin: 06/15/18 09:42 Dose: 600 mg Heparin Sodium (Porcine) (Heparin) 5,000 units SC Q12 ON LICENSE OF [facility]; Protocol Last Admin: 06/15/18 09:42 Dose: 5,000 units Cefepime HCl (Maxipime 1gm) 1 gm in 100 mls @ 25 mls/hr IVPB Q24H ON LICENSE OF [facility]; Protocol Last Admin: 06/15/18 12:02 Dose: 25 mls/hr Insulin Human Regular (Humulin R High) 0 units SC ACHS ON LICENSE OF [facility]; Protocol Magnesium Oxide (Mag-Ox) 400 mg PO DAILY ON LICENSE OF [facility] Last Admin: 06/15/18 09:41 Dose: 400 mg Metoprolol Tartrate (Lopressor) 25 mg PO BID ON LICENSE OF [facility] Last Admin: 06/15/18 09:41 Dose: 25 mg - Labs Labs: 06/15/18 06:00 06/14/18 05:00 Assessment and Plan - Assessment and Plan (Free Text) Plan: Infectious diseases Attending Physician Attestation Patient seen and examined, discussed with medical attendant. I have reviewed the patient's history of present illness, past medical, social, personal and family histories, pertinent physical exam findings, course so far in this hospital admission, pertinent laboratory and imaging results. I agree with the above findings, assessment and plan. In addition, will d/c antibiotics since cultures have been negative, no more fevers, no leukocytosis.
--- NOTE | 2018-06-15 15:28 | NM ---
Date of service: 06/12/2018 COMPARISON: Chest radiograph 06/10/2018. TECHNIQUE: 40.6 mCi technetium 99-m DTPA aerosol 5.0 mCI technetium 99-m MAA administered intravenously. FINDINGS: Paired images from a radionuclide ventilation perfusion lung scan have been submitted for interpretation and demonstrate no perfusion mismatches. Matched diminished uptake is appreciate the right apex in both perfusion and ventilation exams. IMPRESSION: Lowprobability ventilation perfusion scan for pulmonary embolism. Concordant preliminary report from [facility], 06/12/2018.
[2018-06-15] MEDS: Insulin Reg-HIGH-Coverage SC SCH ×2 (16:37→22:39)
--- NOTE | 2018-06-15 18:28 | PN ---
DATE: 06/15/2018 SUBJECTIVE: The patient is without complaints. PHYSICAL EXAMINATION VITAL SIGNS: Blood pressure varies from 133 to 154, heart rate is in the 80s. NECK: Negative JVD. LUNGS: Without rales. HEART: S1, S2. EXTREMITIES: Without edema. LABORATORY DATA: Hemoglobin is 9.6. Glucose remains elevated. IMPRESSION: 1. Resolution of contrast nephropathy. 2. Mildly elevated troponins which cannot be explained by her present coronary artery disease. 3. Patent stents in the circumflex artery. 4. Diabetes mellitus. PLAN: Given these findings, no further cardiac workup is necessary. We will sign off the case today. Erich Slater MD
--- NOTE | 2018-06-16 00:56 | PN ---
DATE: 06/15/2018 LOCATION: The patient is in room 276, bed 2. HISTORY OF PRESENT ILLNESS: The patient is examined in bed. The patient is awake, alert, and oriented. Her sister is by the side. The patient received 2 units of blood transfusion yesterday and feeling a whole lot better today. Subjectively, she has no significant complaints involving pain in the right arm and right axilla, which she had severe pain in just a few weeks ago, but since then the patient has had systemic chemotherapy with a drug called Keytruda and her symptoms have dramatically improved. The patient has also had no significant hypoglycemic episodes since admission. The patient is often going to rehab if it need be. In the meantime, she says she would like to try to push herself to walk around and she requested that if family is around which she will be allowed to sit out of bed in the chair. She also requested that it is feasible to have her Rodgers catheter discontinued. The patient's abdominal ultrasound showed a mild heterogenous liver that is likely enlarged by the fact that CT scan had shown no liver involvement, but there were evidence of metastatic disease in the mediastinal nodes, in the neck nodes, right axilla and in and around the prosthesis around the right reconstructed graft. The patient otherwise is feeling more at her baseline and is willing to get on with physical therapy to get around the hospital. PHYSICAL EXAMINATION: GENERAL: The patient is awake, alert, and oriented. VITAL SIGNS: T-max is 98.4, pulse is 86, blood pressure is 133/75, and respirations 18 per minute. HEENT: Head is normocephalic and atraumatic. The patient has alopecia related to her chemotherapy. Conjunctivae pale. Sclerae anicteric. Pupils are equally reactive to light and accommodation. Examination of the oropharynx reveals no oropharyngeal lesions. Tongue is moist. No ulcerations are noted. NECK: Supple. There is no adenopathy. No jugular venous distention noted. BREASTS: Examination of the breast reveals the prosthesis on the right chest wall/right breast area is dense with some induration around it. Right axilla is again indurated, but no definite masses are felt. Left breast is unremarkable. Left axilla is negative. LUNGS: Clear to percussion and auscultation. HEART: Examination of the heart reveals PMI to be in the fifth intercostal space, inside the midclavicular line. S1 and S2 are normal. No gallop or murmur is heard. ABDOMEN: Soft and nontender. Bowel sounds are present. No rebound, rigidity or guarding is noted. EXTREMITIES: Reveals no cyanosis, clubbing, or edema of the lower extremities. Persistent lymphedema of the right upper extremity is noted. GENITOURINARY: Deferred. RECTAL: Deferred. SKIN: Turgor is normal. No skin lesions are noted. NEUROLOGIC: Reveals higher functions to be normal. No focal deficits are noted. The patient is able to move all 4 extremities with gravity eliminated. The patient still has a Rodgers catheter in with connected leg bag. LABORATORY DATA: Today's labs were reviewed. White count of 3.7, hemoglobin of 9.6, hematocrit 29, and platelet count 92,000. Sugars have been ranging between 217 and 447. BUN and creatinine have been within normal limits. Random blood sugar at that time yesterday was 146. AST and ALT are within normal limits. Total protein is 5.1 with an albumin of 2.7. ASSESSMENT, NOTES, AND PLAN: The patient had hypoglycemic episode and we will make sure better than in the hospital along with failure to thrive, stage IV metastatic carcinoma of the breast. ER, OR and HER-2/annemarie negative. Triple negative. 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 She received one dose of Keytruda two weeks ago and will be due for Keytruda this week, will have to postpone as the patient is in the hospital. Tachypnea and anemia related to multiple comorbid medical factors including underlying cancer itself. Coronary artery disease. The patient has diabetes mellitus, blood sugars have not been running greatly high and she is being monitored with insulin coverage alone. The patient has sickle cell trait as well. The patient is going to be monitored very carefully. I had a detail discussion with the patient and her sister by the bedside and we talked about the options the patient has. The patient would like to try getting up and walking after the leg bag and Rodgers catheter is removed. She would like to walk when her family is around, her sisters are there every shift. They are going to try to help her at least to get around so she may be able to go for TCU. Since the patient is feeling better and is not on narcotics and is not as dizzy, they are going to try to see and listen to her and do a favor for her by allowing her to again ambulate with assistance, so that she may be assessed by TCU evaluating people so that she may be eligible for therapy there. In the meantime, we can also have the advantage of keeping her under our eyes as far as progress is concerned from the treatments. The patient is otherwise would be ready for another dose of treatment sometime next week. I saw the patient if she continues to do well and she demonstrates that she is able to get around safely, then we will be able to discharge her. Blood work for a.m. has been requested. We will continue to monitor the patient very carefully. She is still on antibiotics which we are going to continue. ID is on the case. Cultures have been negative so far as far as blood cultures are concerned. The patient has a and she is a DNR/DNI for now. Besides the aggressive therapy we are giving, we are going to monitor her if she will need any additional test done before discharging her from this admission. Blood cultures together are negative, these cultures done on 06/14/2018. Urine cultures from the was negative, no growth. Blood culture from 06/12/2018 also showed no growth. Blood culture from 06/10/2018 also showed no growth for 5 days, these all things in the patient's favor. We will continue to monitory the patient carefully before making further decisions. In the meantime, the cath did not reveal any acute event. I spoke to Dr. Slater, tried to keep the hemoglobin above 9 and the patient may be a candidate for growth factor to keep her blood count going, but because of her breast cancer, hesitant to give her any of the . In the meantime, we do not assess the patient for the next cycle of Keytruda, which would be due pretty soon. In the meantime, we try to get the patient to handle it, so that little bit more functionality we can discharge her and gave the treatment as an outpatient. Spoke at length with the patient and her sisters with her. We discussed along the other options for further management. Time spent with the patient is greater than 80 minutes out of which most of the time is spent in discussing with the patient family as to what our immediate plans are, what the long-term prognosis is and we will go from here. Please make a note that this is a complex patient with multiple comorbid medical issues. Doris Griffith MD
[2018-06-16 07:58] LABS: BASO # 0.01 K/mm3 (0.0-2.0); BASO % 0.3 % (0.0-3.0); EOS # 0.1 (0.0-0.7); EOS % 1.4 % (1.5-5.0); GRAN # 2.62 (1.4-6.5); GRAN % 73.8 % (50.0-68.0); LYMPH # 0.5 (1.2-3.4); LYMPH % 13.8 % (22.0-35.0); MEAN CELL VOLUME 76.1 fl (80.0-105.0); MEAN CORPUSCULAR HEMOGLOBIN 25.2 pg (25.0-35.0); MEAN CORPUSCULAR HGB CONC 33.1 g/dl (31.0-37.0); MONO # 0.4 (0.1-0.6); MONO % 10.7 % (1.0-6.0); PLATELET COUNT 114 10^3/uL (120.0-450.0); RBC 3.97 10^6/uL (3.5-6.1); WHITE BLOOD COUNT 3.6 10^3/uL (4.5-11.0)
[2018-06-16] MEDS: Insulin Reg-HIGH-Coverage SC SCH ×4 (08:25→21:42)
[2018-06-16] MEDS: Magnesium Oxide 400 mg Tab UD PO SCH (09:37)
[2018-06-16] MEDS: Cefepime 1gm in NS 100ml 1 GM/100 ML BAG IVPB SCH (09:37)
--- NOTE | 2018-06-16 13:21 | PN ---
DATE: 06/16/2018 SUBJECTIVE: The patient has no complaints of any chest pain. No shortness of breath. No headaches or dizziness. PHYSICAL EXAMINATION: GENERAL: The patient is lying in bed, flat, comfortable. VITAL SIGNS: Her temperature is 98.1, pulse of 82, blood pressure of 158/104, respirations of 18. HEENT: No oral lesion. Anicteric sclerae. Moist mucosa. NECK: No JVD, adenopathy, or thyromegaly. CARDIOVASCULAR: S1 and S2, regular. No murmurs, rubs, or gallops. LUNGS: Clear to auscultation bilaterally. No wheeze, rales, or rhonchi. ABDOMEN: Bowel sounds are positive, soft, nontender and nondistended. EXTREMITIES: No cyanosis, clubbing or edema. LABORATORY DATA: White count of 3.6, hemoglobin of 10, creatinine is 1.2. ASSESSMENT: 1. Hypoglycemia, resolved. 2. Diabetes type 2, uncontrolled. 3. Acute anemia secondary to malignancy, improved. 4. Coronary artery disease . 5. Breast cancer with metastasis. 6. Right-sided Port-A-Cath. 7. Diabetes type 2. 8. Hypertension. 9. Dyslipidemia. 10. Sick cell trait. 11. Do not resuscitate/do not intubate. PLAN: The patient is currently comfortable. She is waiting for TCU. She has been followed by Oncology and by ID. I did review their notes. The patient has blood cultures and urine cultures that had been negative. I will get Dr. Velez for evaluation of the patient's diabetes. The patient is on iron. She is going to continue with heparin for DVT prophylaxis. She is on Lipitor for dyslipidemia. She is on gemfibrozil for her dyslipidemia. She is on metoprolol for coronary artery disease. She is on cefepime for antibiotics. The patient is on antibiotics and will most likely need to be discontinued. Sherman Soria MD
--- NOTE | 2018-06-16 14:44 | PN ---
DATE: 06/16/2018 SUBJECTIVE: The patient is in bed. She is complaining of difficulty walking. PHYSICAL EXAMINATION: VITAL SIGNS: Blood pressure 154/91, heart rate in the 80s. NECK: Negative JVD. LUNGS: Without rales. HEART: S1, S2. EXTREMITIES: Without edema. LABORATORY: Hemoglobin is 10. Chemistries, glucose is 134. IMPRESSION: 1. Status post [id number] myocardial infarction. 2. No evidence for significant coronary artery disease. 3. Renal insufficiency which is now resolved. 4. Diabetes mellitus. 5. Weakness and difficulty walking. Given these findings, I have ordered physical therapy. To begin ambulating the patient. We will obtain a comp blood test to check her renal function in the morning. Erich Slater MD
--- NOTE | 2018-06-16 15:23 | CP.PCM.PN ---
<Jj Wolfe - Last Filed: 06/16/18 15:20> Subjective - Date & Time of Evaluation Date of Evaluation: 06/16/18 Time of Evaluation: 10:15 - Subjective Subjective: Patient seen and examined at bedside. Patient resting comfortably with no complaints. Denies chest pain, nausea, vomiting, diarrhea, fever, chills. Objective - Vital Signs/Intake and Output Vital Signs (last 24 hours): Temp Pulse Resp BP Pulse Ox 98.4 F 94 H 18 158/101 H 94 L 06/16/18 14:00 06/16/18 14:00 06/16/18 14:00 06/16/18 14:00 06/16/18 14:00 Intake and Output: 06/16/18 06/16/18 06:59 18:59 Intake Total 1380 Output Total 1500 Balance -120 - Medications Medications: Current Medications Acetaminophen (Tylenol 325mg Tab) 650 mg PO Q4H PRN PRN Reason: Temp greater than 100.4*F Last Admin: 06/14/18 10:48 Dose: 650 mg Aspirin (Ecotrin) 81 mg PO DAILY [facility] Last Admin: 06/16/18 09:37 Dose: 81 mg Atorvastatin Calcium (Lipitor) 20 mg PO DIN [facility] Last Admin: 06/15/18 17:33 Dose: 20 mg Cyproheptadine HCl (Periactin) 2 mg PO DAILY [facility] Last Admin: 06/16/18 09:38 Dose: 2 mg Ergocalciferol (Drisdol 50,000 Intl Units Cap) 1 cap PO QWK [facility] Ferrous Sulfate (Feosol) 324 mg PO BID [facility] Last Admin: 06/16/18 09:37 Dose: 324 mg Folic Acid (Folic Acid) 1 mg PO DAILY [facility] Last Admin: 06/16/18 09:38 Dose: 1 mg Gabapentin (Neurontin) 600 mg PO BID [facility]; Protocol Last Admin: 06/16/18 09:37 Dose: 600 mg Gemfibrozil (Lopid) 600 mg PO DAILY [facility] Last Admin: 06/16/18 09:37 Dose: 600 mg Heparin Sodium (Porcine) (Heparin) 5,000 units SC Q12 [facility]; Protocol Last Admin: 06/16/18 09:38 Dose: 5,000 units Cefepime HCl (Maxipime 1gm) 1 gm in 100 mls @ 25 mls/hr IVPB Q24H [facility]; Protocol Last Admin: 06/16/18 09:37 Dose: 25 mls/hr Insulin Human Regular (Humulin R High) 0 units SC ACHS [facility]; Protocol Last Admin: 06/16/18 12:27 Dose: 2 u Magnesium Oxide (Mag-Ox) 400 mg PO DAILY [facility] Last Admin: 06/16/18 09:37 Dose: 400 mg Metoprolol Tartrate (Lopressor) 25 mg PO BID [facility] Last Admin: 06/16/18 09:38 Dose: 25 mg - Labs Labs: 06/16/18 07:30 06/14/18 05:00 - Constitutional Appears: Non-toxic, No Acute Distress - Head Exam Head Exam: ATRAUMATIC, NORMAL INSPECTION, NORMOCEPHALIC - ENT Exam ENT Exam: Mucous Membranes Dry - Respiratory Exam Respiratory Exam: Clear to Ausculation Bilateral, NORMAL BREATHING PATTERN. absent: Rales, Rhonchi, Wheezes - Cardiovascular Exam Cardiovascular Exam: RRR, +S1, +S2 - GI/Abdominal Exam GI & Abdominal Exam: Soft, Normal Bowel Sounds. absent: Tenderness - Neurological Exam Neurological Exam: Alert, Awake, Oriented x3 - Psychiatric Exam Psychiatric exam: Normal Affect, Normal Mood - Skin Skin Exam: Intact, Normal Color, Warm Assessment and Plan - Assessment and Plan (Free Text) Plan: Fever, SIRS Hx of stage 4 breast cancer s/p mastectomy Hx of CAD s/p stent placement Hx of HLD Hx of HTN Hx of DM 2 Plan Patient afebrile with no leukocytosis Blood and urine cultures negative x 48 hours Will continue to monitor off antibiotics Yaneth, PGY-3 <Hardik Aquino S - Last Filed: 06/16/18 16:29> Objective - Vital Signs/Intake and Output Vital Signs (last 24 hours): Temp Pulse Resp BP Pulse Ox 98.4 F 94 H 18 158/101 H 94 L 06/16/18 14:00 06/16/18 14:00 06/16/18 14:00 06/16/18 14:00 06/16/18 14:00 Intake and Output: 06/16/18 06/16/18 06:59 18:59 Intake Total 1380 Output Total 1500 Balance -120 - Medications Medications: Current Medications Acetaminophen (Tylenol 325mg Tab) 650 mg PO Q4H PRN PRN Reason: Temp greater than 100.4*F Last Admin: 06/14/18 10:48 Dose: 650 mg Aspirin (Ecotrin) 81 mg PO DAILY [facility] Last Admin: 06/16/18 09:37 Dose: 81 mg Atorvastatin Calcium (Lipitor) 20 mg PO DIN [facility] Last Admin: 06/15/18 17:33 Dose: 20 mg Cyproheptadine HCl (Periactin) 2 mg PO DAILY [facility] Last Admin: 06/16/18 09:38 Dose: 2 mg Ergocalciferol (Drisdol 50,000 Intl Units Cap) 1 cap PO QWK [facility] Ferrous Sulfate (Feosol) 324 mg PO BID [facility] Last Admin: 06/16/18 09:37 Dose: 324 mg Folic Acid (Folic Acid) 1 mg PO DAILY [facility] Last Admin: 06/16/18 09:38 Dose: 1 mg Gabapentin (Neurontin) 600 mg PO BID [facility]; Protocol Last Admin: 06/16/18 09:37 Dose: 600 mg Gemfibrozil (Lopid) 600 mg PO DAILY [facility] Last Admin: 06/16/18 09:37 Dose: 600 mg Heparin Sodium (Porcine) (Heparin) 5,000 units SC Q12 [facility]; Protocol Last Admin: 06/16/18 09:38 Dose: 5,000 units Cefepime HCl (Maxipime 1gm) 1 gm in 100 mls @ 25 mls/hr IVPB Q24H [facility]; Protocol Last Admin: 06/16/18 09:37 Dose: 25 mls/hr Insulin Human Regular (Humulin R High) 0 units SC ACHS [facility]; Protocol Last Admin: 06/16/18 12:27 Dose: 2 u Magnesium Oxide (Mag-Ox) 400 mg PO DAILY [facility] Last Admin: 06/16/18 09:37 Dose: 400 mg Metoprolol Tartrate (Lopressor) 25 mg PO BID [facility] Last Admin: 06/16/18 09:38 Dose: 25 mg - Labs Labs: 06/16/18 07:30 06/14/18 05:00 Assessment and Plan - Assessment and Plan (Free Text) Plan: Infectious diseases Attending Physician Attestation Patient seen and examined, discussed with territory sales manager medical. I have reviewed the patient's history of present illness, past medical, social, personal and family histories, pertinent physical exam findings, course so far in this hospital admission, pertinent laboratory and imaging results. I agree with the above findings, assessment and plan. In addition, continue to monitor off antibiotics, no evidence of bacterial infection on work up.
--- NOTE | 2018-06-16 21:21 | CON ---
DATE OF CONSULTATION: 06/16/2018 LOCATION: Room 575. HISTORY OF PRESENT ILLNESS: This is a 63-year-old female with known history of type 2 insulin-requiring diabetes, presenting here with marked hypoglycemia and supervening unresponsiveness with a glucose level of 37 mg/dL taken by the paramedics at her home and is being referred now for diabetic evaluation and management. PAST MEDICAL HISTORY: As mentioned above, history of type 2 insulin-requiring diabetes, on a combination of Levemir and NovoLog given at variable dosing by the patient. She admits to very poor and suboptimal meal portions in the last few weeks prior to admission. History of hypertension and dyslipidemia. History of coronary artery disease with a previous coronary stent placement. History of stage IV triple negative breast cancer with a previous right mastectomy and now with metastases to the neck, mediastinum, right axilla and bilateral lung espinosa. Currently on Keytruda as noted. History also of non-Hodgkin's lymphoma with a recent chemotherapy, has completed in 11/2017. History of sickle cell trait. FAMILY HISTORY: Positive for hypertension and heart disease. SOCIAL HISTORY: The patient has supportive family. No known substance use. REVIEW OF SYSTEMS: As mentioned above. Admits to generalized body weakness with episodic bouts of dizziness and lightheadedness worse on the day of admission. Admits to precordial chest pain with progressive shortness of breath especially on exertion. Her oral intake has been variable and suboptimal with variable oral intake, anorexia, dyspepsia and progressive weight loss. No recent alterations of bowel and urinary patterns. PHYSICAL EXAMINATION: GENERAL: This is an average built female in no apparent distress. VITAL SIGNS: Blood pressure of 140/80, pulse of 100 beats per minute and regular, temperature 98, respirations 20. Height is 5'11", weight is 186 pounds. HEENT: Head normocephalic. Eyes anicteric with pink conjunctivae. Funduscopy not possible at this time. Ears, nose and throat otherwise normal. NECK: Supple. Thyroid gland is normal in size. No carotid bruits or cervical adenopathy. CARDIOPULMONARY: Some adynamic precordium. S1, S2 is rapid and regular. LUNGS: Clear to auscultation. ABDOMEN: Flat, soft with positive bowel sounds. EXTREMITIES: No peripheral edema. Pulses are +2 bilaterally. LABORATORY DATA: Her initial glucose on admission was 44 mg/dL. The subsequent glucose levels have improved, the latest one of which today is 94-134 and 156 mg/dL. It was 447 yesterday at noontime as noted. ASSESSMENT: This is a 63-year-old female with uncontrolled and decompensated type 2 insulin-requiring diabetes with minimal insulin requirements related to marked anorexia and dyspepsia and progressive weight loss with really no insulin requirements at this time. She also has significant stage IV metastatic triple negative breast carcinoma post right mastectomy and chemo and radiation therapy with recent non-Hodgkin's lymphoma and also had a recent chemotherapy this year as noted. She also has diabetic microvascular complications of polyneuropathy and nephropathy with diabetic macrovascular complications of coronary artery disease and peripheral arterial disease and vasculopathy. PLAN OF MANAGEMENT: We will modify her current insulin coverage scale to a very low-dose algorithm to obviate hypoglycemia and detailed orders have been given. If hyperglycemic levels supervene, may decide to give her a low-dose short-acting oral hypoglycemic therapy instead of insulin therapy, especially with the variability of her oral intake at this time. Hemoglobin A1c will be done to confirm her prior glycemic control and baseline thyroid function studies will be ordered. We will obtain serial chemistries and supplement accordingly as needed. We will follow. Sehlly Velez MD
[2018-06-17 07:48] LABS: EOS # 0.1 (0.0-0.7); EOS % 1.2 % (1.5-5.0); GRAN % 72.2 % (50.0-68.0); HEMOGLOBIN 9.8 g/dL (12.0-16.0); LYMPH # 0.7 (1.2-3.4); MEAN CELL VOLUME 77.1 fl (80.0-105.0); MEAN CORPUSCULAR HEMOGLOBIN 25.5 pg (25.0-35.0); MONO # 0.4 (0.1-0.6); MONO % 9.6 % (1.0-6.0); PLATELET COUNT 86 10^3/uL (120.0-450.0); RBC 3.85 10^6/uL (3.5-6.1); RED CELL DISTRIBUTION WIDTH 17.2 % (11.5-14.5); WHITE BLOOD COUNT 4.3 10^3/uL (4.5-11.0)
[2018-06-17 08:00] LABS: ALB/GLOB RATIO 1.3 (1.1-1.8); ALT/SGPT 32 U/L (7-56); AST/SGOT 32 U/L (14-36); BLOOD UREA NITROGEN 21 mg/dL (7-21); CALCIUM 8.6 mg/dL (8.4-10.5); GFR NON-AFRICAN AMERICAN > 60
--- NOTE | 2018-06-17 08:13 | PN ---
DATE: 06/16/2018 ONCOLOGY PROGRESS NOTE LOCATION: The patient is in room 575, bed 2. SUBJECTIVE: The patient is seen in bed with a sister by her bedside. The patient had an uneventful night. The patient is willing to get up out of bed and sit. Physical therapy coming back to make her sit up, dangle the feet and make her ambulate at least a short distance. The patient denies any chest discomfort, shortness of breath, headache, or dizziness. Previously noted pain in the right arm and right axilla, secondary to breakthrough plexopathy, appears to be significantly improved. Probably, it is related to her systematic therapy which have been given about 2-1/2 weeks ago. The patient due for more treatment this week. Unfortunately, the patient landed in the hospital with the hypoglycemic episodes, which appears to be resolved. Denies any history of fever, chills, nausea, or vomiting. PHYSICAL EXAMINATION GENERAL: The patient is awake, alert, and oriented. No acute distress. VITAL SIGNS: Stable. T-max is 98.4, pulse is 82, blood pressure is 158/100, and respirations 18. HEENT: Head is normocephalic, atraumatic. Conjunctivae pale. Sclerae are anicteric. Pupils are equally reactive to light and accommodation. Examination of the oropharynx reveals no oropharyngeal lesions. NECK: Supple. There is no adenopathy. No jugular venous distension noted. CHEST: Examination of the chest wall reveals no new changes. On the right side of her chest, the patient has breast reconstruction and induration changes around the implant. No significant exudative findings. Left breast is unremarkable. Axillae are negative. CARDIOVASCULAR SYSTEM: Reveals PMI to be in the fifth intercostal space inside the midclavicular line. S1 and S2 are normal. No gallop or murmur heard. LUNGS: Clear to percussion and auscultation. ABDOMEN: Soft and nontender. Bowel sounds are present. No rebound, rigidity, or guarding is noted. EXTREMITIES: Reveals no cyanosis, clubbing, or edema. LABORATORY DATA: Reveals a white count of 3.6, hemoglobin of 10, creatinine 1.2, and platelet count is holding at 114,000. MEDICATIONS: Medications were reviewed and they are unchanged. The patient is on Ecotrin, Feosol, folic acid, heparin subcu, insulin coverage, , Lipitor, gemfibrozil, metoprolol titrate 25 b.i.d., magnesium oxide, cefepime, gabapentin, Periactin. The patient's blood and urine cultures have been negative so far. ASSESSMENT AND PLAN: Deconditioning in a patient with stage 4 metastatic, ER MA negative, HER-2/annemarie negative. Breast cancer, MSI high, currently on drug called Keytruda, which is given every 3 weeks, has had significant positive response over the last 2-1/2 weeks since the last treatment with improvement in her pain which was significant at the onset but the pain was keeping up from sleeping, and she was on high doses or narcotics, and she is complaining of all those medicines at this time. Deconditioning also related to cancer and cachexia related to the cancer. Diabetes appears to be a little bit better controlled but front worker is on the case and told the family that it may be behoves not to give her insulin when she is at home and just give her p.r.n. medicines depending on her blood sugar that should be taken at least 3 times a day or 4 times a day, and then coverage should be based on that with pills if needed. The patient is on medications to improve her appetite. The patient is on Periactin. A detailed discussion to the patient and her sister, also spoke to the physical therapist now. The patient and the family do not want her to go into a intermediate or subacute rehab, as they are concerned about it. They think that if she is able to ambulate like she was doing last week, they feel that they would be able to better care for her at home. I encouraged the patient to sit up out of bed, dangle the feet, try to walk up few steps today, and then progressively increase her walking over the next 48 hours and then she can go to the TCU, where she can demonstrate that she is able to walk, in which case that may be the most appropriate for her to go home than going to subacute rehab. The patient also this way would be able to feel better faster, and we will be able to give her ongoing treatment with Keytruda. Despite progressive disease, the patient does not demonstrate any significant visceral metastases, brain metastases which was positive things in the case in which case maybe she will respond to the Keytruda rather dramatically over the ensuing 2 to 3 months. She was cautiously optimistic at this time and that was my discussion in detail with the patient and her sister. This patient was counseled at great length and I told her not to give up hope under these circumstances. Time spent with the patient is greater than 45 minutes. Please make a note, this is a complex patient with multiple comorbid medical issues. Doris Griffith MD
[2018-06-17] MEDS: Insulin Reg-HIGH-Coverage SC SCH ×2 (08:23→12:03)
[2018-06-17 09:49] VITALS: O2SAT 99
[2018-06-17] MEDS: Magnesium Oxide 400 mg Tab UD PO SCH (10:28)
--- NOTE | 2018-06-17 14:26 | CP.PCM.PN ---
<Jj Wolfe - Last Filed: 06/17/18 14:23> Subjective - Date & Time of Evaluation Date of Evaluation: 06/17/18 Time of Evaluation: 07:15 - Subjective Subjective: ID progress note Patient states she feels well today with no complaints. Patient tolerating diet. Denies chest pain, shortness of breath, nausea, vomiting, diarrhea, fever, chills. Objective - Vital Signs/Intake and Output Vital Signs (last 24 hours): Temp Pulse Resp BP Pulse Ox 98.6 F 79 18 117/82 99 06/17/18 06:00 06/17/18 10:36 06/17/18 06:00 06/17/18 10:36 06/17/18 06:00 Intake and Output: 06/17/18 06/17/18 06:59 18:59 Intake Total 240 Balance 240 - Medications Medications: Current Medications Acetaminophen (Tylenol 325mg Tab) 650 mg PO Q4H PRN PRN Reason: Temp greater than 100.4*F Last Admin: 06/14/18 10:48 Dose: 650 mg Aspirin (Ecotrin) 81 mg PO DAILY [facility] Last Admin: 06/17/18 10:28 Dose: 81 mg Atorvastatin Calcium (Lipitor) 20 mg PO DIN [facility] Last Admin: 06/16/18 17:26 Dose: 20 mg Cyproheptadine HCl (Periactin) 2 mg PO DAILY [facility] Last Admin: 06/17/18 10:29 Dose: 2 mg Ergocalciferol (Drisdol 50,000 Intl Units Cap) 1 cap PO QWK [facility] Ferrous Sulfate (Feosol) 324 mg PO BID [facility] Last Admin: 06/17/18 10:28 Dose: 324 mg Folic Acid (Folic Acid) 1 mg PO DAILY [facility] Last Admin: 06/17/18 10:28 Dose: 1 mg Gabapentin (Neurontin) 600 mg PO BID [facility]; Protocol Last Admin: 06/17/18 10:28 Dose: 600 mg Gemfibrozil (Lopid) 600 mg PO DAILY [facility] Last Admin: 06/17/18 10:28 Dose: 600 mg Heparin Sodium (Porcine) (Heparin) 5,000 units SC Q12 [facility]; Protocol Last Admin: 06/17/18 10:28 Dose: 5,000 units Insulin Human Regular (Humulin R High) 0 units SC ACHS [facility]; Protocol Last Admin: 06/17/18 12:03 Dose: 7 u Magnesium Oxide (Mag-Ox) 400 mg PO DAILY [facility] Last Admin: 06/17/18 10:28 Dose: 400 mg Metoprolol Tartrate (Lopressor) 25 mg PO BID [facility] Last Admin: 06/17/18 09:16 Dose: Not Given - Labs Labs: 06/17/18 07:30 06/17/18 07:30 - Constitutional Appears: Non-toxic, No Acute Distress - Head Exam Head Exam: ATRAUMATIC, NORMAL INSPECTION, NORMOCEPHALIC - ENT Exam ENT Exam: Mucous Membranes Moist - Respiratory Exam Respiratory Exam: Clear to Ausculation Bilateral, NORMAL BREATHING PATTERN. absent: Rales, Rhonchi, Wheezes - Cardiovascular Exam Cardiovascular Exam: RRR, +S1, +S2 - GI/Abdominal Exam GI & Abdominal Exam: Soft, Normal Bowel Sounds. absent: Tenderness - Extremities Exam Extremities Exam: Normal Inspection. absent: Pedal Edema - Neurological Exam Neurological Exam: Alert, Awake, Oriented x3 - Psychiatric Exam Psychiatric exam: Normal Affect, Normal Mood - Skin Skin Exam: Intact, Normal Color, Warm Assessment and Plan - Assessment and Plan (Free Text) Plan: Fever, SIRS Hx of stage 4 breast cancer s/p mastectomy Hx of CAD s/p stent placement Hx of HLD Hx of HTN Hx of DM 2 Plan Patient afebrile with no leukocytosis Blood and urine cultures negative x 72 hours Continue to monitor off antibiotics Continue current medical regimen Yaneth, PGY-3 <MilesHardik S - Last Filed: 06/17/18 22:59> Objective - Vital Signs/Intake and Output Vital Signs (last 24 hours): Temp Pulse Resp BP Pulse Ox 98.2 F 90 16 121/80 99 06/17/18 14:00 06/17/18 17:14 06/17/18 14:00 06/17/18 17:14 06/17/18 14:00 - Labs Labs: 06/17/18 07:30 06/17/18 07:30 Assessment and Plan - Assessment and Plan (Free Text) Plan: Infectious diseases Attending Physician Attestation Patient seen and examined, discussed with medical records clerk. I have reviewed the patient's history of present illness, past medical, social, personal and family histories, pertinent physical exam findings, course so far in this hospital admission, pertinent laboratory and imaging results. I agree with the above findings, assessment and plan.
--- NOTE | 2018-06-17 15:47 | DS ---
HISTORY OF PRESENT ILLNESS: The patient has no complaints of any chest pain or shortness of breath. No headache or dizziness. She has been waiting to go to TCU, but now she is contemplating about going home. The patient has no complaints of any headache or dizziness. No nausea. No vomiting. She was seen by Dr. Velez from Endocrinology to help with the management of her diabetes. I did review her note. PHYSICAL EXAMINATION: VITAL SIGNS: Temperature is 99, pulse of 89, blood pressure 136/92, respirations 18, and O2 saturation 94%. GENERAL: The patient is lying in bed, flat, comfortable. HEENT: No oral lesion. Anicteric sclerae. Moist mucosa. NECK: No JVD, adenopathy, or thyromegaly. CARDIOVASCULAR: S1 and S2, regular. No murmurs, rubs, or gallops. LUNGS: Clear to auscultation bilaterally. No wheeze, rales, or rhonchi. ABDOMEN: Bowel sounds are positive, soft, nontender and nondistended. EXTREMITIES: No cyanosis, clubbing or edema. LABORATORY DATA: The patient has a white count of 4.3 and hemoglobin 9.8. Chemistry shows potassium is 3.3. ASSESSMENT: 1. Hypoglycemia, resolved. 2. Diabetes type 2, uncontrolled. 3. Acute anemia secondary to malignancy, improved. 4. Coronary artery disease. 5. Breast cancer with metastasis. 6. Right-sided Port-A-Cath. 7. Hypertension. 8. Dyslipidemia. 9. Sickle cell trait. 10. Do not resuscitate/do not intubate. PLAN: The patient is currently on ergocalciferol 50,000 units per week for her diabetes. She is on aspirin daily. She is on iron for her deficiency. She is on folic acid daily. She is on heparin for DVT prophylaxis. She is going to be on atorvastatin 20 mg for her dyslipidemia. She is on gemfibrozil for her dyslipidemia. She is going to continue with metoprolol. She is on magnesium replacement. She is on cefepime for antibiotics. She is on gabapentin for neuropathy. The patient is on Tylenol as needed. She is on a heart healthy diet. She is on insulin sliding scale. Sherman Soria MD [facility] # [id number]
--- NOTE | 2018-06-17 15:48 | PN ---
DATE: 06/17/2018 SUBJECTIVE: The patient is in bed. She is comfortable without shortness of breath, without chest pain. PHYSICAL EXAMINATION: VITAL SIGNS: Blood pressure 117/82, the heart rate in the 80s. NECK: Negative JVD. LUNGS: Without rales. HEART: S1, S2. EXTREMITIES: Without edema. LABORATORY DATA: Hemoglobin is 9.8, BUN and creatinine is 21 and 0.7, glucose is 215. IMPRESSION: 1. Recent non-ST elevation myocardial infarction. 2. No documented occlusive coronary disease. 3. Renal insufficiency secondary to contrast nephropathy is resolved. 4. Diabetes mellitus. 5. Weakness. 6. Cancer. Given these findings, the patient will need extensive physical therapy to begin and needs to begin ambulating. Erich Slater MD
[2018-06-17] MEDS ORDERED: Potassium Chloride 20 mEq ER Tab PO ONE (16:13)
[2018-06-17] MEDS ORDERED: Insulin Lispro 1 UNITS/0.01 ML SC SCH (16:30)
[2018-06-17] MEDS ORDERED: Insulin Lispro (humaLOG) LOW Coverage SC SCH (16:30)
[2018-06-17 16:42] VITALS: BP 121/80; PULSE 90; RESP 16; TEMP 98.2
--- NOTE | 2018-06-17 20:02 | PN ---
DATE: 06/17/2018 LOCATION: Room 575, bed 2. SUBJECTIVE: This is a 63-year-old female with recent uncontrolled type 2 insulin-requiring diabetes, presenting here with symptomatic hypoglycemia and altered mental status and has since then improved clinically and metabolically as noted thereof. Her oral intake remains variable as noted. Her latest glucose values overnight have been noted to be fluctuating and glucose levels have ranged from 212 to 278 mg/dL. LABORATORY DATA: Her latest chemistry showed a BUN of 21, sodium 138, potassium 3.3, chloride 101, CO2 of 31, glucose 216 and creatinine 0.7. ASSESSMENT: This is a 63-year-old female with uncontrolled and decompensated type 2 insulin-requiring diabetes with extremes of glycemic fluctuations, presenting here with symptomatic hypoglycemia and associated neuroglycopenic and hyperadrenergic manifestations of the same. Moreover, at this time, she has supervened to have marked hyperglycemic accelerations as expected thereof. She also has diabetic microvascular complications of retinopathy and polyneuropathy with macrovascular complications of coronary artery disease and peripheral arterial disease and vasculopathy. Moreover, she has also metastatic breast carcinoma as noted. PLAN OF MANAGEMENT: We will initiate at this time a more physiologic basal and bolus insulin drug combination with Levemir to be started at 14 units subcu at bedtime daily to start tonight. We will add Humalog given as 6 units t.i.d. before meals again to start at dinner time today as ordered. We will modify the coverage scale to obviate hypoglycemia and detailed orders have been given. We will obtain serial chemistries and supplement accordingly as needed. We will follow. Shelly Velez MD
[2018-06-17] MEDS ORDERED: Insulin Detemir 100 units/ml Vial (Levemir) SC SCH (22:00)
[2018-06-18] MEDS ORDERED: Ergocalciferol 50,000 Intl Units Cap PO SCH ×2 (10:00)
== END 2018-06-17 18:59 | DRG 637 ==
LOC: ED 18:06 → ERH 20:51 → 2RNO 22:05 → 2RSO 06-11 12:15 → 5RSO 06-15 20:18
PROVIDERS: ADMIT Internal Medicine Nephrology; ATTEND Internal Medicine Nephrology
PROC: 4A023N7 Measurement of Cardiac Sampling and Pressure, Left Heart, Percutaneous Approach (ICD-10-PCS; principal; 2018-06-11)
PROC: B211YZZ Fluoroscopy of Multiple Coronary Arteries using Other Contrast (ICD-10-PCS; 2018-06-11)
PROC: B215YZZ Fluoroscopy of Left Heart using Other Contrast (ICD-10-PCS; 2018-06-11)
DX: E11.649 Type 2 diabetes mellitus with hypoglycemia without coma (principal); I21.4 Non-ST elevation (NSTEMI) myocardial infarction; C78.00 Secondary malignant neoplasm of unspecified lung; R64 Cachexia; C77.0 Secondary and unspecified malignant neoplasm of lymph nodes of head, face and neck; C50.919 Malignant neoplasm of unspecified site of unspecified female breast; D63.0 Anemia in neoplastic disease; I25.118 Atherosclerotic heart disease of native coronary artery with other forms of angina pectoris; N14.1 Nephropathy induced by other drugs, medicaments and biological substances; T50.8X5A Adverse effect of diagnostic agents, initial encounter; D57.3 Sickle-cell trait; G89.3 Neoplasm related pain (acute) (chronic); G54.0 Brachial plexus disorders; E78.00 Pure hypercholesterolemia, unspecified; E11.51 Type 2 diabetes mellitus with diabetic peripheral angiopathy without gangrene; E11.42 Type 2 diabetes mellitus with diabetic polyneuropathy; E11.319 Type 2 diabetes mellitus with unspecified diabetic retinopathy without macular edema; R62.7 Adult failure to thrive; R26.2 Difficulty in walking, not elsewhere classified; E78.5 Hyperlipidemia, unspecified; Z66 Do not resuscitate; Z17.1 Estrogen receptor negative status [ER-]; Z68.25 Body mass index [BMI] 25.0-25.9, adult; Z85.72 Personal history of non-Hodgkin lymphomas; Z79.4 Long term (current) use of insulin; Z90.11 Acquired absence of right breast and nipple; Z95.5 Presence of coronary angioplasty implant and graft

== ENCOUNTER 2018-06-17 18:59 | Inpatient (IN) | payer BC ==
[2018-06-17] MEDS: Insulin Detemir 100 units/ml Vial (Levemir) SC SCH (22:04)
[2018-06-17] MEDS: Insulin Lispro (humaLOG) LOW Coverage SC SCH (22:25)
[2018-06-18 03:49] VITALS: BMI 25.9
[2018-06-18] MEDS: Insulin Lispro (humaLOG) LOW Coverage SC SCH ×4 (06:46→21:55)
[2018-06-18] MEDS: Insulin Lispro 1 UNITS/0.01 ML SC SCH ×3 (06:46→17:35)
[2018-06-18] MEDS: Ergocalciferol 50,000 Intl Units Cap PO SCH (10:24)
[2018-06-18] MEDS: Magnesium Oxide 400 mg Tab UD PO SCH (10:26)
--- NOTE | 2018-06-18 14:02 | CP.PCM.CON ---
History of Present Illness - History of Present Illness History of Present Illness: 63 year old female with PMH of breast cancer s/p mastectomy on chemotherapy, CAD with stent placement, HLD, HTN, and DM type 2 presented to the hospital after being found unresponsive secondary to hypoglycemia. Patient improved with D50 in the hospital. During hospital stay, ID was consulted for fevers. Patient had blood and urine cultures which did not demonstrate any growth. Patient also had imaging performed which did not demonstrate any source of infection. Patient improved during her course of stay and was transported to the TCU for deconditioning. Denies chest pain, shortness of breath, nausea, vomiting, diarrhea, fever, chills. PMH: as above Surgical hx: Mastectomy, chest port placement Family Hx: Noncontributory Social Hx: denies tobacco, alcohol, or illicit drug use Meds: Reviewed, as per MAR Allergies: NKDA Review of Systems - Review of Systems Review of Systems: 12 point ROS as per HPI, otherwise negative Past Patient History - Infectious Disease Hx of Infectious Diseases: None - Tetanus Immunizations Tetanus Immunization: Unknown - Past Social History Smoking Status: Never Smoked - CARDIAC Hx Cardiac Disorders: Yes Hx Hypertension: Yes - PULMONARY Hx Respiratory Disorders: No - NEUROLOGICAL Hx Neurological Disorder: No - HEENT Hx HEENT Problems: No - RENAL Hx Chronic Kidney Disease: No - ENDOCRINE/METABOLIC Hx Diabetes Mellitus Type 2: Yes - HEMATOLOGICAL/ONCOLOGICAL Hx Blood Disorders: Yes Hx Cancer: Yes (BREAST) - INTEGUMENTARY Hx Dermatological Problems: No - MUSCULOSKELETAL/RHEUMATOLOGICAL Hx Falls: Yes - GASTROINTESTINAL Hx Gastrointestinal Disorders: No - GENITOURINARY/GYNECOLOGICAL Hx Reproductive Disorders: No - PSYCHIATRIC Hx Psychophysiologic Disorder: No - SURGICAL HISTORY Hx Mastectomy: Yes (right breast cancer status post mastectomy in 2013, chemo and radiation ) - ANESTHESIA Hx Anesthesia Reactions: Yes (NAUSEA) Hx Malignant Hyperthermia: No Meds Allergies/Adverse Reactions: Allergies Allergy/AdvReac Type Severity Reaction Status Date / Time No Known Allergies Allergy Verified 06/10/18 18:18 - Medications Medications: Current Medications Acetaminophen (Tylenol 325mg Tab) 650 mg PO Q4H PRN; Protocol PRN Reason: Fever >100.4 F Last Admin: 06/18/18 13:16 Dose: 650 mg Acetaminophen (Tylenol 325mg Tab) 650 mg PO Q4H PRN; Protocol PRN Reason: Pain, moderate (4-7) Last Admin: 06/18/18 05:36 Dose: 650 mg Aspirin (Ecotrin) 81 mg PO DAILY [facility]; Protocol Last Admin: 06/18/18 10:24 Dose: Not Given Atorvastatin Calcium (Lipitor) 20 mg PO DIN [facility]; Protocol Cyproheptadine HCl (Periactin) 2 mg PO DAILY [facility]; Protocol Last Admin: 06/18/18 10:27 Dose: 2 mg Ergocalciferol (Drisdol 50,000 Intl Units Cap) 1 cap PO QWK [facility]; Protocol Last Admin: 06/18/18 10:24 Dose: 1 cap Ferrous Sulfate (Feosol) 324 mg PO BID [facility]; Protocol Last Admin: 06/18/18 10:24 Dose: 324 mg Folic Acid (Folic Acid) 1 mg PO DAILY [facility]; Protocol Last Admin: 06/18/18 10:25 Dose: 1 mg Gabapentin (Neurontin) 600 mg PO BID [facility]; Protocol Last Admin: 06/18/18 10:26 Dose: 600 mg Gemfibrozil (Lopid) 600 mg PO 0700 [facility]; Protocol Last Admin: 06/18/18 10:26 Dose: Not Given Heparin Sodium (Porcine) (Heparin) 5,000 units SC Q12 [facility]; Protocol Last Admin: 06/18/18 10:00 Dose: 5,000 units Insulin Detemir (Levemir) 14 unit SC HS [facility]; Protocol Last Admin: 06/17/18 22:04 Dose: Not Given Insulin Human Lispro (Humalog) 6 units SC AC [facility]; Protocol Last Admin: 06/18/18 12:14 Dose: 6 units Insulin Human Lispro (Humalog Low) 0 units SC ACHS [facility]; Protocol Last Admin: 06/18/18 12:15 Dose: Not Given Magnesium Oxide (Mag-Ox) 400 mg PO DAILY [facility]; Protocol Last Admin: 06/18/18 10:26 Dose: 400 mg Metoprolol Tartrate (Lopressor) 25 mg PO 0800,1800 [facility]; Protocol Last Admin: 06/18/18 08:06 Dose: 25 mg Physical Exam - Constitutional Appears: Well, Non-toxic - Head Exam Head Exam: ATRAUMATIC, NORMAL INSPECTION, NORMOCEPHALIC - Eye Exam Eye Exam: EOMI, Normal appearance - ENT Exam ENT Exam: Mucous Membranes Moist - Neck Exam Neck exam: Positive for: Normal Inspection - Respiratory Exam Respiratory Exam: Clear to Auscultation Bilateral, NORMAL BREATHING PATTERN. absent: Rales, Rhonchi, Wheezes - Cardiovascular Exam Cardiovascular Exam: RRR, +S1, +S2 - GI/Abdominal Exam GI & Abdominal Exam: Normal Bowel Sounds, Soft. absent: Tenderness - Extremities Exam Extremities exam: Positive for: normal inspection. Negative for: pedal edema - Neurological Exam Neurological exam: Alert, CN II-XII Intact, Oriented x3 - Psychiatric Exam Psychiatric exam: Normal Affect, Normal Mood - Skin Skin Exam: Intact, Normal Color, Warm Results - Vital Signs Recent Vital Signs: Last Vital Signs Temp 98.3 F 06/17/18 21:07 Pulse 98 H 06/18/18 08:06 Resp 16 06/17/18 21:07 BP 149/92 H 06/18/18 08:06 Pulse Ox - Labs Labs: Laboratory Results - last 24 hr 06/18/18 06/18/18 06/18/18 02:45 05:06 11:36 POC Glucose (mg/dL) 105 162 H 113 H Assessment & Plan - Assessment and Plan (Free Text) Plan: Fever, SIRS Hx of stage 4 breast cancer s/p mastectomy Hx of CAD s/p stent placement Hx of HLD Hx of HTN Hx of DM 2 Plan Afebrile with no leukocytosis Blood and urine cultures negative Continue off antibiotics Continue current medical regimen ID will sign off, please reconsult as necessary Yaneth, PGY3
--- NOTE | 2018-06-18 14:18 | HP ---
DATE OF EXAM: 06/18/2018 HISTORY OF PRESENT ILLNESS: This is a 63-year-old female who is coming into the hospital because of hypoglycemia. PAST MEDICAL HISTORY: Breast cancer, status post mastectomy and has been on chemotherapy. Her last chemotherapy was on 05/31/[address] Griffith. She has been transferred to Transitional Care Unit for rehab. She has been having difficulty in ambulating. The patient says sugars have improved. She has no complaints of any chest pain. No shortness of breath. No nausea and vomiting. She is feeling weak. She is weak and fatigued. The patient is being followed by endocrinology. She still having a poor appetite, not been eating, but was taking her insulin that is why her hypoglycemia had occurred . She has no pain. All other review of symptoms are within normal limits except as mentioned. PAST MEDICAL HISTORY: Breast cancer, tripple negative; status post mastectomy; ; coronary artery disease; status post stent; dyslipidemia; hypertension; diabetes type 2 and sickle cell trait. PAST SURGICAL HISTORY: 1. Right sided mastectomy with reconsideration. 2. Right chest port. FAMILY HISTORY: She denies any family history of breast cancer and diabetes. SOCIAL HISTORY: She denies smoking, drink or drugs. MEDICATIONS: Reviewed on the AUG. ALLERGIES: NO KNOWN DRUG ALLERGIES. REVIEW OF SYSTEMS: All of the review of systems are within normal limits except as I was mentioned. PHYSICAL EXAMINATION: VITAL SIGNS: Temperature is 98.3, pulse of 86, blood pressure 150/90 and respirations 16. Height is 5 feet 11 inches, weight is 186 pounds, BMI is 25.9. GENERAL: The patient is lying in bed, comfortable, and in no acute distress. HEENT: Atraumatic and normocephalic. Anicteric sclerae. Moist mucosa. [place] conjunctivae. No oral lesions. NECK: No JVD, anterior and posterior adenopathy, thyromegaly, or bruits. CARDIOVASCULAR: S1 and S2 regular. No murmurs, rubs or gallops. LUNGS: Clear to auscultation bilaterally. No wheezes, rales, or rhonchi. ABDOMEN: Bowel sounds are positive. Soft, nontender and nondistended. No hepatosplenomegaly. No rebound and no guarding EXTREMITIES: No cyanosis, clubbing, or edema. NEUROLOGIC: No facial asymmetry. Tongue is midline. No uvula deviation. Power is 5/5 upper extremities and lower extremities. Sensation intact in upper extremities and lower extremities. PSYCHIATRIC: The patient is alert. She does not open her eyes she is answering properly. She denies any hallucinations. GENITOURINARY: No CVA tenderness. VASCULAR: 2+ pulses in the carotid pulses and pedal pulses. SKIN: No erythema or nodules SPINE: Shows normal curvature. LABORATORY DATA: Last labs were reviewed. Her white count 4.3 and her hemoglobin is 9.8. She had a chemistry that shows a potassium is 3.3 yesterday and creatinine was 0.7. The patient's chest x-ray done on 06/13/2018 shows right sided Mediport. There is a rounded mass persistent in the left lung 2 cm left lung apex rounded opacity. EKG on 06/10/2018 shows sinus rhythm at 81 beats per minute, nonspecific ST-T changes. QTC is 483. ASSESSMENT: 1. Hypoglycemia, resolved. 2. Diabetes type 2. 3. Chronic anemia, secondary to malignancy. 4. Coronary artery disease. 5. Breast cancer with metastasis. 6. Right-sided Port-A-Cath. 7. Hypertension. 8. Dyslipidemia. 9. Sickle cell trait. 10. Do not resuscitate/do not intubate. PLAN: The patient is currently on aspirin incident Lispro p.o. He is going to continue on iron. He is on folic acid daily. The patient has heparin for DVT prophylaxis. He is on insulin, lispro, meals. She is being followed by from endocrinology. The patient is also known to be followed by Dr. Grfifith. She is on Lipitor for dyslipidemia. She is on for her dyslipidemia. She is on magnesium replacement. She is on Neurontin for neuropathy. I did review the patient for discharge notes from the hospital. The patient is DNR. We will continue the patient on as DNR. The patient's physical therapy, prognosis is guarded. She is not improved much in last few weeks and has declined. Sherman Soria MD [facility] # [id number]
--- NOTE | 2018-06-18 19:33 | PN ---
DATE: 06/18/2018 SUBJECTIVE: This is a 63-year-old female with recent uncontrolled type 2 insulin-requiring diabetes presenting here with precordial chest pain and is now being followed closely for metabolic management. Her glycemic levels are fluctuating, but improved and the glucose values overnight have ranged from 105 to 113 and 162 mg/dL. Her latest chemistries showed a BUN of 21, sodium 138, potassium 3.3, chloride 101, CO2 of 31, glucose 113 and creatinine 0.7. Her A1c was 7.2% which is near optimal as noted. So at this time, we will continue the same basal and bolus insulin regimen as ordered with Humalog given as 6 units subcutaneously t.i.d. before meals as given. We will continue also the basal insulin given as Levemir at 14 units subcutaneously at bedtime daily as ordered. We will continue the low-dose correction scale using Humalog insulin to obviate hypoglycemia and detailed orders have been given. We will obtain serial chemistries and supplement accordingly as needed. We will follow. ASSESSMENT AND PLAN: This is 63-year-old female with uncontrolled and decompensated type 2 insulin-requiring diabetes presenting here with extremes of glycemic fluctuations from symptomatic hypoglycemia to hyperglycemic accelerations as noted thereof. Shelly Velez MD
--- NOTE | 2018-06-18 20:22 | CON ---
DATE: 06/18/2018 HOSPITAL CONSULTATION ON TCU REFERRING PHYSICIAN: Dr. Griffith. CHIEF COMPLIANT: Deconditioning. HISTORY OF PRESENT ILLNESS: The patient is a 63-year-old female, now admitted to TCU for reconditioning after recent hospitalization for evaluation of her elevated troponin after being found unresponsive at home with blood sugar of 37, pinpoint pupils. The patient was given Narcan at that time and glucose with the patient improving. The patient is known to suffer from triple negative breast cancer status post mastectomy with ASCVD and sickle trait with diabetes mellitus. At present, she is resting comfortably, appears to be in no acute distress, and now admitted to TCU for reconditioning with her blood sugar is being monitored. She continues to be DNR/DNI. 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 Also, several rheumatoid arthritis, diabetes mellitus, macular degeneration, obesity, status post hysterectomy, cholecystectomy, presyncopal episodes, anemia of chronic disease. FAMILY HISTORY: Noncontributory. SOCIAL HISTORY: Noncontributory. REVIEW OF SYSTEMS: A 12-point review of systems was done, which is negative questioning except for as mentioned in the history of present illness. ALLERGIES: NO KNOWN ALLERGIES. MEDICATIONS: The patient's medicines at this time include vitamin D, folic acid, insulin sliding scale, and Periactin. PHYSICAL EXAMINATION: VITAL SIGNS: Temperature 98.3, pulse 98, respirations 16, blood pressure 142/92 with pulse ox of 99%. HEENT: Unremarkable. NECK: Supple. HEART: Regular rate. LUNGS: Clear. ABDOMEN: Obese, soft, and nontender. EXTREMITIES: No edema. SKIN: Warm and dry. NEUROLOGICAL: Awake and alert. LABORATORY DATA: The patient's labs were done yesterday to include white count of 4.3, hemoglobin 9.8, hematocrit 29.7, and platelets count of 86,000. Metabolic panel was done yesterday showing a potassium of 3.3, nonfasting glucose 278, total protein 5.3, otherwise normal panel. ASSESSMENT: Deconditioning stage IV metastatic breast cancer, ER, MI and HER2 negative, diabetes mellitus, anemia of chronic disease, arteriosclerotic cardiovascular disease, hypertension, sickle trait. PLAN: After consultation, needs to continue current medical regimen. We will monitor clinically with labs per [facility] protocol with [facility] Unit participation. This is a complex patient with a comprehensive medically necessary and appropriate visit carried out in excess of 40 minutes with the patient's questions answered to her satisfaction. Donell Rivero MD
[2018-06-18] MEDS: Insulin Detemir 100 units/ml Vial (Levemir) SC SCH (21:56)
[2018-06-19] MEDS: Insulin Lispro 1 UNITS/0.01 ML SC SCH ×3 (06:57→17:43)
[2018-06-19] MEDS: Insulin Lispro (humaLOG) LOW Coverage SC SCH ×4 (06:58→21:38)
--- NOTE | 2018-06-19 10:03 | PN ---
DATE: 06/19/2018 CHIEF COMPLAINT AND HISTORY OF PRESENT ILLNESS: The patient has no complaints of any chest pain. No shortness of breath. No headache or dizziness. PHYSICAL EXAMINATION VITAL SIGNS: Temperature is 98.3, pulse of 87, blood pressure 120/82, and respirations 18. GENERAL: The patient is lying in bed, flat, comfortable. HEENT: No oral lesion. Anicteric sclerae. Moist mucosa. NECK: No JVD, adenopathy, or thyromegaly. CARDIOVASCULAR: S1 and S2, regular. No murmurs, rubs, or gallops. LUNGS: Clear to auscultation bilaterally. No wheeze, rales, or rhonchi. ABDOMEN: Bowel sounds are positive, soft, nontender and nondistended. EXTREMITIES: no cyanosis, clubbing or edema. LABORATORY DATA: Glucose is 110. ASSESSMENT: 1. Hypoglycemia, resolved. 2. Diabetes type 2. 3. Chronic anemia secondary to malignancy. 4. Coronary artery disease. 5. Breast cancer with mets. 6. Right-sided Port-A-Cath. 7. Hypertension. 8. Dyslipidemia. 9. Sickle cell trait. 10. DNR/DNI. PLAN: The patient is currently on aspirin daily, is going to be on iron replacement. She is on heparin for DVT prophylaxis. Patient's diabetes controlled with Lispro 6 units a.c., she is on Lipitor for dyslipidemia. She is receiving magnesium replacement. She is on Tylenol as needed. She is going to physical therapy. She is on a heart-healthy diet. She is being followed by Dr. Velez from Endocrinology. I did review her notes, I did speak to Dr. Griffith yesterday at the kidney center. Sherman Soria MD
[2018-06-19] MEDS: Magnesium Oxide 400 mg Tab UD PO SCH (10:25)
--- NOTE | 2018-06-19 13:13 | PN ---
DATE: 06/19/2018 ENDOCRINOLOGY FOLLOWUP NOTE LOCATION: Room [address] [facility]. SUBJECTIVE: This is a 63-year-old female with recent uncontrolled type 2 insulin-requiring diabetes, presenting here with precordial chest pain and is now being followed closely for metabolic management. Her glycemic levels have improved remarkably and her glucose values overnight have ranged from 101-120 mg/dL. LABORATORY DATA: Her latest chemistry showed a BUN of 21, sodium 138, potassium 3.3, chloride 101, CO2 of 31, glucose 215 and creatinine 0.7. ASSESSMENT AND PLAN: So at this time, we will continue the same basal and bolus insulin regimen to allow for dose equilibration and keep her on the Humalog given as 6 units t.i.d. before meals as ordered. We will also continue the Levemir given as basal insulin overnight at 14 units subcutaneously at bedtime daily as ordered. We will obtain serial chemistries and supplement accordingly needed. We will follow. Shelly Velez MD
--- NOTE | 2018-06-19 13:42 | PN ---
DATE: 06/19/2018 SUBJECTIVE: The patient is in bed, was seen earlier this morning at about 3:21. No fevers. No chills. No nausea. No vomiting. One event from night as per nursing who took care of him last night. PHYSICAL EXAMINATION VITAL SIGNS: Temperature is 98, blood pressure is 135/80, respiratory rate of 18, and heart rate of 97. HEENT: Unremarkable. NECK: Supple. LUNGS: Decrease breath sounds. HEART: Normal S1, S2. ABDOMEN: Soft and nontender. LABORATORY DATA: The patient's microbiology is reviewed. Negative urine culture. Negative blood cultures. Repeat urine cultures negative. ASSESSMENT AND PLAN: This is a 63-year-old female who was seen at 3:21 with systemic inflammatory response syndrome with stage IV breast cancer and history of mastectomy, coronary artery disease with cardiac stents, hyperlipidemia, hypertension, and diabetes. Currently at this point, the patient is afebrile, off of antibiotics. Normal white count. Last WBC was 4.3. Patient did have leukopenia and because of her age of 63, we will also order HIV on her in the presence of leukopenia. We will check on the HIV and that leukopenia is concerning and Dr. Nance's note is reviewed. The patient has had chemotherapy and he is at risk for developing nosocomial infections. We will follow closely with you. Phillip Bañuelos MD
--- NOTE | 2018-06-19 20:49 | PN ---
DATE: 06/19/2018 This is a [facility] visit on the TCU floor. Dear Dr. Griffith, SUBJECTIVE: The patient is a 63-year-old female, now on TCU for reconditioning. Reports that her back side discomfort yesterday is feeling better. She has noted this out from stage IV progressive breast cancer and is a DNR/DNI at her family's request. She reports that she did eat all her food this morning with Periactin helping her appetite. Otherwise in no acute distress. OBJECTIVE/PHYSICAL EXAMINATION: VITAL SIGNS: Temperature 98.3, pulse 87, respirations 18, blood pressure 120/68, pulse oximetry 95%. HEENT: Unremarkable. NECK: Supple. HEART: Regular rate. LUNGS: Clear. ABDOMEN: Obese. Soft and nontender. EXTREMITIES: No edema. SKIN: Warm and dry. NEUROLOGIC: Awake and alert. LABORATORY DATA: The patient did have a blood sugar earlier today of 271, but labs otherwise not done due to TCU protocols. ASSESSMENT: The assessment for this patient is that of deconditioning stage IV metastatic breast cancer, diabetes mellitus, anemia of chronic disease, atherosclerotic cardiovascular disease, hypertension, sickle trait. PLAN: Plan for this patient is to continue present medical regimen with labs to be drawn as per her primary doctor usually two times per week on TCU as per TCU protocols. This is a complex patient with comprehensive medical necessary and appropriate visit carried out in excess of 15 minutes with the patient's questions answered to her satisfaction. Donell Rivero MD
[2018-06-19] MEDS: Insulin Detemir 100 units/ml Vial (Levemir) SC SCH (21:39)
[2018-06-20] MEDS: Insulin Lispro (humaLOG) LOW Coverage SC SCH ×4 (06:52→21:45)
[2018-06-20] MEDS: Insulin Lispro 1 UNITS/0.01 ML SC SCH ×3 (06:52→17:26)
[2018-06-20 07:11] LABS: BASO # 0.01 K/mm3 (0.0-2.0); BASO % 0.2 % (0.0-3.0); EOS # 0.1 (0.0-0.7); GRAN # 4.62 (1.4-6.5); GRAN % 78.8 % (50.0-68.0); LYMPH # 0.7 (1.2-3.4); LYMPH % 12.5 % (22.0-35.0); MEAN CELL VOLUME 77.1 fl (80.0-105.0); MEAN CORPUSCULAR HEMOGLOBIN 25.1 pg (25.0-35.0); MEAN CORPUSCULAR HGB CONC 32.6 g/dl (31.0-37.0); MONO # 0.4 (0.1-0.6); MONO % 7.5 % (1.0-6.0); PLATELET COUNT 122 10^3/uL (120.0-450.0); RBC 3.58 10^6/uL (3.5-6.1); RED CELL DISTRIBUTION WIDTH 17.7 % (11.5-14.5); WHITE BLOOD COUNT 5.9 10^3/uL (4.5-11.0)
[2018-06-20 07:26] LABS: BLOOD UREA NITROGEN 23 mg/dL (7-21); GFR NON-AFRICAN AMERICAN > 60
[2018-06-20 07:30] LABS: ALBUMIN 3.2 g/dL (3.0-4.8); ALT/SGPT 43 U/L (7-56); AST/SGOT 46 U/L (14-36)
[2018-06-20 07:53] LABS: ALB/GLOB RATIO 1.5 (1.1-1.8)
[2018-06-20] MEDS: Magnesium Oxide 400 mg Tab UD PO SCH (09:59)
--- NOTE | 2018-06-20 14:32 | PN ---
DATE: 06/20/2018 SUBJECTIVE: The patient is in bed in no acute distress, nontoxic. PHYSICAL EXAMINATION; VITAL SIGNS: Temperature is 97, blood pressure is 135/90, respiratory rate of 18, heart rate of 103. HEENT: Unremarkable. NECK: Supple. LUNGS: Have decreased breath sounds. HEART: Normal S1 and S2. ABDOMEN: Soft, nontender. LABORATORY EXAMINATION: Reveals a white count of 5.9, hemoglobin of 9, platelets of 122. BUN of 23, creatinine of 0.7. Microbiology is noted. ASSESSMENT AND PLAN: This is a 63-year-old female with systemic inflammatory response syndrome with stage IV breast cancer, history of mastectomy, coronary artery disease, cardiac stents, hyperlipidemia, hypertension, diabetes and currently off of antibiotics. Review of orders confirms the patient to be off of antibiotics. We will follow with you. She is at risk for developing nosocomial infections. Phillip Bañuelos MD
--- NOTE | 2018-06-20 18:27 | PN ---
DATE: 06/20/2018 This is [facility] visit on TCU. For Dr. Griffith, SUBJECTIVE: The patient is a 63-year-old female, seen lying, awake in bed, not out of bed today as per Physiotherapy due to Thursday schedule. We will attempt to get her out of bed on a daily basis including tomorrow with physiotherapy assistance. Otherwise, the patient is reporting that her back discomfort is improved and is in no acute distress in this visit. PHYSICAL EXAMINATION VITAL SIGNS: Temperature 97.6, pulse 103, respirations 18, blood pressure 135/94, pulse ox 99%. HEENT: Unremarkable. NECK: Supple. HEART: Regular rate. LUNGS: Clear. ABDOMEN: Obese, soft and nontender. EXTREMITIES: No edema. SKIN: Warm and dry. NEUROLOGIC: Awake and alert. LABORATORY DATA: The patient's labs were done today. White blood cell count of 5.9, hemoglobin of 9. The patient had been transfused on 06/14/2018 for a hemoglobin of 7.1. Her hematocrit today is 27.6 with a platelet count of 122,000, improved from 86,000 three days prior. Chem metabolic panel: BUN 23, normal creatinine of 0.7, non-fasting glucose of 122, AST of 46. ASSESSMENT: Deconditioning; stage IV metastatic breast cancer; diabetes mellitus, now better controlled; anemia of chronic disease; atherosclerotic cardiovascular disease; hypertension; sickle trait; angina pectoris; history of non-ST elevation myocardial infarction. PLAN: Continue present medical regimen. We cut back iron to once a day due to constipating effect with monitoring of blood sugars as per Dr. Velez, with the patient to be out of bed to chair with physiotherapy protocols as indicated. This is a complex patient with comprehensive medical necessary and appropriate visit carried out in excess of 20 minutes with the patient's questions answered to her satisfaction. Donell Rivero MD
--- NOTE | 2018-06-20 20:09 | PN ---
DATE: 06/20/2018 SUBJECTIVE: The patient has no complaints of any chest pain. No shortness of breath. No headaches or dizziness. PHYSICAL EXAMINATION: VITAL SIGNS: Temperature is 97.6, pulse of 103, blood pressure is 135/94, respirations 18. GENERAL: The patient is lying in bed, flat, comfortable. HEENT: No oral lesion. Anicteric sclerae. Moist mucosa. NECK: No JVD, adenopathy, or thyromegaly. CARDIOVASCULAR: S1 and S2, regular. No murmurs, rubs, or gallops. LUNGS: Clear to auscultation bilaterally. No wheeze, rales, or rhonchi. ABDOMEN: Bowel sounds are positive, soft, nontender and nondistended. EXTREMITIES: no cyanosis, clubbing or edema. LABORATORY DATA: White count of 5.9, hemoglobin 9, creatinine 0.7. ASSESSMENT: 1. Diabetes type 2. 2. Chronic anemia secondary to malignancy. 3. Coronary artery disease . 4. Breast cancer with metastasis. 5. Right-sided Port-A-Cath. 6. Hypertension. 7. Dyslipidemia. 8. Sickle cell trait. 9. Do not resuscitate/do not intubate. PLAN: The patient is on aspirin daily. She is on iron replacement. The patient is on folic acid. She is on heparin for deep vein thrombosis. She is on insulin lispro for her diabetes. The patient is on Levemir for diabetes. She is on atorvastatin for dyslipidemia. The patient is on gemfibrozil for dyslipidemia. She is going to be on gabapentin for neuropathy. The patient is on Tylenol as needed. She is on a heart healthy diet. She is on physical therapy. Sherman Soria MD
[2018-06-20] MEDS: Insulin Detemir 100 units/ml Vial (Levemir) SC SCH (21:46)
[2018-06-21] MEDS: Insulin Lispro (humaLOG) LOW Coverage SC SCH ×4 (07:36→21:31)
[2018-06-21] MEDS: Insulin Lispro 1 UNITS/0.01 ML SC SCH ×3 (07:36→17:30)
--- NOTE | 2018-06-21 09:32 | PN ---
DATE: 06/20/2018 SUBJECTIVE: This is a 63-year-old female with recent uncontrolled type 2 insulin-requiring diabetes now being followed closely for metabolic management. Her glycemic levels are fluctuating, but improved as noted overnight and the glucose values have ranged from 127-174 mg/dL. LABORATORY DATA: Her latest chemistry showed a BUN of 23, sodium 136, potassium 4.4, chloride 101, CO2 of 31, glucose 164 and creatinine 0.7. So at this time, we will continue the same basal and bolus insulin regimen to allow for dose equilibration and keep her on the Humalog given as 6 units subcu three times a day before meals as ordered. ASSESSMENT AND PLAN: We will continue her basal insulin given as Levemir at 14 units subcu at bedtime daily as given. We will titrate incrementally as indicated to optimize metabolic control. We will obtain serial chemistries and supplement accordingly as needed. We will follow. Shelly Velez MD
--- NOTE | 2018-06-21 09:43 | PN ---
DATE: 06/21/2018 SUBJECTIVE: The patient has no complaints of any chest pain, no shortness of breath or headaches. She says she is walking better with physical therapy. OBJECTIVE: VITAL SIGNS: Temperature is 98.4, pulse of 94, blood pressure 155/90, respirations 18. GENERAL: The patient is lying in bed, flat, comfortable. HEENT: No oral lesion. Anicteric sclerae. Moist mucosa. NECK: No JVD, adenopathy, or thyromegaly. CARDIOVASCULAR: S1 and S2, regular. No murmurs, rubs, or gallops. LUNGS: Clear to auscultation bilaterally. No wheeze, rales, or rhonchi. ABDOMEN: Bowel sounds are positive, soft, nontender and nondistended. EXTREMITIES: no cyanosis, clubbing or edema. LABORATORY DATA: White count of 5.9, hemoglobin 9.0, creatinine 0.7. ASSESSMENT: 1. Diabetes type 2. 2. Chronic anemia secondary to malignancy. 3. Coronary artery disease. 4. Breast cancer with metastasis. 5. Right sided Port-A-Cath. 6. Hypertension. 7. Dyslipidemia. 8. Sickle cell trait. 9. DO NOT RESUSCITATE/DO NOT INTUBATE. PLAN: The patient is currently on aspirin daily. She is going to be on iron for replacement. She is going to be on heparin for DVT prophylaxis. The patient is on her Levemir for her diabetes. She is also on lispro with coverage. She is on Lipitor for dyslipidemia. The patient is on gemfibrozil for her dyslipidemia. She is on magnesium replacement. She is on Neurontin for neuropathy. She is on Tylenol for pain as needed. She is on a heart-healthy diet. She is ambulating with physical therapy. Sherman Soria MD
[2018-06-21] MEDS: Magnesium Oxide 400 mg Tab UD PO SCH (10:02)
--- NOTE | 2018-06-21 18:15 | PN ---
DATE: 06/21/2018 SUBJECTIVE: The patient is in bed in no acute distress, nontoxic. PHYSICAL EXAMINATION VITAL SIGNS: Temperature is 98, blood pressure is 140/90, respiratory rate of 18. HEENT: Unremarkable. NECK: Supple. CARDIOPULMONARY: Normal S1, S2. LUNGS: Have decreased breath sounds. ABDOMEN: Soft. LABORATORY DATA: Laboratory examination reveals a white count of 5.9, hemoglobin of 9. Chemistries are noted. Microbiology is reviewed. Review of orders and medications are also reviewed. ASSESSMENT AND PLAN: This is a 63-year-old female with systemic inflammatory response syndrome, stage IV breast cancer, history of mastectomy, coronary artery disease, cardiac stents, hyperlipidemia, hypertension, diabetes. Currently off antibiotics and the patient is at risk for . Phillip Bañuelos MD
--- NOTE | 2018-06-21 21:07 | PN ---
DATE: 06/21/2018 This is [facility] visit on the TCU floor. For Dr. Griffith. SUBJECTIVE: The patient is a 63-year-old female. Seen sitting up in chair. Just participating with physiotherapy. The patient is tolerating her diet well. At this point, she reports that she feels little better with continuation of TCU protocols. OBJECTIVE/PHYSICAL EXAMINATION: VITAL SIGNS: Temperature 98, pulse 93, respirations 14, blood pressure 144/90, and pulse ox 94%. HEENT: Unremarkable. NECK: Supple. HEART: Regular rate. LUNGS: Clear. ABDOMEN: Soft, obese and nontender. EXTREMITIES: No edema. SKIN: Warm and dry. NEUROLOGIC: Awake and alert. LABORATORY DATA: The patient's labs were done today with a hemoglobin of 9, status post transfusion of 1 unit of packed cells. We will check again as per TCU protocols for the second time prior to discharge as this is day 4 on TCU. HIV testing was nonreactive. ASSESSMENT: The assessment for this patient is that of deconditioning stage IV metastatic breast cancer, diabetes mellitus, anemia of chronic disease, atherosclerotic cardiovascular disease, hypertension, sickle trait, angina pectoris, history of [id number] myocardial infarction. PLAN: The plan for this patient is continue present medical regimen as per Dr. Boland with TCU protocols to continue. The labs to be rechecked in the near future, specifically for any disease as she may need another transfusion prior to discharge home as indicated. This is a complex patient with comprehensive medically necessary and appropriate visit carried out in excess of 15 minutes with the patient's questions answered to her satisfaction. Donell Rivero MD
[2018-06-21] MEDS: Insulin Detemir 100 units/ml Vial (Levemir) SC SCH (21:33)
[2018-06-22] MEDS: Insulin Lispro 1 UNITS/0.01 ML SC SCH ×3 (06:55→17:16)
[2018-06-22] MEDS: Insulin Lispro (humaLOG) LOW Coverage SC SCH ×4 (06:55→21:53)
[2018-06-22] MEDS: Magnesium Oxide 400 mg Tab UD PO SCH (10:15)
--- NOTE | 2018-06-22 12:20 | PN ---
DATE: 06/22/2018 LOCATION: Room 321. SUBJECTIVE: This is a 63-year-old female with recent uncontrolled type 2 insulin-requiring diabetes now being followed closely for metabolic management. Her glycemic levels are fluctuating, but much improved at this time and overnight glucose values have ranged from 126-199 mg/dl. Her dinnertime glucose was 131 as noted. LABORATORY DATA: Her chemistry showed a BUN of 23, sodium 136, potassium 4.4, chloride 101, CO2 of 31, glucose 164 and creatinine 0.7. So at this time, we will continue the same basal and bolus insulin regimen to allow for dose equilibration and keep her on the Humalog given as 6 units 3 times daily before meals as ordered. We will continue the Levemir given as 14 units subcu at bedtime daily as given. We will titrate incrementally as indicated to optimize metabolic control. We will obtain serial chemistries and supplement accordingly as needed. We will follow. Shelly Velez MD
--- NOTE | 2018-06-22 18:23 | PN ---
DATE: 06/22/2018 SUBJECTIVE: The patient is in bed in no acute distress, nontoxic. No fevers. PHYSICAL EXAMINATION: VITAL SIGNS: Temperature is 97, blood pressure is 120/80, and respiratory rate of 18. HEENT: Unremarkable. NECK: Supple. LUNGS: Have decreased breath sounds. HEART: Normal S1, S2. ABDOMEN: Soft, nontender. LABORATORY DATA: Laboratory examination reveals a white count of 5.9, hemoglobin of 9, and platelets of 122. BUN of 23, creatinine of 0.7. HIV is negative. ASSESSMENT AND PLAN: This is a 63-year-old with systemic inflammatory response syndrome, stage IV breast cancer, history of mastectomy, coronary artery disease, cardiac stent, hyperlipidemia, hypertension, diabetes. Currently off of antibiotics, afebrile. The patient is at risk for developing nosocomial infections. Review of orders confirms the patient to be off of antibiotics. Phillip Bañuelos MD
--- NOTE | 2018-06-22 18:42 | PN ---
DATE: 06/22/2018 SUBJECTIVE: The patient is 63-year-old, seen and examined, lying in bed, seems to be comfortable. Less shortness of breath. No chest pain. Eating fair. PHYSICAL EXAMINATION VITAL SIGNS: She is afebrile, pulse 102, respirations 16, blood pressure 128/91. LUNGS: Bilateral fair airflow. No rhonchi or crackle. HEART: S1, S2 audible. ABDOMEN: Soft, nontender. No rebound. No guarding. NEUROLOGICAL: The patient is awake, alert, oriented. Able to communicate. EXTREMITIES: Bilateral legs, no edema. LABORATORY EXAM: Blood sugar is 126. HIV test is negative. ASSESSMENT: 1. Generalized weakness. 2. Dpf-icmvjky-weprzjkzx diabetes. 3. History of carcinoma, breast. 4. Chronic anemia of malignancy. 5. Coronary artery disease. 6. Hypertension. 7. Hyperlipidemia. 8. Deconditioning and difficulty walking. PLAN: The patient's MAR reviewed, found to be appropriate. She is on DVT prophylaxis. She is on oral iron supplementation. Her blood sugar is being monitored. Encourage ambulation. We will follow up in the a.m. Meghan Borges MD
--- NOTE | 2018-06-22 19:18 | PN ---
DATE: 06/22/2018 This is [facility] on TCU. For Dr. Griffith. SUBJECTIVE: The patient is a 63-year-old female seen sitting up in bed, in no acute distress, reporting that her appetite is better following TCU protocols. PHYSICAL EXAMINATION: VITAL SIGNS: Temperature 97.1, pulse 98, respirations 16, blood pressure 128/80, pulse oximetry 97%. HEENT: Unremarkable. NECK: Supple. HEART: Regular rate. LUNGS: Clear. ABDOMEN: Obese, soft, and nontender. EXTREMITIES: No edema. SKIN: Warm and dry. NEUROLOGIC: Awake and alert. LABORATORY DATA: The patient's labs were done two days prior and will be repeated prior to her discharge home as per TCU protocols with a fingerstick today of 126. ASSESSMENT: This patient has had deconditioning, stage IV metastatic breast cancer, diabetes mellitus, anemia of chronic disease, atherosclerotic cardiovascular disease, hypertension, sickle trait, recent non-ST elevated myocardial infarction, and systemic inflammatory response syndrome. PLAN: Plan for this patient is to continue present medical regimen as per Dr. Soria with diabetic control achieved by Dr. Velez. Prognosis for this patient is guarded. She remains DNR/DNI. This is a complex patient with comprehensive medically necessary and appropriate visit carried out in excess of 15 minutes with the patient's questions answered to her satisfaction. Donell Rivero MD
[2018-06-22] MEDS: Insulin Detemir 100 units/ml Vial (Levemir) SC SCH (21:52)
[2018-06-23] MEDS: Insulin Lispro (humaLOG) LOW Coverage SC SCH ×5 (06:44→22:07)
[2018-06-23] MEDS: Insulin Lispro 1 UNITS/0.01 ML SC SCH ×4 (07:17→17:30)
--- NOTE | 2018-06-23 09:01 | PN ---
DATE: 06/21/2018 ENDOCRINOLOGY FOLLOWUP NOTE LOCATION: Room 321. SUBJECTIVE: This is a 63-year-old female with recent uncontrolled type 2 insulin-requiring diabetes, now being followed closely for metabolic management. Her glycemic levels are fluctuating but much improved at this time and the glucose values have ranged from 102-141 and 220 mg/dL. LABORATORY DATA: Her latest chemistry showed a BUN of 23, sodium 136, potassium 4.4, chloride 101, CO2 of 31, glucose 164 and creatinine 0.7. ASSESSMENT AND PLAN: So at this time, we will continue the same basal and bolus insulin regimen to allow for dose equilibration and keep her on the Humalog given as 6 units t.i.d. before meals as ordered. We will continue the Levemir given as 14 units subcutaneously at bedtime daily as given. We will titrate incrementally as indicated to optimize metabolic control. We will follow and advise accordingly. Shelly Velez MD
[2018-06-23] MEDS: Magnesium Oxide 400 mg Tab UD PO SCH (10:36)
--- NOTE | 2018-06-23 12:51 | CP.PCM.PN ---
Subjective - Date & Time of Evaluation Date of Evaluation: 06/23/18 Time of Evaluation: 10:00 - Subjective Subjective: Comfortable, afebrile. Objective - Vital Signs/Intake and Output Vital Signs (last 24 hours): Temp Pulse Resp BP Pulse Ox 98.8 F 97 H 19 118/83 96 06/23/18 06:00 06/23/18 07:59 06/23/18 06:00 06/23/18 07:59 06/23/18 06:00 - Medications Medications: Current Medications Acetaminophen (Tylenol 325mg Tab) 650 mg PO Q4H PRN; Protocol PRN Reason: Fever >100.4 F Last Admin: 06/18/18 13:16 Dose: 650 mg Acetaminophen (Tylenol 325mg Tab) 650 mg PO Q4H PRN; Protocol PRN Reason: Pain, moderate (4-7) Last Admin: 06/19/18 11:25 Dose: 650 mg Aspirin (Ecotrin) 81 mg PO 0800 KLAUDIA; Protocol Last Admin: 06/23/18 07:58 Dose: 81 mg Atorvastatin Calcium (Lipitor) 20 mg PO DIN KLAUDIA; Protocol Last Admin: 06/22/18 17:17 Dose: 20 mg Cyproheptadine HCl (Periactin) 2 mg PO DAILY KLAUDIA; Protocol Last Admin: 06/22/18 10:15 Dose: 2 mg Ergocalciferol (Drisdol 50,000 Intl Units Cap) 1 cap PO QWK KLAUDIA; Protocol Last Admin: 06/18/18 10:24 Dose: 1 cap Ferrous Sulfate (Feosol) 324 mg PO DAILY KLAUDIA; Protocol Last Admin: 06/22/18 10:14 Dose: 324 mg Folic Acid (Folic Acid) 1 mg PO DAILY KLAUDIA; Protocol Last Admin: 06/22/18 10:14 Dose: 1 mg Gabapentin (Neurontin) 600 mg PO BID KLAUDIA; Protocol Last Admin: 06/22/18 17:18 Dose: 600 mg Gemfibrozil (Lopid) 600 mg PO 0630 KLAUDIA; Protocol Last Admin: 06/23/18 05:57 Dose: 600 mg Heparin Sodium (Porcine) (Heparin) 5,000 units SC Q12 KLAUDIA; Protocol Last Admin: 06/22/18 21:51 Dose: 5,000 units Insulin Detemir (Levemir) 14 unit SC HS KLAUDIA; Protocol Last Admin: 06/22/18 21:52 Dose: 14 units Insulin Human Lispro (Humalog) 6 units SC AC KLAUDIA; Protocol Last Admin: 06/23/18 07:17 Dose: Not Given Insulin Human Lispro (Humalog Low) 0 units SC ACHS [facility]; Protocol Last Admin: 06/23/18 06:44 Dose: Not Given Magnesium Oxide (Mag-Ox) 400 mg PO DAILY [facility]; Protocol Last Admin: 06/22/18 10:15 Dose: 400 mg Metoprolol Tartrate (Lopressor) 25 mg PO 0800,1800 KLAUDIA; Protocol Last Admin: 06/23/18 07:59 Dose: 25 mg - Labs Labs: 06/20/18 06:30 06/20/18 06:30 - Constitutional Appears: Chronically Ill - Head Exam Head Exam: NORMAL INSPECTION - Respiratory Exam Respiratory Exam: Decreased Breath Sounds - Cardiovascular Exam Cardiovascular Exam: +S1, +S2 - GI/Abdominal Exam GI & Abdominal Exam: Soft. absent: Tenderness Assessment and Plan - Assessment and Plan (Free Text) Plan: Assessment S/P SIRS with fevers, without evidence of bacterial infection or sepsis stage 4 breast cancer s/p mastectomy CAD s/p PCI dyslipidemia Hx of HTN Hx of DM 2 Plan continue to monitor off antibiotics since she is at risk for nosocomial infections
--- NOTE | 2018-06-23 13:55 | PN ---
DATE: 06/23/2018 SUBJECTIVE: The patient is 63-year-old seen and examined, doing well. She states she is eating better. Denies any nausea or vomiting. PHYSICAL EXAMINATION: VITAL SIGNS: She is afebrile. Pulse 90, respirations 14 and blood pressure 122/80. LUNGS: Bilateral fair airflow. No rhonchi or crackle. HEART: S1 and S2, audible. No murmur. ABDOMEN: Soft and nontender. No rebound. No guarding. NEUROLOGIC: She is awake, alert, oriented and communicative. Moves all extremity. EXTREMITIES: Bilateral leg no edema. LABORATORY DATA: Blood sugar is 126. ASSESSMENT: 1. Status post generalized weakness. 2. History of cancer breast. 3. Non-insulin dependant diabetes. 4. Hypertension. 5. Hyperlipidemia. 6. Deconditioning and difficulty walking. PLAN: The patient's current medication reviewed. She is on aspirin 81 mg daily. She is on ferrous sulfate daily. She is on folic acid 1 mg daily. She is on DVT prophylaxis. Blood sugar is being monitored and she is on Levemir 40 mg at bedtime. She will continue on Lipitor and gemfibrozil. She is also on metoprolol and magnesium. She is getting back gabapentin. Continue diazepam. Encourage ambulation. We will follow up. Meghan Borges MD
--- NOTE | 2018-06-23 21:45 | PN ---
DATE: 06/23/2018 LOCATION: [address] [place] [address]. SUBJECTIVE: This is a 63-year-old female with recent uncontrolled type 2 insulin-requiring diabetes, now being followed closely for metabolic management. Her glycemic levels are still fluctuating with the variability of her oral intake and today's glucose values have ranged from 87 to 118 and 207 mg/dL. It was 110 at bedtime last night. The latest chemistry showed a BUN of 23, sodium 136, potassium 4.4, chloride 101, CO2 of 31, glucose 164, and creatinine 0.7. ASSESSMENT AND PLAN: So, at this time, we will modify her basal insulin and decrease her Levemir to 12 units subcutaneously at bedtime daily to start tonight as ordered. We will continue the Humalog given as 6 units subcutaneously t.i.d. before meals as ordered. We will continue also the low-dose correction scale using Humalog insulin as given. We will follow and advise accordingly. Shelly Velez MD
[2018-06-23] MEDS ORDERED: Insulin Detemir 100 units/ml Vial (Levemir) SC SCH (22:00)
--- NOTE | 2018-06-24 03:17 | PN ---
DATE: 06/23/2018 ONCOLOGY PROGRESS NOTE LOCATION: The patient is in room 321, bed 1. SUBJECTIVE: Subjectively, the patient is seen sitting out of bed in the chair. Sister is by her side. The patient says the pain is almost nonexistent which was affecting her right axilla and right arm in the form of brachial plexopathy. The patient denies any history of nausea or vomiting. She was able to do physical therapy x2 today in the morning and afternoon. She had been walking up steps and she has been walking at least more than 50 feet. PHYSICAL EXAMINATION: VITAL SIGNS: Stable. She is afebrile. Pulse is 90, respirations are 14 per minute, blood pressure is 120/80. LUNGS: Clear to percussion and auscultation. HEENT: Examination of the oropharynx, there is no oropharyngeal lesion. CHEST: Examination of the chest wall reveals no tenderness over the right breast prosthesis, some indurations in the right axilla but no pain or discomfort that was noted before. Right arm lymphedema is persistent but substantially improved. Left breast is unremarkable. HEART: Reveals S1 and S2 to be normal. No gallop or murmur is heard. ABDOMEN: Soft, nontender. No rebound, rigidity, or guarding is noted. EXTREMITIES: Reveal no cyanosis, clubbing, or edema in the lower extremities. NEUROLOGIC: Reveals higher function to be normal. The patient is communicative. Alert and oriented x3. Able to move all four extremities. LABORATORY DATA: Revealed a blood sugar of 126. The chemistries from the prior day have been within normal limits. ASSESSMENT, NOTES, AND PLAN: The patient is stage IV metastatic ER/MO, HER2/annemarie negative, triple negative breast cancer, chronically on Keytruda based systemic therapy for patient with MSI high tumor. Generalized weakness and deconditioning for which she is in the transitional care unit, non-insulin dependent diabetes mellitus with fluctuating episodes of hypoglycemia which landed her in the hospital, hypertension, hyperlipidemia. PLAN: The patient 's medications were reviewed and detailed discussion with her sister but is going to be traveling back to [place], but rest of the family members will be still taking care of her. Medications were reviewed and they are unchanged. The patient is on both GI and DVT prophylaxis. She will continue all other medications as prescribed. The patient is back on gabapentin and diazepam. Ambulation and physical therapy was encouraged. The patient is two more days in the TCU. We will try to get the patient to have her blood sugars monitored on a daily basis by putting a transdermal patch which she can measure her blood sugars at least four times a day for a period of about 14 days. Given a better coverage for her when she is at home, in this way she want to overmedicate herself. Discussed all these findings with the patient's sister as well who is going to communicate with the other relatives who is going to take over Nicole's care when she goes home. Please make a note that this is a complex patient with multiple comorbid medical issues. Time spent with the patient is more than 30 minutes. Doris Griffith MD
[2018-06-24] MEDS: Insulin Lispro (humaLOG) LOW Coverage SC SCH ×4 (07:09→21:34)
[2018-06-24] MEDS: Insulin Lispro 1 UNITS/0.01 ML SC SCH ×3 (07:09→17:47)
[2018-06-24] MEDS: Magnesium Oxide 400 mg Tab UD PO SCH (09:51)
--- NOTE | 2018-06-24 12:48 | CP.PCM.PN ---
Subjective - Date & Time of Evaluation Date of Evaluation: 06/24/18 Time of Evaluation: 10:35 - Subjective Subjective: Afebrile, comfortable. Objective - Vital Signs/Intake and Output Vital Signs (last 24 hours): Temp Pulse Resp BP Pulse Ox 98.8 F 90 14 122/80 97 06/23/18 10:07 06/23/18 10:07 06/23/18 10:07 06/23/18 10:07 06/23/18 10:07 - Medications Medications: Current Medications Acetaminophen (Tylenol 325mg Tab) 650 mg PO Q4H PRN; Protocol PRN Reason: Fever >100.4 F Last Admin: 06/18/18 13:16 Dose: 650 mg Acetaminophen (Tylenol 325mg Tab) 650 mg PO Q4H PRN; Protocol PRN Reason: Pain, moderate (4-7) Last Admin: 06/19/18 11:25 Dose: 650 mg Aspirin (Ecotrin) 81 mg PO 0800 KLAUDIA; Protocol Last Admin: 06/23/18 07:58 Dose: 81 mg Atorvastatin Calcium (Lipitor) 20 mg PO DIN KLAUDIA; Protocol Last Admin: 06/22/18 17:17 Dose: 20 mg Cyproheptadine HCl (Periactin) 2 mg PO DAILY KLAUDIA; Protocol Last Admin: 06/23/18 10:37 Dose: 2 mg Ergocalciferol (Drisdol 50,000 Intl Units Cap) 1 cap PO QWK KLAUDIA; Protocol Last Admin: 06/18/18 10:24 Dose: 1 cap Ferrous Sulfate (Feosol) 324 mg PO DAILY KLAUDIA; Protocol Last Admin: 06/23/18 10:34 Dose: 324 mg Folic Acid (Folic Acid) 1 mg PO DAILY KLAUDIA; Protocol Last Admin: 06/23/18 10:34 Dose: 1 mg Gabapentin (Neurontin) 600 mg PO BID KLAUDIA; Protocol Last Admin: 06/23/18 10:36 Dose: 600 mg Gemfibrozil (Lopid) 600 mg PO 0630 KLAUDIA; Protocol Last Admin: 06/23/18 05:57 Dose: 600 mg Heparin Sodium (Porcine) (Heparin) 5,000 units SC Q12 KLAUDIA; Protocol Last Admin: 06/23/18 10:35 Dose: 5,000 units Insulin Detemir (Levemir) 14 unit SC HS KLAUDIA; Protocol Last Admin: 06/22/18 21:52 Dose: 14 units Insulin Human Lispro (Humalog) 6 units SC AC KLAUDIA; Protocol Last Admin: 06/23/18 12:30 Dose: 6 units Insulin Human Lispro (Humalog Low) 0 units SC ACHS [facility]; Protocol Last Admin: 06/23/18 12:30 Dose: 2 unit Magnesium Oxide (Mag-Ox) 400 mg PO DAILY [facility]; Protocol Last Admin: 06/23/18 10:36 Dose: 400 mg Metoprolol Tartrate (Lopressor) 25 mg PO 0800,1800 KLAUDIA; Protocol Last Admin: 06/23/18 07:59 Dose: 25 mg - Labs Labs: 06/20/18 06:30 06/20/18 06:30 - Constitutional Appears: Chronically Ill - Head Exam Head Exam: NORMAL INSPECTION - Respiratory Exam Respiratory Exam: Decreased Breath Sounds - Cardiovascular Exam Cardiovascular Exam: +S1, +S2 - GI/Abdominal Exam GI & Abdominal Exam: Soft. absent: Tenderness Assessment and Plan - Assessment and Plan (Free Text) Plan: Assessment S/P SIRS with fevers, without evidence of bacterial infection or sepsis stage 4 breast cancer s/p mastectomy CAD s/p PCI dyslipidemia Hx of HTN Hx of DM 2 Plan continue to monitor off antibiotics since she is at risk for hospital-acquired infections
--- NOTE | 2018-06-24 18:20 | PN ---
DATE: 06/24/2018 ENDOCRINOLOGY FOLLOWUP NOTE LOCATION: In room 321, [facility]. SUBJECTIVE: This is a 63-year-old female with recent uncontrolled type 2 insulin-requiring diabetes, now being followed closely for metabolic management. Her glycemic levels have been in the low side of normal overnight as noted with glucose levels ranging from 82-95 and 97 mg/dL. With the variability of her oral intake, we will modify once again her basal and bolus insulin regimen and lower the Humalog to 4 units t.i.d. before meals to start today as ordered. We will continue the low-dose correction scale using Humalog insulin as ordered to obviate hypoglycemia and detailed orders have been given. We will also lower the basal insulin with Levemir to be given as 10 units subcutaneously at bedtime daily to start tonight as ordered. We will obtain serial chemistries and supplement accordingly as needed. We will follow. Shelly Velez MD
--- NOTE | 2018-06-24 19:17 | PN ---
DATE: 06/24/2018 SUBJECTIVE: The patient is 63-year-old, seen and examined, resting comfortably, came back from therapy and feel tired, eating better. PHYSICAL EXAMINATION VITAL SIGNS: She is afebrile, pulse 98, respirations 18, blood pressure 149/96. LUNGS: Bilateral fair airflow. No rhonchi or crackle. HEART: S1 and S2 audible. ABDOMEN: Soft, nontender. No rebound. No guarding. NEUROLOGICAL: The patient is awake, alert, oriented, communicative. Moves all extremities. No motor or sensory deficit. LABORATORY EXAM: Blood sugar is 137. ASSESSMENT: 1. Hypertension. 2. Generalized weakness. 3. Hyperlipidemia. 4. Deconditioning and difficulty walking. 5. Chronic anemia. 6. Jel-tzjijpj-xnahxhmsc diabetes. 7. Metastatic breast cancer. PLAN: Currently, the patient is on aspirin, ferrous sulfate, folic acid. She is on DVT prophylaxis. Blood sugar is being monitored. She is on insulin coverage. She is also getting statin and Lopid. She is on gabapentin for her neuropathy. Encourage ambulation. Discharge plan soon. Meghan Borges MD
[2018-06-24] MEDS ORDERED: Insulin Detemir 100 units/ml Vial (Levemir) SC SCH (22:00)
--- NOTE | 2018-06-24 23:07 | PN ---
DATE: 06/24/2018 ONCOLOGY PROGRESS NOTE LOCATION: The patient is in room 321, bed 1. SUBJECTIVE: This is a 63-year-old female who was admitted to the acute site after becoming unconscious with a very low blood sugar secondary to all medication with antidiabetic agents while she was not eating well related to her progressive metastatic breast cancer. The patient's medications were corrected and she has gradually improved in the acute site and was then transferred to the TCU for deconditioning. The patient has just been treated with one dose of Keytruda, given 3 weeks ago for triple-negative breast cancer and the patient had MSI high expressing tumor for which she was an ideal candidate for this new drug. She has significant pain involving the right brachial plexus with brachial plexopathy, requiring narcotics at that time which has now regressed significantly where the patient is not requiring any pain medicines at all. Her right arm lymphedema has gone down and the pain which she was experiencing probably related to tumor infiltration into the axilla has subsided dramatically for the last 2 weeks. Subjectively, the patient is seen in the room. She is resting comfortably, just come back from physical therapy this morning. Eating better, but is disappointed that she cannot go home yet. PHYSICAL EXAMINATION: VITAL SIGNS: Stable as stated in the chart. Pulse is 98, respirations 18, and blood pressure is 149/96. HEENT: Head is normocephalic, atraumatic. Conjunctivae pale. Sclerae are anicteric. Pupils are equally reactive to light and accommodation. Examination of the oropharynx reveals no oropharyngeal lesions. NECK: Supple. There is no adenopathy. LUNGS: Reveals it to be clear to percussion and auscultation. CARDIOVASCULAR SYSTEM: Reveals the PMI to be in the fifth intercostal space inside the midclavicular line. S1 and S2 are normal. No gallop or murmur is heard. CHEST: Examination of the chest wall reveals the patient to be status post mastectomy on the right side. The implant is in place. There is previously noted induration and pain and discomfort in the right axilla and the periphery of the implant has substantially regressed. Left breast is unremarkable. No masses are felt in the axilla or supraclavicular areas. ABDOMEN: Soft, nontender and protuberant. No rebound, rigidity or guarding is noted. NEUROLOGIC: Reveals higher functions to be normal. No focal deficits are noted. The patient is awake, alert and oriented to time, place and person. She is able to move all extremities. The patient is weak, but is able to ambulate with assistance. LABORATORY DATA: Shows blood sugars are very controlled at 137. 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 ASSESSMENT NOTES AND PLAN: The patient is currently improving on the current regimen that she is on. Blood pressure are controlled. Sugars are well controlled. Pain is almost nonexistent at this time. The patient is ambulating and appetite has increased significantly. The patient will continue physical therapy for the next few days that is allocated to her under insurance plan. We will continue supplementation with iron and folic acid. She is on deep venous thrombosis and gastrointestinal prophylaxis. She is also on cardiac medications for cardiac issues. She recently had a cath, which did not reveal any significant blockages except for the old blockage for which she had a stent put in last year. We will encourage the patient to continue ambulation. I have detailed discussion with the patient's family today. Once the patient is stabilized, we will try to get the patient home and initiate her next course of chemotherapy as an outpatient. Plan is to give her single agent Keytruda and then add a drug such as depending on response. The patient will also be setup on an outpatient PET CT scan to quantify the extent of the disease. Last PET scan was done on 02/22/2018. Please make a note that this is a complex patient with multiple comorbid medical issues. Doris Griffith MD
[2018-06-25] MEDS: Insulin Lispro (humaLOG) LOW Coverage SC SCH ×3 (06:50→17:27)
[2018-06-25] MEDS: Insulin Lispro 1 UNITS/0.01 ML SC SCH ×3 (06:53→17:27)
[2018-06-25] MEDS: Ergocalciferol 50,000 Intl Units Cap PO SCH (09:06)
[2018-06-25] MEDS: Magnesium Oxide 400 mg Tab UD PO SCH (09:06)
--- NOTE | 2018-06-25 10:56 | CP.PCM.PN ---
Subjective - Date & Time of Evaluation Date of Evaluation: 06/25/18 Time of Evaluation: 10:15 - Subjective Subjective: Not in distress in bed, no fevers. Objective - Vital Signs/Intake and Output Vital Signs (last 24 hours): Temp Pulse Resp BP Pulse Ox 98.8 F 100 H 14 135/84 97 06/23/18 10:07 06/24/18 08:19 06/23/18 10:07 06/24/18 08:19 06/23/18 10:07 - Medications Medications: Current Medications Acetaminophen (Tylenol 325mg Tab) 650 mg PO Q4H PRN; Protocol PRN Reason: Fever >100.4 F Last Admin: 06/18/18 13:16 Dose: 650 mg Acetaminophen (Tylenol 325mg Tab) 650 mg PO Q4H PRN; Protocol PRN Reason: Pain, moderate (4-7) Last Admin: 06/19/18 11:25 Dose: 650 mg Aspirin (Ecotrin) 81 mg PO 0800 [facility]; Protocol Last Admin: 06/24/18 08:19 Dose: 81 mg Atorvastatin Calcium (Lipitor) 20 mg PO DIN [facility]; Protocol Last Admin: 06/23/18 17:28 Dose: 20 mg Cyproheptadine HCl (Periactin) 2 mg PO DAILY [facility]; Protocol Last Admin: 06/24/18 09:52 Dose: 2 mg Ergocalciferol (Drisdol 50,000 Intl Units Cap) 1 cap PO QWK [facility]; Protocol Last Admin: 06/18/18 10:24 Dose: 1 cap Ferrous Sulfate (Feosol) 324 mg PO DAILY [facility]; Protocol Last Admin: 06/24/18 09:50 Dose: 324 mg Folic Acid (Folic Acid) 1 mg PO DAILY [facility]; Protocol Last Admin: 06/24/18 09:50 Dose: 1 mg Gabapentin (Neurontin) 600 mg PO BID [facility]; Protocol Last Admin: 06/24/18 09:52 Dose: 600 mg Gemfibrozil (Lopid) 600 mg PO 0630 [facility]; Protocol Last Admin: 06/24/18 05:46 Dose: 600 mg Heparin Sodium (Porcine) (Heparin) 5,000 units SC Q12 [facility]; Protocol Last Admin: 06/24/18 09:57 Dose: 5,000 units Insulin Detemir (Levemir) 12 unit SC HS [facility]; Protocol Last Admin: 06/23/18 22:08 Dose: 12 u Insulin Human Lispro (Humalog) 6 units SC AC [facility]; Protocol Last Admin: 06/24/18 07:09 Dose: Not Given Insulin Human Lispro (Humalog Low) 0 units SC ACHS [facility]; Protocol Last Admin: 06/24/18 07:09 Dose: Not Given Magnesium Oxide (Mag-Ox) 400 mg PO DAILY [facility]; Protocol Last Admin: 06/24/18 09:51 Dose: 400 mg Metoprolol Tartrate (Lopressor) 25 mg PO 0800,1800 [facility]; Protocol Last Admin: 06/24/18 08:19 Dose: 25 mg - Labs Labs: 06/20/18 06:30 06/20/18 06:30 - Constitutional Appears: Chronically Ill - Head Exam Head Exam: NORMAL INSPECTION - Respiratory Exam Respiratory Exam: Decreased Breath Sounds - Cardiovascular Exam Cardiovascular Exam: +S1, +S2 - GI/Abdominal Exam GI & Abdominal Exam: Soft. absent: Tenderness Assessment and Plan - Assessment and Plan (Free Text) Plan: Assessment S/P SIRS with fevers, without evidence of bacterial infection or sepsis stage 4 breast cancer s/p mastectomy CAD s/p PCI dyslipidemia Hx of HTN Hx of DM 2 Plan continue to monitor off antibiotics since she is at risk for healthcare-as sociated infections
[2018-06-25 11:33] LABS: BASO # 0.02 K/mm3 (0.0-2.0); BASO % 0.3 % (0.0-3.0); EOS # 0.1 (0.0-0.7); EOS % 0.9 % (1.5-5.0); GRAN # 5.53 (1.4-6.5); GRAN % 79.6 % (50.0-68.0); LYMPH # 0.8 (1.2-3.4); MEAN CORPUSCULAR HEMOGLOBIN 25.3 pg (25.0-35.0); MEAN CORPUSCULAR HGB CONC 32.4 g/dl (31.0-37.0); MONO # 0.6 (0.1-0.6); MONO % 8.2 % (1.0-6.0); PLATELET COUNT 128 10^3/uL (120.0-450.0); RBC 3.96 10^6/uL (3.5-6.1); RED CELL DISTRIBUTION WIDTH 18.2 % (11.5-14.5); WHITE BLOOD COUNT 6.9 10^3/uL (4.5-11.0)
[2018-06-25 17:05] VITALS: BP 112/78; PULSE 102; RESP 16; TEMP 98.4; O2SAT 96
--- NOTE | 2018-06-25 19:34 | PN ---
DATE: 06/25/2018 ENDOCRINOLOGY FOLLOWUP NOTE ROOM: 321 TCU SUBJECTIVE: This is a 63-year-old female with recent uncontrolled type 2 insulin-requiring diabetes, now being followed closely for metabolic management. Her glycemic levels are fluctuating, but much improved as noted overnight and the glucose values have ranged from 114 to 184 mg/dL today and it was 111 at bedtime last night. PLAN: So at this time, we will continue the same low-dose basal and bolus insulin regimen to allow for dose equilibration and keep her on the Humalog given as 4 units subcutaneous three times a day before meals as ordered. We will continue the Levemir given as 10 units subcutaneous at bedtime daily as given. We will obtain serial chemistries and supplement accordingly as needed. We will follow. Shelly Velez MD
--- NOTE | 2018-06-26 00:20 | DS ---
HISTORY OF PRESENT ILLNESS: The patient is a 63-year-old who came to emergency room on 05/24/2018 with increasing shortness of breath. She came to emergency room on 06/10/2018 when she was found to be lethargic. She was found to be hypoglycemic. She was short of breath. Workup was done including V/Q scan the patient has elevated troponin. She had cardiac cath done that was unremarkable for coronary occlusion. The patient was found to be anemic, got blood transfusion, she was deconditioned, so she was transferred to TCU for rehab and close monitoring. The patient's stay in TCU was uneventful. She started to eat better. She states her appetite got whole lot better. She was participating in therapy. PHYSICAL EXAMINATION: GENERAL: She is awake, alert, oriented, and communicative. VITAL SIGNS: The patient is afebrile, pulse 102, respirations 16, and blood pressure 112/78. LUNGS: Bilateral airflow. No rhonchi or crackles. HEART: S1 and S2 audible. ABDOMEN: Soft and nontender. No rebound. No guarding. NEUROLOGIC: The patient is awake, alert, oriented, and able to communicate. She has Port-A-Cath in the left upper chest. EXTREMITIES: Bilateral leg +1 edema. LABORATORY DATA: WBC 6.9, hemoglobin 10, hematocrit 30, and platelets 128. Chemistry: Serum blood sugar is 103. ASSESSMENT: 1. Exertional dyspnea. 2. Generalized weakness. 3. Metastatic stage IV breast cancer. 4. Kjp-xviepyo-psfjpkctj diabetes. 5. Hyperlipidemia. 6. Chronic anemia. PLAN: The patient is being discharged home today. She will follow with Dr. Griffith. She will resume her medications that include Seroquel 25 at bedtime, Lyrica 75 twice a day, metoprolol 25 twice a day, meclizine 12.5 twice a day, and losartan 100 mg daily. She is on Levemir 14 units at bedtime, Lopid 600 twice a day, gabapentin 600 twice a day, and Eliquis 5 mg twice a day. So, the patient will follow with PMD and follow up with Dr. Griffith as an outpatient. Meghan Borges MD [facility] # [id number]
== END 2018-06-25 19:17 | disposition home or self-care (01) | DRG 638 ==
LOC: TRCU 18:59
PROVIDERS: ADMIT Internal Medicine Nephrology; ATTEND Internal Medicine Nephrology
PROC: F07Z9FZ Gait Training/Functional Ambulation Treatment using Assistive, Adaptive, Supportive or Protective Equipment (ICD-10-PCS; principal; 2018-06-18)
PROC: F07M6ZZ Therapeutic Exercise Treatment of Musculoskeletal System - Whole Body (ICD-10-PCS; 2018-06-18)
PROC: F08Z1ZZ Dressing Techniques Treatment (ICD-10-PCS; 2018-06-18)
PROC: F08Z2ZZ Grooming/Personal Hygiene Treatment (ICD-10-PCS; 2018-06-18)
PROC: F08Z0ZZ Bathing/Showering Techniques Treatment (ICD-10-PCS; 2018-06-18)
PROC: F08Z4ZZ Home Management Treatment (ICD-10-PCS; 2018-06-18)
DX: E11.649 Type 2 diabetes mellitus with hypoglycemia without coma (principal); R65.10 Systemic inflammatory response syndrome (SIRS) of non-infectious origin without acute organ dysfunction; E11.65 Type 2 diabetes mellitus with hyperglycemia; E78.5 Hyperlipidemia, unspecified; G54.0 Brachial plexus disorders; H35.30 Unspecified macular degeneration; I10 Essential (primary) hypertension; I25.119 Atherosclerotic heart disease of native coronary artery with unspecified angina pectoris; I25.2 Old myocardial infarction; I89.0 Lymphedema, not elsewhere classified; M06.9 Rheumatoid arthritis, unspecified; Z17.1 Estrogen receptor negative status [ER-]; C50.919 Malignant neoplasm of unspecified site of unspecified female breast; D57.3 Sickle-cell trait; D63.0 Anemia in neoplastic disease; D72.819 Decreased white blood cell count, unspecified; Z66 Do not resuscitate; Z79.4 Long term (current) use of insulin; Z90.10 Acquired absence of unspecified breast and nipple; Z90.710 Acquired absence of both cervix and uterus; Z92.21 Personal history of antineoplastic chemotherapy; Z95.5 Presence of coronary angioplasty implant and graft

== ENCOUNTER 2018-07-14 14:35 | Outpatient (CLI) | payer BC | END 2018-07-14 14:36 | disposition home or self-care (01) | LOC: OPLAB 14:35 ==

== ENCOUNTER 2018-07-14 14:53 | Inpatient (IN) | payer BC ==
[2018-07-14] MEDS ORDERED: Sodium Chloride 0.9% 1,000 ML IV SCH (15:15)
[2018-07-14 15:21] VITALS: BMI 27.2
--- NOTE | 2018-07-14 15:43 | ED PDOC ---
Arrival/HPI - General Chief Complaint: Altered Mental Status Time Seen by Provider: 07/14/18 14:55 Historian: Prison - History of Present Illness Narrative History of Present Illness (Text): 07/14/18 15:43 A 63 year old female, whose past medical history includes triple negative breast cancer s/p mastectomy and chemoradiation, CAD, HPL, HTN, DM (on Insulin, levamir and NovoLog), and sickle cell trait, who is from [facility], presents to the emergency department for possible pneumonia. Spoke to patient's nurse from [facility], who stated patient had a Chest X-ray performed and revealed pneumonia. Patient was seen by PMD, who discussed case with Dr. Griffith, whom advised to have patient be brought to the ER for evaluation. Here in the ER, patient is confused, mental status waxes and wanes in severity. Limited HPI and ROS due to patient's AMS. PMD: Dr. Edwards Oncologist: Dr. Griffith Past Medical History - Provider Review Nursing Documentation Reviewed: Yes - Infectious Disease Hx of Infectious Diseases: None - Tetanus Immunization Tetanus Immunization: Unknown - Cardiac Hx Cardiac Disorders: Yes Hx Hypertension: Yes - Pulmonary Hx Respiratory Disorders: No - Neurological Hx Neurological Disorder: No - HEENT Hx HEENT Disorder: No - Renal Hx Renal Disorder: No - Endocrine/Metabolic Hx Diabetes Mellitus Type 2: Yes - Hematological/Oncological Hx Blood Disorders: Yes Hx Cancer: Yes (BREAST) - Integumentary Hx Dermatological Disorder: No - Musculoskeletal/Rheumatological Hx Falls: Yes - Gastrointestinal Hx Gastrointestinal Disorders: No - Genitourinary/Gynecological Hx Reproductive Disorders: No - Psychiatric Hx Psychophysiologic Disorder: No Hx Substance Use: No (UNKNOWN) - Surgical History Hx Mastectomy: Yes (right breast cancer status post mastectomy in 2013, chemo and radiation ) - Anesthesia Hx Anesthesia Reactions: Yes (NAUSEA) Hx Malignant Hyperthermia: No - Suicidal Assessment Feels Threatened In Home Enviroment: No Family/Social History - Physician Review Nursing Documentation Reviewed: Yes Family/Social History: No Known Family HX Smoking Status: Never Smoked Hx Alcohol Use: No (UNKNOWN) Hx Substance Use: No (UNKNOWN) Allergies/Home Meds Allergies/Adverse Reactions: Allergies No Known Allergies Allergy (Verified 06/10/18 18:18) Home Medications: Home Meds Medication Instructions Recorded Confirmed Ergocalciferol (Vitamin D2) 50,000 iu PO MON 10/01/15 06/10/18 [Vitamin D2] Gabapentin [Neurontin] 600 mg PO BID 10/01/15 06/10/18 Meclizine [Antivert] 12.5 mg PO BID PRN 10/01/15 06/10/18 Metoprolol Tartrate [Lopressor] 25 mg PO BID 10/01/15 06/10/18 Folic Acid 1 mg PO DAILY 04/27/17 06/10/18 Gemfibrozil 600 mg PO DAILY 04/27/17 06/10/18 Ferrous Sulfate [Feosol] 325 mg PO BID 05/01/17 06/10/18 Diazepam [Valium] 2 mg PO HS PRN 05/24/18 06/10/18 Potassium Chloride [Potassium 40 meq PO DAILY 06/10/18 06/10/18 Chloride Inj] QUEtiapine [Seroquel] 25 mg PO DAILY 06/10/18 06/10/18 Review of Systems - Review of Systems Systems not reviewed;Unavailable: Altered Mental Status Physical Exam Vital Signs Reviewed: Yes Temperature: Afebrile Blood Pressure: Normal Pulse: Regular Respiratory Rate: Normal Appearance: Positive for: Ill-Appearing Mental Status: Positive for: Confused, other (patient does not move extremities and does not respond to painful stimuli.). No: Alert and Oriented X 3 (knows her name) - Systems Exam Head: Present: Atraumatic, Normocephalic Pupils: Present: PERRL Extroacular Muscles: Present: EOMI Pharnyx: Present: Normal Respiratory/Chest: Present: Rhonchi (bilaterally). No: Respiratory Distress Cardiovascular: Present: Regular Rate and Rhythm, Normal S1, S2. No: Murmurs Abdomen: No: Tenderness, Distention, Peritoneal Signs Upper Extremity: Present: Normal Inspection, Other (does no move extremities). No: Cyanosis, Edema Lower Extremity: Present: Edema (trace edema bilaterally), Other (does no move extremities) Skin: Present: Warm, Dry, Normal Color. No: Rashes Psychiatric: Present: Other (confused) Medical Decision Making ED Course and Treatment: 07/14/18 15:45 Impression: 63 year old female with possible pneumonia. Differential Diagnosis included but are not limited to: Pneumonia and Altered Mental Status r/o Sepsis Plan: -- EKG -- Head CT -- Chest X-ray -- Labs -- Venous Blood Gas -- Blood Culture -- Urine Culture -- Urinalysis -- IV Fluids -- Reassess and disposition Prior Visits: Notes and results from previous visits were reviewed. Patient was last seen here in the emergency department on 06/10/2018 for hypoglycemia. Patient was admitted. Progress Notes: EKG: Ordered, reviewed, and independently interpreted the EKG. Rate : 82 BPM Rhythm : NSR Interpretation : No ST-segment elevations or depressions, no T-wave inversions, normal intervals. Comparison : No previous EKG for comparison. 07/14/2018 16:08 Chest X-ray IMPRESSION: Extensive right-sided pneumonia. Dictator: Kelvin Kerns MD 07/14/18 17:32 LFTs elevated. Ammonia level added. CT completed and results pending. Labs reviewed. BUN/Cr elevated but at baseline. LA elevated and hydrating. UA normal. 07/14/2018 18:[address] IMPRESSION: No acute intracranial abnormalities. No significant findings to account for the clinical presentation. No significant interval change compared to the prior examination(s). Dictator: Tien Montemayor MD 07/14/18 18:29 Code Sepsis called. Patient's WBC 2.8 now. Already had elev HR on arrival and LA is elevated. IVF ordered. Already received Antibiotics broad spectrum. Discussed case with Dr. Gladis Perales 07/14/18 19:37 Patient noted to have elevated troponin which is at baseline to last troponin on last admission. Case was discussed with Dr Polk who is covering the ICU. He agrees that patient will be admitted to the ICU. - Critical Care Critical Care Minutes: 30 minutes - RAD Interpretation Radiology Orders: 07/14/18 15:02 CHEST PORTABLE [RAD] Stat 07/14/18 15:03 HEAD W/O CONTRAST [CT] Stat - Medication Orders Current Medication Orders: Sodium Chloride (Sodium Chloride 0.9%) 1,000 mls @ 150 mls/hr IV .[id number] [facility] - Scribe Statement The provider has reviewed the documentation as recorded by the Scribe Aubrey Sampson Provider Scribe Attestation: All medical record entries made by the Scribe were at my direction and personally dictated by me. I have reviewed the chart and agree that the record accurately reflects my personal performance of the history, physical exam, medical decision making, and the department course for this patient. I have also personally directed, reviewed, and agree with the discharge instructions and disposition. Disposition/Present on Arrival - Present on Arrival Any Indicators Present on Arrival: Yes History of DVT/PE: No History of Uncontrolled Diabetes: Yes Urinary Catheter: No History of Decub. Ulcer: No History Surgical Site Infection Following: None - Disposition Have Diagnosis and Disposition been Completed?: Yes Diagnosis: Altered mental status, Sepsis, Pneumonia Disposition: HOSPITALIZED Disposition Time: 18:31 Patient Plan: ICU Patient Problems: Current Active Problems Problem Status Onset Altered mental status Acute Sepsis Acute Pneumonia Acute Condition: GUARDED Discharge Instructions (ExitCare): Sepsis (ED) Forms: Lucent Sky (Romanian)
[2018-07-14] MEDS ORDERED: Vancomycin 1gm in NS 250ml 1 GM/250 ML BAG IVPB STA (16:02)
[2018-07-14] MEDS ORDERED: Piperacill/Tazo 4.5gm in NS 4.5 GM/100 ML BAG IVPB STA (16:02)
[2018-07-14 16:09] LABS: VENOUS BLOOD GAS BASE EXCESS -3.1 mmol/L (0.0-2.0); VENOUS BLOOD GAS PO2 120 mm/Hg (30-55); VENOUS BLOOD PH 7.32 (7.32-7.43)
--- NOTE | 2018-07-14 16:11 | RAD ---
Date of service: 07/14/2018 HISTORY: Sepsis Patient COMPARISON: 06/13/2018 FINDINGS: LUNGS: There is an extensive right-sided infiltrate PLEURA: No significant pleural effusion identified, no pneumothorax apparent. CARDIOVASCULAR: No aortic atherosclerotic calcification present. Normal cardiac size. No pulmonary vascular congestion. OSSEOUS STRUCTURES: No significant abnormalities. VISUALIZED UPPER ABDOMEN: Normal. OTHER FINDINGS: None. IMPRESSION: Extensive right-sided pneumonia
[2018-07-14 16:25] LABS: ALB/GLOB RATIO 1.4 (1.1-1.8); ALBUMIN 3.4 g/dL (3.0-4.8); CALCIUM 9.3 mg/dL (8.4-10.5)
[2018-07-14 16:49] LABS: URINE BILIRUBIN NEGATIVE (NEGATIVE); URINE BLOOD NEGATIVE (NEGATIVE); URINE GLUCOSE (UA) NEGATIVE (NEGATIVE); URINE LEUKOCYTE ESTERASE NEGATIVE Leu/uL (NEGATIVE); URINE PROTEIN NEGATIVE mg/dL (<30 mg/dL); URINE UROBILINOGEN 0.2 E.U./dL (<1 E.U./dL)
[2018-07-14 16:57] LABS: URINE APPEARANCE CLEAR (CLEAR); URINE COLOR YELLOW (YELLOW)
[2018-07-14 17:00] LABS: INR 1.5; PARTIAL THROMBOPLASTIN TIME 39.3 Seconds (25.1-36.5); PROTHROMBIN TIME 17.2 SECONDS (9.4-12.5)
--- NOTE | 2018-07-14 18:06 | CT ---
Date of service: 07/14/2018 PROCEDURE: CT HEAD WITHOUT CONTRAST. HISTORY: r/o cva COMPARISON: 06/10/2018 TECHNIQUE: Axial computed tomography images were obtained through the head/brain without intravenous contrast. Supplemental Coronal and Sagittal projections created and reviewed. Radiation dose: Total exam DLP = 84.86 mGy-cm. This CT exam was performed using one or more of the following dose reduction techniques: Automated exposure control, adjustment of the mA and/or kV according to patient size, and/or use of iterative reconstruction technique. FINDINGS: HEMORRHAGE: No intracranial hemorrhage. BRAIN: No mass effect or edema. No atrophy or chronic microvascular ischemic changes. VENTRICLES: Unremarkable. No hydrocephalus. CALVARIUM: Unremarkable. PARANASAL SINUSES: Unremarkable as visualized. No significant inflammatory changes. MASTOID AIR CELLS: Unremarkable as visualized. No inflammatory changes. OTHER FINDINGS: None. IMPRESSION: No acute intracranial abnormalities. No significant findings to account for the clinical presentation. No significant interval change compared to the prior examination(s).
[2018-07-14 18:17] LABS: BASO # 0.01 K/mm3 (0.0-2.0); BASO % 0.4 % (0.0-3.0); EOS % 0.4 % (1.5-5.0); GRAN # 2.08 (1.4-6.5); GRAN % 75.5 % (50.0-68.0); LYMPH # 0.5 (1.2-3.4); LYMPH % 19.3 % (22.0-35.0); MEAN CELL VOLUME 77.4 fl (80.0-105.0); MEAN CORPUSCULAR HEMOGLOBIN 24.6 pg (25.0-35.0); MEAN CORPUSCULAR HGB CONC 31.8 g/dl (31.0-37.0); MONO # 0.1 (0.1-0.6); MONO % 4.4 % (1.0-6.0); PLATELET COUNT 54 10^3/uL (120.0-450.0); RBC 3.45 10^6/uL (3.5-6.1); RED CELL DISTRIBUTION WIDTH 19.1 % (11.5-14.5); WHITE BLOOD COUNT 2.8 10^3/uL (4.5-11.0)
[2018-07-14 18:18] LABS: HEMOGLOBIN 8.5 g/dL (12.0-16.0)
[2018-07-14] MEDS ORDERED: Sodium Chloride 0.9% 1,000 ML IV STA ×3 (18:27→19:38)
[2018-07-14 19:29] LABS: TROPONIN I 0.22 ng/mL
[2018-07-14 21:26] LABS: VENOUS BLOOD GAS BASE EXCESS -2.7 mmol/L (0.0-2.0); VENOUS BLOOD GAS PO2 79 mm/Hg (30-55); VENOUS BLOOD PH 7.29 (7.32-7.43)
--- NOTE | 2018-07-14 22:35 | CP.PCM.CON ---
History of Present Illness - History of Present Illness History of Present Illness: Damion Quinones PGY 2 - ICU Consult Note HPI: 63 year old female with past medical history of breast cancer s/p mastectomy on chemotherapy, CAD s/p stent, HLD, HTN, DM2, sickle cell trait who presents to [facility] [place]. Griffith's office for fatigue and concern for pneumonia. Patient recently treated in [facility] [place] for unresponsiveness secondary to hypoglycemia. Patient was hydrated, medically managed and discharged to TCU for deconditioning. Patient then was transferred to [facility] outpatient facility for further medical management. Patient was noted by family to be less of herself, speaking less and with limited to no energy. Patient was at had concern for respiratory status at [facility] and had chest x ray performed showing likely pneumonia. Patient has limited cooperation with interview and exam and thus HPI is limited. Assistance from family at bedside and medical personal aided in obtaining history. Patient was able to state name, place, and identify family members at bedside. She denies complaints of chest pain, ab dominal pain, urinary complaints, headache, one sided weakness/numbness, visual complaints, fevers, chills, nausea, vomiting. She did report some shortness of breath with dry cough. PMH: Right breast CA s/p mastectomy 2013 currently undergoing chemotherapy, CAD s/p stent, HLD, HTN, DM2, sickle cell trait PSH: right breast mastectomy in 2013, right chest port placement FMH: patient denies any family hx, specifically denies family hx of breast cancer/DM/CAD SOCHX: Denies history of smoking, ETOH, ID ALL: NKDA MEDS: KEYLA reviewed PMD: Dr. Wilkerson Cardio: Dr. Slater Heme-Onc: Dr. Griffith Review of Systems - Review of Systems All systems: reviewed and no additional remarkable complaints except (as mentioned in HPI) Past Patient History - Infectious Disease Hx of Infectious Diseases: None - Tetanus Immunizations Tetanus Immunization: Unknown - Past Social History Smoking Status: Never Smoked Alcohol: None Drugs: Denies - CARDIAC Hx Cardiac Disorders: Yes Hx Hypertension: Yes - PULMONARY Hx Respiratory Disorders: No - NEUROLOGICAL Hx Neurological Disorder: No - HEENT Hx HEENT Problems: No - RENAL Hx Chronic Kidney Disease: No - ENDOCRINE/METABOLIC Hx Diabetes Mellitus Type 2: Yes - HEMATOLOGICAL/ONCOLOGICAL Hx Blood Disorders: Yes Hx Cancer: Yes (BREAST) - INTEGUMENTARY Hx Dermatological Problems: No - MUSCULOSKELETAL/RHEUMATOLOGICAL Hx Falls: Yes - GASTROINTESTINAL Hx Gastrointestinal Disorders: No - GENITOURINARY/GYNECOLOGICAL Hx Reproductive Disorders: No - PSYCHIATRIC Hx Psychophysiologic Disorder: No Hx Substance Use: No (UNKNOWN) - SURGICAL HISTORY Hx Mastectomy: Yes (right breast cancer status post mastectomy in 2013, chemo and radiation ) - ANESTHESIA Hx Anesthesia Reactions: Yes (NAUSEA) Hx Malignant Hyperthermia: No Meds Allergies/Adverse Reactions: Allergies Allergy/AdvReac Type Severity Reaction Status Date / Time No Known Allergies Allergy Verified 06/10/18 18:18 - Medications Medications: Current Medications Sodium Chloride (Sodium Chloride 0.9%) 1,000 mls @ 150 mls/hr IV .[id number] KLAUDIA Last Admin: 07/14/18 16:45 Dose: 150 mls/hr Physical Exam - Constitutional Appears: No Acute Distress, Older Than Stated Age, Cachectic, Chronically Ill - Head Exam Head Exam: ATRAUMATIC, NORMAL INSPECTION, NORMOCEPHALIC - Eye Exam Eye Exam: EOMI, PERRL - ENT Exam ENT Exam: Mucous Membranes Dry - Neck Exam Neck exam: Positive for: Full Rom - Respiratory Exam Respiratory Exam: Decreased Breath Sounds (R>L), Wheezes (expiratory bilaterally ), NORMAL BREATHING PATTERN - Cardiovascular Exam Cardiovascular Exam: REGULAR RHYTHM, +S1, +S2. absent: Clicks, JVD, Rubs - GI/Abdominal Exam GI & Abdominal Exam: Normal Bowel Sounds, Soft. absent: Firm, Guarding, Rigid, Tenderness - Extremities Exam Extremities exam: Positive for: pedal edema (+1 b/l lower extremities ) - Neurological Exam Neurological exam: Alert Additional comments: Patient exam limited secondary to mentation and cooperation alert and oriented x 2 motor and sensory grossly intact - Psychiatric Exam Additional comments: quiet, non-anxious - Skin Skin Exam: Dry, Intact, Warm Results - Vital Signs Recent Vital Signs: Last Vital Signs Temp 98.4 F 07/14/18 15:25 Pulse 106 H 07/14/18 22:17 Resp 23 07/14/18 22:17 BP 168/97 H 07/14/18 22:17 Pulse Ox 96 07/14/18 22:17 - Labs Result Diagrams: 07/14/18 18:02 07/14/18 15:59 Labs: Laboratory Results - last 24 hr 0107/14/18 07/14/18 15:59 15:59 15:59 WBC RBC Hgb Hct MCV MCH MCHC RDW Plt Count Gran % Lymph % (Auto) [place] % (Auto) Eos % (Auto) Baso % (Auto) Gran # Lymph # (Auto) [place] # (Auto) Eos # (Auto) Baso # (Auto) PT INR APTT pO2 120 H VBG pH 7.32 VBG pCO2 45.0 VBG HCO3 23.2 VBG Total CO2 24.6 VBG O2 Sat (Calc) 99.1 H VBG Base Excess -3.1 L VBG Potassium 4.5 Sodium 149.0 H 148 Chloride 114.0 H 113 H Glucose 158 H Lactate 4.3 H* FiO2 21.0 Crit Value Called To Jr pino Crit Value Called By [facility] Blood Gas Notified Time 1605 Potassium 4.6 Carbon Dioxide 24 Anion Gap 15 BUN 48 H Creatinine 1.4 H Est GFR ( Amer) 46 Est GFR (Non-Af Amer) 38 Random Glucose 152 H Calcium 9.3 Phosphorus 5.2 H Magnesium 1.9 Total Bilirubin 0.7 AST 232 H D ALT 74 H Alkaline Phosphatase 128 H Ammonia Lactate Dehydrogenase Total Creatine Kinase Troponin I NT-Pro-B Natriuret Pep Total Protein 5.8 Albumin 3.4 Globulin 2.5 Albumin/Globulin Ratio 1.4 Procalcitonin 0.65 H Venous Blood Potassium 4.5 Urine Color Urine Appearance Urine pH Ur Specific [place] Urine Protein Urine Glucose (UA) Urine Ketones Urine Blood Urine Nitrate Urine Bilirubin Urine Urobilinogen Ur Leukocyte Esterase Influenza Typ A,B (EIA) 07/14/18 07/14/18 07/14/18 16:00 16:20 16:30 WBC RBC Hgb Hct MCV MCH MCHC RDW Plt Count Gran % Lymph % (Auto) [place] % (Auto) Eos % (Auto) Baso % (Auto) Gran # Lymph # (Auto) [place] # (Auto) Eos # (Auto) Baso # (Auto) PT 17.2 H INR 1.50 APTT 39.3 H pO2 VBG pH VBG pCO2 VBG HCO3 VBG Total CO2 VBG O2 Sat (Calc) VBG Base Excess VBG Potassium Sodium Chloride Glucose Lactate FiO2 Crit Value Called To Crit Value Called By Blood Gas Notified Time Potassium Carbon Dioxide Anion Gap BUN Creatinine Est GFR ( Amer) Est GFR (Non-Af Amer) Random Glucose Calcium Phosphorus Magnesium Total Bilirubin AST ALT Alkaline Phosphatase Ammonia Lactate Dehydrogenase 8654 H Total Creatine Kinase 170 Troponin I 0.22 H* D NT-Pro-B Natriuret Pep 4930 H Total Protein Albumin Globulin Albumin/Globulin Ratio Procalcitonin Venous Blood Potassium Urine Color Yellow Urine Appearance Clear Urine pH 6.0 Ur Specific [place] 1.020 Urine Protein Negative Urine Glucose (UA) Negative Urine Ketones Negative Urine Blood Negative Urine Nitrate Negative Urine Bilirubin Negative Urine Urobilinogen 0.2 Ur Leukocyte Esterase Negative Influenza Typ A,B (EIA) 07/14/18 07/14/18 07/14/18 17:05 18:02 19:30 WBC 2.8 L D RBC 3.45 L Hgb 8.5 L Hct 26.7 L MCV 77.4 L MCH 24.6 L MCHC 31.8 RDW 19.1 H Plt Count 54 L Gran % 75.5 H Lymph % (Auto) 19.3 L [place] % (Auto) 4.4 Eos % (Auto) 0.4 L Baso % (Auto) 0.4 Gran # 2.08 Lymph # (Auto) 0.5 L [place] # (Auto) 0.1 Eos # (Auto) 0.0 Baso # (Auto) 0.01 PT INR APTT pO2 VBG pH VBG pCO2 VBG HCO3 VBG Total CO2 VBG O2 Sat (Calc) VBG Base Excess VBG Potassium Sodium Chloride Glucose Lactate FiO2 Crit Value Called To Crit Value Called By Blood Gas Notified Time Potassium Carbon Dioxide Anion Gap BUN Creatinine Est GFR ( Amer) Est GFR (Non-Af Amer) Random Glucose Calcium Phosphorus Magnesium Total Bilirubin AST ALT Alkaline Phosphatase Ammonia 18 Lactate Dehydrogenase Total Creatine Kinase Troponin I NT-Pro-B Natriuret Pep Total Protein Albumin Globulin Albumin/Globulin Ratio Procalcitonin Venous Blood Potassium Urine Color Urine Appearance Urine pH Ur Specific [place] Urine Protein Urine Glucose (UA) Urine Ketones Urine Blood Urine Nitrate Urine Bilirubin Urine Urobilinogen Ur Leukocyte Esterase Influenza Typ A,B (EIA) Pos for influenza a H 07/14/18 21:20 WBC RBC Hgb Hct MCV MCH MCHC RDW Plt Count Gran % Lymph % (Auto) [place] % (Auto) Eos % (Auto) Baso % (Auto) Gran # Lymph # (Auto) [place] # (Auto) Eos # (Auto) Baso # (Auto) PT INR APTT pO2 79 H VBG pH 7.29 L VBG pCO2 51.0 VBG HCO3 24.5 VBG Total CO2 26.1 VBG O2 Sat (Calc) 97.1 H VBG Base Excess -2.7 L VBG Potassium 6.0 H Sodium 148.0 Chloride 117.0 H Glucose 116 H Lactate 2.6 H FiO2 21.0 Crit Value Called To Malgorzata hanson Crit Value Called By Atc Blood Gas Notified Time 2124 Potassium Carbon Dioxide Anion Gap BUN Creatinine Est GFR ( Amer) Est GFR (Non-Af Amer) Random Glucose Calcium Phosphorus Magnesium Total Bilirubin AST ALT Alkaline Phosphatase Ammonia Lactate Dehydrogenase Total Creatine Kinase Troponin I NT-Pro-B Natriuret Pep Total Protein Albumin Globulin Albumin/Globulin Ratio Procalcitonin Venous Blood Potassium 6.0 H Urine Color Urine Appearance Urine pH Ur Specific [place] Urine Protein Urine Glucose (UA) Urine Ketones Urine Blood Urine Nitrate Urine Bilirubin Urine Urobilinogen Ur Leukocyte Esterase Influenza Typ A,B (EIA) Assessment & Plan - Assessment and Plan (Free Text) Assessment: 63 year old female with past medical history of breast cancer s/p mastectomy on chemotherapy, CAD s/p stent, HLD, HTN, DM2, sickle cell trait who is admitted to ICU for sepsis likely secondary to pneumonia. Plan: Sepsis secondary to pneumonia vs. UTI Right sided pneumonia Elevated troponin 0.15 Transaminitis likely secondary to hypotensive episode Right breast CA s/p mastectomy 2013 currently undergoing chemotherapy CAD s/p stenting HLD HTN DM2 on insulin sickle cell trait - Patient received 30cc/kg and broad spectrum in abx - Urine, blood, sputum clx - Procal pending - ID consulted - CXR extensive right-sided pneumonia - Head CT: No acute intracranial abnormalities - Trend troponins, initial troponin elevated 0.15 - Cardiology consulted, ekg without ST elevations and depressions - Maintain euglycemia, normothermia, euvolemia - Maintain MAP >65mmHG - ISS, ACHS - DVT/GI PPX - Cardiology with Dr. Slater consulted
[2018-07-15 01:06] LABS: ARTERIAL BLOOD GAS HCO3 19.5 mmol/L (21-28); ARTERIAL BLOOD GAS O2 SAT 98.9 % (95-98); ARTERIAL BLOOD GAS PCO2 33 mm/Hg (35-45); ARTERIAL BLOOD GAS PH 7.38 (7.35-7.45); ARTERIAL BLOOD GAS TCO2 20.5 mmol.L (22-28)
[2018-07-15 01:06] LABS: TROPONIN I 0.27 ng/mL
[2018-07-15] MEDS: MEROPENEM 500 MG in NS 500 MG/50 ML BAG IVPB SCH ×2 (06:47→22:15)
[2018-07-15] MEDS ORDERED: Sodium Chloride 0.9% 1,000 ML IV SCH (07:00)
[2018-07-15] MEDS ORDERED: Vancomycin 2.5 GM in Sodium Chloride 0.9% 500 ML IVPB ONE (07:30)
[2018-07-15 07:37] LABS: VENOUS BLOOD GAS BASE EXCESS -4.6 mmol/L (0.0-2.0); VENOUS BLOOD GAS PO2 35 mm/Hg (30-55); VENOUS BLOOD PH 7.26 (7.32-7.43)
[2018-07-15 07:49] LABS: BASO # 0.02 K/mm3 (0.0-2.0); BASO % 0.7 % (0.0-3.0); GRAN # 2.02 (1.4-6.5); GRAN % 70.1 % (50.0-68.0); HEMOGLOBIN 8.2 g/dL (12.0-16.0); LYMPH # 0.7 (1.2-3.4); LYMPH % 23.3 % (22.0-35.0); MEAN CORPUSCULAR HGB CONC 30.8 g/dl (31.0-37.0); MONO # 0.2 (0.1-0.6); MONO % 5.9 % (1.0-6.0); PLATELET COUNT 52 10^3/uL (120.0-450.0); RBC 3.41 10^6/uL (3.5-6.1); RED CELL DISTRIBUTION WIDTH 19.4 % (11.5-14.5); WHITE BLOOD COUNT 2.9 10^3/uL (4.5-11.0)
[2018-07-15] MEDS: Insulin Lispro (humaLOG) LOW Coverage SC SCH ×4 (07:49→22:09)
[2018-07-15 08:16] LABS: ALB/GLOB RATIO 1.3 (1.1-1.8); ALBUMIN 3.3 g/dL (3.0-4.8); CALCIUM 8.6 mg/dL (8.4-10.5); TROPONIN I 0.3 ng/mL
--- NOTE | 2018-07-15 08:21 | CARD ---
APPROVED REPORT Date of service: 07/14/2018 EKG Measurement Heart [id number] <Conclusion> Normal sinus rhythm RVCD Prolonged QTc
--- NOTE | 2018-07-15 08:23 | CP.PCM.HP ---
<Merari Greenwodo - Last Filed: 07/15/18 17:43> History of Present Illness - History of Present Illness History of Present Illness: Please note history limited as patient was lethargic this morning. HPI from EMR. 63yo female PMHx breast cancer s/p mastectomy on chemotherapy with R chest wall port, CAD s/p stent, HLD, HTN, DM2, sickle cell trait [place] [facility] [place]. Griffith's office for fatigue and possible pneumonia. Patient is from [facility] where she was noted to be less like herself and with little energy and had a CXR that showed possible pneumonia. Thus patient was directed to come to the ER. ROS limited due to patient's clinical condition. In the ER patient had a head CT which was unremarkable. Patient's blood work and vitals revealed patient was septic on admission likely secondary to pneumonia. Patient was started on IVF, broad spectrum antibiotics, and admitted to the MICU for further management. PMH: Right breast CA s/p mastectomy 2013 currently undergoing chemotherapy, CAD s/p stent, HLD, HTN, DM2, sickle cell trait PSH: right breast mastectomy in 2013, right chest port placement FMH: patient denies any family hx, specifically denies family hx of breast cancer/DM/CAD SOCHX: Denies history of smoking, ETOH, ID ALL: NKDA MEDS: MAR reviewed PMD: Dr. Wilkerson Cardio: Dr. Slater Heme-Onc: Dr. Griffith Present on Admission - Present on Admission Any Indicators Present on Admission: No Review of Systems - Review of Systems Systems not reviewed;Unavailable: Acuity of Condition, Altered Mental Status Past Patient History - Infectious Disease Hx of Infectious Diseases: None - Tetanus Immunizations Tetanus Immunization: Unknown - Past Social History Smoking Status: Never Smoked Alcohol: None Drugs: Denies - CARDIAC Hx Cardiac Disorders: Yes Hx Hypertension: Yes - PULMONARY Hx Respiratory Disorders: No - NEUROLOGICAL Hx Neurological Disorder: No - HEENT Hx HEENT Problems: No - RENAL Hx Chronic Kidney Disease: No - ENDOCRINE/METABOLIC Hx Diabetes Mellitus Type 2: Yes - HEMATOLOGICAL/ONCOLOGICAL Hx Blood Disorders: Yes Hx Cancer: Yes (BREAST) - INTEGUMENTARY Hx Dermatological Problems: No - MUSCULOSKELETAL/RHEUMATOLOGICAL Hx Falls: Yes - GASTROINTESTINAL Hx Gastrointestinal Disorders: No - GENITOURINARY/GYNECOLOGICAL Hx Reproductive Disorders: No - PSYCHIATRIC Hx Psychophysiologic Disorder: No Hx Substance Use: No (UNKNOWN) - SURGICAL HISTORY Hx Mastectomy: Yes (right breast cancer status post mastectomy in 2014, chemo and radiation ) - ANESTHESIA Hx Anesthesia Reactions: Yes (NAUSEA) Hx Malignant Hyperthermia: No Meds Allergies/Adverse Reactions: Allergies Allergy/AdvReac Type Severity Reaction Status Date / Time No Known Allergies Allergy Verified 06/10/18 18:18 Physical Exam - Constitutional Appears: No Acute Distress, Confused, Chronically Ill Additional comments: lethargic - Head Exam Head Exam: ATRAUMATIC, NORMAL INSPECTION, NORMOCEPHALIC - Eye Exam Eye Exam: Normal appearance. absent: Conjunctival injection, Scleral icterus - ENT Exam ENT Exam: Mucous Membranes Moist - Neck Exam Neck exam: Positive for: Normal Inspection. Negative for: Lymphadenopathy - Respiratory Exam Respiratory Exam: Decreased Breath Sounds (R>L), Prolonged Expiratory Phase, Rhonchi, Wheezes, NORMAL BREATHING PATTERN. absent: Rales Additional comments: R chest port in place - Cardiovascular Exam Cardiovascular Exam: Tachycardia, +S1, +S2 - GI/Abdominal Exam GI & Abdominal Exam: Normal Bowel Sounds, Soft. absent: Firm, Rigid - Extremities Exam Extremities exam: Positive for: pedal edema (trace b/l), pedal pulses present - Neurological Exam Neurological exam: Altered (arousable ) - Psychiatric Exam Additional comments: lethargic - Skin Skin Exam: Dry, Intact, Normal Color, Warm Results - Vital Signs Recent Vital Signs: Last Vital Signs Temp 101.5 F H 07/15/18 01:02 Pulse 110 H 07/15/18 06:00 Resp 32 H 07/15/18 01:00 BP 113/69 07/15/18 01:00 Pulse Ox 98 07/15/18 01:02 - Labs Result Diagrams: 07/15/18 07:00 07/15/18 07:00 Labs: Laboratory Results - last 24 hr 07/14/18 07/14/18 07/14/18 15:59 15:59 15:59 WBC RBC Hgb Hct MCV MCH MCHC RDW Plt Count Gran % Lymph % (Auto) [place] % (Auto) Eos % (Auto) Baso % (Auto) Gran # Lymph # (Auto) [place] # (Auto) Eos # (Auto) Baso # (Auto) PT INR APTT pCO2 pO2 120 H HCO3 ABG pH ABG Total CO2 ABG O2 Saturation ABG Base Excess ABG Potassium VBG pH 7.32 VBG pCO2 45.0 VBG HCO3 23.2 VBG Total CO2 24.6 VBG O2 Sat (Calc) 99.1 H VBG Base Excess -3.1 L VBG Potassium 4.5 Sodium 149.0 H 148 Chloride 114.0 H 113 H Glucose 158 H Lactate 4.3 H* FiO2 21.0 Crit Value Called To Jr pino Crit Value Called By Atc Blood Gas Notified Time 1605 Potassium 4.6 Carbon Dioxide 24 Anion Gap 15 BUN 48 H Creatinine 1.4 H Est GFR ( Amer) 46 Est GFR (Non-Af Amer) 38 POC Glucose (mg/dL) Random Glucose 152 H Calcium 9.3 Phosphorus 5.2 H Magnesium 1.9 Total Bilirubin 0.7 AST 232 H D ALT 74 H Alkaline Phosphatase 128 H Ammonia Lactate Dehydrogenase Total Creatine Kinase Troponin I NT-Pro-B Natriuret Pep Total Protein 5.8 Albumin 3.4 Globulin 2.5 Albumin/Globulin Ratio 1.4 Procalcitonin 0.65 H Arterial Blood Potassium Venous Blood Potassium 4.5 Urine Color Urine Appearance Urine pH Ur Specific [place] Urine Protein Urine Glucose (UA) Urine Ketones Urine Blood Urine Nitrate Urine Bilirubin Urine Urobilinogen Ur Leukocyte Esterase Influenza Typ A,B (EIA) 07/14/18 07/14/18 07/14/18 16:00 16:20 16:30 WBC RBC Hgb Hct MCV MCH MCHC RDW Plt Count Gran % Lymph % (Auto) [place] % (Auto) Eos % (Auto) Baso % (Auto) Gran # Lymph # (Auto) [place] # (Auto) Eos # (Auto) Baso # (Auto) PT 17.2 H INR 1.50 APTT 39.3 H pCO2 pO2 HCO3 ABG pH ABG Total CO2 ABG O2 Saturation ABG Base Excess ABG Potassium VBG pH VBG pCO2 VBG HCO3 VBG Total CO2 VBG O2 Sat (Calc) VBG Base Excess VBG Potassium Sodium Chloride Glucose Lactate FiO2 Crit Value Called To Crit Value Called By Blood Gas Notified Time Potassium Carbon Dioxide Anion Gap BUN Creatinine Est GFR ( Amer) Est GFR (Non-Af Amer) POC Glucose (mg/dL) Random Glucose Calcium Phosphorus Magnesium Total Bilirubin AST ALT Alkaline Phosphatase Ammonia Lactate Dehydrogenase 8654 H Total Creatine Kinase 170 Troponin I 0.22 H* D NT-Pro-B Natriuret Pep 4930 H Total Protein Albumin Globulin Albumin/Globulin Ratio Procalcitonin Arterial Blood Potassium Venous Blood Potassium Urine Color Yellow Urine Appearance Clear Urine pH 6.0 Ur Specific [place] 1.020 Urine Protein Negative Urine Glucose (UA) Negative Urine Ketones Negative Urine Blood Negative Urine Nitrate Negative Urine Bilirubin Negative Urine Urobilinogen 0.2 Ur Leukocyte Esterase Negative Influenza Typ A,B (EIA) 07/14/18 07/14/18 07/14/18 17:05 18:02 19:30 WBC 2.8 L D RBC 3.45 L Hgb 8.5 L Hct 26.7 L MCV 77.4 L MCH 24.6 L MCHC 31.8 RDW 19.1 H Plt Count 54 L Gran % 75.5 H Lymph % (Auto) 19.3 L [place] % (Auto) 4.4 Eos % (Auto) 0.4 L Baso % (Auto) 0.4 Gran # 2.08 Lymph # (Auto) 0.5 L [place] # (Auto) 0.1 Eos # (Auto) 0.0 Baso # (Auto) 0.01 PT INR APTT pCO2 pO2 HCO3 ABG pH ABG Total CO2 ABG O2 Saturation ABG Base Excess ABG Potassium VBG pH VBG pCO2 VBG HCO3 VBG Total CO2 VBG O2 Sat (Calc) VBG Base Excess VBG Potassium Sodium Chloride Glucose Lactate FiO2 Crit Value Called To Crit Value Called By Blood Gas Notified Time Potassium Carbon Dioxide Anion Gap BUN Creatinine Est GFR ( Amer) Est GFR (Non-Af Amer) POC Glucose (mg/dL) Random Glucose Calcium Phosphorus Magnesium Total Bilirubin AST ALT Alkaline Phosphatase Ammonia 18 Lactate Dehydrogenase Total Creatine Kinase Troponin I NT-Pro-B Natriuret Pep Total Protein Albumin Globulin Albumin/Globulin Ratio Procalcitonin Arterial Blood Potassium Venous Blood Potassium Urine Color Urine Appearance Urine pH Ur Specific [place] Urine Protein Urine Glucose (UA) Urine Ketones Urine Blood Urine Nitrate Urine Bilirubin Urine Urobilinogen Ur Leukocyte Esterase Influenza Typ A,B (EIA) Pos for influenza a H 07/14/18 07/14/18 07/15/18 21:20 23:27 00:15 WBC RBC Hgb Hct MCV MCH MCHC RDW Plt Count Gran % Lymph % (Auto) [place] % (Auto) Eos % (Auto) Baso % (Auto) Gran # Lymph # (Auto) [place] # (Auto) Eos # (Auto) Baso # (Auto) PT INR APTT pCO2 pO2 79 H HCO3 ABG pH ABG Total CO2 ABG O2 Saturation ABG Base Excess ABG Potassium VBG pH 7.29 L VBG pCO2 51.0 VBG HCO3 24.5 VBG Total CO2 26.1 VBG O2 Sat (Calc) 97.1 H VBG Base Excess -2.7 L VBG Potassium 6.0 H Sodium 148.0 Chloride 117.0 H Glucose 116 H Lactate 2.6 H FiO2 21.0 Crit Value Called To Malgorzata hanson Crit Value Called By [facility] Blood Gas Notified Time 2124 Potassium Carbon Dioxide Anion Gap BUN Creatinine Est GFR ( Amer) Est GFR (Non-Af Amer) POC Glucose (mg/dL) 114 H Random Glucose Calcium Phosphorus 5.8 H Magnesium 1.7 Total Bilirubin AST ALT Alkaline Phosphatase Ammonia Lactate Dehydrogenase Total Creatine Kinase Troponin I 0.27 H* D NT-Pro-B Natriuret Pep Total Protein Albumin Globulin Albumin/Globulin Ratio Procalcitonin Arterial Blood Potassium Venous Blood Potassium 6.0 H Urine Color Urine Appearance Urine pH Ur Specific [place] Urine Protein Urine Glucose (UA) Urine Ketones Urine Blood Urine Nitrate Urine Bilirubin Urine Urobilinogen Ur Leukocyte Esterase Influenza Typ A,B (EIA) 07/15/18 07/15/18 07/15/18 00:50 06:50 07:00 WBC 2.9 L RBC 3.41 L Hgb 8.2 L Hct 26.6 L MCV 78.0 L MCH 24.0 L MCHC 30.8 L RDW 19.4 H Plt Count 52 L Gran % 70.1 H Lymph % (Auto) 23.3 [place] % (Auto) 5.9 Eos % (Auto) 0.0 L Baso % (Auto) 0.7 Gran # 2.02 Lymph # (Auto) 0.7 L [place] # (Auto) 0.2 Eos # (Auto) 0.0 Baso # (Auto) 0.02 PT INR APTT pCO2 33 L pO2 128.0 H 35 HCO3 19.5 L ABG pH 7.38 ABG Total CO2 20.5 L ABG O2 Saturation 98.9 H ABG Base Excess -4.7 L ABG Potassium 4.0 VBG pH 7.26 L VBG pCO2 51.0 VBG HCO3 22.9 VBG Total CO2 24.5 VBG O2 Sat (Calc) 65.4 H VBG Base Excess -4.6 L VBG Potassium 4.4 Sodium 151.0 H 151.0 H Chloride 120.0 H 118.0 H Glucose 74 86 Lactate 1.8 2.3 H FiO2 36.0 21.0 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 Crit Value Called By Es Blood Gas Notified Time 737 Potassium Carbon Dioxide Anion Gap BUN Creatinine Est GFR ( Amer) Est GFR (Non-Af Amer) POC Glucose (mg/dL) Random Glucose Calcium Phosphorus Magnesium Total Bilirubin AST ALT Alkaline Phosphatase Ammonia Lactate Dehydrogenase Total Creatine Kinase Troponin I NT-Pro-B Natriuret Pep Total Protein Albumin Globulin Albumin/Globulin Ratio Procalcitonin Arterial Blood Potassium 4.0 Venous Blood Potassium 4.4 Urine Color Urine Appearance Urine pH Ur Specific [place] Urine Protein Urine Glucose (UA) Urine Ketones Urine Blood Urine Nitrate Urine Bilirubin Urine Urobilinogen Ur Leukocyte Esterase Influenza Typ A,B (EIA) 07/15/18 07/15/18 07:00 07:21 WBC RBC Hgb Hct MCV MCH MCHC RDW Plt Count Gran % Lymph % (Auto) [place] % (Auto) Eos % (Auto) Baso % (Auto) Gran # Lymph # (Auto) [place] # (Auto) Eos # (Auto) Baso # (Auto) PT INR APTT pCO2 pO2 HCO3 ABG pH ABG Total CO2 ABG O2 Saturation ABG Base Excess ABG Potassium VBG pH VBG pCO2 VBG HCO3 VBG Total CO2 VBG O2 Sat (Calc) VBG Base Excess VBG Potassium Sodium 151 H Chloride 118 H Glucose Lactate FiO2 Crit Value Called To Crit Value Called By Blood Gas Notified Time Potassium 4.6 Carbon Dioxide 25 Anion Gap 13 BUN 54 H Creatinine 1.4 H Est GFR ( Amer) 46 Est GFR (Non-Af Amer) 38 POC Glucose (mg/dL) 73 Random Glucose 86 Calcium 8.6 Phosphorus Magnesium Total Bilirubin 0.7 AST 1276 H ALT 177 H Alkaline Phosphatase 170 H D Ammonia Lactate Dehydrogenase Total Creatine Kinase Troponin I 0.30 H* NT-Pro-B Natriuret Pep Total Protein 5.9 Albumin 3.3 Globulin 2.6 Albumin/Globulin Ratio 1.3 Procalcitonin Arterial Blood Potassium Venous Blood Potassium Urine Color Urine Appearance Urine pH Ur Specific [place] Urine Protein Urine Glucose (UA) Urine Ketones Urine Blood Urine Nitrate Urine Bilirubin Urine Urobilinogen Ur Leukocyte Esterase Influenza Typ A,B (EIA) Assessment & Plan - Assessment and Plan (Free Text) Assessment: 1. Severe Sepsis likely secondary to HCAP 2. Influenza A + 3. Elevated troponin 4. Transaminitis 5. Pancytopenia 6. Thrombocytopenia 7. Right breast CA s/p mastectomy 2014 currently undergoing chemotherapy 8. Anemia 9. MADELAINE 10. Elevated PT and PTT 11. HTN 12. HLD 13. Delirium Plan: Patient's blood work, vitals, and imaging reviewed. Patient on broad spectrum antibiotics and Tamiflu for the flu as per ID. Will follow up cultures, HIV, Legionella, and procalcitonin. Tylenol on board for elevated temp. Cardiology consulted for elevated troponin. EKG showed no acute St changes. Patient started on beta lindsay to reduce HR and metabolic demand. Patient's home cozaar discontinued at this time. Patient's elevated LFTs likely secondary to hypoperfusion. Lipitor on hold at this time. Will f/u abdominal u/s and acute hep panel. Patient's pancytopenia likely secondary to chemo vs LETY vs TTP/HUS. In light of patient's mentation, she is NPO at this time. Head CT negative for any acute findings. Home lyrica and neurontin discontinued. Maintain fluids @ 75cc/hr. RISS and accuchecks ordered. GI and DVT ppx in place. Maintain MAP > 65, euglycemia, normothermia, and euvolemia. Appreciate reccs of cardiology, heme/onc, ID, and MICU team. Discussed with Dr. Estella Greenwood PGY3 <Sherman Soria S - Last Filed: 07/16/18 17:57> Results - Vital Signs Recent Vital Signs: Last Vital Signs Temp 100.4 F H 07/16/18 12:00 Pulse 109 H 07/16/18 15:00 Resp 41 H 07/16/18 15:00 BP 125/70 07/16/18 15:00 Pulse Ox 90 L 07/16/18 15:00 - Labs Result Diagrams: 07/16/18 06:27 07/16/18 06:27 Labs: Laboratory Results - last 24 hr 07/15/18 07/15/18 07/15/18 00:15 06:50 13:25 WBC RBC Hgb Hct MCV MCH MCHC RDW Plt Count Manual Plt Count Gran % Lymph % (Auto) [place] % (Auto) Eos % (Auto) Baso % (Auto) Gran # Lymph # (Auto) [place] # (Auto) Eos # (Auto) Baso # (Auto) PT INR Sodium Potassium Chloride Carbon Dioxide Anion Gap BUN Creatinine Est GFR ( Amer) Est GFR (Non-Af Amer) POC Glucose (mg/dL) Random Glucose Calcium Phosphorus Magnesium Total Bilirubin AST ALT Alkaline Phosphatase Troponin I Total Protein Albumin Globulin Albumin/Globulin Ratio Procalcitonin 1.01 H Hepatitis A IgM Ab Hep Bs Antigen Hep B Core IgM Ab Hepatitis C Antibody HIV 1&2 Ag/Ab, 4th Gen Nonreactive Ur L.pneumophila Ag Negative 07/15/18 07/15/18 07/15/18 16:00 17:40 21:49 WBC RBC Hgb Hct MCV MCH MCHC RDW Plt Count Manual Plt Count Gran % Lymph % (Auto) [place] % (Auto) Eos % (Auto) Baso % (Auto) Gran # Lymph # (Auto) [place] # (Auto) Eos # (Auto) Baso # (Auto) PT INR Sodium 150 H Potassium 4.4 Chloride 120 H Carbon Dioxide 24 Anion Gap 9 L BUN 51 H Creatinine 1.5 H Est GFR ( Amer) 43 Est GFR (Non-Af Amer) 35 POC Glucose (mg/dL) 82 134 H Random Glucose 96 Calcium 8.5 Phosphorus 3.7 Magnesium 1.7 Total Bilirubin 0.6 AST 641 H D ALT 149 H Alkaline Phosphatase 161 H Troponin I Total Protein 5.3 L Albumin 3.0 Globulin 2.3 Albumin/Globulin Ratio 1.3 Procalcitonin Hepatitis A IgM Ab Hep Bs Antigen Hep B Core IgM Ab Hepatitis C Antibody HIV 1&2 Ag/Ab, 4th Gen Ur L.pneumophila Ag 07/16/18 07/16/18 07/16/18 06:27 06:27 06:27 WBC 6.1 D RBC 3.17 L Hgb 7.5 L Hct 24.4 L MCV 77.0 L MCH 23.7 L MCHC 30.7 L RDW 19.3 H Plt Count 68 L Manual Plt Count 50 L Gran % 83.5 H Lymph % (Auto) 11.9 L [place] % (Auto) 4.3 Eos % (Auto) 0.0 L Baso % (Auto) 0.3 Gran # 5.06 Lymph # (Auto) 0.7 L [place] # (Auto) 0.3 Eos # (Auto) 0.0 Baso # (Auto) 0.02 PT INR Sodium 152 H Potassium 4.0 Chloride 121 H Carbon Dioxide 24 Anion Gap 11 BUN 53 H Creatinine 1.3 H Est GFR ( Amer) 50 Est GFR (Non-Af Amer) 42 POC Glucose (mg/dL) Random Glucose 119 H Calcium 8.6 Phosphorus Magnesium Total Bilirubin 0.6 AST 417 H D ALT 129 H Alkaline Phosphatase 174 H Troponin I 0.31 H* Total Protein 5.1 L Albumin 2.8 L Globulin 2.3 Albumin/Globulin Ratio 1.2 Procalcitonin Hepatitis A IgM Ab Negative Hep Bs Antigen Negative Hep B Core IgM Ab Negative Hepatitis C Antibody Negative HIV 1&2 Ag/Ab, 4th Gen Ur L.pneumophila Ag 07/16/18 07/16/18 07/16/18 06:27 07:48 11:52 WBC RBC Hgb Hct MCV MCH MCHC RDW Plt Count Manual Plt Count Gran % Lymph % (Auto) [place] % (Auto) Eos % (Auto) Baso % (Auto) Gran # Lymph # (Auto) [place] # (Auto) Eos # (Auto) Baso # (Auto) PT 18.3 H INR 1.58 Sodium Potassium Chloride Carbon Dioxide Anion Gap BUN Creatinine Est GFR ( Amer) Est GFR (Non-Af Amer) POC Glucose (mg/dL) 130 H 156 H Random Glucose Calcium Phosphorus Magnesium Total Bilirubin AST ALT Alkaline Phosphatase Troponin I Total Protein Albumin Globulin Albumin/Globulin Ratio Procalcitonin Hepatitis A IgM Ab Hep Bs Antigen Hep B Core IgM Ab Hepatitis C Antibody HIV 1&2 Ag/Ab, 4th Gen Ur L.pneumophila Ag 07/16/18 16:35 WBC RBC Hgb Hct MCV MCH MCHC RDW Plt Count Manual Plt Count Gran % Lymph % (Auto) [place] % (Auto) Eos % (Auto) Baso % (Auto) Gran # Lymph # (Auto) [place] # (Auto) Eos # (Auto) Baso # (Auto) PT INR Sodium Potassium Chloride Carbon Dioxide Anion Gap BUN Creatinine Est GFR ( Amer) Est GFR (Non-Af Amer) POC Glucose (mg/dL) 225 H Random Glucose Calcium Phosphorus Magnesium Total Bilirubin AST ALT Alkaline Phosphatase Troponin I Total Protein Albumin Globulin Albumin/Globulin Ratio Procalcitonin Hepatitis A IgM Ab Hep Bs Antigen Hep B Core IgM Ab Hepatitis C Antibody HIV 1&2 Ag/Ab, 4th Gen Ur L.pneumophila Ag Assessment & Plan - Assessment and Plan (Free Text) Plan: Pt seen and examined by me. I have reviewed the note of the bio medical technician and I agree with it. I have discussed the assessment and plan with the resident. I have reviewed the medications and the last labs. Pt with severe sepsis. She has MADELAINE, transaminitis due to hypotension, hypernatremia, HCAP and Influenza. She has been given IVF and is responding to it. Will need to add more free water. She will be seen by Oncology, ID, Cardiology. SHe has an elevated trop. Hold Neurontin and Lyrica for now. BCx and UCx. US to be done. Will need to address advanced directives. Guarded prognosis. NPO. Pancytopenia of unknown etiology but porbably multifatorial.
--- NOTE | 2018-07-15 08:26 | CP.PCM.CON ---
History of Present Illness - History of Present Illness History of Present Illness: PGY-2 heme/onc consult note 63 year old female with past medical history of breast cancer s/p mastectomy on chemotherapy, CAD s/p stent, HLD, HTN, DM2, sickle cell trait who presents to [facility] ED from Dr. Griffith's office for fatigue and concern for pneumonia. She was at [facility] where she had a chest xray performed which showed possible pnuemonia. Dr Griffith recommended patient go to ER. Patient was AAOx3 however appeared confused at times. She denies complaints of chest pain, abdominal pain, urinary complaints, headache, one sided weakness/numbness, visual complaints, fevers, chills, nausea, vomiting. She did report some shortness of breath with dry cough. PMH: Right breast CA s/p mastectomy 2013 currently undergoing chemotherapy, CAD s/p stent, HLD, HTN, DM2, sickle cell trait PSH: right breast mastectomy in 2013, right chest port placement FMH: patient denies any family hx, specifically denies family hx of breast cancer/DM/CAD SOCHX: Denies history of smoking, ETOH, ID ALL: [id number] MEDS: MAR reviewed PMD: Dr. Wilkerson Cardio: Dr. Slater Heme-Onc: Dr. Griffith Review of Systems - Review of Systems All systems: reviewed and no additional remarkable complaints except (as stated in HPI) Past Patient History - Infectious Disease Hx of Infectious Diseases: None - Tetanus Immunizations Tetanus Immunization: Unknown - Past Social History Smoking Status: Never Smoked Alcohol: None Drugs: Denies - CARDIAC Hx Cardiac Disorders: Yes Hx Hypertension: Yes - PULMONARY Hx Respiratory Disorders: No - NEUROLOGICAL Hx Neurological Disorder: No - HEENT Hx HEENT Problems: No - RENAL Hx Chronic Kidney Disease: No - ENDOCRINE/METABOLIC Hx Diabetes Mellitus Type 2: Yes - HEMATOLOGICAL/ONCOLOGICAL Hx Blood Disorders: Yes Hx Cancer: Yes (BREAST) - INTEGUMENTARY Hx Dermatological Problems: No - MUSCULOSKELETAL/RHEUMATOLOGICAL Hx Falls: Yes - GASTROINTESTINAL Hx Gastrointestinal Disorders: No - GENITOURINARY/GYNECOLOGICAL Hx Reproductive Disorders: No - PSYCHIATRIC Hx Psychophysiologic Disorder: No Hx Substance Use: No (UNKNOWN) - SURGICAL HISTORY Hx Mastectomy: Yes (right breast cancer status post mastectomy in 2013, chemo and radiation ) - ANESTHESIA Hx Anesthesia Reactions: Yes (NAUSEA) Hx Malignant Hyperthermia: No Meds Allergies/Adverse Reactions: Allergies Allergy/AdvReac Type Severity Reaction Status Date / Time No Known Allergies Allergy Verified 06/10/18 18:18 - Medications Medications: Current Medications Acetaminophen (Tylenol 325mg Tab) 650 mg PO Q4H PRN PRN Reason: Temp greater than 100.4*F Aspirin (Ecotrin) 81 mg PO DAILY [facility] Atorvastatin Calcium (Lipitor) 20 mg PO DIN [facility] Cyproheptadine HCl (Periactin) 2 mg PO DAILY [facility] Famotidine (Pepcid) 40 mg PO HS [facility] Ferrous Sulfate (Feosol) 324 mg PO BID [facility] Folic Acid (Folic Acid) 1 mg PO DAILY [facility] Gabapentin (Neurontin) 600 mg PO BID [facility]; Protocol Gemfibrozil (Lopid) 600 mg PO DAILY [facility] Heparin Sodium (Porcine) (Heparin) 5,000 units SC Q8 [facility]; Protocol Last Admin: 07/15/18 06:46 Dose: 5,000 units Acetaminophen (Ofirmev) 1,000 mg in 100 mls @ 400 mls/hr IVPB Q6H PRN PRN Reason: fever Stop: 07/16/18 23:31 Last Admin: 07/14/18 23:42 Dose: 400 mls/hr Meropenem/Sodium Chloride (Merrem Iv 500 Mg/Ns 50 Ml) 500 mg in 50 mls @ 100 mls/hr IVPB Q12 [facility]; Protocol Stop: 07/22/18 06:46 Last Admin: 07/15/18 06:47 Dose: 100 mls/hr Vancomycin HCl 2.5 gm/ Sodium (Chloride) 500 mls @ 170 mls/hr IVPB ONCE ONE; Protocol Stop: 07/15/18 10:26 Sodium Chloride (Sodium Chloride 0.9%) 1,000 mls @ 75 mls/hr IV .[id number] [facility] Last Admin: 07/15/18 07:54 Dose: 75 mls/hr Insulin Human Lispro (Humalog Low) 0 units SC ACHS [facility]; Protocol Last Admin: 07/15/18 07:49 Dose: Not Given Levofloxacin/Dextrose (Levaquin 750mg) 750 mg IVPB QOTHERDAY [facility]; Protocol Losartan Potassium (Cozaar) 100 mg PO DAILY [facility] Magnesium Oxide (Mag-Ox) 400 mg PO DAILY [facility] Meclizine HCl (Antivert) 12.5 mg PO BID PRN PRN Reason: Dizziness Metoprolol Tartrate (Lopressor) 25 mg PO BID [facility] Oseltamivir Phosphate (Tamiflu Cap) 30 mg PO Q12 [facility]; Protocol Pregabalin (Lyrica) 75 mg PO BID [facility] Physical Exam - Additional Findings Additional findings: - Constitutional Appears: No Acute Distress, Older Than Stated Age, Cachectic, Chronically Ill - Head Exam Head Exam: ATRAUMATIC, NORMAL INSPECTION, NORMOCEPHALIC - Eye Exam Eye Exam: EOMI, PERRL - ENT Exam ENT Exam: Mucous Membranes Dry - Neck Exam Neck exam: Positive for: Full Rom - Respiratory Exam Respiratory Exam: Decreased Breath Sounds (R>L), Wheezes (expiratory bilaterally ), NORMAL BREATHING PATTERN - Cardiovascular Exam Cardiovascular Exam: REGULAR RHYTHM, +S1, +S2. absent: Clicks, JVD, Rubs - GI/Abdominal Exam GI & Abdominal Exam: Normal Bowel Sounds, Soft. absent: Firm, Guarding, Rigid, Tenderness - Extremities Exam Extremities exam: Positive for: pedal edema (+1 b/l lower extremities ) - Neurological Exam Neurological exam: Alert Additional comments: alert and oriented x 3 motor and sensory grossly intact - Psychiatric Exam Additional comments: quiet, non-anxious - Skin Skin Exam: Dry, Intact, Warm Results - Vital Signs Recent Vital Signs: Last Vital Signs Temp 101.5 F H 07/15/18 01:02 Pulse 110 H 07/15/18 06:00 Resp 32 H 07/15/18 01:00 BP 113/69 07/15/18 01:00 Pulse Ox 98 07/15/18 01:02 - Labs Result Diagrams: 07/15/18 07:00 07/15/18 07:00 Labs: Laboratory Results - last 24 hr 07/14/18 07/14/18 07/14/18 15:59 15:59 15:59 WBC RBC Hgb Hct MCV MCH MCHC RDW Plt Count Gran % Lymph % (Auto) [place] % (Auto) Eos % (Auto) Baso % (Auto) Gran # Lymph # (Auto) [place] # (Auto) Eos # (Auto) Baso # (Auto) PT INR APTT pCO2 pO2 120 H HCO3 ABG pH ABG Total CO2 ABG O2 Saturation ABG Base Excess ABG Potassium VBG pH 7.32 VBG pCO2 45.0 VBG HCO3 23.2 VBG Total CO2 24.6 VBG O2 Sat (Calc) 99.1 H VBG Base Excess -3.1 L VBG Potassium 4.5 Sodium 149.0 H 148 Chloride 114.0 H 113 H Glucose 158 H Lactate 4.3 H* FiO2 21.0 Crit Value Called To Jr pino Crit Value Called By [facility] Blood Gas Notified Time 1605 Potassium 4.6 Carbon Dioxide 24 Anion Gap 15 BUN 48 H Creatinine 1.4 H Est GFR ( Amer) 46 Est GFR (Non-Af Amer) 38 POC Glucose (mg/dL) Random Glucose 152 H Calcium 9.3 Phosphorus 5.2 H Magnesium 1.9 Total Bilirubin 0.7 AST 232 H D ALT 74 H Alkaline Phosphatase 128 H Ammonia Lactate Dehydrogenase Total Creatine Kinase Troponin I NT-Pro-B Natriuret Pep Total Protein 5.8 Albumin 3.4 Globulin 2.5 Albumin/Globulin Ratio 1.4 Procalcitonin 0.65 H Arterial Blood Potassium Venous Blood Potassium 4.5 Urine Color Urine Appearance Urine pH Ur Specific [place] Urine Protein Urine Glucose (UA) Urine Ketones Urine Blood Urine Nitrate Urine Bilirubin Urine Urobilinogen Ur Leukocyte Esterase Influenza Typ A,B (EIA) 07/14/18 07/14/18 07/14/18 16:00 16:20 16:30 WBC RBC Hgb Hct MCV MCH MCHC RDW Plt Count Gran % Lymph % (Auto) [place] % (Auto) Eos % (Auto) Baso % (Auto) Gran # Lymph # (Auto) [place] # (Auto) Eos # (Auto) Baso # (Auto) PT 17.2 H INR 1.50 APTT 39.3 H pCO2 pO2 HCO3 ABG pH ABG Total CO2 ABG O2 Saturation ABG Base Excess ABG Potassium VBG pH VBG pCO2 VBG HCO3 VBG Total CO2 VBG O2 Sat (Calc) VBG Base Excess VBG Potassium Sodium Chloride Glucose Lactate FiO2 Crit Value Called To Crit Value Called By Blood Gas Notified Time Potassium Carbon Dioxide Anion Gap BUN Creatinine Est GFR ( Amer) Est GFR (Non-Af Amer) POC Glucose (mg/dL) Random Glucose Calcium Phosphorus Magnesium Total Bilirubin AST ALT Alkaline Phosphatase Ammonia Lactate Dehydrogenase 8654 H Total Creatine Kinase 170 Troponin I 0.22 H* D NT-Pro-B Natriuret Pep 4930 H Total Protein Albumin Globulin Albumin/Globulin Ratio Procalcitonin Arterial Blood Potassium Venous Blood Potassium Urine Color Yellow Urine Appearance Clear Urine pH 6.0 Ur Specific [place] 1.020 Urine Protein Negative Urine Glucose (UA) Negative Urine Ketones Negative Urine Blood Negative Urine Nitrate Negative Urine Bilirubin Negative Urine Urobilinogen 0.2 Ur Leukocyte Esterase Negative Influenza Typ A,B (EIA) 07/14/18 07/14/18 07/14/18 17:05 18:02 19:30 WBC 2.8 L D RBC 3.45 L Hgb 8.5 L Hct 26.7 L MCV 77.4 L MCH 24.6 L MCHC 31.8 RDW 19.1 H Plt Count 54 L Gran % 75.5 H Lymph % (Auto) 19.3 L [place] % (Auto) 4.4 Eos % (Auto) 0.4 L Baso % (Auto) 0.4 Gran # 2.08 Lymph # (Auto) 0.5 L [place] # (Auto) 0.1 Eos # (Auto) 0.0 Baso # (Auto) 0.01 PT INR APTT pCO2 pO2 HCO3 ABG pH ABG Total CO2 ABG O2 Saturation ABG Base Excess ABG Potassium VBG pH VBG pCO2 VBG HCO3 VBG Total CO2 VBG O2 Sat (Calc) VBG Base Excess VBG Potassium Sodium Chloride Glucose Lactate FiO2 Crit Value Called To Crit Value Called By Blood Gas Notified Time Potassium Carbon Dioxide Anion Gap BUN Creatinine Est GFR ( Amer) Est GFR (Non-Af Amer) POC Glucose (mg/dL) Random Glucose Calcium Phosphorus Magnesium Total Bilirubin AST ALT Alkaline Phosphatase Ammonia 18 Lactate Dehydrogenase Total Creatine Kinase Troponin I NT-Pro-B Natriuret Pep Total Protein Albumin Globulin Albumin/Globulin Ratio Procalcitonin Arterial Blood Potassium Venous Blood Potassium Urine Color Urine Appearance Urine pH Ur Specific [place] Urine Protein Urine Glucose (UA) Urine Ketones Urine Blood Urine Nitrate Urine Bilirubin Urine Urobilinogen Ur Leukocyte Esterase Influenza Typ A,B (EIA) Pos for influenza a H 07/14/18 07/14/18 07/15/18 21:20 23:27 00:15 WBC RBC Hgb Hct MCV MCH MCHC RDW Plt Count Gran % Lymph % (Auto) [place] % (Auto) Eos % (Auto) Baso % (Auto) Gran # Lymph # (Auto) [place] # (Auto) Eos # (Auto) Baso # (Auto) PT INR APTT pCO2 pO2 79 H HCO3 ABG pH ABG Total CO2 ABG O2 Saturation ABG Base Excess ABG Potassium VBG pH 7.29 L VBG pCO2 51.0 VBG HCO3 24.5 VBG Total CO2 26.1 VBG O2 Sat (Calc) 97.1 H VBG Base Excess -2.7 L VBG Potassium 6.0 H Sodium 148.0 Chloride 117.0 H Glucose 116 H Lactate 2.6 H FiO2 21.0 Crit Value Called To Malgorzata hanson Crit Value Called By Atc Blood Gas Notified Time 2124 Potassium Carbon Dioxide Anion Gap BUN Creatinine Est GFR ( Amer) Est GFR (Non-Af Amer) POC Glucose (mg/dL) 114 H Random Glucose Calcium Phosphorus 5.8 H Magnesium 1.7 Total Bilirubin AST ALT Alkaline Phosphatase Ammonia Lactate Dehydrogenase Total Creatine Kinase Troponin I 0.27 H* D NT-Pro-B Natriuret Pep Total Protein Albumin Globulin Albumin/Globulin Ratio Procalcitonin Arterial Blood Potassium Venous Blood Potassium 6.0 H Urine Color Urine Appearance Urine pH Ur Specific [place] Urine Protein Urine Glucose (UA) Urine Ketones Urine Blood Urine Nitrate Urine Bilirubin Urine Urobilinogen Ur Leukocyte Esterase Influenza Typ A,B (EIA) 07/15/18 07/15/18 07/15/18 00:50 06:50 07:00 WBC 2.9 L RBC 3.41 L Hgb 8.2 L Hct 26.6 L MCV 78.0 L MCH 24.0 L MCHC 30.8 L RDW 19.4 H Plt Count 52 L Gran % 70.1 H Lymph % (Auto) 23.3 [place] % (Auto) 5.9 Eos % (Auto) 0.0 L Baso % (Auto) 0.7 Gran # 2.02 Lymph # (Auto) 0.7 L [place] # (Auto) 0.2 Eos # (Auto) 0.0 Baso # (Auto) 0.02 PT INR APTT pCO2 33 L pO2 128.0 H 35 HCO3 19.5 L ABG pH 7.38 ABG Total CO2 20.5 L ABG O2 Saturation 98.9 H ABG Base Excess -4.7 L ABG Potassium 4.0 VBG pH 7.26 L VBG pCO2 51.0 VBG HCO3 22.9 VBG Total CO2 24.5 VBG O2 Sat (Calc) 65.4 H VBG Base Excess -4.6 L VBG Potassium 4.4 Sodium 151.0 H 151.0 H Chloride 120.0 H 118.0 H Glucose 74 86 Lactate 1.8 2.3 H FiO2 36.0 21.0 Crit Value Called To Maral elias rn icu Crit Value Called By Es Blood Gas Notified Time 737 Potassium Carbon Dioxide Anion Gap BUN Creatinine Est GFR ( Amer) Est GFR (Non-Af Amer) POC Glucose (mg/dL) Random Glucose Calcium Phosphorus Magnesium Total Bilirubin AST ALT Alkaline Phosphatase Ammonia Lactate Dehydrogenase Total Creatine Kinase Troponin I NT-Pro-B Natriuret Pep Total Protein Albumin Globulin Albumin/Globulin Ratio Procalcitonin Arterial Blood Potassium 4.0 Venous Blood Potassium 4.4 Urine Color Urine Appearance Urine pH Ur Specific [place] Urine Protein Urine Glucose (UA) Urine Ketones Urine Blood Urine Nitrate Urine Bilirubin Urine Urobilinogen Ur Leukocyte Esterase Influenza Typ A,B (EIA) 07/15/18 07:00 WBC RBC Hgb Hct MCV MCH MCHC RDW Plt Count Gran % Lymph % (Auto) [place] % (Auto) Eos % (Auto) Baso % (Auto) Gran # Lymph # (Auto) [place] # (Auto) Eos # (Auto) Baso # (Auto) PT INR APTT pCO2 pO2 HCO3 ABG pH ABG Total CO2 ABG O2 Saturation ABG Base Excess ABG Potassium VBG pH VBG pCO2 VBG HCO3 VBG Total CO2 VBG O2 Sat (Calc) VBG Base Excess VBG Potassium Sodium 151 H Chloride 118 H Glucose Lactate FiO2 Crit Value Called To Crit Value Called By Blood Gas Notified Time Potassium 4.6 Carbon Dioxide 25 Anion Gap 13 BUN 54 H Creatinine 1.4 H Est GFR ( Amer) 46 Est GFR (Non-Af Amer) 38 POC Glucose (mg/dL) Random Glucose 86 Calcium 8.6 Phosphorus Magnesium Total Bilirubin 0.7 AST 1276 H ALT 177 H Alkaline Phosphatase 170 H D Ammonia Lactate Dehydrogenase Total Creatine Kinase Troponin I 0.30 H* NT-Pro-B Natriuret Pep Total Protein 5.9 Albumin 3.3 Globulin 2.6 Albumin/Globulin Ratio 1.3 Procalcitonin Arterial Blood Potassium Venous Blood Potassium Urine Color Urine Appearance Urine pH Ur Specific [place] Urine Protein Urine Glucose (UA) Urine Ketones Urine Blood Urine Nitrate Urine Bilirubin Urine Urobilinogen Ur Leukocyte Esterase Influenza Typ A,B (EIA) Assessment & Plan - Assessment and Plan (Free Text) Plan: 63 year old female with past medical history of breast cancer s/p mastectomy on chemotherapy, CAD s/p stent, HLD, HTN, DM2, sickle cell trait who presents to [facility] ED from Dr. Griffith's office for fatigue found to have NSTEMI, Flu + and concern for pneumonia: Right breast CA -s/p mastectomy 2013 currently undergoing chemotherapy -she has received 1 cycle of immunotherapy -brachial plexopathy from mastectomy Sickle Cell Trait -Hgb stable at her baseline of ~8 -watch for signs of sickle cell crises -no splenomegaly on exam and on imaging performed 1 month ag Flu with superimposed pneumonia -ID on board treating with tamiflu, merrem, levaquin Case discussed with Dr Ander Griffith
--- NOTE | 2018-07-15 08:27 | RAD ---
Date of service: 07/15/2018 HISTORY: evaluation COMPARISON: Portable chest 07/14/2018. FINDINGS: LUNGS: Right MediPort unchanged in position. Taking differences in positioning into account, limited infiltrates identified at the medial right base with underlying scattered metastatic nodules again distributed bilaterally. PLEURA: No significant pleural effusion identified, no pneumothorax apparent. CARDIOVASCULAR: Calcific atherosclerotic changes are seen related to the thoracic aorta. Normal cardiac size. No pulmonary vascular congestion. OSSEOUS STRUCTURES: No significant abnormalities. VISUALIZED UPPER ABDOMEN: Normal. OTHER FINDINGS: None. IMPRESSION: Limited patchy infiltrate medial right base. Scattered pulmonary nodules again seen bilaterally. No pulmonary vascular congestion.
[2018-07-15] MEDS ORDERED: Sodium Chloride 0.45% 1,000 ML IV SCH (09:00)
--- NOTE | 2018-07-15 09:26 | CP.PCM.CON ---
<Jj Wolfe - Last Filed: 07/15/18 12:37> History of Present Illness - History of Present Illness History of Present Illness: ID Consult Note 63 year old female with past medical of breast cancer s/p mastectomy, currently on chemotherapy, CAD s/p stent placement, DM2, HTN, and sickle cell trait presents to the hospital from outpatient office due to increased lethargy. Patient has increased lethargy and is not able to give a history. Much of history provided is taken from prior medical charts. As per family, she became increasingly fatigued at home. ROS limited due to lethargic mental status of patient. Medical Hx: Right breast CA s/p mastectomy, CAD s/p stent, HLD, HTN, DM2, sickle cell trait Surgical Hx: right breast mastectomy, right chest port placement Family Hx: Denies Social Hx: Denies history of tobacco, alcohol, or illicit drug use ALL: NKDA Medications: Reviewed, as per MAR Review of Systems - Review of Systems Systems not reviewed;Unavailable: Other (Lethargic) Past Patient History - Infectious Disease Hx of Infectious Diseases: None - Tetanus Immunizations Tetanus Immunization: Unknown - Past Social History Smoking Status: Never Smoked Alcohol: None Drugs: Denies - CARDIAC Hx Cardiac Disorders: Yes Hx Hypertension: Yes - PULMONARY Hx Respiratory Disorders: No - NEUROLOGICAL Hx Neurological Disorder: No - HEENT Hx HEENT Problems: No - RENAL Hx Chronic Kidney Disease: No - ENDOCRINE/METABOLIC Hx Diabetes Mellitus Type 2: Yes - HEMATOLOGICAL/ONCOLOGICAL Hx Blood Disorders: Yes Hx Cancer: Yes (BREAST) - INTEGUMENTARY Hx Dermatological Problems: No - MUSCULOSKELETAL/RHEUMATOLOGICAL Hx Falls: Yes - GASTROINTESTINAL Hx Gastrointestinal Disorders: No - GENITOURINARY/GYNECOLOGICAL Hx Reproductive Disorders: No - PSYCHIATRIC Hx Psychophysiologic Disorder: No Hx Substance Use: No (UNKNOWN) - SURGICAL HISTORY Hx Mastectomy: Yes (right breast cancer status post mastectomy in 2013, chemo and radiation ) - ANESTHESIA Hx Anesthesia Reactions: Yes (NAUSEA) Hx Malignant Hyperthermia: No Meds Allergies/Adverse Reactions: Allergies Allergy/AdvReac Type Severity Reaction Status Date / Time No Known Allergies Allergy Verified 06/10/18 18:18 - Medications Medications: Current Medications Acetaminophen (Tylenol 325mg Tab) 650 mg PO Q4H PRN PRN Reason: Temp greater than 100.4*F Aspirin (Ecotrin) 81 mg PO DAILY [facility] Cyproheptadine HCl (Periactin) 2 mg PO DAILY [facility] Famotidine (Pepcid) 40 mg PO HS [facility] Ferrous Sulfate (Feosol) 324 mg PO BID [facility] Folic Acid (Folic Acid) 1 mg PO DAILY [facility] Heparin Sodium (Porcine) (Heparin) 5,000 units SC Q8 [facility]; Protocol Last Admin: 07/15/18 06:46 Dose: 5,000 units Acetaminophen (Ofirmev) 1,000 mg in 100 mls @ 400 mls/hr IVPB Q6H PRN PRN Reason: fever Stop: 07/16/18 23:31 Last Admin: 07/14/18 23:42 Dose: 400 mls/hr Meropenem/Sodium Chloride (Merrem Iv 500 Mg/Ns 50 Ml) 500 mg in 50 mls @ 100 mls/hr IVPB Q12 [facility]; Protocol Stop: 07/22/18 06:46 Last Admin: 07/15/18 06:47 Dose: 100 mls/hr Vancomycin HCl 2.5 gm/ Sodium (Chloride) 500 mls @ 170 mls/hr IVPB ONCE ONE; Protocol Stop: 07/15/18 10:26 Last Admin: 07/15/18 08:51 Dose: 170 mls/hr Sodium Chloride (Sodium Chloride 0.45%) 1,000 mls @ 75 mls/hr IV .[id number] [facility] Insulin Human Lispro (Humalog Low) 0 units SC ACHS [facility]; Protocol Last Admin: 07/15/18 07:49 Dose: Not Given Levofloxacin/Dextrose (Levaquin 750mg) 750 mg IVPB QOTHERDAY [facility]; Protocol Meclizine HCl (Antivert) 12.5 mg PO BID PRN PRN Reason: Dizziness Metoprolol Tartrate (Lopressor) 25 mg PO BID [facility] Oseltamivir Phosphate (Tamiflu Cap) 30 mg PO Q12 [facility]; Protocol Physical Exam - Constitutional Appears: Toxic, Chronically Ill - Head Exam Head Exam: ATRAUMATIC, NORMAL INSPECTION, NORMOCEPHALIC - Eye Exam Eye Exam: Normal appearance - ENT Exam ENT Exam: Mucous Membranes Dry - Neck Exam Neck exam: Positive for: Normal Inspection - Respiratory Exam Respiratory Exam: Decreased Breath Sounds, Rhonchi. absent: Rales, Wheezes Additional comments: Right chest port placement - Cardiovascular Exam Cardiovascular Exam: RRR, +S1, +S2 - GI/Abdominal Exam GI & Abdominal Exam: Normal Bowel Sounds, Soft. absent: Tenderness - Extremities Exam Extremities exam: Positive for: normal inspection, pedal edema (Trace). Negative for: tenderness - Neurological Exam Additional comments: Lethargic - Skin Skin Exam: Dry, Intact, Warm Results - Vital Signs Recent Vital Signs: Last Vital Signs Temp 101.5 F H 07/15/18 01:02 Pulse 110 H 07/15/18 06:00 Resp 32 H 07/15/18 01:00 BP 113/69 07/15/18 01:00 Pulse Ox 98 07/15/18 01:02 - Labs Result Diagrams: 07/15/18 07:00 07/15/18 07:00 Labs: Laboratory Results - last 24 hr 07/14/18 07/14/18 07/14/18 15:59 15:59 15:59 WBC RBC Hgb Hct MCV MCH MCHC RDW Plt Count Gran % Lymph % (Auto) Atkinson % (Auto) Eos % (Auto) Baso % (Auto) Gran # Lymph # (Auto) Atkinson # (Auto) Eos # (Auto) Baso # (Auto) PT INR APTT pCO2 pO2 120 H HCO3 ABG pH ABG Total CO2 ABG O2 Saturation ABG Base Excess ABG Potassium VBG pH 7.32 VBG pCO2 45.0 VBG HCO3 23.2 VBG Total CO2 24.6 VBG O2 Sat (Calc) 99.1 H VBG Base Excess -3.1 L VBG Potassium 4.5 Sodium 149.0 H 148 Chloride 114.0 H 113 H Glucose 158 H Lactate 4.3 H* FiO2 21.0 Crit Value Called To Jr pino Crit Value Called By [facility] Blood Gas Notified Time 1605 Potassium 4.6 Carbon Dioxide 24 Anion Gap 15 BUN 48 H Creatinine 1.4 H Est GFR ( Amer) 46 Est GFR (Non-Af Amer) 38 POC Glucose (mg/dL) Random Glucose 152 H Calcium 9.3 Phosphorus 5.2 H Magnesium 1.9 Total Bilirubin 0.7 AST 232 H D ALT 74 H Alkaline Phosphatase 128 H Ammonia Lactate Dehydrogenase Total Creatine Kinase Troponin I NT-Pro-B Natriuret Pep Total Protein 5.8 Albumin 3.4 Globulin 2.5 Albumin/Globulin Ratio 1.4 Procalcitonin 0.65 H Arterial Blood Potassium Venous Blood Potassium 4.5 Urine Color Urine Appearance Urine pH Ur Specific [place] Urine Protein Urine Glucose (UA) Urine Ketones Urine Blood Urine Nitrate Urine Bilirubin Urine Urobilinogen Ur Leukocyte Esterase Influenza Typ A,B (EIA) 07/14/18 07/14/18 07/14/18 16:00 16:20 16:30 WBC RBC Hgb Hct MCV MCH MCHC RDW Plt Count Gran % Lymph % (Auto) Atkinson % (Auto) Eos % (Auto) Baso % (Auto) Gran # Lymph # (Auto) Atkinson # (Auto) Eos # (Auto) Baso # (Auto) PT 17.2 H INR 1.50 APTT 39.3 H pCO2 pO2 HCO3 ABG pH ABG Total CO2 ABG O2 Saturation ABG Base Excess ABG Potassium VBG pH VBG pCO2 VBG HCO3 VBG Total CO2 VBG O2 Sat (Calc) VBG Base Excess VBG Potassium Sodium Chloride Glucose Lactate FiO2 Crit Value Called To Crit Value Called By Blood Gas Notified Time Potassium Carbon Dioxide Anion Gap BUN Creatinine Est GFR ( Amer) Est GFR (Non-Af Amer) POC Glucose (mg/dL) Random Glucose Calcium Phosphorus Magnesium Total Bilirubin AST ALT Alkaline Phosphatase Ammonia Lactate Dehydrogenase 8654 H Total Creatine Kinase 170 Troponin I 0.22 H* D NT-Pro-B Natriuret Pep 4930 H Total Protein Albumin Globulin Albumin/Globulin Ratio Procalcitonin Arterial Blood Potassium Venous Blood Potassium Urine Color Yellow Urine Appearance Clear Urine pH 6.0 Ur Specific [place] 1.020 Urine Protein Negative Urine Glucose (UA) Negative Urine Ketones Negative Urine Blood Negative Urine Nitrate Negative Urine Bilirubin Negative Urine Urobilinogen 0.2 Ur Leukocyte Esterase Negative Influenza Typ A,B (EIA) 07/14/18 07/14/18 07/14/18 17:05 18:02 19:30 WBC 2.8 L D RBC 3.45 L Hgb 8.5 L Hct 26.7 L MCV 77.4 L MCH 24.6 L MCHC 31.8 RDW 19.1 H Plt Count 54 L Gran % 75.5 H Lymph % (Auto) 19.3 L Atkinson % (Auto) 4.4 Eos % (Auto) 0.4 L Baso % (Auto) 0.4 Gran # 2.08 Lymph # (Auto) 0.5 L [place] # (Auto) 0.1 Eos # (Auto) 0.0 Baso # (Auto) 0.01 PT INR APTT pCO2 pO2 HCO3 ABG pH ABG Total CO2 ABG O2 Saturation ABG Base Excess ABG Potassium VBG pH VBG pCO2 VBG HCO3 VBG Total CO2 VBG O2 Sat (Calc) VBG Base Excess VBG Potassium Sodium Chloride Glucose Lactate FiO2 Crit Value Called To Crit Value Called By Blood Gas Notified Time Potassium Carbon Dioxide Anion Gap BUN Creatinine Est GFR ( Amer) Est GFR (Non-Af Amer) POC Glucose (mg/dL) Random Glucose Calcium Phosphorus Magnesium Total Bilirubin AST ALT Alkaline Phosphatase Ammonia 18 Lactate Dehydrogenase Total Creatine Kinase Troponin I NT-Pro-B Natriuret Pep Total Protein Albumin Globulin Albumin/Globulin Ratio Procalcitonin Arterial Blood Potassium Venous Blood Potassium Urine Color Urine Appearance Urine pH Ur Specific [place] Urine Protein Urine Glucose (UA) Urine Ketones Urine Blood Urine Nitrate Urine Bilirubin Urine Urobilinogen Ur Leukocyte Esterase Influenza Typ A,B (EIA) Pos for influenza a H 07/14/18 07/14/18 07/15/18 21:20 23:27 00:15 WBC RBC Hgb Hct MCV MCH MCHC RDW Plt Count Gran % Lymph % (Auto) Atkinson % (Auto) Eos % (Auto) Baso % (Auto) Gran # Lymph # (Auto) [place]kinson # (Auto) Eos # (Auto) Baso # (Auto) PT INR APTT pCO2 pO2 79 H HCO3 ABG pH ABG Total CO2 ABG O2 Saturation ABG Base Excess ABG Potassium VBG pH 7.29 L VBG pCO2 51.0 VBG HCO3 24.5 VBG Total CO2 26.1 VBG O2 Sat (Calc) 97.1 H VBG Base Excess -2.7 L VBG Potassium 6.0 H Sodium 148.0 Chloride 117.0 H Glucose 116 H Lactate 2.6 H FiO2 21.0 Crit Value Called To Malgorzata hanson Crit Value Called By [facility] Blood Gas Notified Time 2124 Potassium Carbon Dioxide Anion Gap BUN Creatinine Est GFR ( Amer) Est GFR (Non-Af Amer) POC Glucose (mg/dL) 114 H Random Glucose Calcium Phosphorus 5.8 H Magnesium 1.7 Total Bilirubin AST ALT Alkaline Phosphatase Ammonia Lactate Dehydrogenase Total Creatine Kinase Troponin I 0.27 H* D NT-Pro-B Natriuret Pep Total Protein Albumin Globulin Albumin/Globulin Ratio Procalcitonin Arterial Blood Potassium Venous Blood Potassium 6.0 H Urine Color Urine Appearance Urine pH Ur Specific [place] Urine Protein Urine Glucose (UA) Urine Ketones Urine Blood Urine Nitrate Urine Bilirubin Urine Urobilinogen Ur Leukocyte Esterase Influenza Typ A,B (EIA) 07/15/18 07/15/18 07/15/18 00:50 06:50 07:00 WBC 2.9 L RBC 3.41 L Hgb 8.2 L Hct 26.6 L MCV 78.0 L MCH 24.0 L MCHC 30.8 L RDW 19.4 H Plt Count 52 L Gran % 70.1 H Lymph % (Auto) 23.3 Atkinson % (Auto) 5.9 Eos % (Auto) 0.0 L Baso % (Auto) 0.7 Gran # 2.02 Lymph # (Auto) 0.7 L [place] # (Auto) 0.2 Eos # (Auto) 0.0 Baso # (Auto) 0.02 PT INR APTT pCO2 33 L pO2 128.0 H 35 HCO3 19.5 L ABG pH 7.38 ABG Total CO2 20.5 L ABG O2 Saturation 98.9 H ABG Base Excess -4.7 L ABG Potassium 4.0 VBG pH 7.26 L VBG pCO2 51.0 VBG HCO3 22.9 VBG Total CO2 24.5 VBG O2 Sat (Calc) 65.4 H VBG Base Excess -4.6 L VBG Potassium 4.4 Sodium 151.0 H 151.0 H Chloride 120.0 H 118.0 H Glucose 74 86 Lactate 1.8 2.3 H FiO2 36.0 21.0 Crit Value Called To Maral elias rn icu Crit Value Called By Es Blood Gas Notified Time 737 Potassium Carbon Dioxide Anion Gap BUN Creatinine Est GFR ( Amer) Est GFR (Non-Af Amer) POC Glucose (mg/dL) Random Glucose Calcium Phosphorus Magnesium Total Bilirubin AST ALT Alkaline Phosphatase Ammonia Lactate Dehydrogenase Total Creatine Kinase Troponin I NT-Pro-B Natriuret Pep Total Protein Albumin Globulin Albumin/Globulin Ratio Procalcitonin Arterial Blood Potassium 4.0 Venous Blood Potassium 4.4 Urine Color Urine Appearance Urine pH Ur Specific [place] Urine Protein Urine Glucose (UA) Urine Ketones Urine Blood Urine Nitrate Urine Bilirubin Urine Urobilinogen Ur Leukocyte Esterase Influenza Typ A,B (EIA) 07/15/18 07/15/18 07:00 07:21 WBC RBC Hgb Hct MCV MCH MCHC RDW Plt Count Gran % Lymph % (Auto) Atkinson % (Auto) Eos % (Auto) Baso % (Auto) Gran # Lymph # (Auto) [place] # (Auto) Eos # (Auto) Baso # (Auto) PT INR APTT pCO2 pO2 HCO3 ABG pH ABG Total CO2 ABG O2 Saturation ABG Base Excess ABG Potassium VBG pH VBG pCO2 VBG HCO3 VBG Total CO2 VBG O2 Sat (Calc) VBG Base Excess VBG Potassium Sodium 151 H Chloride 118 H Glucose Lactate FiO2 Crit Value Called To Crit Value Called By Blood Gas Notified Time Potassium 4.6 Carbon Dioxide 25 Anion Gap 13 BUN 54 H Creatinine 1.4 H Est GFR ( Amer) 46 Est GFR (Non-Af Amer) 38 POC Glucose (mg/dL) 73 Random Glucose 86 Calcium 8.6 Phosphorus Magnesium Total Bilirubin 0.7 AST 1276 H ALT 177 H Alkaline Phosphatase 170 H D Ammonia Lactate Dehydrogenase Total Creatine Kinase Troponin I 0.30 H* NT-Pro-B Natriuret Pep Total Protein 5.9 Albumin 3.3 Globulin 2.6 Albumin/Globulin Ratio 1.3 Procalcitonin Arterial Blood Potassium Venous Blood Potassium Urine Color Urine Appearance Urine pH Ur Specific [place] Urine Protein Urine Glucose (UA) Urine Ketones Urine Blood Urine Nitrate Urine Bilirubin Urine Urobilinogen Ur Leukocyte Esterase Influenza Typ A,B (EIA) Assessment & Plan - Assessment and Plan (Free Text) Plan: Sepsis secondary to Hospital Acquired Pneumonia Influenza + Thrombocytopenia MADELAINE Hx of Breast cancer on chemotherapy Hx of HTN Hx of DM2 Hx of CAD s/p stent placement Hx of Sickle cell trait Plan Will start patient on Levaquin, Merrem, and Tamiflu Vancomycin given once due to MADELAINE Will obtain Procalcitonin Will obtain HIV and Legionella Follow MRSA screen Follow blood, urine, and sputum cultures Continue current medical management Yaneth, PGY-3 <Hardik Aquino - Last Filed: 07/15/18 16:38> Meds - Medications Medications: Current Medications Acetaminophen (Tylenol 325mg Tab) 650 mg PO Q4H PRN PRN Reason: Temp greater than 100.4*F Aspirin (Ecotrin) 81 mg PO DAILY [facility] Last Admin: 07/15/18 11:30 Dose: 81 mg Cyproheptadine HCl (Periactin) 2 mg PO DAILY [facility] Last Admin: 07/15/18 11:35 Dose: 2 mg Famotidine (Pepcid) 40 mg PO HS [facility] Ferrous Sulfate (Feosol) 324 mg PO BID [facility] Last Admin: 07/15/18 09:49 Dose: Not Given Ferrous Sulfate (Feosol Liq) 300 mg PO BID [facility] Folic Acid (Folic Acid) 1 mg PO DAILY [facility] Last Admin: 07/15/18 11:33 Dose: 1 mg Heparin Sodium (Porcine) (Heparin) 5,000 units SC Q8 [facility]; Protocol Last Admin: 07/15/18 15:36 Dose: 5,000 units Acetaminophen (Ofirmev) 1,000 mg in 100 mls @ 400 mls/hr IVPB Q6H PRN PRN Reason: fever Stop: 07/16/18 23:31 Last Admin: 07/15/18 09:53 Dose: 400 mls/hr Meropenem/Sodium Chloride (Merrem Iv 500 Mg/Ns 50 Ml) 500 mg in 50 mls @ 100 mls/hr IVPB Q12 [facility]; Protocol Stop: 07/22/18 06:46 Last Admin: 07/15/18 06:47 Dose: 100 mls/hr Sodium Bicarbonate 75 meq/ (Sodium Chloride) 1,075 mls @ 75 mls/hr IV .[id number] [facility] Last Admin: 07/15/18 12:34 Dose: 75 mls/hr Insulin Human Lispro (Humalog Low) 0 units SC ACHS [facility]; Protocol Last Admin: 07/15/18 11:39 Dose: Not Given Levofloxacin/Dextrose (Levaquin 750mg) 750 mg IVPB QOTHERDAY [facility]; Protocol Last Admin: 07/15/18 09:53 Dose: 750 mg Meclizine HCl (Antivert) 12.5 mg PO BID PRN PRN Reason: Dizziness Metoprolol Tartrate (Lopressor) 25 mg PO BID [facility] Last Admin: 07/15/18 11:33 Dose: 25 mg Oseltamivir Phosphate (Tamiflu Cap) 30 mg PO Q12 [facility]; Protocol Last Admin: 07/15/18 11:33 Dose: 30 mg Results - Vital Signs Recent Vital Signs: Last Vital Signs Temp 101.5 F H 07/15/18 10:00 Pulse 120 H 07/15/18 11:33 Resp 22 07/15/18 10:00 BP 106/64 07/15/18 11:33 Pulse Ox 98 07/15/18 10:00 - Labs Result Diagrams: 07/15/18 07:00 07/15/18 07:00 Labs: Laboratory Results - last 24 hr 07/14/18 07/14/18 07/14/18 15:59 16:00 16:20 WBC RBC Hgb Hct MCV MCH MCHC RDW Plt Count Gran % Lymph % (Auto) At[place] % (Auto) Eos % (Auto) Baso % (Auto) Gran # Lymph # (Auto) [place] # (Auto) Eos # (Auto) Baso # (Auto) PT 17.2 H INR 1.50 APTT 39.3 H pCO2 pO2 HCO3 ABG pH ABG Total CO2 ABG O2 Saturation ABG Base Excess ABG Potassium VBG pH VBG pCO2 VBG HCO3 VBG Total CO2 VBG O2 Sat (Calc) VBG Base Excess VBG Potassium Sodium Chloride Glucose Lactate FiO2 Crit Value Called To Crit Value Called By Blood Gas Notified Time Potassium Carbon Dioxide Anion Gap BUN Creatinine Est GFR ( Amer) Est GFR (Non-Af Amer) POC Glucose (mg/dL) Random Glucose Calcium Phosphorus Magnesium Total Bilirubin AST ALT Alkaline Phosphatase Ammonia Lactate Dehydrogenase 8654 H Total Creatine Kinase 170 Troponin I 0.22 H* D NT-Pro-B Natriuret Pep 4930 H Total Protein Albumin Globulin Albumin/Globulin Ratio Procalcitonin 0.65 H Arterial Blood Potassium Venous Blood Potassium Urine Color Urine Appearance Urine pH Ur Specific [place] Urine Protein Urine Glucose (UA) Urine Ketones Urine Blood Urine Nitrate Urine Bilirubin Urine Urobilinogen Ur Leukocyte Esterase Influenza Typ A,B (EIA) 07/14/18 07/14/18 07/14/18 16:30 17:05 18:02 WBC 2.8 L D RBC 3.45 L Hgb 8.5 L Hct 26.7 L MCV 77.4 L MCH 24.6 L MCHC 31.8 RDW 19.1 H Plt Count 54 L Gran % 75.5 H Lymph % (Auto) 19.3 L [place] % (Auto) 4.4 Eos % (Auto) 0.4 L Baso % (Auto) 0.4 Gran # 2.08 Lymph # (Auto) 0.5 L [place] # (Auto) 0.1 Eos # (Auto) 0.0 Baso # (Auto) 0.01 PT INR APTT pCO2 pO2 HCO3 ABG pH ABG Total CO2 ABG O2 Saturation ABG Base Excess ABG Potassium VBG pH VBG pCO2 VBG HCO3 VBG Total CO2 VBG O2 Sat (Calc) VBG Base Excess VBG Potassium Sodium Chloride Glucose Lactate FiO2 Crit Value Called To Crit Value Called By Blood Gas Notified Time Potassium Carbon Dioxide Anion Gap BUN Creatinine Est GFR ( Amer) Est GFR (Non-Af Amer) POC Glucose (mg/dL) Random Glucose Calcium Phosphorus Magnesium Total Bilirubin AST ALT Alkaline Phosphatase Ammonia 18 Lactate Dehydrogenase Total Creatine Kinase Troponin I NT-Pro-B Natriuret Pep Total Protein Albumin Globulin Albumin/Globulin Ratio Procalcitonin Arterial Blood Potassium Venous Blood Potassium Urine Color Yellow Urine Appearance Clear Urine pH 6.0 Ur Specific [place] 1.020 Urine Protein Negative Urine Glucose (UA) Negative Urine Ketones Negative Urine Blood Negative Urine Nitrate Negative Urine Bilirubin Negative Urine Urobilinogen 0.2 Ur Leukocyte Esterase Negative Influenza Typ A,B (EIA) 07/14/18 07/14/18 07/14/18 19:30 21:20 23:27 WBC RBC Hgb Hct MCV MCH MCHC RDW Plt Count Gran % Lymph % (Auto) [place] % (Auto) Eos % (Auto) Baso % (Auto) Gran # Lymph # (Auto) [place] # (Auto) Eos # (Auto) Baso # (Auto) PT INR APTT pCO2 pO2 79 H HCO3 ABG pH ABG Total CO2 ABG O2 Saturation ABG Base Excess ABG Potassium VBG pH 7.29 L VBG pCO2 51.0 VBG HCO3 24.5 VBG Total CO2 26.1 VBG O2 Sat (Calc) 97.1 H VBG Base Excess -2.7 L VBG Potassium 6.0 H Sodium 148.0 Chloride 117.0 H Glucose 116 H Lactate 2.6 H FiO2 21.0 Crit Value Called To Malgorzata hanson Crit Value Called By [facility] Blood Gas Notified Time 2124 Potassium Carbon Dioxide Anion Gap BUN Creatinine Est GFR ( Amer) Est GFR (Non-Af Amer) POC Glucose (mg/dL) 114 H Random Glucose Calcium Phosphorus Magnesium Total Bilirubin AST ALT Alkaline Phosphatase Ammonia Lactate Dehydrogenase Total Creatine Kinase Troponin I NT-Pro-B Natriuret Pep Total Protein Albumin Globulin Albumin/Globulin Ratio Procalcitonin Arterial Blood Potassium Venous Blood Potassium 6.0 H Urine Color Urine Appearance Urine pH Ur Specific [place] Urine Protein Urine Glucose (UA) Urine Ketones Urine Blood Urine Nitrate Urine Bilirubin Urine Urobilinogen Ur Leukocyte Esterase Influenza Typ A,B (EIA) Pos for influenza a H 07/15/18 07/15/18 07/15/18 00:15 00:50 06:50 WBC RBC Hgb Hct MCV MCH MCHC RDW Plt Count Gran % Lymph % (Auto) [place] % (Auto) Eos % (Auto) Baso % (Auto) Gran # Lymph # (Auto) [place] # (Auto) Eos # (Auto) Baso # (Auto) PT INR APTT pCO2 33 L pO2 128.0 H 35 HCO3 19.5 L ABG pH 7.38 ABG Total CO2 20.5 L ABG O2 Saturation 98.9 H ABG Base Excess -4.7 L ABG Potassium 4.0 VBG pH 7.26 L VBG pCO2 51.0 VBG HCO3 22.9 VBG Total CO2 24.5 VBG O2 Sat (Calc) 65.4 H VBG Base Excess -4.6 L VBG Potassium 4.4 Sodium 151.0 H 151.0 H Chloride 120.0 H 118.0 H Glucose 74 86 Lactate 1.8 2.3 H FiO2 36.0 21.0 Crit Value Called To Maral elias rn icu Crit Value Called By Es Blood Gas Notified Time 737 Potassium Carbon Dioxide Anion Gap BUN Creatinine Est GFR ( Amer) Est GFR (Non-Af Amer) POC Glucose (mg/dL) Random Glucose Calcium Phosphorus 5.8 H Magnesium 1.7 Total Bilirubin AST ALT Alkaline Phosphatase Ammonia Lactate Dehydrogenase Total Creatine Kinase Troponin I 0.27 H* D NT-Pro-B Natriuret Pep Total Protein Albumin Globulin Albumin/Globulin Ratio Procalcitonin Arterial Blood Potassium 4.0 Venous Blood Potassium 4.4 Urine Color Urine Appearance Urine pH Ur Specific [place] Urine Protein Urine Glucose (UA) Urine Ketones Urine Blood Urine Nitrate Urine Bilirubin Urine Urobilinogen Ur Leukocyte Esterase Influenza Typ A,B (EIA) 07/15/18 07/15/18 07/15/18 07:00 07:00 07:21 WBC 2.9 L RBC 3.41 L Hgb 8.2 L Hct 26.6 L MCV 78.0 L MCH 24.0 L MCHC 30.8 L RDW 19.4 H Plt Count 52 L Gran % 70.1 H Lymph % (Auto) 23.3 At[place] % (Auto) 5.9 Eos % (Auto) 0.0 L Baso % (Auto) 0.7 Gran # 2.02 Lymph # (Auto) 0.7 L [place] # (Auto) 0.2 Eos # (Auto) 0.0 Baso # (Auto) 0.02 PT INR APTT pCO2 pO2 HCO3 ABG pH ABG Total CO2 ABG O2 Saturation ABG Base Excess ABG Potassium VBG pH VBG pCO2 VBG HCO3 VBG Total CO2 VBG O2 Sat (Calc) VBG Base Excess VBG Potassium Sodium 151 H Chloride 118 H Glucose Lactate FiO2 Crit Value Called To Crit Value Called By Blood Gas Notified Time Potassium 4.6 Carbon Dioxide 25 Anion Gap 13 BUN 54 H Creatinine 1.4 H Est GFR ( Amer) 46 Est GFR (Non-Af Amer) 38 POC Glucose (mg/dL) 73 Random Glucose 86 Calcium 8.6 Phosphorus Magnesium Total Bilirubin 0.7 AST 1276 H ALT 177 H Alkaline Phosphatase 170 H D Ammonia Lactate Dehydrogenase Total Creatine Kinase Troponin I 0.30 H* NT-Pro-B Natriuret Pep Total Protein 5.9 Albumin 3.3 Globulin 2.6 Albumin/Globulin Ratio 1.3 Procalcitonin Arterial Blood Potassium Venous Blood Potassium Urine Color Urine Appearance Urine pH Ur Specific [place] Urine Protein Urine Glucose (UA) Urine Ketones Urine Blood Urine Nitrate Urine Bilirubin Urine Urobilinogen Ur Leukocyte Esterase Influenza Typ A,B (EIA) 07/15/18 07/15/18 11:31 11:52 WBC RBC Hgb Hct MCV MCH MCHC RDW Plt Count Gran % Lymph % (Auto) [place] % (Auto) Eos % (Auto) Baso % (Auto) Gran # Lymph # (Auto) [place] # (Auto) Eos # (Auto) Baso # (Auto) PT INR APTT pCO2 pO2 51 HCO3 ABG pH ABG Total CO2 ABG O2 Saturation ABG Base Excess ABG Potassium VBG pH 7.29 L VBG pCO2 37.0 L VBG HCO3 17.8 L VBG Total CO2 18.9 L VBG O2 Sat (Calc) 88.1 H VBG Base Excess -8.1 L VBG Potassium 4.3 Sodium 150.0 H Chloride 119.0 H Glucose 126 H Lactate 3.6 H FiO2 21.0 Crit Value Called To nickie Blanca Crit Value Called By Es Blood Gas Notified Time 1158 Potassium Carbon Dioxide Anion Gap BUN Creatinine Est GFR ( Amer) Est GFR (Non-Af Amer) POC Glucose (mg/dL) 126 H Random Glucose Calcium Phosphorus Magnesium Total Bilirubin AST ALT Alkaline Phosphatase Ammonia Lactate Dehydrogenase Total Creatine Kinase Troponin I NT-Pro-B Natriuret Pep Total Protein Albumin Globulin Albumin/Globulin Ratio Procalcitonin Arterial Blood Potassium Venous Blood Potassium 4.3 Urine Color Urine Appearance Urine pH Ur Specific [place] Urine Protein Urine Glucose (UA) Urine Ketones Urine Blood Urine Nitrate Urine Bilirubin Urine Urobilinogen Ur Leukocyte Esterase Influenza Typ A,B (EIA) Assessment & Plan - Assessment and Plan (Free Text) Plan: Infectious diseases Attending Physician Attestation Patient seen and examined, discussed with medical device engineer. I have reviewed the patient's history of present illness, past medical, social, personal and family histories, pertinent physical exam findings, course so far in this hospital admission, pertinent laboratory and imaging results. I agree with the above findings, assessment and plan. In addition, patient with severe sepsis with MADELAINE due to right sided HCAP on top of Influenza A infection. Started Tamiflu, intermittent Vancomycin, Merrem and Levaquin and will follow up sputum, blood cx, PCT, urine Legionella Ag and will monitor clinically.
[2018-07-15] MEDS: levoFLOXacin 750 mg in D5W 150 ML BAG IVPB SCH (09:53)
[2018-07-15] MEDS ORDERED: Magnesium Oxide 400 mg Tab UD PO SCH (10:00)
[2018-07-15] MEDS ORDERED: levoFLOXacin 750 mg in D5W 150 ML BAG IVPB SCH (10:00)
--- NOTE | 2018-07-15 10:47 | CP.CCUPN ---
<Kleber Contreras - Last Filed: 07/15/18 11:09> CCU Subjective - Physician Review Subjective (Free Text): 07/15/18 10:47 Kleber Contreras PGY1 Critical Care Progress Note Patient seen and examined at bedside this morning. Tmax 101.8 overnight. Continues to be lethargic and confused. NG tube placed. Will continue antibiotics and tamiflu and order abdominal US for elevated LFT's. Contact precautions in place for flu. CCU Objective - Vital Signs / Intake & Output Vital Signs (Last 4 hours): Vital Signs Pulse BP 07/15/18 09:49 125 H 146/80 Intake and Output (Last 8hrs): Intake & Output 07/14/18 07/15/18 07/15/18 22:59 06:59 14:59 Intake Total 900 Output Total 400 Balance 500 Weight 190 lb Intake: IV 900 0.9 900 Output: Urine 400 Urine, Voided 400 Other: Voiding Method Diaper # Bowel Movements 2 - Physical Exam Physical Exam Limitations: Positive for: Other (confused ) Head: Positive for: Atraumatic, Normocephalic Pupils: Positive for: PERRL Extroacular Muscles: Positive for: EOMI Pharnyx: Positive for: Normal Respiratory/Chest: Positive for: Rhonchi (bilaterally). Negative for: Respiratory Distress Cardiovascular: Positive for: Regular Rate and Rhythm, Normal S1, S2. Negative for: Murmurs Abdomen: Negative for: Tenderness, Distention, Peritoneal Signs Upper Extremity: Positive for: Normal Inspection, Other (does no move extremities). Negative for: Cyanosis, Edema Lower Extremity: Positive for: Edema (trace edema bilaterally), Other (does no move extremities) Skin: Positive for: Warm, Dry, Normal Color. Negative for: Rashes Psychiatric: Positive for: Other (confused) - Medications Active Medications: Active Medications Generic Name Dose Route Start Last Admin Trade Name Freq PRN Reason Stop Dose Admin Acetaminophen 650 mg 07/14/18 22:57 Tylenol 325mg Tab PO Q4H PRN Temp greater than 100.4*F Aspirin 81 mg 07/15/18 10:00 07/15/18 09:49 Ecotrin PO Not Given DAILY KLAUDIA Cyproheptadine HCl 2 mg 07/15/18 10:00 07/15/18 09:49 Periactin PO Not Given DAILY KLAUDIA Famotidine 40 mg 07/15/18 22:00 Pepcid PO HS KLAUDIA Ferrous Sulfate 324 mg 07/15/18 10:00 07/15/18 09:49 Feosol PO Not Given BID [facility] Folic Acid 1 mg 07/15/18 10:00 07/15/18 09:49 Folic Acid PO Not Given DAILY KLAUDIA Heparin Sodium (Porcine) 5,000 units 07/15/18 06:00 07/15/18 06:46 Heparin SC 5,000 units Q8 KLAUDIA Administration Protocol Acetaminophen 1,000 mg in 100 mls @ 400 mls/hr 07/14/18 23:30 07/15/18 09:53 Ofirmev IVPB 07/16/18 23:31 400 mls/hr Q6H PRN Administration fever Meropenem/Sodium Chloride 500 mg in 50 mls @ 100 mls/hr 07/15/18 06:45 07/15/18 06:47 Merrem Iv 500 Mg/Ns 50 Ml IVPB 07/22/18 06:46 100 mls/hr Q12 KLAUDIA Administration Protocol Sodium Chloride 1,000 mls @ 75 mls/hr 07/15/18 09:00 07/15/18 09:15 Sodium Chloride 0.45% IV 75 mls/hr .[id number] [facility] Administration Insulin Human Lispro 0 units 07/15/18 07:30 07/15/18 07:49 Humalog Low SC Not Given ACHS [facility] Protocol Levofloxacin/Dextrose 750 mg 07/15/18 06:35 07/15/18 09:53 Levaquin 750mg IVPB 750 mg QOTHERDAY [facility] Administration Protocol Meclizine HCl 12.5 mg 07/14/18 22:57 Antivert PO BID PRN Dizziness Metoprolol Tartrate 25 mg 07/15/18 10:00 07/15/18 09:49 Lopressor PO Not Given BID KLAUDIA Oseltamivir Phosphate 30 mg 07/15/18 10:00 07/15/18 09:50 Tamiflu Cap PO Not Given Q12 [facility] Protocol - Patient Studies Lab Studies: Lab Studies 07/15/18 07/15/18 07/15/18 Range/Units 07:21 07:00 07:00 WBC 2.9 L (4.5-11.0) 10^3/uL RBC 3.41 L (3.5-6.1) 10^6/uL Hgb 8.2 L (12.0-16.0) g/dL Hct 26.6 L (36.0-48.0) % MCV 78.0 L (80.0-105.0) fl MCH 24.0 L (25.0-35.0) pg MCHC 30.8 L (31.0-37.0) g/dl RDW 19.4 H (11.5-14.5) % Plt Count 52 L (120.0-450.0) 10^3/uL Gran % 70.1 H (50.0-68.0) % Lymph % (Auto) 23.3 (22.0-35.0) % [place] % (Auto) 5.9 (1.0-6.0) % Eos % (Auto) 0.0 L (1.5-5.0) % Baso % (Auto) 0.7 (0.0-3.0) % Gran # 2.02 (1.4-6.5) Lymph # (Auto) 0.7 L (1.2-3.4) [place] # (Auto) 0.2 (0.1-0.6) Eos # (Auto) 0.0 (0.0-0.7) Baso # (Auto) 0.02 (0.0-2.0) K/mm3 PT (9.4-12.5) SECONDS INR APTT (25.1-36.5) Seconds pCO2 (35-45) mm/Hg pO2 (30-55) mm/Hg HCO3 (21-28) mmol/L ABG pH (7.35-7.45) ABG Total CO2 (22-28) mmol.L ABG O2 Saturation (95-98) % ABG Base Excess (-2.0-3.0) mmol/L ABG Potassium (3.6-5.2) mmol/L VBG pH (7.32-7.43) VBG pCO2 (40-60) VBG HCO3 (21-28) mmol/l VBG Total CO2 (22-28) mmol.L VBG O2 Sat (Calc) (40-65) % VBG Base Excess (0.0-2.0) mmol/L VBG Potassium (3.6-5.2) mmol/L Sodium 151 H (132-148) mmol/L Chloride 118 H (98-107) mmol/L Glucose (65-105) mg/dl Lactate (0.7-2.1) mmol/L FiO2 % Crit Value Called To Crit Value Called By Blood Gas Notified Time Potassium 4.6 (3.6-5.0) mmol/L Carbon Dioxide 25 (21-33) mmol/L Anion Gap 13 (10-20) BUN 54 H (7-21) mg/dL Creatinine 1.4 H (0.7-1.2) mg/dl Est GFR ( Amer) 46 Est GFR (Non-Af Amer) 38 POC Glucose (mg/dL) 73 (65-110) mg/dL Random Glucose 86 (70-110) mg/dL Calcium 8.6 (8.4-10.5) mg/dL Phosphorus (2.5-4.5) mg/dL Magnesium (1.7-2.2) mg/dL Total Bilirubin 0.7 (0.2-1.3) mg/dL AST 1276 H (14-36) U/L ALT 177 H (7-56) U/L Alkaline Phosphatase 170 H D (38-126) U/L Ammonia (9-33) umol/L Lactate Dehydrogenase (333-699) U/L Total Creatine Kinase (35-230) U/L Troponin I 0.30 H* ng/mL NT-Pro-B Natriuret Pep (0-450) pg/mL Total Protein 5.9 (5.8-8.3) g/dL Albumin 3.3 (3.0-4.8) g/dL Globulin 2.6 gm/dL Albumin/Globulin Ratio 1.3 (1.1-1.8) Procalcitonin (0.19-0.49) NG/ML Arterial Blood Potassium (3.6-5.2) mmol/L Venous Blood Potassium (3.6-5.2) mmol/L Urine Color (YELLOW) Urine Appearance (CLEAR) Urine pH (4.7-8.0) Ur Specific [place] (1.005-1.035) Urine Protein (<30 mg/dL) mg/dL Urine Glucose (UA) (NEGATIVE) mg/dL Urine Ketones (NEGATIVE) mg/dL Urine Blood (NEGATIVE) Urine Nitrate (NEGATIVE) Urine Bilirubin (NEGATIVE) Urine Urobilinogen (<1 E.U./dL) E.U./dL Ur Leukocyte Esterase (NEGATIVE) Kelsey/uL Influenza Typ A,B (EIA) (NEGATIVE) 07/15/18 07/15/18 07/15/18 Range/Units 06:50 00:50 00:15 WBC (4.5-11.0) 10^3/uL RBC (3.5-6.1) 10^6/uL Hgb (12.0-16.0) g/dL Hct (36.0-48.0) % MCV (80.0-105.0) fl MCH (25.0-35.0) pg MCHC (31.0-37.0) g/dl RDW (11.5-14.5) % Plt Count (120.0-450.0) 10^3/uL Gran % (50.0-68.0) % Lymph % (Auto) (22.0-35.0) % [place] % (Auto) (1.0-6.0) % Eos % (Auto) (1.5-5.0) % Baso % (Auto) (0.0-3.0) % Gran # (1.4-6.5) Lymph # (Auto) (1.2-3.4) [place] # (Auto) (0.1-0.6) Eos # (Auto) (0.0-0.7) Baso # (Auto) (0.0-2.0) K/mm3 PT (9.4-12.5) SECONDS INR APTT (25.1-36.5) Seconds pCO2 33 L (35-45) mm/Hg pO2 35 128.0 H (30-55) mm/Hg HCO3 19.5 L (21-28) mmol/L ABG pH 7.38 (7.35-7.45) ABG Total CO2 20.5 L (22-28) mmol.L ABG O2 Saturation 98.9 H (95-98) % ABG Base Excess -4.7 L (-2.0-3.0) mmol/L ABG Potassium 4.0 (3.6-5.2) mmol/L VBG pH 7.26 L (7.32-7.43) VBG pCO2 51.0 (40-60) VBG HCO3 22.9 (21-28) mmol/l VBG Total CO2 24.5 (22-28) mmol.L VBG O2 Sat (Calc) 65.4 H (40-65) % VBG Base Excess -4.6 L (0.0-2.0) mmol/L VBG Potassium 4.4 (3.6-5.2) mmol/L Sodium 151.0 H 151.0 H (132-148) mmol/L Chloride 118.0 H 120.0 H (98-107) mmol/L Glucose 86 74 (65-105) mg/dl Lactate 2.3 H 1.8 (0.7-2.1) mmol/L FiO2 21.0 36.0 % Crit Value Called To Maral elias rn icu Crit Value Called By Es Blood Gas Notified Time 737 Potassium (3.6-5.0) mmol/L Carbon Dioxide (21-33) mmol/L Anion Gap (10-20) BUN (7-21) mg/dL Creatinine (0.7-1.2) mg/dl Est GFR ( Amer) Est GFR (Non-Af Amer) POC Glucose (mg/dL) (65-110) mg/dL Random Glucose (70-110) mg/dL Calcium (8.4-10.5) mg/dL Phosphorus 5.8 H (2.5-4.5) mg/dL Magnesium 1.7 (1.7-2.2) mg/dL Total Bilirubin (0.2-1.3) mg/dL AST (14-36) U/L ALT (7-56) U/L Alkaline Phosphatase (38-126) U/L Ammonia (9-33) umol/L Lactate Dehydrogenase (333-699) U/L Total Creatine Kinase (35-230) U/L Troponin I 0.27 H* D ng/mL NT-Pro-B Natriuret Pep (0-450) pg/mL Total Protein (5.8-8.3) g/dL Albumin (3.0-4.8) g/dL Globulin gm/dL Albumin/Globulin Ratio (1.1-1.8) Procalcitonin (0.19-0.49) NG/ML Arterial Blood Potassium 4.0 (3.6-5.2) mmol/L Venous Blood Potassium 4.4 (3.6-5.2) mmol/L Urine Color (YELLOW) Urine Appearance (CLEAR) Urine pH (4.7-8.0) Ur Specific [place] (1.005-1.035) Urine Protein (<30 mg/dL) mg/dL Urine Glucose (UA) (NEGATIVE) mg/dL Urine Ketones (NEGATIVE) mg/dL Urine Blood (NEGATIVE) Urine Nitrate (NEGATIVE) Urine Bilirubin (NEGATIVE) Urine Urobilinogen (<1 E.U./dL) E.U./dL Ur Leukocyte Esterase (NEGATIVE) Kelsey/uL Influenza Typ A,B (EIA) (NEGATIVE) 07/14/18 07/14/18 07/14/18 Range/Units 23:27 21:20 19:30 WBC (4.5-11.0) 10^3/uL RBC (3.5-6.1) 10^6/uL Hgb (12.0-16.0) g/dL Hct (36.0-48.0) % MCV (80.0-105.0) fl MCH (25.0-35.0) pg MCHC (31.0-37.0) g/dl RDW (11.5-14.5) % Plt Count (120.0-450.0) 10^3/uL Gran % (50.0-68.0) % Lymph % (Auto) (22.0-35.0) % [place] % (Auto) (1.0-6.0) % Eos % (Auto) (1.5-5.0) % Baso % (Auto) (0.0-3.0) % Gran # (1.4-6.5) Lymph # (Auto) (1.2-3.4) [place] # (Auto) (0.1-0.6) Eos # (Auto) (0.0-0.7) Baso # (Auto) (0.0-2.0) K/mm3 PT (9.4-12.5) SECONDS INR APTT (25.1-36.5) Seconds pCO2 (35-45) mm/Hg pO2 79 H (30-55) mm/Hg HCO3 (21-28) mmol/L ABG pH (7.35-7.45) ABG Total CO2 (22-28) mmol.L ABG O2 Saturation (95-98) % ABG Base Excess (-2.0-3.0) mmol/L ABG Potassium (3.6-5.2) mmol/L VBG pH 7.29 L (7.32-7.43) VBG pCO2 51.0 (40-60) VBG HCO3 24.5 (21-28) mmol/l VBG Total CO2 26.1 (22-28) mmol.L VBG O2 Sat (Calc) 97.1 H (40-65) % VBG Base Excess -2.7 L (0.0-2.0) mmol/L VBG Potassium 6.0 H (3.6-5.2) mmol/L Sodium 148.0 (132-148) mmol/L Chloride 117.0 H (98-107) mmol/L Glucose 116 H (65-105) mg/dl Lactate 2.6 H (0.7-2.1) mmol/L FiO2 21.0 % Crit Value Called To Malgorzata hanson Crit Value Called By [facility] Blood Gas Notified Time 2124 Potassium (3.6-5.0) mmol/L Carbon Dioxide (21-33) mmol/L Anion Gap (10-20) BUN (7-21) mg/dL Creatinine (0.7-1.2) mg/dl Est GFR ( Amer) Est GFR (Non-Af Amer) POC Glucose (mg/dL) 114 H (65-110) mg/dL Random Glucose (70-110) mg/dL Calcium (8.4-10.5) mg/dL Phosphorus (2.5-4.5) mg/dL Magnesium (1.7-2.2) mg/dL Total Bilirubin (0.2-1.3) mg/dL AST (14-36) U/L ALT (7-56) U/L Alkaline Phosphatase (38-126) U/L Ammonia (9-33) umol/L Lactate Dehydrogenase (333-699) U/L Total Creatine Kinase (35-230) U/L Troponin I ng/mL NT-Pro-B Natriuret Pep (0-450) pg/mL Total Protein (5.8-8.3) g/dL Albumin (3.0-4.8) g/dL Globulin gm/dL Albumin/Globulin Ratio (1.1-1.8) Procalcitonin (0.19-0.49) NG/ML Arterial Blood Potassium (3.6-5.2) mmol/L Venous Blood Potassium 6.0 H (3.6-5.2) mmol/L Urine Color (YELLOW) Urine Appearance (CLEAR) Urine pH (4.7-8.0) Ur Specific [place] (1.005-1.035) Urine Protein (<30 mg/dL) mg/dL Urine Glucose (UA) (NEGATIVE) mg/dL Urine Ketones (NEGATIVE) mg/dL Urine Blood (NEGATIVE) Urine Nitrate (NEGATIVE) Urine Bilirubin (NEGATIVE) Urine Urobilinogen (<1 E.U./dL) E.U./dL Ur Leukocyte Esterase (NEGATIVE) Kelsey/uL Influenza Typ A,B (EIA) Pos for influenza a H (NEGATIVE) 07/14/18 07/14/18 07/14/18 Range/Units 18:02 17:05 16:30 WBC 2.8 L D (4.5-11.0) 10^3/uL RBC 3.45 L (3.5-6.1) 10^6/uL Hgb 8.5 L (12.0-16.0) g/dL Hct 26.7 L (36.0-48.0) % MCV 77.4 L (80.0-105.0) fl MCH 24.6 L (25.0-35.0) pg MCHC 31.8 (31.0-37.0) g/dl RDW 19.1 H (11.5-14.5) % Plt Count 54 L (120.0-450.0) 10^3/uL Gran % 75.5 H (50.0-68.0) % Lymph % (Auto) 19.3 L (22.0-35.0) % [place] % (Auto) 4.4 (1.0-6.0) % Eos % (Auto) 0.4 L (1.5-5.0) % Baso % (Auto) 0.4 (0.0-3.0) % Gran # 2.08 (1.4-6.5) Lymph # (Auto) 0.5 L (1.2-3.4) [place] # (Auto) 0.1 (0.1-0.6) Eos # (Auto) 0.0 (0.0-0.7) Baso # (Auto) 0.01 (0.0-2.0) K/mm3 PT (9.4-12.5) SECONDS INR APTT (25.1-36.5) Seconds pCO2 (35-45) mm/Hg pO2 (30-55) mm/Hg HCO3 (21-28) mmol/L ABG pH (7.35-7.45) ABG Total CO2 (22-28) mmol.L ABG O2 Saturation (95-98) % ABG Base Excess (-2.0-3.0) mmol/L ABG Potassium (3.6-5.2) mmol/L VBG pH (7.32-7.43) VBG pCO2 (40-60) VBG HCO3 (21-28) mmol/l VBG Total CO2 (22-28) mmol.L VBG O2 Sat (Calc) (40-65) % VBG Base Excess (0.0-2.0) mmol/L VBG Potassium (3.6-5.2) mmol/L Sodium (132-148) mmol/L Chloride (98-107) mmol/L Glucose (65-105) mg/dl Lactate (0.7-2.1) mmol/L FiO2 % Crit Value Called To Crit Value Called By Blood Gas Notified Time Potassium (3.6-5.0) mmol/L Carbon Dioxide (21-33) mmol/L Anion Gap (10-20) BUN (7-21) mg/dL Creatinine (0.7-1.2) mg/dl Est GFR ( Amer) Est GFR (Non-Af Amer) POC Glucose (mg/dL) (65-110) mg/dL Random Glucose (70-110) mg/dL Calcium (8.4-10.5) mg/dL Phosphorus (2.5-4.5) mg/dL Magnesium (1.7-2.2) mg/dL Total Bilirubin (0.2-1.3) mg/dL AST (14-36) U/L ALT (7-56) U/L Alkaline Phosphatase (38-126) U/L Ammonia 18 (9-33) umol/L Lactate Dehydrogenase (333-699) U/L Total Creatine Kinase (35-230) U/L Troponin I ng/mL NT-Pro-B Natriuret Pep (0-450) pg/mL Total Protein (5.8-8.3) g/dL Albumin (3.0-4.8) g/dL Globulin gm/dL Albumin/Globulin Ratio (1.1-1.8) Procalcitonin (0.19-0.49) NG/ML Arterial Blood Potassium (3.6-5.2) mmol/L Venous Blood Potassium (3.6-5.2) mmol/L Urine Color Yellow (YELLOW) Urine Appearance Clear (CLEAR) Urine pH 6.0 (4.7-8.0) Ur Specific [place] 1.020 (1.005-1.035) Urine Protein Negative (<30 mg/dL) mg/dL Urine Glucose (UA) Negative (NEGATIVE) mg/dL Urine Ketones Negative (NEGATIVE) mg/dL Urine Blood Negative (NEGATIVE) Urine Nitrate Negative (NEGATIVE) Urine Bilirubin Negative (NEGATIVE) Urine Urobilinogen 0.2 (<1 E.U./dL) E.U./dL Ur Leukocyte Esterase Negative (NEGATIVE) Kelsey/uL Influenza Typ A,B (EIA) (NEGATIVE) 07/14/18 07/14/18 07/14/18 Range/Units 16:20 16:00 15:59 WBC (4.5-11.0) 10^3/uL RBC (3.5-6.1) 10^6/uL Hgb (12.0-16.0) g/dL Hct (36.0-48.0) % MCV (80.0-105.0) fl MCH (25.0-35.0) pg MCHC (31.0-37.0) g/dl RDW (11.5-14.5) % Plt Count (120.0-450.0) 10^3/uL Gran % (50.0-68.0) % Lymph % (Auto) (22.0-35.0) % [place] % (Auto) (1.0-6.0) % Eos % (Auto) (1.5-5.0) % Baso % (Auto) (0.0-3.0) % Gran # (1.4-6.5) Lymph # (Auto) (1.2-3.4) [place] # (Auto) (0.1-0.6) Eos # (Auto) (0.0-0.7) Baso # (Auto) (0.0-2.0) K/mm3 PT 17.2 H (9.4-12.5) SECONDS INR 1.50 APTT 39.3 H (25.1-36.5) Seconds pCO2 (35-45) mm/Hg pO2 (30-55) mm/Hg HCO3 (21-28) mmol/L ABG pH (7.35-7.45) ABG Total CO2 (22-28) mmol.L ABG O2 Saturation (95-98) % ABG Base Excess (-2.0-3.0) mmol/L ABG Potassium (3.6-5.2) mmol/L VBG pH (7.32-7.43) VBG pCO2 (40-60) VBG HCO3 (21-28) mmol/l VBG Total CO2 (22-28) mmol.L VBG O2 Sat (Calc) (40-65) % VBG Base Excess (0.0-2.0) mmol/L VBG Potassium (3.6-5.2) mmol/L Sodium 148 (132-148) mmol/L Chloride 113 H (98-107) mmol/L Glucose (65-105) mg/dl Lactate (0.7-2.1) mmol/L FiO2 % Crit Value Called To Crit Value Called By Blood Gas Notified Time Potassium 4.6 (3.6-5.0) mmol/L Carbon Dioxide 24 (21-33) mmol/L Anion Gap 15 (10-20) BUN 48 H (7-21) mg/dL Creatinine 1.4 H (0.7-1.2) mg/dl Est GFR ( Amer) 46 Est GFR (Non-Af Amer) 38 POC Glucose (mg/dL) (65-110) mg/dL Random Glucose 152 H (70-110) mg/dL Calcium 9.3 (8.4-10.5) mg/dL Phosphorus 5.2 H (2.5-4.5) mg/dL Magnesium 1.9 (1.7-2.2) mg/dL Total Bilirubin 0.7 (0.2-1.3) mg/dL AST 232 H D (14-36) U/L ALT 74 H (7-56) U/L Alkaline Phosphatase 128 H (38-126) U/L Ammonia (9-33) umol/L Lactate Dehydrogenase 8654 H (333-699) U/L Total Creatine Kinase 170 (35-230) U/L Troponin I 0.22 H* D ng/mL NT-Pro-B Natriuret Pep 4930 H (0-450) pg/mL Total Protein 5.8 (5.8-8.3) g/dL Albumin 3.4 (3.0-4.8) g/dL Globulin 2.5 gm/dL Albumin/Globulin Ratio 1.4 (1.1-1.8) Procalcitonin (0.19-0.49) NG/ML Arterial Blood Potassium (3.6-5.2) mmol/L Venous Blood Potassium (3.6-5.2) mmol/L Urine Color (YELLOW) Urine Appearance (CLEAR) Urine pH (4.7-8.0) Ur Specific [place] (1.005-1.035) Urine Protein (<30 mg/dL) mg/dL Urine Glucose (UA) (NEGATIVE) mg/dL Urine Ketones (NEGATIVE) mg/dL Urine Blood (NEGATIVE) Urine Nitrate (NEGATIVE) Urine Bilirubin (NEGATIVE) Urine Urobilinogen (<1 E.U./dL) E.U./dL Ur Leukocyte Esterase (NEGATIVE) Kelsey/uL Influenza Typ A,B (EIA) (NEGATIVE) 07/14/18 07/14/18 Range/Units 15:59 15:59 WBC (4.5-11.0) 10^3/uL RBC (3.5-6.1) 10^6/uL Hgb (12.0-16.0) g/dL Hct (36.0-48.0) % MCV (80.0-105.0) fl MCH (25.0-35.0) pg MCHC (31.0-37.0) g/dl RDW (11.5-14.5) % Plt Count (120.0-450.0) 10^3/uL Gran % (50.0-68.0) % Lymph % (Auto) (22.0-35.0) % [place] % (Auto) (1.0-6.0) % Eos % (Auto) (1.5-5.0) % Baso % (Auto) (0.0-3.0) % Gran # (1.4-6.5) Lymph # (Auto) (1.2-3.4) [place] # (Auto) (0.1-0.6) Eos # (Auto) (0.0-0.7) Baso # (Auto) (0.0-2.0) K/mm3 PT (9.4-12.5) SECONDS INR APTT (25.1-36.5) Seconds pCO2 (35-45) mm/Hg pO2 120 H (30-55) mm/Hg HCO3 (21-28) mmol/L ABG pH (7.35-7.45) ABG Total CO2 (22-28) mmol.L ABG O2 Saturation (95-98) % ABG Base Excess (-2.0-3.0) mmol/L ABG Potassium (3.6-5.2) mmol/L VBG pH 7.32 (7.32-7.43) VBG pCO2 45.0 (40-60) VBG HCO3 23.2 (21-28) mmol/l VBG Total CO2 24.6 (22-28) mmol.L VBG O2 Sat (Calc) 99.1 H (40-65) % VBG Base Excess -3.1 L (0.0-2.0) mmol/L VBG Potassium 4.5 (3.6-5.2) mmol/L Sodium 149.0 H (132-148) mmol/L Chloride 114.0 H (98-107) mmol/L Glucose 158 H (65-105) mg/dl Lactate 4.3 H* (0.7-2.1) mmol/L FiO2 21.0 % Crit Value Called To Jr pino Crit Value Called By [facility] Blood Gas Notified Time 1605 Potassium (3.6-5.0) mmol/L Carbon Dioxide (21-33) mmol/L Anion Gap (10-20) BUN (7-21) mg/dL Creatinine (0.7-1.2) mg/dl Est GFR ( Amer) Est GFR (Non-Af Amer) POC Glucose (mg/dL) (65-110) mg/dL Random Glucose (70-110) mg/dL Calcium (8.4-10.5) mg/dL Phosphorus (2.5-4.5) mg/dL Magnesium (1.7-2.2) mg/dL Total Bilirubin (0.2-1.3) mg/dL AST (14-36) U/L ALT (7-56) U/L Alkaline Phosphatase (38-126) U/L Ammonia (9-33) umol/L Lactate Dehydrogenase (333-699) U/L Total Creatine Kinase (35-230) U/L Troponin I ng/mL NT-Pro-B Natriuret Pep (0-450) pg/mL Total Protein (5.8-8.3) g/dL Albumin (3.0-4.8) g/dL Globulin gm/dL Albumin/Globulin Ratio (1.1-1.8) Procalcitonin 0.65 H (0.19-0.49) NG/ML Arterial Blood Potassium (3.6-5.2) mmol/L Venous Blood Potassium 4.5 (3.6-5.2) mmol/L Urine Color (YELLOW) Urine Appearance (CLEAR) Urine pH (4.7-8.0) Ur Specific [place] (1.005-1.035) Urine Protein (<30 mg/dL) mg/dL Urine Glucose (UA) (NEGATIVE) mg/dL Urine Ketones (NEGATIVE) mg/dL Urine Blood (NEGATIVE) Urine Nitrate (NEGATIVE) Urine Bilirubin (NEGATIVE) Urine Urobilinogen (<1 E.U./dL) E.U./dL Ur Leukocyte Esterase (NEGATIVE) Kelsey/uL Influenza Typ A,B (EIA) (NEGATIVE) Laboratory Results - last 24 hr 07/14/18 07/14/18 07/14/18 15:59 15:59 15:59 WBC RBC Hgb Hct MCV MCH MCHC RDW Plt Count Gran % Lymph % (Auto) [place] % (Auto) Eos % (Auto) Baso % (Auto) Gran # Lymph # (Auto) [place] # (Auto) Eos # (Auto) Baso # (Auto) PT INR APTT pCO2 pO2 120 H HCO3 ABG pH ABG Total CO2 ABG O2 Saturation ABG Base Excess ABG Potassium VBG pH 7.32 VBG pCO2 45.0 VBG HCO3 23.2 VBG Total CO2 24.6 VBG O2 Sat (Calc) 99.1 H VBG Base Excess -3.1 L VBG Potassium 4.5 Sodium 149.0 H 148 Chloride 114.0 H 113 H Glucose 158 H Lactate 4.3 H* FiO2 21.0 Crit Value Called To Jr pino Crit Value Called By Atc Blood Gas Notified Time 1605 Potassium 4.6 Carbon Dioxide 24 Anion Gap 15 BUN 48 H Creatinine 1.4 H Est GFR ( Amer) 46 Est GFR (Non-Af Amer) 38 POC Glucose (mg/dL) Random Glucose 152 H Calcium 9.3 Phosphorus 5.2 H Magnesium 1.9 Total Bilirubin 0.7 AST 232 H D ALT 74 H Alkaline Phosphatase 128 H Ammonia Lactate Dehydrogenase Total Creatine Kinase Troponin I NT-Pro-B Natriuret Pep Total Protein 5.8 Albumin 3.4 Globulin 2.5 Albumin/Globulin Ratio 1.4 Procalcitonin 0.65 H Arterial Blood Potassium Venous Blood Potassium 4.5 Urine Color Urine Appearance Urine pH Ur Specific [place] Urine Protein Urine Glucose (UA) Urine Ketones Urine Blood Urine Nitrate Urine Bilirubin Urine Urobilinogen Ur Leukocyte Esterase Influenza Typ A,B (EIA) 07/14/18 07/14/18 07/14/18 16:00 16:20 16:30 WBC RBC Hgb Hct MCV MCH MCHC RDW Plt Count Gran % Lymph % (Auto) [place] % (Auto) Eos % (Auto) Baso % (Auto) Gran # Lymph # (Auto) [place] # (Auto) Eos # (Auto) Baso # (Auto) PT 17.2 H INR 1.50 APTT 39.3 H pCO2 pO2 HCO3 ABG pH ABG Total CO2 ABG O2 Saturation ABG Base Excess ABG Potassium VBG pH VBG pCO2 VBG HCO3 VBG Total CO2 VBG O2 Sat (Calc) VBG Base Excess VBG Potassium Sodium Chloride Glucose Lactate FiO2 Crit Value Called To Crit Value Called By Blood Gas Notified Time Potassium Carbon Dioxide Anion Gap BUN Creatinine Est GFR ( Amer) Est GFR (Non-Af Amer) POC Glucose (mg/dL) Random Glucose Calcium Phosphorus Magnesium Total Bilirubin AST ALT Alkaline Phosphatase Ammonia Lactate Dehydrogenase 8654 H Total Creatine Kinase 170 Troponin I 0.22 H* D NT-Pro-B Natriuret Pep 4930 H Total Protein Albumin Globulin Albumin/Globulin Ratio Procalcitonin Arterial Blood Potassium Venous Blood Potassium Urine Color Yellow Urine Appearance Clear Urine pH 6.0 Ur Specific [place] 1.020 Urine Protein Negative Urine Glucose (UA) Negative Urine Ketones Negative Urine Blood Negative Urine Nitrate Negative Urine Bilirubin Negative Urine Urobilinogen 0.2 Ur Leukocyte Esterase Negative Influenza Typ A,B (EIA) 07/14/18 07/14/18 07/14/18 17:05 18:02 19:30 WBC 2.8 L D RBC 3.45 L Hgb 8.5 L Hct 26.7 L MCV 77.4 L MCH 24.6 L MCHC 31.8 RDW 19.1 H Plt Count 54 L Gran % 75.5 H Lymph % (Auto) 19.3 L [place] % (Auto) 4.4 Eos % (Auto) 0.4 L Baso % (Auto) 0.4 Gran # 2.08 Lymph # (Auto) 0.5 L [place] # (Auto) 0.1 Eos # (Auto) 0.0 Baso # (Auto) 0.01 PT INR APTT pCO2 pO2 HCO3 ABG pH ABG Total CO2 ABG O2 Saturation ABG Base Excess ABG Potassium VBG pH VBG pCO2 VBG HCO3 VBG Total CO2 VBG O2 Sat (Calc) VBG Base Excess VBG Potassium Sodium Chloride Glucose Lactate FiO2 Crit Value Called To Crit Value Called By Blood Gas Notified Time Potassium Carbon Dioxide Anion Gap BUN Creatinine Est GFR ( Amer) Est GFR (Non-Af Amer) POC Glucose (mg/dL) Random Glucose Calcium Phosphorus Magnesium Total Bilirubin AST ALT Alkaline Phosphatase Ammonia 18 Lactate Dehydrogenase Total Creatine Kinase Troponin I NT-Pro-B Natriuret Pep Total Protein Albumin Globulin Albumin/Globulin Ratio Procalcitonin Arterial Blood Potassium Venous Blood Potassium Urine Color Urine Appearance Urine pH Ur Specific [place] Urine Protein Urine Glucose (UA) Urine Ketones Urine Blood Urine Nitrate Urine Bilirubin Urine Urobilinogen Ur Leukocyte Esterase Influenza Typ A,B (EIA) Pos for influenza a H 07/14/18 07/14/18 07/15/18 21:20 23:27 00:15 WBC RBC Hgb Hct MCV MCH MCHC RDW Plt Count Gran % Lymph % (Auto) [place] % (Auto) Eos % (Auto) Baso % (Auto) Gran # Lymph # (Auto) [place] # (Auto) Eos # (Auto) Baso # (Auto) PT INR APTT pCO2 pO2 79 H HCO3 ABG pH ABG Total CO2 ABG O2 Saturation ABG Base Excess ABG Potassium VBG pH 7.29 L VBG pCO2 51.0 VBG HCO3 24.5 VBG Total CO2 26.1 VBG O2 Sat (Calc) 97.1 H VBG Base Excess -2.7 L VBG Potassium 6.0 H Sodium 148.0 Chloride 117.0 H Glucose 116 H Lactate 2.6 H FiO2 21.0 Crit Value Called To Malgorzata hanson Crit Value Called By [facility] Blood Gas Notified Time 2124 Potassium Carbon Dioxide Anion Gap BUN Creatinine Est GFR ( Amer) Est GFR (Non-Af Amer) POC Glucose (mg/dL) 114 H Random Glucose Calcium Phosphorus 5.8 H Magnesium 1.7 Total Bilirubin AST ALT Alkaline Phosphatase Ammonia Lactate Dehydrogenase Total Creatine Kinase Troponin I 0.27 H* D NT-Pro-B Natriuret Pep Total Protein Albumin Globulin Albumin/Globulin Ratio Procalcitonin Arterial Blood Potassium Venous Blood Potassium 6.0 H Urine Color Urine Appearance Urine pH Ur Specific [place] Urine Protein Urine Glucose (UA) Urine Ketones Urine Blood Urine Nitrate Urine Bilirubin Urine Urobilinogen Ur Leukocyte Esterase Influenza Typ A,B (EIA) 07/15/18 07/15/18 07/15/18 00:50 06:50 07:00 WBC 2.9 L RBC 3.41 L Hgb 8.2 L Hct 26.6 L MCV 78.0 L MCH 24.0 L MCHC 30.8 L RDW 19.4 H Plt Count 52 L Gran % 70.1 H Lymph % (Auto) 23.3 [place] % (Auto) 5.9 Eos % (Auto) 0.0 L Baso % (Auto) 0.7 Gran # 2.02 Lymph # (Auto) 0.7 L [place] # (Auto) 0.2 Eos # (Auto) 0.0 Baso # (Auto) 0.02 PT INR APTT pCO2 33 L pO2 128.0 H 35 HCO3 19.5 L ABG pH 7.38 ABG Total CO2 20.5 L ABG O2 Saturation 98.9 H ABG Base Excess -4.7 L ABG Potassium 4.0 VBG pH 7.26 L VBG pCO2 51.0 VBG HCO3 22.9 VBG Total CO2 24.5 VBG O2 Sat (Calc) 65.4 H VBG Base Excess -4.6 L VBG Potassium 4.4 Sodium 151.0 H 151.0 H Chloride 120.0 H 118.0 H Glucose 74 86 Lactate 1.8 2.3 H FiO2 36.0 21.0 Crit Value Called To Maral elias rn icu Crit Value Called By Es Blood Gas Notified Time 737 Potassium Carbon Dioxide Anion Gap BUN Creatinine Est GFR ( Amer) Est GFR (Non-Af Amer) POC Glucose (mg/dL) Random Glucose Calcium Phosphorus Magnesium Total Bilirubin AST ALT Alkaline Phosphatase Ammonia Lactate Dehydrogenase Total Creatine Kinase Troponin I NT-Pro-B Natriuret Pep Total Protein Albumin Globulin Albumin/Globulin Ratio Procalcitonin Arterial Blood Potassium 4.0 Venous Blood Potassium 4.4 Urine Color Urine Appearance Urine pH Ur Specific [place] Urine Protein Urine Glucose (UA) Urine Ketones Urine Blood Urine Nitrate Urine Bilirubin Urine Urobilinogen Ur Leukocyte Esterase Influenza Typ A,B (EIA) 07/15/18 07/15/18 07:00 07:21 WBC RBC Hgb Hct MCV MCH MCHC RDW Plt Count Gran % Lymph % (Auto) [place] % (Auto) Eos % (Auto) Baso % (Auto) Gran # Lymph # (Auto) [place] # (Auto) Eos # (Auto) Baso # (Auto) PT INR APTT pCO2 pO2 HCO3 ABG pH ABG Total CO2 ABG O2 Saturation ABG Base Excess ABG Potassium VBG pH VBG pCO2 VBG HCO3 VBG Total CO2 VBG O2 Sat (Calc) VBG Base Excess VBG Potassium Sodium 151 H Chloride 118 H Glucose Lactate FiO2 Crit Value Called To Crit Value Called By Blood Gas Notified Time Potassium 4.6 Carbon Dioxide 25 Anion Gap 13 BUN 54 H Creatinine 1.4 H Est GFR ( Amer) 46 Est GFR (Non-Af Amer) 38 POC Glucose (mg/dL) 73 Random Glucose 86 Calcium 8.6 Phosphorus Magnesium Total Bilirubin 0.7 AST 1276 H ALT 177 H Alkaline Phosphatase 170 H D Ammonia Lactate Dehydrogenase Total Creatine Kinase Troponin I 0.30 H* NT-Pro-B Natriuret Pep Total Protein 5.9 Albumin 3.3 Globulin 2.6 Albumin/Globulin Ratio 1.3 Procalcitonin Arterial Blood Potassium Venous Blood Potassium Urine Color Urine Appearance Urine pH Ur Specific [place] Urine Protein Urine Glucose (UA) Urine Ketones Urine Blood Urine Nitrate Urine Bilirubin Urine Urobilinogen Ur Leukocyte Esterase Influenza Typ A,B (EIA) Radiology Impressions: Radiology Impressions Chest X-Ray 07/14/18 15:02 IMPRESSION: Extensive right-sided pneumonia Head CT 07/14/18 15:03 IMPRESSION: No acute intracranial abnormalities. No significant findings to account for the clinical presentation. No significant interval change compared to the prior examination(s). Chest X-Ray 07/15/18 05:00 IMPRESSION: Limited patchy infiltrate medial right base. Scattered pulmonary nodules again seen bilaterally. No pulmonary vascular congestion. EKG/Cardiology Studies: Cardiology / EKG Studies 07/14/18 15:02 ELECTROCARDIOGRAM Stat Comment: Reason For Exam: Sepsis Patient 07/14/18 15:17 ELECTROCARDIOGRAM Stat Comment: Reason For Exam: ams Fingerstick Blood Sugar Results: 73 Critical Care Progress Note - Nutrition Nutrition: Nutrition Category Date Time Status NPO Diet [DIET] Diets 07/15/18 Dinner Ordered Assessment/Plan - Assessment and Plan (Free Text) Assessment: 63 year old female with past medical history of breast cancer s/p mastectomy on chemotherapy, CAD s/p stent, HLD, HTN, DM2, sickle cell trait who is admitted to ICU for sepsis likely secondary to pneumonia. Plan: Sepsis secondary to flu with superimposed pneumonia Right sided pneumonia Elevated troponins Transaminitis likely secondary to hypotensive episode Right breast CA s/p mastectomy 2013 currently undergoing chemotherapy CAD s/p stenting HLD HTN DM2 on insulin sickle cell trait - day 1 tamiflu, merrem, levaquin - continue / NS @ 75cc/hr - Urine, blood, sputum cultures and MRSA pending - CXR shows extensive right-sided pneumonia - troponins 0.22, 0.27, 0.30 - likely 2/2 type II [place]. Will get repeat troponin tomorrow morning - ekg does not show ST elevations or depression - Procalc, legionella pending - Abd US pending - Head CT: No acute intracranial abnormalities - ID consulted, Dr. Aquino - Cardiology consulted, Dr. Slater - Heme/onc on consult, Dr. Griffith - Maintain euglycemia, normothermia, euvolemia - Maintain MAP >65mmHG - ISS, ACHS - DVT/GI PPX <Armin Vaughn - Last Filed: 07/15/18 12:56> CCU Objective - Vital Signs / Intake & Output Vital Signs (Last 4 hours): Vital Signs Temp Pulse Resp BP Pulse Ox 07/15/18 11:33 120 H 106/64 07/15/18 10:00 101.5 F H 125 H 22 127/76 98 07/15/18 09:00 101.1 F H 125 H 21 146/80 98 Intake and Output (Last 8hrs): Intake & Output 07/14/18 07/15/18 07/15/18 22:59 06:59 14:59 Intake Total 900 Output Total 400 Balance 500 Weight 190 lb Intake: IV 900 0.9 900 Output: Urine 400 Urine, Voided 400 Other: Voiding Method Diaper # Bowel Movements 2 - Medications Active Medications: Active Medications Generic Name Dose Route Start Last Admin Trade Name Freq PRN Reason Stop Dose Admin Acetaminophen 650 mg 07/14/18 22:57 Tylenol 325mg Tab PO Q4H PRN Temp greater than 100.4*F Aspirin 81 mg 07/15/18 10:00 07/15/18 11:30 Ecotrin PO 81 mg DAILY KLAUDIA Administration Cyproheptadine HCl 2 mg 07/15/18 10:00 07/15/18 11:35 Periactin PO 2 mg DAILY KLAUDIA Administration Famotidine 40 mg 07/15/18 22:00 Pepcid PO HS [facility] Ferrous Sulfate 324 mg 07/15/18 10:00 07/15/18 09:49 Feosol PO Not Given BID KLAUDIA Ferrous Sulfate 300 mg 07/15/18 18:00 Feosol Liq PO BID KLAUDIA Folic Acid 1 mg 07/15/18 10:00 07/15/18 11:33 Folic Acid PO 1 mg DAILY KLAUDIA Administration Heparin Sodium (Porcine) 5,000 units 07/15/18 06:00 07/15/18 06:46 Heparin SC 5,000 units Q8 KLAUDIA Administration Protocol Acetaminophen 1,000 mg in 100 mls @ 400 mls/hr 07/14/18 23:30 07/15/18 09:53 Ofirmev IVPB 07/16/18 23:31 400 mls/hr Q6H PRN Administration fever Meropenem/Sodium Chloride 500 mg in 50 mls @ 100 mls/hr 07/15/18 06:45 07/15/18 06:47 Merrem Iv 500 Mg/Ns 50 Ml IVPB 07/22/18 06:46 100 mls/hr Q12 KLAUDIA Administration Protocol Sodium Bicarbonate 75 meq/ 1,075 mls @ 75 mls/hr 07/15/18 12:15 07/15/18 12:34 Sodium Chloride IV 75 mls/hr .[id number] KLAUDIA Administration Insulin Human Lispro 0 units 07/15/18 07:30 07/15/18 11:39 Humalog Low SC Not Given ACHS KLAUDIA Protocol Levofloxacin/Dextrose 750 mg 07/15/18 06:35 07/15/18 09:53 Levaquin 750mg IVPB 750 mg QOTHERDAY KLAUDIA Administration Protocol Meclizine HCl 12.5 mg 07/14/18 22:57 Antivert PO BID PRN Dizziness Metoprolol Tartrate 25 mg 07/15/18 10:00 07/15/18 11:33 Lopressor PO 25 mg BID KLAUDIA Administration Oseltamivir Phosphate 30 mg 07/15/18 10:00 07/15/18 11:33 Tamiflu Cap PO 30 mg Q12 KLAUDIA Administration Protocol - Patient Studies Lab Studies: Microbiology Studies 07/14/18 16:20 Urine Culture - Final Urine,Clean Catch No Growth (<1,000 CFU/ML) Lab Studies 07/15/18 07/15/18 07/15/18 Range/Units 11:52 07:21 07:00 WBC (4.5-11.0) 10^3/uL RBC (3.5-6.1) 10^6/uL Hgb (12.0-16.0) g/dL Hct (36.0-48.0) % MCV (80.0-105.0) fl MCH (25.0-35.0) pg MCHC (31.0-37.0) g/dl RDW (11.5-14.5) % Plt Count (120.0-450.0) 10^3/uL Gran % (50.0-68.0) % Lymph % (Auto) (22.0-35.0) % [place] % (Auto) (1.0-6.0) % Eos % (Auto) (1.5-5.0) % Baso % (Auto) (0.0-3.0) % Gran # (1.4-6.5) Lymph # (Auto) (1.2-3.4) [place] # (Auto) (0.1-0.6) Eos # (Auto) (0.0-0.7) Baso # (Auto) (0.0-2.0) K/mm3 PT (9.4-12.5) SECONDS INR APTT (25.1-36.5) Seconds pCO2 (35-45) mm/Hg pO2 51 (30-55) mm/Hg HCO3 (21-28) mmol/L ABG pH (7.35-7.45) ABG Total CO2 (22-28) mmol.L ABG O2 Saturation (95-98) % ABG Base Excess (-2.0-3.0) mmol/L ABG Potassium (3.6-5.2) mmol/L VBG pH 7.29 L (7.32-7.43) VBG pCO2 37.0 L (40-60) VBG HCO3 17.8 L (21-28) mmol/l VBG Total CO2 18.9 L (22-28) mmol.L VBG O2 Sat (Calc) 88.1 H (40-65) % VBG Base Excess -8.1 L (0.0-2.0) mmol/L VBG Potassium 4.3 (3.6-5.2) mmol/L Sodium 150.0 H 151 H (132-148) mmol/L Chloride 119.0 H 118 H (98-107) mmol/L Glucose 126 H (65-105) mg/dl Lactate 3.6 H (0.7-2.1) mmol/L FiO2 21.0 % Crit Value Called To nickie Blanca Crit Value Called By Blood Gas Notified Time 1158 Potassium 4.6 (3.6-5.0) mmol/L Carbon Dioxide 25 (21-33) mmol/L Anion Gap 13 (10-20) BUN 54 H (7-21) mg/dL Creatinine 1.4 H (0.7-1.2) mg/dl Est GFR ( Amer) 46 Est GFR (Non-Af Amer) 38 POC Glucose (mg/dL) 73 (65-110) mg/dL Random Glucose 86 (70-110) mg/dL Calcium 8.6 (8.4-10.5) mg/dL Phosphorus (2.5-4.5) mg/dL Magnesium (1.7-2.2) mg/dL Total Bilirubin 0.7 (0.2-1.3) mg/dL AST 1276 H (14-36) U/L ALT 177 H (7-56) U/L Alkaline Phosphatase 170 H D (38-126) U/L Ammonia (9-33) umol/L Lactate Dehydrogenase (333-699) U/L Total Creatine Kinase (35-230) U/L Troponin I 0.30 H* ng/mL NT-Pro-B Natriuret Pep (0-450) pg/mL Total Protein 5.9 (5.8-8.3) g/dL Albumin 3.3 (3.0-4.8) g/dL Globulin 2.6 gm/dL Albumin/Globulin Ratio 1.3 (1.1-1.8) Procalcitonin (0.19-0.49) NG/ML Arterial Blood Potassium (3.6-5.2) mmol/L Venous Blood Potassium 4.3 (3.6-5.2) mmol/L Urine Color (YELLOW) Urine Appearance (CLEAR) Urine pH (4.7-8.0) Ur Specific [place] (1.005-1.035) Urine Protein (<30 mg/dL) mg/dL Urine Glucose (UA) (NEGATIVE) mg/dL Urine Ketones (NEGATIVE) mg/dL Urine Blood (NEGATIVE) Urine Nitrate (NEGATIVE) Urine Bilirubin (NEGATIVE) Urine Urobilinogen (<1 E.U./dL) E.U./dL Ur Leukocyte Esterase (NEGATIVE) Kelsey/uL Influenza Typ A,B (EIA) (NEGATIVE) 07/15/18 07/15/18 07/15/18 Range/Units 07:00 06:50 00:50 WBC 2.9 L (4.5-11.0) 10^3/uL RBC 3.41 L (3.5-6.1) 10^6/uL Hgb 8.2 L (12.0-16.0) g/dL Hct 26.6 L (36.0-48.0) % MCV 78.0 L (80.0-105.0) fl MCH 24.0 L (25.0-35.0) pg MCHC 30.8 L (31.0-37.0) g/dl RDW 19.4 H (11.5-14.5) % Plt Count 52 L (120.0-450.0) 10^3/uL Gran % 70.1 H (50.0-68.0) % Lymph % (Auto) 23.3 (22.0-35.0) % [place] % (Auto) 5.9 (1.0-6.0) % Eos % (Auto) 0.0 L (1.5-5.0) % Baso % (Auto) 0.7 (0.0-3.0) % Gran # 2.02 (1.4-6.5) Lymph # (Auto) 0.7 L (1.2-3.4) [place] # (Auto) 0.2 (0.1-0.6) Eos # (Auto) 0.0 (0.0-0.7) Baso # (Auto) 0.02 (0.0-2.0) K/mm3 PT (9.4-12.5) SECONDS INR APTT (25.1-36.5) Seconds pCO2 33 L (35-45) mm/Hg pO2 35 128.0 H (30-55) mm/Hg HCO3 19.5 L (21-28) mmol/L ABG pH 7.38 (7.35-7.45) ABG Total CO2 20.5 L (22-28) mmol.L ABG O2 Saturation 98.9 H (95-98) % ABG Base Excess -4.7 L (-2.0-3.0) mmol/L ABG Potassium 4.0 (3.6-5.2) mmol/L VBG pH 7.26 L (7.32-7.43) VBG pCO2 51.0 (40-60) VBG HCO3 22.9 (21-28) mmol/l VBG Total CO2 24.5 (22-28) mmol.L VBG O2 Sat (Calc) 65.4 H (40-65) % VBG Base Excess -4.6 L (0.0-2.0) mmol/L VBG Potassium 4.4 (3.6-5.2) mmol/L Sodium 151.0 H 151.0 H (132-148) mmol/L Chloride 118.0 H 120.0 H (98-107) mmol/L Glucose 86 74 (65-105) mg/dl Lactate 2.3 H 1.8 (0.7-2.1) mmol/L FiO2 21.0 36.0 % Crit Value Called To Maral elias rn icu Crit Value Called By Es Blood Gas Notified Time 737 Potassium (3.6-5.0) mmol/L Carbon Dioxide (21-33) mmol/L Anion Gap (10-20) BUN (7-21) mg/dL Creatinine (0.7-1.2) mg/dl Est GFR ( Amer) Est GFR (Non-Af Amer) POC Glucose (mg/dL) (65-110) mg/dL Random Glucose (70-110) mg/dL Calcium (8.4-10.5) mg/dL Phosphorus (2.5-4.5) mg/dL Magnesium (1.7-2.2) mg/dL Total Bilirubin (0.2-1.3) mg/dL AST (14-36) U/L ALT (7-56) U/L Alkaline Phosphatase (38-126) U/L Ammonia (9-33) umol/L Lactate Dehydrogenase (333-699) U/L Total Creatine Kinase (35-230) U/L Troponin I ng/mL NT-Pro-B Natriuret Pep (0-450) pg/mL Total Protein (5.8-8.3) g/dL Albumin (3.0-4.8) g/dL Globulin gm/dL Albumin/Globulin Ratio (1.1-1.8) Procalcitonin (0.19-0.49) NG/ML Arterial Blood Potassium 4.0 (3.6-5.2) mmol/L Venous Blood Potassium 4.4 (3.6-5.2) mmol/L Urine Color (YELLOW) Urine Appearance (CLEAR) Urine pH (4.7-8.0) Ur Specific [place] (1.005-1.035) Urine Protein (<30 mg/dL) mg/dL Urine Glucose (UA) (NEGATIVE) mg/dL Urine Ketones (NEGATIVE) mg/dL Urine Blood (NEGATIVE) Urine Nitrate (NEGATIVE) Urine Bilirubin (NEGATIVE) Urine Urobilinogen (<1 E.U./dL) E.U./dL Ur Leukocyte Esterase (NEGATIVE) Kelsey/uL Influenza Typ A,B (EIA) (NEGATIVE) 07/15/18 07/14/18 07/14/18 Range/Units 00:15 23:27 21:20 WBC (4.5-11.0) 10^3/uL RBC (3.5-6.1) 10^6/uL Hgb (12.0-16.0) g/dL Hct (36.0-48.0) % MCV (80.0-105.0) fl MCH (25.0-35.0) pg MCHC (31.0-37.0) g/dl RDW (11.5-14.5) % Plt Count (120.0-450.0) 10^3/uL Gran % (50.0-68.0) % Lymph % (Auto) (22.0-35.0) % [place] % (Auto) (1.0-6.0) % Eos % (Auto) (1.5-5.0) % Baso % (Auto) (0.0-3.0) % Gran # (1.4-6.5) Lymph # (Auto) (1.2-3.4) [place] # (Auto) (0.1-0.6) Eos # (Auto) (0.0-0.7) Baso # (Auto) (0.0-2.0) K/mm3 PT (9.4-12.5) SECONDS INR APTT (25.1-36.5) Seconds pCO2 (35-45) mm/Hg pO2 79 H (30-55) mm/Hg HCO3 (21-28) mmol/L ABG pH (7.35-7.45) ABG Total CO2 (22-28) mmol.L ABG O2 Saturation (95-98) % ABG Base Excess (-2.0-3.0) mmol/L ABG Potassium (3.6-5.2) mmol/L VBG pH 7.29 L (7.32-7.43) VBG pCO2 51.0 (40-60) VBG HCO3 24.5 (21-28) mmol/l VBG Total CO2 26.1 (22-28) mmol.L VBG O2 Sat (Calc) 97.1 H (40-65) % VBG Base Excess -2.7 L (0.0-2.0) mmol/L VBG Potassium 6.0 H (3.6-5.2) mmol/L Sodium 148.0 (132-148) mmol/L Chloride 117.0 H (98-107) mmol/L Glucose 116 H (65-105) mg/dl Lactate 2.6 H (0.7-2.1) mmol/L FiO2 21.0 % Crit Value Called To Malgorzata hanson Crit Value Called By [facility] Blood Gas Notified Time 2124 Potassium (3.6-5.0) mmol/L Carbon Dioxide (21-33) mmol/L Anion Gap (10-20) BUN (7-21) mg/dL Creatinine (0.7-1.2) mg/dl Est GFR ( Amer) Est GFR (Non-Af Amer) POC Glucose (mg/dL) 114 H (65-110) mg/dL Random Glucose (70-110) mg/dL Calcium (8.4-10.5) mg/dL Phosphorus 5.8 H (2.5-4.5) mg/dL Magnesium 1.7 (1.7-2.2) mg/dL Total Bilirubin (0.2-1.3) mg/dL AST (14-36) U/L ALT (7-56) U/L Alkaline Phosphatase (38-126) U/L Ammonia (9-33) umol/L Lactate Dehydrogenase (333-699) U/L Total Creatine Kinase (35-230) U/L Troponin I 0.27 H* D ng/mL NT-Pro-B Natriuret Pep (0-450) pg/mL Total Protein (5.8-8.3) g/dL Albumin (3.0-4.8) g/dL Globulin gm/dL Albumin/Globulin Ratio (1.1-1.8) Procalcitonin (0.19-0.49) NG/ML Arterial Blood Potassium (3.6-5.2) mmol/L Venous Blood Potassium 6.0 H (3.6-5.2) mmol/L Urine Color (YELLOW) Urine Appearance (CLEAR) Urine pH (4.7-8.0) Ur Specific [place] (1.005-1.035) Urine Protein (<30 mg/dL) mg/dL Urine Glucose (UA) (NEGATIVE) mg/dL Urine Ketones (NEGATIVE) mg/dL Urine Blood (NEGATIVE) Urine Nitrate (NEGATIVE) Urine Bilirubin (NEGATIVE) Urine Urobilinogen (<1 E.U./dL) E.U./dL Ur Leukocyte Esterase (NEGATIVE) Kelsey/uL Influenza Typ A,B (EIA) (NEGATIVE) 07/14/18 07/14/18 07/14/18 Range/Units 19:30 18:02 17:05 WBC 2.8 L D (4.5-11.0) 10^3/uL RBC 3.45 L (3.5-6.1) 10^6/uL Hgb 8.5 L (12.0-16.0) g/dL Hct 26.7 L (36.0-48.0) % MCV 77.4 L (80.0-105.0) fl MCH 24.6 L (25.0-35.0) pg MCHC 31.8 (31.0-37.0) g/dl RDW 19.1 H (11.5-14.5) % Plt Count 54 L (120.0-450.0) 10^3/uL Gran % 75.5 H (50.0-68.0) % Lymph % (Auto) 19.3 L (22.0-35.0) % [place] % (Auto) 4.4 (1.0-6.0) % Eos % (Auto) 0.4 L (1.5-5.0) % Baso % (Auto) 0.4 (0.0-3.0) % Gran # 2.08 (1.4-6.5) Lymph # (Auto) 0.5 L (1.2-3.4) [place] # (Auto) 0.1 (0.1-0.6) Eos # (Auto) 0.0 (0.0-0.7) Baso # (Auto) 0.01 (0.0-2.0) K/mm3 PT (9.4-12.5) SECONDS INR APTT (25.1-36.5) Seconds pCO2 (35-45) mm/Hg pO2 (30-55) mm/Hg HCO3 (21-28) mmol/L ABG pH (7.35-7.45) ABG Total CO2 (22-28) mmol.L ABG O2 Saturation (95-98) % ABG Base Excess (-2.0-3.0) mmol/L ABG Potassium (3.6-5.2) mmol/L VBG pH (7.32-7.43) VBG pCO2 (40-60) VBG HCO3 (21-28) mmol/l VBG Total CO2 (22-28) mmol.L VBG O2 Sat (Calc) (40-65) % VBG Base Excess (0.0-2.0) mmol/L VBG Potassium (3.6-5.2) mmol/L Sodium (132-148) mmol/L Chloride (98-107) mmol/L Glucose (65-105) mg/dl Lactate (0.7-2.1) mmol/L FiO2 % Crit Value Called To Crit Value Called By Blood Gas Notified Time Potassium (3.6-5.0) mmol/L Carbon Dioxide (21-33) mmol/L Anion Gap (10-20) BUN (7-21) mg/dL Creatinine (0.7-1.2) mg/dl Est GFR ( Amer) Est GFR (Non-Af Amer) POC Glucose (mg/dL) (65-110) mg/dL Random Glucose (70-110) mg/dL Calcium (8.4-10.5) mg/dL Phosphorus (2.5-4.5) mg/dL Magnesium (1.7-2.2) mg/dL Total Bilirubin (0.2-1.3) mg/dL AST (14-36) U/L ALT (7-56) U/L Alkaline Phosphatase (38-126) U/L Ammonia 18 (9-33) umol/L Lactate Dehydrogenase (333-699) U/L Total Creatine Kinase (35-230) U/L Troponin I ng/mL NT-Pro-B Natriuret Pep (0-450) pg/mL Total Protein (5.8-8.3) g/dL Albumin (3.0-4.8) g/dL Globulin gm/dL Albumin/Globulin Ratio (1.1-1.8) Procalcitonin (0.19-0.49) NG/ML Arterial Blood Potassium (3.6-5.2) mmol/L Venous Blood Potassium (3.6-5.2) mmol/L Urine Color (YELLOW) Urine Appearance (CLEAR) Urine pH (4.7-8.0) Ur Specific [place] (1.005-1.035) Urine Protein (<30 mg/dL) mg/dL Urine Glucose (UA) (NEGATIVE) mg/dL Urine Ketones (NEGATIVE) mg/dL Urine Blood (NEGATIVE) Urine Nitrate (NEGATIVE) Urine Bilirubin (NEGATIVE) Urine Urobilinogen (<1 E.U./dL) E.U./dL Ur Leukocyte Esterase (NEGATIVE) Kelsey/uL Influenza Typ A,B (EIA) Pos for influenza a H (NEGATIVE) 07/14/18 07/14/18 07/14/18 Range/Units 16:30 16:20 16:00 WBC (4.5-11.0) 10^3/uL RBC (3.5-6.1) 10^6/uL Hgb (12.0-16.0) g/dL Hct (36.0-48.0) % MCV (80.0-105.0) fl MCH (25.0-35.0) pg MCHC (31.0-37.0) g/dl RDW (11.5-14.5) % Plt Count (120.0-450.0) 10^3/uL Gran % (50.0-68.0) % Lymph % (Auto) (22.0-35.0) % [place] % (Auto) (1.0-6.0) % Eos % (Auto) (1.5-5.0) % Baso % (Auto) (0.0-3.0) % Gran # (1.4-6.5) Lymph # (Auto) (1.2-3.4) [place] # (Auto) (0.1-0.6) Eos # (Auto) (0.0-0.7) Baso # (Auto) (0.0-2.0) K/mm3 PT 17.2 H (9.4-12.5) SECONDS INR 1.50 APTT 39.3 H (25.1-36.5) Seconds pCO2 (35-45) mm/Hg pO2 (30-55) mm/Hg HCO3 (21-28) mmol/L ABG pH (7.35-7.45) ABG Total CO2 (22-28) mmol.L ABG O2 Saturation (95-98) % ABG Base Excess (-2.0-3.0) mmol/L ABG Potassium (3.6-5.2) mmol/L VBG pH (7.32-7.43) VBG pCO2 (40-60) VBG HCO3 (21-28) mmol/l VBG Total CO2 (22-28) mmol.L VBG O2 Sat (Calc) (40-65) % VBG Base Excess (0.0-2.0) mmol/L VBG Potassium (3.6-5.2) mmol/L Sodium (132-148) mmol/L Chloride (98-107) mmol/L Glucose (65-105) mg/dl Lactate (0.7-2.1) mmol/L FiO2 % Crit Value Called To Crit Value Called By Blood Gas Notified Time Potassium (3.6-5.0) mmol/L Carbon Dioxide (21-33) mmol/L Anion Gap (10-20) BUN (7-21) mg/dL Creatinine (0.7-1.2) mg/dl Est GFR ( Amer) Est GFR (Non-Af Amer) POC Glucose (mg/dL) (65-110) mg/dL Random Glucose (70-110) mg/dL Calcium (8.4-10.5) mg/dL Phosphorus (2.5-4.5) mg/dL Magnesium (1.7-2.2) mg/dL Total Bilirubin (0.2-1.3) mg/dL AST (14-36) U/L ALT (7-56) U/L Alkaline Phosphatase (38-126) U/L Ammonia (9-33) umol/L Lactate Dehydrogenase 8654 H (333-699) U/L Total Creatine Kinase 170 (35-230) U/L Troponin I 0.22 H* D ng/mL NT-Pro-B Natriuret Pep 4930 H (0-450) pg/mL Total Protein (5.8-8.3) g/dL Albumin (3.0-4.8) g/dL Globulin gm/dL Albumin/Globulin Ratio (1.1-1.8) Procalcitonin (0.19-0.49) NG/ML Arterial Blood Potassium (3.6-5.2) mmol/L Venous Blood Potassium (3.6-5.2) mmol/L Urine Color Yellow (YELLOW) Urine Appearance Clear (CLEAR) Urine pH 6.0 (4.7-8.0) Ur Specific [place] 1.020 (1.005-1.035) Urine Protein Negative (<30 mg/dL) mg/dL Urine Glucose (UA) Negative (NEGATIVE) mg/dL Urine Ketones Negative (NEGATIVE) mg/dL Urine Blood Negative (NEGATIVE) Urine Nitrate Negative (NEGATIVE) Urine Bilirubin Negative (NEGATIVE) Urine Urobilinogen 0.2 (<1 E.U./dL) E.U./dL Ur Leukocyte Esterase Negative (NEGATIVE) Kelsey/uL Influenza Typ A,B (EIA) (NEGATIVE) 07/14/18 07/14/18 07/14/18 Range/Units 15:59 15:59 15:59 WBC (4.5-11.0) 10^3/uL RBC (3.5-6.1) 10^6/uL Hgb (12.0-16.0) g/dL Hct (36.0-48.0) % MCV (80.0-105.0) fl MCH (25.0-35.0) pg MCHC (31.0-37.0) g/dl RDW (11.5-14.5) % Plt Count (120.0-450.0) 10^3/uL Gran % (50.0-68.0) % Lymph % (Auto) (22.0-35.0) % [place] % (Auto) (1.0-6.0) % Eos % (Auto) (1.5-5.0) % Baso % (Auto) (0.0-3.0) % Gran # (1.4-6.5) Lymph # (Auto) (1.2-3.4) [place] # (Auto) (0.1-0.6) Eos # (Auto) (0.0-0.7) Baso # (Auto) (0.0-2.0) K/mm3 PT (9.4-12.5) SECONDS INR APTT (25.1-36.5) Seconds pCO2 (35-45) mm/Hg pO2 120 H (30-55) mm/Hg HCO3 (21-28) mmol/L ABG pH (7.35-7.45) ABG Total CO2 (22-28) mmol.L ABG O2 Saturation (95-98) % ABG Base Excess (-2.0-3.0) mmol/L ABG Potassium (3.6-5.2) mmol/L VBG pH 7.32 (7.32-7.43) VBG pCO2 45.0 (40-60) VBG HCO3 23.2 (21-28) mmol/l VBG Total CO2 24.6 (22-28) mmol.L VBG O2 Sat (Calc) 99.1 H (40-65) % VBG Base Excess -3.1 L (0.0-2.0) mmol/L VBG Potassium 4.5 (3.6-5.2) mmol/L Sodium 148 149.0 H (132-148) mmol/L Chloride 113 H 114.0 H (98-107) mmol/L Glucose 158 H (65-105) mg/dl Lactate 4.3 H* (0.7-2.1) mmol/L FiO2 21.0 % Crit Value Called To Jr pino Crit Value Called By [facility] Blood Gas Notified Time 1605 Potassium 4.6 (3.6-5.0) mmol/L Carbon Dioxide 24 (21-33) mmol/L Anion Gap 15 (10-20) BUN 48 H (7-21) mg/dL Creatinine 1.4 H (0.7-1.2) mg/dl Est GFR ( Amer) 46 Est GFR (Non-Af Amer) 38 POC Glucose (mg/dL) (65-110) mg/dL Random Glucose 152 H (70-110) mg/dL Calcium 9.3 (8.4-10.5) mg/dL Phosphorus 5.2 H (2.5-4.5) mg/dL Magnesium 1.9 (1.7-2.2) mg/dL Total Bilirubin 0.7 (0.2-1.3) mg/dL AST 232 H D (14-36) U/L ALT 74 H (7-56) U/L Alkaline Phosphatase 128 H (38-126) U/L Ammonia (9-33) umol/L Lactate Dehydrogenase (333-699) U/L Total Creatine Kinase (35-230) U/L Troponin I ng/mL NT-Pro-B Natriuret Pep (0-450) pg/mL Total Protein 5.8 (5.8-8.3) g/dL Albumin 3.4 (3.0-4.8) g/dL Globulin 2.5 gm/dL Albumin/Globulin Ratio 1.4 (1.1-1.8) Procalcitonin 0.65 H (0.19-0.49) NG/ML Arterial Blood Potassium (3.6-5.2) mmol/L Venous Blood Potassium 4.5 (3.6-5.2) mmol/L Urine Color (YELLOW) Urine Appearance (CLEAR) Urine pH (4.7-8.0) Ur Specific [place] (1.005-1.035) Urine Protein (<30 mg/dL) mg/dL Urine Glucose (UA) (NEGATIVE) mg/dL Urine Ketones (NEGATIVE) mg/dL Urine Blood (NEGATIVE) Urine Nitrate (NEGATIVE) Urine Bilirubin (NEGATIVE) Urine Urobilinogen (<1 E.U./dL) E.U./dL Ur Leukocyte Esterase (NEGATIVE) [place]/uL Influenza Typ A,B (EIA) (NEGATIVE) Laboratory Results - last 24 hr 07/14/18 07/14/18 07/14/18 15:59 15:59 15:59 WBC RBC Hgb Hct MCV MCH MCHC RDW Plt Count Gran % Lymph % (Auto) [place] % (Auto) Eos % (Auto) Baso % (Auto) Gran # Lymph # (Auto) [place] # (Auto) Eos # (Auto) Baso # (Auto) PT INR APTT pCO2 pO2 120 H HCO3 ABG pH ABG Total CO2 ABG O2 Saturation ABG Base Excess ABG Potassium VBG pH 7.32 VBG pCO2 45.0 VBG HCO3 23.2 VBG Total CO2 24.6 VBG O2 Sat (Calc) 99.1 H VBG Base Excess -3.1 L VBG Potassium 4.5 Sodium 149.0 H 148 Chloride 114.0 H 113 H Glucose 158 H Lactate 4.3 H* FiO2 21.0 Crit Value Called To Jr pino Crit Value Called By Atc Blood Gas Notified Time 1605 Potassium 4.6 Carbon Dioxide 24 Anion Gap 15 BUN 48 H Creatinine 1.4 H Est GFR ( Amer) 46 Est GFR (Non-Af Amer) 38 POC Glucose (mg/dL) Random Glucose 152 H Calcium 9.3 Phosphorus 5.2 H Magnesium 1.9 Total Bilirubin 0.7 AST 232 H D ALT 74 H Alkaline Phosphatase 128 H Ammonia Lactate Dehydrogenase Total Creatine Kinase Troponin I NT-Pro-B Natriuret Pep Total Protein 5.8 Albumin 3.4 Globulin 2.5 Albumin/Globulin Ratio 1.4 Procalcitonin 0.65 H Arterial Blood Potassium Venous Blood Potassium 4.5 Urine Color Urine Appearance Urine pH Ur Specific [place] Urine Protein Urine Glucose (UA) Urine Ketones Urine Blood Urine Nitrate Urine Bilirubin Urine Urobilinogen Ur Leukocyte Esterase Influenza Typ A,B (EIA) 07/14/18 07/14/18 07/14/18 16:00 16:20 16:30 WBC RBC Hgb Hct MCV MCH MCHC RDW Plt Count Gran % Lymph % (Auto) [place] % (Auto) Eos % (Auto) Baso % (Auto) Gran # Lymph # (Auto) [place] # (Auto) Eos # (Auto) Baso # (Auto) PT 17.2 H INR 1.50 APTT 39.3 H pCO2 pO2 HCO3 ABG pH ABG Total CO2 ABG O2 Saturation ABG Base Excess ABG Potassium VBG pH VBG pCO2 VBG HCO3 VBG Total CO2 VBG O2 Sat (Calc) VBG Base Excess VBG Potassium Sodium Chloride Glucose Lactate FiO2 Crit Value Called To Crit Value Called By Blood Gas Notified Time Potassium Carbon Dioxide Anion Gap BUN Creatinine Est GFR ( Amer) Est GFR (Non-Af Amer) POC Glucose (mg/dL) Random Glucose Calcium Phosphorus Magnesium Total Bilirubin AST ALT Alkaline Phosphatase Ammonia Lactate Dehydrogenase 8654 H Total Creatine Kinase 170 Troponin I 0.22 H* D NT-Pro-B Natriuret Pep 4930 H Total Protein Albumin Globulin Albumin/Globulin Ratio Procalcitonin Arterial Blood Potassium Venous Blood Potassium Urine Color Yellow Urine Appearance Clear Urine pH 6.0 Ur Specific [place] 1.020 Urine Protein Negative Urine Glucose (UA) Negative Urine Ketones Negative Urine Blood Negative Urine Nitrate Negative Urine Bilirubin Negative Urine Urobilinogen 0.2 Ur Leukocyte Esterase Negative Influenza Typ A,B (EIA) 07/14/18 07/14/18 07/14/18 17:05 18:02 19:30 WBC 2.8 L D RBC 3.45 L Hgb 8.5 L Hct 26.7 L MCV 77.4 L MCH 24.6 L MCHC 31.8 RDW 19.1 H Plt Count 54 L Gran % 75.5 H Lymph % (Auto) 19.3 L [place] % (Auto) 4.4 Eos % (Auto) 0.4 L Baso % (Auto) 0.4 Gran # 2.08 Lymph # (Auto) 0.5 L [place] # (Auto) 0.1 Eos # (Auto) 0.0 Baso # (Auto) 0.01 PT INR APTT pCO2 pO2 HCO3 ABG pH ABG Total CO2 ABG O2 Saturation ABG Base Excess ABG Potassium VBG pH VBG pCO2 VBG HCO3 VBG Total CO2 VBG O2 Sat (Calc) VBG Base Excess VBG Potassium Sodium Chloride Glucose Lactate FiO2 Crit Value Called To Crit Value Called By Blood Gas Notified Time Potassium Carbon Dioxide Anion Gap BUN Creatinine Est GFR ( Amer) Est GFR (Non-Af Amer) POC Glucose (mg/dL) Random Glucose Calcium Phosphorus Magnesium Total Bilirubin AST ALT Alkaline Phosphatase Ammonia 18 Lactate Dehydrogenase Total Creatine Kinase Troponin I NT-Pro-B Natriuret Pep Total Protein Albumin Globulin Albumin/Globulin Ratio Procalcitonin Arterial Blood Potassium Venous Blood Potassium Urine Color Urine Appearance Urine pH Ur Specific [place] Urine Protein Urine Glucose (UA) Urine Ketones Urine Blood Urine Nitrate Urine Bilirubin Urine Urobilinogen Ur Leukocyte Esterase Influenza Typ A,B (EIA) Pos for influenza a H 07/14/18 07/14/18 07/15/18 21:20 23:27 00:15 WBC RBC Hgb Hct MCV MCH MCHC RDW Plt Count Gran % Lymph % (Auto) [place] % (Auto) Eos % (Auto) Baso % (Auto) Gran # Lymph # (Auto) [place] # (Auto) Eos # (Auto) Baso # (Auto) PT INR APTT pCO2 pO2 79 H HCO3 ABG pH ABG Total CO2 ABG O2 Saturation ABG Base Excess ABG Potassium VBG pH 7.29 L VBG pCO2 51.0 VBG HCO3 24.5 VBG Total CO2 26.1 VBG O2 Sat (Calc) 97.1 H VBG Base Excess -2.7 L VBG Potassium 6.0 H Sodium 148.0 Chloride 117.0 H Glucose 116 H Lactate 2.6 H FiO2 21.0 Crit Value Called To Malgorzata hanson Crit Value Called By Atc Blood Gas Notified Time 2124 Potassium Carbon Dioxide Anion Gap BUN Creatinine Est GFR ( Amer) Est GFR (Non-Af Amer) POC Glucose (mg/dL) 114 H Random Glucose Calcium Phosphorus 5.8 H Magnesium 1.7 Total Bilirubin AST ALT Alkaline Phosphatase Ammonia Lactate Dehydrogenase Total Creatine Kinase Troponin I 0.27 H* D NT-Pro-B Natriuret Pep Total Protein Albumin Globulin Albumin/Globulin Ratio Procalcitonin Arterial Blood Potassium Venous Blood Potassium 6.0 H Urine Color Urine Appearance Urine pH Ur Specific [place] Urine Protein Urine Glucose (UA) Urine Ketones Urine Blood Urine Nitrate Urine Bilirubin Urine Urobilinogen Ur Leukocyte Esterase Influenza Typ A,B (EIA) 07/15/18 07/15/18 07/15/18 00:50 06:50 07:00 WBC 2.9 L RBC 3.41 L Hgb 8.2 L Hct 26.6 L MCV 78.0 L MCH 24.0 L MCHC 30.8 L RDW 19.4 H Plt Count 52 L Gran % 70.1 H Lymph % (Auto) 23.3 [place] % (Auto) 5.9 Eos % (Auto) 0.0 L Baso % (Auto) 0.7 Gran # 2.02 Lymph # (Auto) 0.7 L [place] # (Auto) 0.2 Eos # (Auto) 0.0 Baso # (Auto) 0.02 PT INR APTT pCO2 33 L pO2 128.0 H 35 HCO3 19.5 L ABG pH 7.38 ABG Total CO2 20.5 L ABG O2 Saturation 98.9 H ABG Base Excess -4.7 L ABG Potassium 4.0 VBG pH 7.26 L VBG pCO2 51.0 VBG HCO3 22.9 VBG Total CO2 24.5 VBG O2 Sat (Calc) 65.4 H VBG Base Excess -4.6 L VBG Potassium 4.4 Sodium 151.0 H 151.0 H Chloride 120.0 H 118.0 H Glucose 74 86 Lactate 1.8 2.3 H FiO2 36.0 21.0 Crit Value Called To Maral elias internet specialist Crit Value Called By Es Blood Gas Notified Time 737 Potassium Carbon Dioxide Anion Gap BUN Creatinine Est GFR ( Amer) Est GFR (Non-Af Amer) POC Glucose (mg/dL) Random Glucose Calcium Phosphorus Magnesium Total Bilirubin AST ALT Alkaline Phosphatase Ammonia Lactate Dehydrogenase Total Creatine Kinase Troponin I NT-Pro-B Natriuret Pep Total Protein Albumin Globulin Albumin/Globulin Ratio Procalcitonin Arterial Blood Potassium 4.0 Venous Blood Potassium 4.4 Urine Color Urine Appearance Urine pH Ur Specific [place] Urine Protein Urine Glucose (UA) Urine Ketones Urine Blood Urine Nitrate Urine Bilirubin Urine Urobilinogen Ur Leukocyte Esterase Influenza Typ A,B (EIA) 07/15/18 07/15/18 07/15/18 07:00 07:21 11:52 WBC RBC Hgb Hct MCV MCH MCHC RDW Plt Count Gran % Lymph % (Auto) [place] % (Auto) Eos % (Auto) Baso % (Auto) Gran # Lymph # (Auto) [place] # (Auto) Eos # (Auto) Baso # (Auto) PT INR APTT pCO2 pO2 51 HCO3 ABG pH ABG Total CO2 ABG O2 Saturation ABG Base Excess ABG Potassium VBG pH 7.29 L VBG pCO2 37.0 L VBG HCO3 17.8 L VBG Total CO2 18.9 L VBG O2 Sat (Calc) 88.1 H VBG Base Excess -8.1 L VBG Potassium 4.3 Sodium 151 H 150.0 H Chloride 118 H 119.0 H Glucose 126 H Lactate 3.6 H FiO2 21.0 Crit Value Called To nickie Blanca Crit Value Called By Blood Gas Notified Time 1158 Potassium 4.6 Carbon Dioxide 25 Anion Gap 13 BUN 54 H Creatinine 1.4 H Est GFR ( Amer) 46 Est GFR (Non-Af Amer) 38 POC Glucose (mg/dL) 73 Random Glucose 86 Calcium 8.6 Phosphorus Magnesium Total Bilirubin 0.7 AST 1276 H ALT 177 H Alkaline Phosphatase 170 H D Ammonia Lactate Dehydrogenase Total Creatine Kinase Troponin I 0.30 H* NT-Pro-B Natriuret Pep Total Protein 5.9 Albumin 3.3 Globulin 2.6 Albumin/Globulin Ratio 1.3 Procalcitonin Arterial Blood Potassium Venous Blood Potassium 4.3 Urine Color Urine Appearance Urine pH Ur Specific [place] Urine Protein Urine Glucose (UA) Urine Ketones Urine Blood Urine Nitrate Urine Bilirubin Urine Urobilinogen Ur Leukocyte Esterase Influenza Typ A,B (EIA) Radiology Impressions: Radiology Impressions Chest X-Ray 07/14/18 15:02 IMPRESSION: Extensive right-sided pneumonia Head CT 07/14/18 15:03 IMPRESSION: No acute intracranial abnormalities. No significant findings to account for the clinical presentation. No significant interval change compared to the prior examination(s). Chest X-Ray 07/15/18 05:00 IMPRESSION: Limited patchy infiltrate medial right base. Scattered pulmonary nodules again seen bilaterally. No pulmonary vascular congestion. EKG/Cardiology Studies: Cardiology / EKG Studies 07/14/18 15:02 ELECTROCARDIOGRAM Stat Comment: Reason For Exam: Sepsis Patient 07/14/18 15:17 ELECTROCARDIOGRAM Stat Comment: Reason For Exam: ams Critical Care Progress Note - Nutrition Nutrition: Nutrition Category Date Time Status NPO Diet [DIET] Diets 07/15/18 Dinner Ordered Attending/Attestation - Attestation I have personally seen and examined this patient.: Yes I have fully participated in the care of the patient.: Yes I have reviewed all pertinent clinical information: Yes Notes (Text): 07/15/18 12:49 The patient was seen and examined at the bedside. Patient care was discussed with resident Medical records, lab studies were reviewed and management issues were discussed and formulated. Agree with above treatment plans as outlined in 's note with addition of the following: Septic Shock \ PNA \ Influenza Positive \ NSTEMI \ MADELAINE \ Elevated LFT \ Breast CA on chemotherapy \ -hemodynamic monitoring to maintain MAP>65 -continue ASA, statin; BBlocker if B\P tolerates -f\u serial CE and ECG; likely type 2 [place]; cardiology team eval f\u -o2 supplementation to maintain Spo2>90 Pao2>60; currently on NC -CXR reviewed -broad spectrum ABX and tamiflu; ID team f\u; f\u cultures -f\u Bun\Cr and U\o; continue IVF with 1/2NS with 75meq bicarb for isotonic, low chlotide IVF in setting of sepsis -NPO diet and aspiration precautions -f\u serial LFT -f\u abdominal US -Heme\onc f\u -DVT \ PUD prophylaxis ccm time 33
[2018-07-15 11:58] LABS: VENOUS BLOOD GAS BASE EXCESS -8.1 mmol/L (0.0-2.0); VENOUS BLOOD GAS PO2 51 mm/Hg (30-55); VENOUS BLOOD PH 7.29 (7.32-7.43)
[2018-07-15] MEDS ORDERED: Sodium Chloride 0.9% 500 ML IV STA (12:12)
--- NOTE | 2018-07-15 13:00 | RAD ---
Date of service: 07/15/2018 HISTORY: NG tube COMPARISON: No prior. FINDINGS: LUNGS: Diffuse alveolar infiltrate right lung. PLEURA: No significant pleural effusion identified, no pneumothorax apparent. CARDIOVASCULAR: No aortic atherosclerotic calcification present. Normal cardiac size. No pulmonary vascular congestion. OSSEOUS STRUCTURES: No significant abnormalities. VISUALIZED UPPER ABDOMEN: Nasogastric tube in satisfactory position. OTHER FINDINGS: None. IMPRESSION: Nasogastric tube in satisfactory position
[2018-07-15] MEDS ORDERED: Ferrous Sulfate 300 mg/5 mL Liq UD PO SCH (14:00)
--- NOTE | 2018-07-15 16:35 | CON ---
DATE: 07/15/2018 CARDIOLOGY CONSULTATION HISTORY: The patient is a 63-year-old woman who presents with marked altered mental status with decreased appetite from a retirement facility. The patient was found to be positive for the flu. PAST MEDICAL HISTORY: The patient's past medical history is notable for metastatic breast CA. In addition, the patient underwent cardiac catheterization last year, where she was found to have patent stents in the LAD and circumflex artery with a 50% stenosis in the RCA. At that time, the patient had mildly elevated troponins which were unexplained by her coronary disease. Currently, social history and review of systems are not obtainable from the patient. PHYSICAL EXAMINATION: GENERAL: The patient is obtunded with an NG tube placed for her difficulty swallowing. VITAL SIGNS: Blood pressure is 106/64, heart rate is tachycardic at 110. NECK: Negative JVD. LUNGS: Decreased breath sounds. HEART: With S1, S2. EXTREMITIES: Without change. LABORATORY DATA: EKG shows no acute changes. Hemoglobin is 8.2. Chemistries, BUN and creatinine 54 and 1.4. The troponins are up to 0.30. The hemoglobin reveals hemoglobin of 8.2 with a platelet count of 52,000. The INR is 1.5. IMPRESSION: 1. Marked altered mental status. 2. Positive for flu. 3. Mildly elevated troponins. 4. History of triple-vessel coronary artery disease. 5. Patent stents in the left anterior descending and circumflex artery with a 50% stenosis in the right coronary artery on a catheterization done late last year. 6. Metastatic breast cancer. 7. Hypercholesterolemia. 8. Diabetes mellitus. Given these findings, the patient's mildly elevated troponins cannot be aggressively treated at this time. No aspirin, given her thrombocytopenia and no anticoagulation should be given at this time. We will start the patient on beta blockers to help reduce her heart rate and metabolic demands. The patient's prognosis is poor. Erich Slater MD
[2018-07-15] MEDS: Ferrous Sulfate 300 mg/5 mL Liq UD PO SCH (17:24)
--- NOTE | 2018-07-15 17:56 | US ---
Date of service: 07/15/2018 HISTORY: Elevated LFTs COMPARISON: Comparison made with prior abdominal ultrasound dated 06/14/2018. Comparison also made with prior CT chest and CT scan of the abdomen and pelvis dated 05/26/2018 and 08/03/2017 respectively. TECHNIQUE: Sonographic evaluation of the abdomen. FINDINGS: LIVER: Measures 16.2 cm. Smooth contour though increased echotexture suggesting fatty infiltration; other infiltrative hepatocellular disease process including metastatic disease not excluded. No mass. No intrahepatic bile duct dilatation. There is a trace amount of perihepatic ascites GALLBLADDER: Cholecystectomy. COMMON BILE DUCT: Measures 4.7 mm. No stones. No dilatation. PANCREAS: Unremarkable as visualized. No mass. No ductal dilatation. RIGHT KIDNEY: Measures 11.1 x 4.1 x 5.3cm. Normal echogenicity. No calculus, mass, or hydronephrosis. LEFT KIDNEY: Measures 9.4 x 5.7 x 5.1cm. Normal echogenicity. No calculus, mass, or hydronephrosis. SPLEEN: Normal in size and contour. No mass. AORTA: No aneurysmal dilatation. IVC: Unremarkable. OTHER FINDINGS: Retroperitoneal adenopathy seen on prior CT scan of the chest and prior CT scan abdomen pelvis is not well delineated on this study. IMPRESSION: Cholecystectomy.. Findings suggest fatty infiltration however other infiltrative hepatocellular disease process including metastatic disease not excluded. Trace amount of perihepatic ascites. Retroperitoneal adenopathy seen on prior CT scan of the chest and prior CT scan abdomen pelvis is not well delineated on this study.
[2018-07-15 17:59] LABS: ALB/GLOB RATIO 1.3 (1.1-1.8); CALCIUM 8.5 mg/dL (8.4-10.5)
[2018-07-15] MEDS ORDERED: Lactated Ringer's 1,000 ML IV SCH (18:30)
--- NOTE | 2018-07-16 05:19 | CP.PCM.PN ---
<Merari Greenwood - Last Filed: 07/16/18 14:47> Subjective - Date & Time of Evaluation Date of Evaluation: 07/16/18 Time of Evaluation: 08:00 - Subjective Subjective: Pgy3 Medicine progress note for Dr. Soria Patient seen and examined at bedside. Nursing reported overnight patient continued to be febrile and tachycardic. Patient lethargic and only slightly arousable. ROS unobtainable at this time due to clinical condition. Objective - Vital Signs/Intake and Output Vital Signs (last 24 hours): Temp Pulse Resp BP Pulse Ox 101.7 F H 97 H 29 H 103/59 L 98 07/15/18 20:00 07/15/18 20:00 07/15/18 20:00 07/15/18 20:00 07/15/18 20:00 Intake and Output: 07/15/18 07/16/18 18:59 06:59 Intake Total 2110 Output Total 500 Balance 1610 - Medications Medications: Current Medications Acetaminophen (Tylenol 325mg Tab) 650 mg PO Q4H PRN PRN Reason: Temp greater than 100.4*F Last Admin: 07/15/18 17:27 Dose: 650 mg Aspirin (Ecotrin) 81 mg PO DAILY [facility] Last Admin: 07/15/18 11:30 Dose: 81 mg Cyproheptadine HCl (Periactin) 2 mg PO DAILY [facility] Last Admin: 07/15/18 11:35 Dose: 2 mg Famotidine (Pepcid) 40 mg PO HS [facility] Last Admin: 07/15/18 22:26 Dose: 40 mg Ferrous Sulfate (Feosol Liq) 300 mg PO BID [facility] Last Admin: 07/15/18 17:24 Dose: 300 mg Folic Acid (Folic Acid) 1 mg PO DAILY [facility] Last Admin: 07/15/18 11:33 Dose: 1 mg Heparin Sodium (Porcine) (Heparin) 5,000 units SC Q8 [facility]; Protocol Last Admin: 07/15/18 22:14 Dose: 5,000 units Acetaminophen (Ofirmev) 1,000 mg in 100 mls @ 400 mls/hr IVPB Q6H PRN PRN Reason: fever Stop: 07/16/18 23:31 Last Admin: 07/15/18 22:25 Dose: 400 mls/hr Meropenem/Sodium Chloride (Merrem Iv 500 Mg/Ns 50 Ml) 500 mg in 50 mls @ 100 mls/hr IVPB Q12 [facility]; Protocol Stop: 07/22/18 06:46 Last Admin: 07/15/18 22:15 Dose: 100 mls/hr Lactated Ringer's (Lactated Ringer's) 1,000 mls @ 75 mls/hr IV .[id number] [facility] Last Admin: 07/15/18 18:44 Dose: 75 mls/hr Insulin Human Lispro (Humalog Low) 0 units SC ACHS [facility]; Protocol Last Admin: 07/15/18 22:09 Dose: Not Given Levofloxacin/Dextrose (Levaquin 750mg) 750 mg IVPB QOTHERDAY [facility]; Protocol Last Admin: 07/15/18 09:53 Dose: 750 mg Meclizine HCl (Antivert) 12.5 mg PO BID PRN PRN Reason: Dizziness Metoprolol Tartrate (Lopressor) 25 mg PO BID [facility] Last Admin: 07/15/18 17:23 Dose: 25 mg Oseltamivir Phosphate (Tamiflu Cap) 30 mg PO Q12 [facility]; Protocol Last Admin: 07/15/18 22:26 Dose: 30 mg - Labs Labs: 07/15/18 07:00 07/15/18 17:40 PT 17.2 SECONDS (9.4-12.5) H 07/14/18 16:20 INR 1.50 07/14/18 16:20 APTT 39.3 Seconds (25.1-36.5) H 07/14/18 16:20 - Constitutional Appears: Toxic, Older Than Stated Age, Confused, Chronically Ill - Head Exam Head Exam: ATRAUMATIC, NORMAL INSPECTION, NORMOCEPHALIC - Eye Exam Eye Exam: absent: Conjunctival injection, Scleral icterus - ENT Exam ENT Exam: Mucous Membranes Moist Additional comments: NGT in place - Respiratory Exam Respiratory Exam: Prolonged Expiratory Phase, Rhonchi. absent: Stridor - Cardiovascular Exam Cardiovascular Exam: Tachycardia, +S1, +S2 Additional comments: R chest wall port in place - GI/Abdominal Exam GI & Abdominal Exam: Soft, Normal Bowel Sounds. absent: Distended, Firm, Guarding, Rigid, Tenderness - Extremities Exam Extremities Exam: Normal Capillary Refill, Pedal Edema (trace b/l LE) - Neurological Exam Neurological Exam: Altered. absent: Alert, Awake - Psychiatric Exam Additional comments: lethargic; cannot be assessed - Skin Skin Exam: Dry, Intact Assessment and Plan - Assessment and Plan (Free Text) Assessment: - Severe Sepsis vs Septic Shock likely secondary to HCAP - Influenza A + - NSTEMI - Transaminitis - Pancytopenia - Thrombocytopenia - Encephalopathy - Right breast CA s/p mastectomy 2014 currently undergoing chemotherapy - Anemia - MADELAINE - Elevated PT and PTT - HTN - HLD - Delirium Plan: Patient's blood work, vitals, and imaging reviewed. Patient on Levaquin, Merrem and intermittent vancomycin and Tamiflu as per ID. Will follow up cultures. HIV and Legionella negative. Elevated procalcitonin. Tylenol on board for elevated temp. On beta lindsay and ASA for NSTEMI. Patient's elevated LFTs likely se condary to hypoperfusion; trending down. Lipitor on hold at this time. Acute hep panel negative. Abd u/s revealed fatty infiltration however other infiltrative hepatocelular disease process including mets not excluded; trace amt perihepatic ascites. Patient's pancytopenia noted. In light of patient's mentation, she is receiving feeds via NGT with H20 flushes. Head CT negative for any acute finding s. Neurology consulted- f/u reccs. Home lyrica and neurontin discontinued. Maintain fluids @ 75cc/hr. RISS and accuchecks ordered. GI and DVT ppx in place. Maintain MAP > 65, euglycemia, normothermia, and euvolemia. Appreciate reccs of cardiology, heme/onc, ID, Neuro, and MICU team. Discussed with Dr. Estella Greenwood PGY3 <Sherman Soria S - Last Filed: 07/16/18 17:54> Objective - Vital Signs/Intake and Output Vital Signs (last 24 hours): Temp Pulse Resp BP Pulse Ox 100.4 F H 109 H 41 H 125/70 90 L 07/16/18 12:00 07/16/18 15:00 07/16/18 15:00 07/16/18 15:00 07/16/18 15:00 Intake and Output: 07/16/18 07/16/18 06:59 18:59 Intake Total 1605 Output Total 400 Balance 1205 - Medications Medications: Current Medications Acetaminophen (Tylenol 325mg Tab) 650 mg PO Q4H PRN PRN Reason: Temp greater than 100.4*F Last Admin: 07/15/18 17:27 Dose: 650 mg Aspirin (Ecotrin) 81 mg PO DAILY [facility] Last Admin: 07/16/18 09:48 Dose: 81 mg Famotidine (Pepcid) 20 mg PO 1000,2200 [facility] Folic Acid (Folic Acid) 1 mg PO DAILY [facility] Last Admin: 07/16/18 09:48 Dose: 1 mg Heparin Sodium (Porcine) (Heparin) 5,000 units SC Q12 [facility]; Protocol Acetaminophen (Ofirmev) 1,000 mg in 100 mls @ 400 mls/hr IVPB Q6H PRN PRN Reason: fever Stop: 07/16/18 23:31 Last Admin: 07/16/18 06:37 Dose: 400 mls/hr Meropenem/Sodium Chloride (Merrem Iv 500 Mg/Ns 50 Ml) 500 mg in 50 mls @ 100 mls/hr IVPB Q12 [facility]; Protocol Stop: 07/22/18 06:46 Last Admin: 07/16/18 09:39 Dose: 100 mls/hr Dextrose (Dextrose 5% In Water 1000 Ml) 1,000 mls @ 125 mls/hr IV .Q8H [facility] Stop: 07/17/18 09:29 Insulin Human Lispro (Humalog Low) 0 units SC ACHS [facility]; Protocol Last Admin: 07/16/18 17:30 Dose: 2 u Levofloxacin/Dextrose (Levaquin 750mg) 750 mg IVPB QOTHERDAY [facility]; Protocol Last Admin: 07/15/18 09:53 Dose: 750 mg Meclizine HCl (Antivert) 12.5 mg PO BID PRN PRN Reason: Dizziness Methylphenidate HCl (Ritalin) 5 mg PO DAILY [facility] Metoprolol Tartrate (Lopressor) 25 mg PO BID [facility] Last Admin: 07/16/18 09:48 Dose: 25 mg Oseltamivir Phosphate (Tamiflu Cap) 30 mg PO Q12 [facility]; Protocol Last Admin: 07/16/18 09:47 Dose: 30 mg - Labs Labs: 07/16/18 06:27 07/16/18 06:27 PT 18.3 SECONDS (9.4-12.5) H 07/16/18 06:27 INR 1.58 07/16/18 06:27 APTT 39.3 Seconds (25.1-36.5) H 07/14/18 16:20 Assessment and Plan - Assessment and Plan (Free Text) Plan: Pt seen and examined by me. I have reviewed the note of the medical accounting clerk and I agree with it. I have discussed the assessment and plan with the resident. I have reviewed the medications and the last labs. See the note that I have dictated.
[2018-07-16 06:54] LABS: BASO # 0.02 K/mm3 (0.0-2.0); BASO % 0.3 % (0.0-3.0); GRAN # 5.06 (1.4-6.5); GRAN % 83.5 % (50.0-68.0); HEMOGLOBIN 7.5 g/dL (12.0-16.0); LYMPH # 0.7 (1.2-3.4); LYMPH % 11.9 % (22.0-35.0); MEAN CORPUSCULAR HEMOGLOBIN 23.7 pg (25.0-35.0); MEAN CORPUSCULAR HGB CONC 30.7 g/dl (31.0-37.0); MONO # 0.3 (0.1-0.6); MONO % 4.3 % (1.0-6.0); PLATELET COUNT 68 10^3/uL (120.0-450.0); RBC 3.17 10^6/uL (3.5-6.1); RED CELL DISTRIBUTION WIDTH 19.3 % (11.5-14.5); WHITE BLOOD COUNT 6.1 10^3/uL (4.5-11.0)
[2018-07-16 07:03] LABS: INR 1.58; PROTHROMBIN TIME 18.3 SECONDS (9.4-12.5)
--- NOTE | 2018-07-16 07:44 | CP.PCM.PN ---
Subjective - Date & Time of Evaluation Date of Evaluation: 07/16/18 Time of Evaluation: 07:39 - Subjective Subjective: PGY-2 heme/onc progress note No acute events noted overnight. Patient too lethargic to response to questions- ROS were not attainable. Objective - Vital Signs/Intake and Output Vital Signs (last 24 hours): Temp Pulse Resp BP Pulse Ox 101.1 F H 112 H 28 H 135/72 92 L 07/16/18 06:00 07/16/18 06:00 07/16/18 06:00 07/16/18 06:00 07/16/18 06:00 - Medications Medications: Current Medications Acetaminophen (Tylenol 325mg Tab) 650 mg PO Q4H PRN PRN Reason: Temp greater than 100.4*F Last Admin: 07/15/18 17:27 Dose: 650 mg Aspirin (Ecotrin) 81 mg PO DAILY [facility] Last Admin: 07/15/18 11:30 Dose: 81 mg Cyproheptadine HCl (Periactin) 2 mg PO DAILY [facility] Last Admin: 07/15/18 11:35 Dose: 2 mg Famotidine (Pepcid) 40 mg PO HS [facility] Last Admin: 07/15/18 22:26 Dose: 40 mg Ferrous Sulfate (Feosol Liq) 300 mg PO BID [facility] Last Admin: 07/15/18 17:24 Dose: 300 mg Folic Acid (Folic Acid) 1 mg PO DAILY [facility] Last Admin: 07/15/18 11:33 Dose: 1 mg Heparin Sodium (Porcine) (Heparin) 5,000 units SC Q8 [facility]; Protocol Last Admin: 07/16/18 06:36 Dose: 5,000 units Acetaminophen (Ofirmev) 1,000 mg in 100 mls @ 400 mls/hr IVPB Q6H PRN PRN Reason: fever Stop: 07/16/18 23:31 Last Admin: 07/16/18 06:37 Dose: 400 mls/hr Meropenem/Sodium Chloride (Merrem Iv 500 Mg/Ns 50 Ml) 500 mg in 50 mls @ 100 mls/hr IVPB Q12 [facility]; Protocol Stop: 07/22/18 06:46 Last Admin: 07/15/18 22:15 Dose: 100 mls/hr Lactated Ringer's (Lactated Ringer's) 1,000 mls @ 75 mls/hr IV .[id number] [facility] Last Admin: 07/15/18 18:44 Dose: 75 mls/hr Insulin Human Lispro (Humalog Low) 0 units SC ACHS [facility]; Protocol Last Admin: 07/15/18 22:09 Dose: Not Given Levofloxacin/Dextrose (Levaquin 750mg) 750 mg IVPB QOTHERDAY [facility]; Protocol Last Admin: 07/15/18 09:53 Dose: 750 mg Meclizine HCl (Antivert) 12.5 mg PO BID PRN PRN Reason: Dizziness Metoprolol Tartrate (Lopressor) 25 mg PO BID [facility] Last Admin: 07/15/18 17:23 Dose: 25 mg Oseltamivir Phosphate (Tamiflu Cap) 30 mg PO Q12 [facility]; Protocol Last Admin: 07/15/18 22:26 Dose: 30 mg - Labs Labs: 07/16/18 06:27 07/15/18 17:40 PT 18.3 SECONDS (9.4-12.5) H 07/16/18 06:27 INR 1.58 07/16/18 06:27 APTT 39.3 Seconds (25.1-36.5) H 07/14/18 16:20 - Additional Findings Additional findings: - Constitutional Appears: No Acute Distress, Older Than Stated Age, Cachectic, Chronically Ill - Head Exam Head Exam: ATRAUMATIC, NORMAL INSPECTION, NORMOCEPHALIC - Eye Exam Eye Exam: EOMI, PERRL - ENT Exam ENT Exam: Mucous Membranes Dry - Neck Exam Neck exam: Positive for: Full Rom - Respiratory Exam Respiratory Exam: Decreased Breath Sounds (R>L), Wheezes (expiratory bilaterally ), NORMAL BREATHING PATTERN - Cardiovascular Exam Cardiovascular Exam: REGULAR RHYTHM, +S1, +S2. absent: Clicks, JVD, Rubs - GI/Abdominal Exam GI & Abdominal Exam: Normal Bowel Sounds, Soft. absent: Firm, Guarding, Rigid, Tenderness - Extremities Exam Extremities exam: Positive for: pedal edema (+1 b/l lower extremities ) - Neurological Exam Neurological exam: Alert Additional comments: alert and oriented x 3 motor and sensory grossly intact - Psychiatric Exam Additional comments: quiet, non-anxious - Skin Skin Exam: Dry, Intact, Warm Assessment and Plan - Assessment and Plan (Free Text) Plan: 63 year old female with past medical history of breast cancer s/p mastectomy on chemotherapy, CAD s/p stent, HLD, HTN, DM2, sickle cell trait who presents to [facility] [place] [place] ED from Dr. 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
[2018-07-16 07:57] LABS: ALB/GLOB RATIO 1.2 (1.1-1.8); ALBUMIN 2.8 g/dL (3.0-4.8); CALCIUM 8.6 mg/dL (8.4-10.5); TROPONIN I 0.31 ng/mL
[2018-07-16 08:37] LABS: PLATELET COUNT MANUAL 50 K/mm3 (120-450)
--- NOTE | 2018-07-16 08:54 | CP.PCM.PN ---
<Jj Wolfe - Last Filed: 07/16/18 13:57> Subjective - Date & Time of Evaluation Date of Evaluation: 07/16/18 Time of Evaluation: 07:00 - Subjective Subjective: ID Progress Note Patient seen and examined. Patient still lethargic. No acute events overnight. Fever overnight. Objective - Vital Signs/Intake and Output Vital Signs (last 24 hours): Temp Pulse Resp BP Pulse Ox 101.5 F H 115 H 37 H 117/63 95 07/16/18 07:59 07/16/18 07:59 07/16/18 07:59 07/16/18 08:00 07/16/18 07:59 - Medications Medications: Current Medications Acetaminophen (Tylenol 325mg Tab) 650 mg PO Q4H PRN PRN Reason: Temp greater than 100.4*F Last Admin: 07/15/18 17:27 Dose: 650 mg Aspirin (Ecotrin) 81 mg PO DAILY [facility] Last Admin: 07/15/18 11:30 Dose: 81 mg Cyproheptadine HCl (Periactin) 2 mg PO DAILY [facility] Last Admin: 07/15/18 11:35 Dose: 2 mg Famotidine (Pepcid) 40 mg PO HS [facility] Last Admin: 07/15/18 22:26 Dose: 40 mg Ferrous Sulfate (Feosol Liq) 300 mg PO BID [facility] Last Admin: 07/15/18 17:24 Dose: 300 mg Folic Acid (Folic Acid) 1 mg PO DAILY [facility] Last Admin: 07/15/18 11:33 Dose: 1 mg Heparin Sodium (Porcine) (Heparin) 5,000 units SC Q8 [facility]; Protocol Last Admin: 07/16/18 06:36 Dose: 5,000 units Acetaminophen (Ofirmev) 1,000 mg in 100 mls @ 400 mls/hr IVPB Q6H PRN PRN Reason: fever Stop: 07/16/18 23:31 Last Admin: 07/16/18 06:37 Dose: 400 mls/hr Meropenem/Sodium Chloride (Merrem Iv 500 Mg/Ns 50 Ml) 500 mg in 50 mls @ 100 mls/hr IVPB Q12 [facility]; Protocol Stop: 07/22/18 06:46 Last Admin: 07/15/18 22:15 Dose: 100 mls/hr Lactated Ringer's (Lactated Ringer's) 1,000 mls @ 75 mls/hr IV .[id number] [facility] Last Admin: 07/15/18 18:44 Dose: 75 mls/hr Insulin Human Lispro (Humalog Low) 0 units SC ACHS [facility]; Protocol Last Admin: 07/15/18 22:09 Dose: Not Given Levofloxacin/Dextrose (Levaquin 750mg) 750 mg IVPB QOTHERDAY [facility]; Protocol Last Admin: 07/15/18 09:53 Dose: 750 mg Meclizine HCl (Antivert) 12.5 mg PO BID PRN PRN Reason: Dizziness Metoprolol Tartrate (Lopressor) 25 mg PO BID [facility] Last Admin: 07/15/18 17:23 Dose: 25 mg Oseltamivir Phosphate (Tamiflu Cap) 30 mg PO Q12 [facility]; Protocol Last Admin: 07/15/18 22:26 Dose: 30 mg - Labs Labs: 07/16/18 06:27 07/16/18 06:27 PT 18.3 SECONDS (9.4-12.5) H 07/16/18 06:27 INR 1.58 07/16/18 06:27 APTT 39.3 Seconds (25.1-36.5) H 07/14/18 16:20 - Constitutional Appears: Toxic, Older Than Stated Age - Head Exam Head Exam: ATRAUMATIC, NORMAL INSPECTION, NORMOCEPHALIC - ENT Exam ENT Exam: Mucous Membranes Moist - Respiratory Exam Respiratory Exam: Decreased Breath Sounds, Rhonchi, NORMAL BREATHING PATTERN. absent: Rales, Wheezes - Cardiovascular Exam Cardiovascular Exam: Tachycardia, +S1, +S2 - GI/Abdominal Exam GI & Abdominal Exam: Soft, Normal Bowel Sounds. absent: Tenderness - Neurological Exam Neurological Exam: Awake - Skin Skin Exam: Intact, Normal Color, Warm Assessment and Plan - Assessment and Plan (Free Text) Plan: Sepsis secondary to [facility]-S[facility] Acquired Pneumonia Influenza + Thrombocytopenia [facility]INE Hx of Breast cancer on chemotherapy Hx of HTN Hx of DM2 Hx of CAD s/p stent placement Hx of Sickle cell trait Plan Continue on Levaquin, Merrem, and Tamiflu Intermittent Vancomycin Procalcitonin elevated Legionella negative HIV negative Blood, urine, and sputum cultures negative Continue current medical management Yaneth, PGY-3 <Hardik Aquino - Last Filed: 07/16/18 17:14> Objective - Vital Signs/Intake and Output Vital Signs (last 24 hours): Temp Pulse Resp BP Pulse Ox 100.4 F H 109 H 41 H 125/70 90 L 07/16/18 12:00 07/16/18 15:00 07/16/18 15:00 07/16/18 15:00 07/16/18 15:00 Intake and Output: 07/16/18 07/16/18 06:59 18:59 Intake Total 1605 Output Total 400 Balance 1205 - Medications Medications: Current Medications Acetaminophen (Tylenol 325mg Tab) 650 mg PO Q4H PRN PRN Reason: Temp greater than 100.4*F Last Admin: 07/15/18 17:27 Dose: 650 mg Aspirin (Ecotrin) 81 mg PO DAILY [facility] Last Admin: 07/16/18 09:48 Dose: 81 mg Famotidine (Pepcid) 20 mg PO 1000,2200 [facility] Folic Acid (Folic Acid) 1 mg PO DAILY [facility] Last Admin: 07/16/18 09:48 Dose: 1 mg Heparin Sodium (Porcine) (Heparin) 5,000 units SC Q12 [facility]; Protocol Acetaminophen (Ofirmev) 1,000 mg in 100 mls @ 400 mls/hr IVPB Q6H PRN PRN Reason: fever Stop: 07/16/18 23:31 Last Admin: 07/16/18 06:37 Dose: 400 mls/hr Meropenem/Sodium Chloride (Merrem Iv 500 Mg/Ns 50 Ml) 500 mg in 50 mls @ 100 mls/hr IVPB Q12 [facility]; Protocol Stop: 07/22/18 06:46 Last Admin: 07/16/18 09:39 Dose: 100 mls/hr Sodium Chloride (Sodium Chloride 0.45%) 1,000 mls @ 40 mls/hr IV .Q24H [facility] Insulin Human Lispro (Humalog Low) 0 units SC ACHS [facility]; Protocol Last Admin: 07/15/18 22:09 Dose: Not Given Levofloxacin/Dextrose (Levaquin 750mg) 750 mg IVPB QOTHERDAY [facility]; Protocol Last Admin: 07/15/18 09:53 Dose: 750 mg Meclizine HCl (Antivert) 12.5 mg PO BID PRN PRN Reason: Dizziness Methylphenidate HCl (Ritalin) 5 mg PO DAILY [facility] Metoprolol Tartrate (Lopressor) 25 mg PO BID [facility] Last Admin: 07/16/18 09:48 Dose: 25 mg Oseltamivir Phosphate (Tamiflu Cap) 30 mg PO Q12 [facility]; Protocol Last Admin: 07/16/18 09:47 Dose: 30 mg - Labs Labs: 07/16/18 06:27 07/16/18 06:27 PT 18.3 SECONDS (9.4-12.5) H 07/16/18 06:27 INR 1.58 07/16/18 06:27 APTT 39.3 Seconds (25.1-36.5) H 07/14/18 16:20 Assessment and Plan - Assessment and Plan (Free Text) Plan: Infectious diseases Attending Physician Attestation Patient seen and examined, discussed with medical coding auditor. I have reviewed the patient's history of present illness, past medical, social, personal and family histories, pertinent physical exam findings, course so far in this hospital admission, pertinent laboratory and imaging results. I agree with the above findings, assessment and plan. In addition, continue intermittent Vancomycin IV, Merrem, Levaquin and Tamiflu for patietn with severe sepsis with acute en cephalopathy due to right sided HAP on top of Influenza A infection. Follow up cultures. Prognosis is guarded at best.
[2018-07-16] MEDS: MEROPENEM 500 MG in NS 500 MG/50 ML BAG IVPB SCH ×2 (09:39→22:56)
[2018-07-16] MEDS: Ferrous Sulfate 300 mg/5 mL Liq UD PO SCH (09:47)
[2018-07-16] MEDS ORDERED: Sodium Chloride 0.45% 1,000 ML IV SCH ×2 (10:45→11:45)
--- NOTE | 2018-07-16 10:47 | CP.CCUPN ---
<Kleber Contreras - Last Filed: 07/16/18 10:40> CCU Subjective - Physician Review Subjective (Free Text): Kleber Contreras PGY1 Critical Care Progress Note Patient seen and examined at bedside this morning. No acute events reported overnight. Will change LR to 1/2NS at 75cc. Will continue with IV antibiotics and tamiflu and consult neurology for arm weakness. Patient is lethargic and poor historian at this time, 12 ROS limited. CCU Objective - Vital Signs / Intake & Output Vital Signs (Last 4 hours): Vital Signs Temp Pulse Resp BP Pulse Ox 07/16/18 10:01 103/56 L 07/16/18 10:00 100.9 F H 110 H 31 H 94 L 07/16/18 09:48 111 H 108/65 07/16/18 09:00 101.1 F H 111 H 33 H 108/65 95 07/16/18 08:00 117/63 07/16/18 07:59 101.5 F H 115 H 37 H 95 07/16/18 07:00 101.5 F H 113 H 31 H 124/63 94 L Intake and Output (Last 8hrs): Intake & Output 07/15/18 07/16/18 07/16/18 22:59 06:59 14:59 Intake Total 2110 1605 Output Total 500 400 Balance 1610 1205 Intake: IV 1750 875 IVF 950 825 Right Antecubital 0 antibiotics 800 50 Oral 0 Tube Feeding 120 380 TPN/PPN 0 Blood Product 0 Lipid 0 Albumin 0 Other 240 350 Output: Gastric Amount 0 0 Nares 0 0 Urine 500 400 Urethral (Rodgers) 500 400 Stool 0 Urine/Stool Mix 0 Emesis 0 Oral Regurgitation 0 Other 0 Other: # Voids Urethral (Rodgers) 0 # Bowel Movements 0 2 - Physical Exam Head: Positive for: Atraumatic, Normocephalic Pupils: Positive for: PERRL Extroacular Muscles: Positive for: EOMI Pharnyx: Positive for: Normal Nose (Internal): Positive for: Other (NG tube present ) Respiratory/Chest: Positive for: Rhonchi (bilaterally, expiratory ). Negative for: Respiratory Distress Cardiovascular: Positive for: Regular Rate and Rhythm, Normal S1, S2. Negative for: Murmurs Abdomen: Negative for: Tenderness, Distention, Peritoneal Signs Upper Extremity: Positive for: Normal Inspection, Other (does no move extremities). Negative for: Cyanosis, Edema Lower Extremity: Positive for: Edema (trace edema bilaterally), Other (moves extremities minimally ) Skin: Positive for: Warm, Dry, Normal Color. Negative for: Rashes Psychiatric: Positive for: Other (confused) - Medications Active Medications: Active Medications Generic Name Dose Route Start Last Admin Trade Name Freq PRN Reason Stop Dose Admin Acetaminophen 650 mg 07/14/18 22:57 07/15/18 17:27 Tylenol 325mg Tab PO 650 mg Q4H PRN Administration Temp greater than 100.4*F Aspirin 81 mg 07/15/18 10:00 07/16/18 09:48 Ecotrin PO 81 mg DAILY KLAUDIA Administration Cyproheptadine HCl 2 mg 07/15/18 10:00 07/16/18 09:48 Periactin PO 2 mg DAILY KLAUDIA Administration Famotidine 40 mg 07/15/18 22:00 07/15/18 22:26 Pepcid PO 40 mg HS KLAUDIA Administration Ferrous Sulfate 300 mg 07/15/18 18:00 07/16/18 09:47 Feosol Liq PO 300 mg BID KLAUDIA Administration Folic Acid 1 mg 07/15/18 10:00 07/16/18 09:48 Folic Acid PO 1 mg DAILY KLAUDIA Administration Heparin Sodium (Porcine) 5,000 units 07/15/18 06:00 07/16/18 06:36 Heparin SC 5,000 units Q8 KLAUDIA Administration Protocol Acetaminophen 1,000 mg in 100 mls @ 400 mls/hr 07/14/18 23:30 07/16/18 06:37 Ofirmev IVPB 07/16/18 23:31 400 mls/hr Q6H PRN Administration fever Meropenem/Sodium Chloride 500 mg in 50 mls @ 100 mls/hr 07/15/18 06:45 07/16/18 09:39 Merrem Iv 500 Mg/Ns 50 Ml IVPB 07/22/18 06:46 100 mls/hr Q12 KLAUDIA Administration Protocol Sodium Chloride 1,000 mls @ 75 mls/hr 07/16/18 10:45 Sodium Chloride 0.45% IV .[id number] [facility] Insulin Human Lispro 0 units 07/15/18 07:30 07/15/18 22:09 Humalog Low SC Not Given ACHS [facility] Protocol Levofloxacin/Dextrose 750 mg 07/15/18 06:35 07/15/18 09:53 Levaquin 750mg IVPB 750 mg QOTHERDAY KLAUDIA Administration Protocol Meclizine HCl 12.5 mg 07/14/18 22:57 Antivert PO BID PRN Dizziness Metoprolol Tartrate 25 mg 07/15/18 10:00 07/16/18 09:48 Lopressor PO 25 mg BID KLAUDIA Administration Oseltamivir Phosphate 30 mg 07/15/18 10:00 07/16/18 09:47 Tamiflu Cap PO 30 mg Q12 KLAUDIA Administration Protocol - Patient Studies Lab Studies: Microbiology Studies 07/15/18 10:18 Gram Stain - Final Sputum Induced Sputum Culture - Preliminary No growth. 07/14/18 16:20 Blood Culture - Preliminary Blood NO GROWTH AFTER 24 HOURS 07/14/18 15:28 Blood Culture - Preliminary Blood NO GROWTH AFTER 24 HOURS 07/14/18 16:20 Urine Culture - Final Urine,Clean Catch No Growth (<1,000 CFU/ML) Lab Studies 07/16/18 07/16/18 07/16/18 Range/Units 07:48 06:27 06:27 WBC (4.5-11.0) 10^3/uL RBC (3.5-6.1) 10^6/uL Hgb (12.0-16.0) g/dL Hct (36.0-48.0) % MCV (80.0-105.0) fl MCH (25.0-35.0) pg MCHC (31.0-37.0) g/dl RDW (11.5-14.5) % Plt Count (120.0-450.0) 10^3/uL Manual Plt Count (120-450) K/mm3 Gran % (50.0-68.0) % Lymph % (Auto) (22.0-35.0) % [place] % (Auto) (1.0-6.0) % Eos % (Auto) (1.5-5.0) % Baso % (Auto) (0.0-3.0) % Gran # (1.4-6.5) Lymph # (Auto) (1.2-3.4) [place] # (Auto) (0.1-0.6) Eos # (Auto) (0.0-0.7) Baso # (Auto) (0.0-2.0) K/mm3 PT 18.3 H (9.4-12.5) SECONDS INR 1.58 pO2 (30-55) mm/Hg VBG pH (7.32-7.43) VBG pCO2 (40-60) VBG HCO3 (21-28) mmol/l VBG Total CO2 (22-28) mmol.L VBG O2 Sat (Calc) (40-65) % VBG Base Excess (0.0-2.0) mmol/L VBG Potassium (3.6-5.2) mmol/L Sodium 152 H (132-148) mmol/L Chloride 121 H (98-107) mmol/L Glucose (65-105) mg/dl Lactate (0.7-2.1) mmol/L FiO2 % Crit Value Called To Crit Value Called By Blood Gas Notified Time Potassium 4.0 (3.6-5.0) mmol/L Carbon Dioxide 24 (21-33) mmol/L Anion Gap 11 (10-20) BUN 53 H (7-21) mg/dL Creatinine 1.3 H (0.7-1.2) mg/dl Est GFR ( Amer) 50 Est GFR (Non-Af Amer) 42 POC Glucose (mg/dL) 130 H (65-110) mg/dL Random Glucose 119 H (70-110) mg/dL Lactic Acid (0.7-2.1) mmol/L Calcium 8.6 (8.4-10.5) mg/dL Phosphorus (2.5-4.5) mg/dL Magnesium (1.7-2.2) mg/dL Total Bilirubin 0.6 (0.2-1.3) mg/dL AST 417 H D (14-36) U/L ALT 129 H (7-56) U/L Alkaline Phosphatase 174 H (38-126) U/L Troponin I 0.31 H* ng/mL Total Protein 5.1 L (5.8-8.3) g/dL Albumin 2.8 L (3.0-4.8) g/dL Globulin 2.3 gm/dL Albumin/Globulin Ratio 1.2 (1.1-1.8) Procalcitonin (0.19-0.49) NG/ML Venous Blood Potassium (3.6-5.2) mmol/L Ur L.pneumophila Ag (NEGATIVE) 07/16/18 07/15/18 07/15/18 Range/Units 06:27 21:49 17:40 WBC 6.1 D (4.5-11.0) 10^3/uL RBC 3.17 L (3.5-6.1) 10^6/uL Hgb 7.5 L (12.0-16.0) g/dL Hct 24.4 L (36.0-48.0) % MCV 77.0 L (80.0-105.0) fl MCH 23.7 L (25.0-35.0) pg MCHC 30.7 L (31.0-37.0) g/dl RDW 19.3 H (11.5-14.5) % Plt Count 68 L (120.0-450.0) 10^3/uL Manual Plt Count 50 L (120-450) K/mm3 Gran % 83.5 H (50.0-68.0) % Lymph % (Auto) 11.9 L (22.0-35.0) % [place] % (Auto) 4.3 (1.0-6.0) % Eos % (Auto) 0.0 L (1.5-5.0) % Baso % (Auto) 0.3 (0.0-3.0) % Gran # 5.06 (1.4-6.5) Lymph # (Auto) 0.7 L (1.2-3.4) [place] # (Auto) 0.3 (0.1-0.6) Eos # (Auto) 0.0 (0.0-0.7) Baso # (Auto) 0.02 (0.0-2.0) K/mm3 PT (9.4-12.5) SECONDS INR pO2 (30-55) mm/Hg VBG pH (7.32-7.43) VBG pCO2 (40-60) VBG HCO3 (21-28) mmol/l VBG Total CO2 (22-28) mmol.L VBG O2 Sat (Calc) (40-65) % VBG Base Excess (0.0-2.0) mmol/L VBG Potassium (3.6-5.2) mmol/L Sodium (132-148) mmol/L Chloride (98-107) mmol/L Glucose (65-105) mg/dl Lactate (0.7-2.1) mmol/L FiO2 % Crit Value Called To Crit Value Called By Blood Gas Notified Time Potassium (3.6-5.0) mmol/L Carbon Dioxide (21-33) mmol/L Anion Gap (10-20) BUN (7-21) mg/dL Creatinine (0.7-1.2) mg/dl Est GFR ( Amer) Est GFR (Non-Af Amer) POC Glucose (mg/dL) 134 H (65-110) mg/dL Random Glucose (70-110) mg/dL Lactic Acid 1.8 (0.7-2.1) mmol/L Calcium (8.4-10.5) mg/dL Phosphorus (2.5-4.5) mg/dL Magnesium (1.7-2.2) mg/dL Total Bilirubin (0.2-1.3) mg/dL AST (14-36) U/L ALT (7-56) U/L Alkaline Phosphatase (38-126) U/L Troponin I ng/mL Total Protein (5.8-8.3) g/dL Albumin (3.0-4.8) g/dL Globulin gm/dL Albumin/Globulin Ratio (1.1-1.8) Procalcitonin (0.19-0.49) NG/ML Venous Blood Potassium (3.6-5.2) mmol/L Ur L.pneumophila Ag (NEGATIVE) 07/15/18 07/15/18 07/15/18 Range/Units 17:40 16:00 13:25 WBC (4.5-11.0) 10^3/uL RBC (3.5-6.1) 10^6/uL Hgb (12.0-16.0) g/dL Hct (36.0-48.0) % MCV (80.0-105.0) fl MCH (25.0-35.0) pg MCHC (31.0-37.0) g/dl RDW (11.5-14.5) % Plt Count (120.0-450.0) 10^3/uL Manual Plt Count (120-450) K/mm3 Gran % (50.0-68.0) % Lymph % (Auto) (22.0-35.0) % [place] % (Auto) (1.0-6.0) % Eos % (Auto) (1.5-5.0) % Baso % (Auto) (0.0-3.0) % Gran # (1.4-6.5) Lymph # (Auto) (1.2-3.4) [place] # (Auto) (0.1-0.6) Eos # (Auto) (0.0-0.7) Baso # (Auto) (0.0-2.0) K/mm3 PT (9.4-12.5) SECONDS INR pO2 (30-55) mm/Hg VBG pH (7.32-7.43) VBG pCO2 (40-60) VBG HCO3 (21-28) mmol/l VBG Total CO2 (22-28) mmol.L VBG O2 Sat (Calc) (40-65) % VBG Base Excess (0.0-2.0) mmol/L VBG Potassium (3.6-5.2) mmol/L Sodium 150 H (132-148) mmol/L Chloride 120 H (98-107) mmol/L Glucose (65-105) mg/dl Lactate (0.7-2.1) mmol/L FiO2 % Crit Value Called To Crit Value Called By Blood Gas Notified Time Potassium 4.4 (3.6-5.0) mmol/L Carbon Dioxide 24 (21-33) mmol/L Anion Gap 9 L (10-20) BUN 51 H (7-21) mg/dL Creatinine 1.5 H (0.7-1.2) mg/dl Est GFR ( Amer) 43 Est GFR (Non-Af Amer) 35 POC Glucose (mg/dL) 82 (65-110) mg/dL Random Glucose 96 (70-110) mg/dL Lactic Acid (0.7-2.1) mmol/L Calcium 8.5 (8.4-10.5) mg/dL Phosphorus 3.7 (2.5-4.5) mg/dL Magnesium 1.7 (1.7-2.2) mg/dL Total Bilirubin 0.6 (0.2-1.3) mg/dL AST 641 H D (14-36) U/L ALT 149 H (7-56) U/L Alkaline Phosphatase 161 H (38-126) U/L Troponin I ng/mL Total Protein 5.3 L (5.8-8.3) g/dL Albumin 3.0 (3.0-4.8) g/dL Globulin 2.3 gm/dL Albumin/Globulin Ratio 1.3 (1.1-1.8) Procalcitonin (0.19-0.49) NG/ML Venous Blood Potassium (3.6-5.2) mmol/L Ur L.pneumophila Ag Negative (NEGATIVE) 07/15/18 07/15/18 07/15/18 Range/Units 11:52 11:31 00:15 WBC (4.5-11.0) 10^3/uL RBC (3.5-6.1) 10^6/uL Hgb (12.0-16.0) g/dL Hct (36.0-48.0) % MCV (80.0-105.0) fl MCH (25.0-35.0) pg MCHC (31.0-37.0) g/dl RDW (11.5-14.5) % Plt Count (120.0-450.0) 10^3/uL Manual Plt Count (120-450) K/mm3 Gran % (50.0-68.0) % Lymph % (Auto) (22.0-35.0) % [place] % (Auto) (1.0-6.0) % Eos % (Auto) (1.5-5.0) % Baso % (Auto) (0.0-3.0) % Gran # (1.4-6.5) Lymph # (Auto) (1.2-3.4) [place] # (Auto) (0.1-0.6) Eos # (Auto) (0.0-0.7) Baso # (Auto) (0.0-2.0) K/mm3 PT (9.4-12.5) SECONDS INR pO2 51 (30-55) mm/Hg VBG pH 7.29 L (7.32-7.43) VBG pCO2 37.0 L (40-60) VBG HCO3 17.8 L (21-28) mmol/l VBG Total CO2 18.9 L (22-28) mmol.L VBG O2 Sat (Calc) 88.1 H (40-65) % VBG Base Excess -8.1 L (0.0-2.0) mmol/L VBG Potassium 4.3 (3.6-5.2) mmol/L Sodium 150.0 H (132-148) mmol/L Chloride 119.0 H (98-107) mmol/L Glucose 126 H (65-105) mg/dl Lactate 3.6 H (0.7-2.1) mmol/L FiO2 21.0 % Crit Value Called To nickie Blanca Crit Value Called By Es Blood Gas Notified Time 1158 Potassium (3.6-5.0) mmol/L Carbon Dioxide (21-33) mmol/L Anion Gap (10-20) BUN (7-21) mg/dL Creatinine (0.7-1.2) mg/dl Est GFR ( Amer) Est GFR (Non-Af Amer) POC Glucose (mg/dL) 126 H (65-110) mg/dL Random Glucose (70-110) mg/dL Lactic Acid (0.7-2.1) mmol/L Calcium (8.4-10.5) mg/dL Phosphorus (2.5-4.5) mg/dL Magnesium (1.7-2.2) mg/dL Total Bilirubin (0.2-1.3) mg/dL AST (14-36) U/L ALT (7-56) U/L Alkaline Phosphatase (38-126) U/L Troponin I ng/mL Total Protein (5.8-8.3) g/dL Albumin (3.0-4.8) g/dL Globulin gm/dL Albumin/Globulin Ratio (1.1-1.8) Procalcitonin 1.01 H (0.19-0.49) NG/ML Venous Blood Potassium 4.3 (3.6-5.2) mmol/L Ur L.pneumophila Ag (NEGATIVE) Laboratory Results - last 24 hr 07/15/18 07/15/18 07/15/18 00:15 11:31 11:52 WBC RBC Hgb Hct MCV MCH MCHC RDW Plt Count Manual Plt Count Gran % Lymph % (Auto) [place] % (Auto) Eos % (Auto) Baso % (Auto) Gran # Lymph # (Auto) [place] # (Auto) Eos # (Auto) Baso # (Auto) PT INR pO2 51 VBG pH 7.29 L VBG pCO2 37.0 L VBG HCO3 17.8 L VBG Total CO2 18.9 L VBG O2 Sat (Calc) 88.1 H VBG Base Excess -8.1 L VBG Potassium 4.3 Sodium 150.0 H Chloride 119.0 H Glucose 126 H Lactate 3.6 H FiO2 21.0 Crit Value Called To nickie Blanca Crit Value Called By Es Blood Gas Notified Time 1158 Potassium Carbon Dioxide Anion Gap BUN Creatinine Est GFR ( Amer) Est GFR (Non-Af Amer) POC Glucose (mg/dL) 126 H Random Glucose Lactic Acid Calcium Phosphorus Magnesium Total Bilirubin AST ALT Alkaline Phosphatase Troponin I Total Protein Albumin Globulin Albumin/Globulin Ratio Procalcitonin 1.01 H Venous Blood Potassium 4.3 Ur L.pneumophila Ag 07/15/18 07/15/18 07/15/18 13:25 16:00 17:40 WBC RBC Hgb Hct MCV MCH MCHC RDW Plt Count Manual Plt Count Gran % Lymph % (Auto) [place] % (Auto) Eos % (Auto) Baso % (Auto) Gran # Lymph # (Auto) [place] # (Auto) Eos # (Auto) Baso # (Auto) PT INR pO2 VBG pH VBG pCO2 VBG HCO3 VBG Total CO2 VBG O2 Sat (Calc) VBG Base Excess VBG Potassium Sodium 150 H Chloride 120 H Glucose Lactate FiO2 Crit Value Called To Crit Value Called By Blood Gas Notified Time Potassium 4.4 Carbon Dioxide 24 Anion Gap 9 L BUN 51 H Creatinine 1.5 H Est GFR ( Amer) 43 Est GFR (Non-Af Amer) 35 POC Glucose (mg/dL) 82 Random Glucose 96 Lactic Acid Calcium 8.5 Phosphorus 3.7 Magnesium 1.7 Total Bilirubin 0.6 AST 641 H D ALT 149 H Alkaline Phosphatase 161 H Troponin I Total Protein 5.3 L Albumin 3.0 Globulin 2.3 Albumin/Globulin Ratio 1.3 Procalcitonin Venous Blood Potassium Ur L.pneumophila Ag Negative 07/15/18 07/15/18 07/16/18 17:40 21:49 06:27 WBC 6.1 D RBC 3.17 L Hgb 7.5 L Hct 24.4 L MCV 77.0 L MCH 23.7 L MCHC 30.7 L RDW 19.3 H Plt Count 68 L Manual Plt Count 50 L Gran % 83.5 H Lymph % (Auto) 11.9 L [place] % (Auto) 4.3 Eos % (Auto) 0.0 L Baso % (Auto) 0.3 Gran # 5.06 Lymph # (Auto) 0.7 L [place] # (Auto) 0.3 Eos # (Auto) 0.0 Baso # (Auto) 0.02 PT INR pO2 VBG pH VBG pCO2 VBG HCO3 VBG Total CO2 VBG O2 Sat (Calc) VBG Base Excess VBG Potassium Sodium Chloride Glucose Lactate FiO2 Crit Value Called To Crit Value Called By Blood Gas Notified Time Potassium Carbon Dioxide Anion Gap BUN Creatinine Est GFR ( Amer) Est GFR (Non-Af Amer) POC Glucose (mg/dL) 134 H Random Glucose Lactic Acid 1.8 Calcium Phosphorus Magnesium Total Bilirubin AST ALT Alkaline Phosphatase Troponin I Total Protein Albumin Globulin Albumin/Globulin Ratio Procalcitonin Venous Blood Potassium Ur L.pneumophila Ag 07/16/18 07/16/18 07/16/18 06:27 06:27 07:48 WBC RBC Hgb Hct MCV MCH MCHC RDW Plt Count Manual Plt Count Gran % Lymph % (Auto) [place] % (Auto) Eos % (Auto) Baso % (Auto) Gran # Lymph # (Auto) [place] # (Auto) Eos # (Auto) Baso # (Auto) PT 18.3 H INR 1.58 pO2 VBG pH VBG pCO2 VBG HCO3 VBG Total CO2 VBG O2 Sat (Calc) VBG Base Excess VBG Potassium Sodium 152 H Chloride 121 H Glucose Lactate FiO2 Crit Value Called To Crit Value Called By Blood Gas Notified Time Potassium 4.0 Carbon Dioxide 24 Anion Gap 11 BUN 53 H Creatinine 1.3 H Est GFR ( Amer) 50 Est GFR (Non-Af Amer) 42 POC Glucose (mg/dL) 130 H Random Glucose 119 H Lactic Acid Calcium 8.6 Phosphorus Magnesium Total Bilirubin 0.6 AST 417 H D ALT 129 H Alkaline Phosphatase 174 H Troponin I 0.31 H* Total Protein 5.1 L Albumin 2.8 L Globulin 2.3 Albumin/Globulin Ratio 1.2 Procalcitonin Venous Blood Potassium Ur L.pneumophila Ag Radiology Impressions: Radiology Impressions Abdomen Ultrasound 07/15/18 10:00 IMPRESSION: Cholecystectomy.. Findings suggest fatty infiltration however other infiltrative hepatocellular disease process including metastatic disease not excluded. Trace amount of perihepatic ascites. Retroperitoneal adenopathy seen on prior CT scan of the chest and prior CT scan abdomen pelvis is not well delineated on this study. Chest X-Ray 07/15/18 10:52 IMPRESSION: Nasogastric tube in satisfactory position Fingerstick Blood Sugar Results: 134 Critical Care Progress Note - Nutrition Nutrition: Nutrition Category Date Time Status NPO Diet [DIET] Diets 07/15/18 Dinner Ordered Assessment/Plan - Assessment and Plan (Free Text) Assessment: 63 year old female with past medical history of breast cancer s/p mastectomy on chemotherapy, CAD s/p stent, HLD, HTN, DM2, sickle cell trait who is admitted to ICU for sepsis likely secondary to pneumonia. Plan: Sepsis secondary to flu with superimposed pneumonia Right sided pneumonia Arm Weakness Toxic Metabolic Encephalopathy Elevated troponins Transaminitis likely secondary to hypotensive episode Right breast CA s/p mastectomy 2013 currently undergoing chemotherapy CAD s/p stenting HLD HTN DM2 on insulin sickle cell trait - day 2 tamiflu, merrem, levaquin - continue 1/ NS @ 75cc/hr, stopped LR - blood cx negative for 24 hours, urine cx is negative - CXR shows extensive right-sided pneumonia - methylphendidate 5mg daily - MRI Brain w/o contrast pending - troponins 0.22, 0.27, 0.30 - likely 2/2 type II NV. Troponin this AM is 0.31 - ekg does not show ST elevations or depression - Procalc on 07/15 is 1.01, legionella negative - Abd US shows fattly liver infiltration - Head CT w/o contrast on 07/14/18: No acute intracranial abnormalities - ID consulted, Dr. Aquino - Cardiology consulted, Dr. Slater - Heme/onc on consult, Dr. Griffith - Maintain euglycemia, normothermia, euvolemia - Maintain MAP >65mmHG - ISS, ACHS - DVT/GI PPX Patient seen and case discussed with attending, Dr. Vaughn <Armin Vaughn - Last Filed: 07/16/18 11:21> CCU Objective - Vital Signs / Intake & Output Vital Signs (Last 4 hours): Vital Signs Temp Pulse Resp BP Pulse Ox 07/16/18 10:01 103/56 L 07/16/18 10:00 100.9 F H 110 H 31 H 94 L 07/16/18 09:48 111 H 108/65 07/16/18 09:00 101.1 F H 111 H 33 H 108/65 95 07/16/18 08:00 117/63 07/16/18 07:59 101.5 F H 115 H 37 H 95 Intake and Output (Last 8hrs): Intake & Output 07/15/18 07/16/18 07/16/18 22:59 06:59 14:59 Intake Total 2110 1605 Output Total 500 400 Balance 1610 1205 Intake: IV 1750 875 IVF 950 825 Right Antecubital 0 antibiotics 800 50 Oral 0 Tube Feeding 120 380 TPN/PPN 0 Blood Product 0 Lipid 0 Albumin 0 Other 240 350 Output: Gastric Amount 0 0 Nares 0 0 Urine 500 400 Urethral (Rodgers) 500 400 Stool 0 Urine/Stool Mix 0 Emesis 0 Oral Regurgitation 0 Other 0 Other: # Voids Urethral (Rodgers) 0 # Bowel Movements 0 2 - Medications Active Medications: Active Medications Generic Name Dose Route Start Last Admin Trade Name Freq PRN Reason Stop Dose Admin Acetaminophen 650 mg 07/14/18 22:57 07/15/18 17:27 Tylenol 325mg Tab PO 650 mg Q4H PRN Administration Temp greater than 100.4*F Aspirin 81 mg 07/15/18 10:00 07/16/18 09:48 Ecotrin PO 81 mg DAILY KLAUDIA Administration Cyproheptadine HCl 2 mg 07/15/18 10:00 07/16/18 09:48 Periactin PO 2 mg DAILY KLAUDIA Administration Famotidine 20 mg 07/16/18 11:08 Pepcid PO HS KLAUDIA Ferrous Sulfate 300 mg 07/15/18 18:00 07/16/18 09:47 Feosol Liq PO 300 mg BID KLAUDIA Administration Folic Acid 1 mg 07/15/18 10:00 07/16/18 09:48 Folic Acid PO 1 mg DAILY KLAUDIA Administration Heparin Sodium (Porcine) 5,000 units 07/15/18 06:00 07/16/18 06:36 Heparin SC 5,000 units Q8 KLAUDIA Administration Protocol Acetaminophen 1,000 mg in 100 mls @ 400 mls/hr 07/14/18 23:30 07/16/18 06:37 Ofirmev IVPB 07/16/18 23:31 400 mls/hr Q6H PRN Administration fever Meropenem/Sodium Chloride 500 mg in 50 mls @ 100 mls/hr 07/15/18 06:45 07/16/18 09:39 Merrem Iv 500 Mg/Ns 50 Ml IVPB 07/22/18 06:46 100 mls/hr Q12 KLAUDIA Administration Protocol Sodium Chloride 1,000 mls @ 75 mls/hr 07/16/18 10:45 Sodium Chloride 0.45% IV .[id number] KLAUDIA Vancomycin HCl 1 gm in 250 mls @ 167 mls/hr 07/16/18 10:50 Vancomycin 1gm IVPB 07/16/18 12:19 STAT STA Protocol Insulin Human Lispro 0 units 07/15/18 07:30 07/15/18 22:09 Humalog Low SC Not Given ACHS KLAUDIA Protocol Levofloxacin/Dextrose 750 mg 07/15/18 06:35 07/15/18 09:53 Levaquin 750mg IVPB 750 mg QOTHERDAY KLAUDIA Administration Protocol Meclizine HCl 12.5 mg 07/14/18 22:57 Antivert PO BID PRN Dizziness Methylphenidate HCl 5 mg 07/16/18 11:15 Ritalin PO DAILY KLAUDIA Metoprolol Tartrate 25 mg 07/15/18 10:00 07/16/18 09:48 Lopressor PO 25 mg BID KLAUDIA Administration Oseltamivir Phosphate 30 mg 07/15/18 10:00 07/16/18 09:47 Tamiflu Cap PO 30 mg Q12 KLAUDIA Administration Protocol - Patient Studies Lab Studies: Microbiology Studies 07/15/18 10:18 Gram Stain - Final Sputum Induced Sputum Culture - Preliminary No growth. 07/14/18 16:20 Blood Culture - Preliminary Blood NO GROWTH AFTER 24 HOURS 07/14/18 15:28 Blood Culture - Preliminary Blood NO GROWTH AFTER 24 HOURS 07/14/18 16:20 Urine Culture - Final Urine,Clean Catch No Growth (<1,000 CFU/ML) Lab Studies 07/16/18 07/16/18 07/16/18 Range/Units 07:48 06:27 06:27 WBC (4.5-11.0) 10^3/uL RBC (3.5-6.1) 10^6/uL Hgb (12.0-16.0) g/dL Hct (36.0-48.0) % MCV (80.0-105.0) fl MCH (25.0-35.0) pg MCHC (31.0-37.0) g/dl RDW (11.5-14.5) % Plt Count (120.0-450.0) 10^3/uL Manual Plt Count (120-450) K/mm3 Gran % (50.0-68.0) % Lymph % (Auto) (22.0-35.0) % [place] % (Auto) (1.0-6.0) % Eos % (Auto) (1.5-5.0) % Baso % (Auto) (0.0-3.0) % Gran # (1.4-6.5) Lymph # (Auto) (1.2-3.4) [place] # (Auto) (0.1-0.6) Eos # (Auto) (0.0-0.7) Baso # (Auto) (0.0-2.0) K/mm3 PT 18.3 H (9.4-12.5) SECONDS INR 1.58 pO2 (30-55) mm/Hg VBG pH (7.32-7.43) VBG pCO2 (40-60) VBG HCO3 (21-28) mmol/l VBG Total CO2 (22-28) mmol.L VBG O2 Sat (Calc) (40-65) % VBG Base Excess (0.0-2.0) mmol/L VBG Potassium (3.6-5.2) mmol/L Sodium 152 H (132-148) mmol/L Chloride 121 H (98-107) mmol/L Glucose (65-105) mg/dl Lactate (0.7-2.1) mmol/L FiO2 % Crit Value Called To Crit Value Called By Blood Gas Notified Time Potassium 4.0 (3.6-5.0) mmol/L Carbon Dioxide 24 (21-33) mmol/L Anion Gap 11 (10-20) BUN 53 H (7-21) mg/dL Creatinine 1.3 H (0.7-1.2) mg/dl Est GFR ( Amer) 50 Est GFR (Non-Af Amer) 42 POC Glucose (mg/dL) 130 H (65-110) mg/dL Random Glucose 119 H (70-110) mg/dL Lactic Acid (0.7-2.1) mmol/L Calcium 8.6 (8.4-10.5) mg/dL Phosphorus (2.5-4.5) mg/dL Magnesium (1.7-2.2) mg/dL Total Bilirubin 0.6 (0.2-1.3) mg/dL AST 417 H D (14-36) U/L ALT 129 H (7-56) U/L Alkaline Phosphatase 174 H (38-126) U/L Troponin I 0.31 H* ng/mL Total Protein 5.1 L (5.8-8.3) g/dL Albumin 2.8 L (3.0-4.8) g/dL Globulin 2.3 gm/dL Albumin/Globulin Ratio 1.2 (1.1-1.8) Procalcitonin (0.19-0.49) NG/ML Venous Blood Potassium (3.6-5.2) mmol/L Ur L.pneumophila Ag (NEGATIVE) 07/16/18 07/15/18 07/15/18 Range/Units 06:27 21:49 17:40 WBC 6.1 D (4.5-11.0) 10^3/uL RBC 3.17 L (3.5-6.1) 10^6/uL Hgb 7.5 L (12.0-16.0) g/dL Hct 24.4 L (36.0-48.0) % MCV 77.0 L (80.0-105.0) fl MCH 23.7 L (25.0-35.0) pg MCHC 30.7 L (31.0-37.0) g/dl RDW 19.3 H (11.5-14.5) % Plt Count 68 L (120.0-450.0) 10^3/uL Manual Plt Count 50 L (120-450) K/mm3 Gran % 83.5 H (50.0-68.0) % Lymph % (Auto) 11.9 L (22.0-35.0) % [place] % (Auto) 4.3 (1.0-6.0) % Eos % (Auto) 0.0 L (1.5-5.0) % Baso % (Auto) 0.3 (0.0-3.0) % Gran # 5.06 (1.4-6.5) Lymph # (Auto) 0.7 L (1.2-3.4) [place] # (Auto) 0.3 (0.1-0.6) Eos # (Auto) 0.0 (0.0-0.7) Baso # (Auto) 0.02 (0.0-2.0) K/mm3 PT (9.4-12.5) SECONDS INR pO2 (30-55) mm/Hg VBG pH (7.32-7.43) VBG pCO2 (40-60) VBG HCO3 (21-28) mmol/l VBG Total CO2 (22-28) mmol.L VBG O2 Sat (Calc) (40-65) % VBG Base Excess (0.0-2.0) mmol/L VBG Potassium (3.6-5.2) mmol/L Sodium (132-148) mmol/L Chloride (98-107) mmol/L Glucose (65-105) mg/dl Lactate (0.7-2.1) mmol/L FiO2 % Crit Value Called To Crit Value Called By Blood Gas Notified Time Potassium (3.6-5.0) mmol/L Carbon Dioxide (21-33) mmol/L Anion Gap (10-20) BUN (7-21) mg/dL Creatinine (0.7-1.2) mg/dl Est GFR ( Amer) Est GFR (Non-Af Amer) POC Glucose (mg/dL) 134 H (65-110) mg/dL Random Glucose (70-110) mg/dL Lactic Acid 1.8 (0.7-2.1) mmol/L Calcium (8.4-10.5) mg/dL Phosphorus (2.5-4.5) mg/dL Magnesium (1.7-2.2) mg/dL Total Bilirubin (0.2-1.3) mg/dL AST (14-36) U/L ALT (7-56) U/L Alkaline Phosphatase (38-126) U/L Troponin I ng/mL Total Protein (5.8-8.3) g/dL Albumin (3.0-4.8) g/dL Globulin gm/dL Albumin/Globulin Ratio (1.1-1.8) Procalcitonin (0.19-0.49) NG/ML Venous Blood Potassium (3.6-5.2) mmol/L Ur L.pneumophila Ag (NEGATIVE) 07/15/18 07/15/18 07/15/18 Range/Units 17:40 16:00 13:25 WBC (4.5-11.0) 10^3/uL RBC (3.5-6.1) 10^6/uL Hgb (12.0-16.0) g/dL Hct (36.0-48.0) % MCV (80.0-105.0) fl MCH (25.0-35.0) pg MCHC (31.0-37.0) g/dl RDW (11.5-14.5) % Plt Count (120.0-450.0) 10^3/uL Manual Plt Count (120-450) K/mm3 Gran % (50.0-68.0) % Lymph % (Auto) (22.0-35.0) % [place] % (Auto) (1.0-6.0) % Eos % (Auto) (1.5-5.0) % Baso % (Auto) (0.0-3.0) % Gran # (1.4-6.5) Lymph # (Auto) (1.2-3.4) [place] # (Auto) (0.1-0.6) Eos # (Auto) (0.0-0.7) Baso # (Auto) (0.0-2.0) K/mm3 PT (9.4-12.5) SECONDS INR pO2 (30-55) mm/Hg VBG pH (7.32-7.43) VBG pCO2 (40-60) VBG HCO3 (21-28) mmol/l VBG Total CO2 (22-28) mmol.L VBG O2 Sat (Calc) (40-65) % VBG Base Excess (0.0-2.0) mmol/L VBG Potassium (3.6-5.2) mmol/L Sodium 150 H (132-148) mmol/L Chloride 120 H (98-107) mmol/L Glucose (65-105) mg/dl Lactate (0.7-2.1) mmol/L FiO2 % Crit Value Called To Crit Value Called By Blood Gas Notified Time Potassium 4.4 (3.6-5.0) mmol/L Carbon Dioxide 24 (21-33) mmol/L Anion Gap 9 L (10-20) BUN 51 H (7-21) mg/dL Creatinine 1.5 H (0.7-1.2) mg/dl Est GFR ( Amer) 43 Est GFR (Non-Af Amer) 35 POC Glucose (mg/dL) 82 (65-110) mg/dL Random Glucose 96 (70-110) mg/dL Lactic Acid (0.7-2.1) mmol/L Calcium 8.5 (8.4-10.5) mg/dL Phosphorus 3.7 (2.5-4.5) mg/dL Magnesium 1.7 (1.7-2.2) mg/dL Total Bilirubin 0.6 (0.2-1.3) mg/dL AST 641 H D (14-36) U/L ALT 149 H (7-56) U/L Alkaline Phosphatase 161 H (38-126) U/L Troponin I ng/mL Total Protein 5.3 L (5.8-8.3) g/dL Albumin 3.0 (3.0-4.8) g/dL Globulin 2.3 gm/dL Albumin/Globulin Ratio 1.3 (1.1-1.8) Procalcitonin (0.19-0.49) NG/ML Venous Blood Potassium (3.6-5.2) mmol/L Ur L.pneumophila Ag Negative (NEGATIVE) 07/15/18 07/15/18 07/15/18 Range/Units 11:52 11:31 00:15 WBC (4.5-11.0) 10^3/uL RBC (3.5-6.1) 10^6/uL Hgb (12.0-16.0) g/dL Hct (36.0-48.0) % MCV (80.0-105.0) fl MCH (25.0-35.0) pg MCHC (31.0-37.0) g/dl RDW (11.5-14.5) % Plt Count (120.0-450.0) 10^3/uL Manual Plt Count (120-450) K/mm3 Gran % (50.0-68.0) % Lymph % (Auto) (22.0-35.0) % [place] % (Auto) (1.0-6.0) % Eos % (Auto) (1.5-5.0) % Baso % (Auto) (0.0-3.0) % Gran # (1.4-6.5) Lymph # (Auto) (1.2-3.4) [place] # (Auto) (0.1-0.6) Eos # (Auto) (0.0-0.7) Baso # (Auto) (0.0-2.0) K/mm3 PT (9.4-12.5) SECONDS INR pO2 51 (30-55) mm/Hg VBG pH 7.29 L (7.32-7.43) VBG pCO2 37.0 L (40-60) VBG HCO3 17.8 L (21-28) mmol/l VBG Total CO2 18.9 L (22-28) mmol.L VBG O2 Sat (Calc) 88.1 H (40-65) % VBG Base Excess -8.1 L (0.0-2.0) mmol/L VBG Potassium 4.3 (3.6-5.2) mmol/L Sodium 150.0 H (132-148) mmol/L Chloride 119.0 H (98-107) mmol/L Glucose 126 H (65-105) mg/dl Lactate 3.6 H (0.7-2.1) mmol/L FiO2 21.0 % Crit Value Called To nickie Blanca Crit Value Called By Blood Gas Notified Time 1158 Potassium (3.6-5.0) mmol/L Carbon Dioxide (21-33) mmol/L Anion Gap (10-20) BUN (7-21) mg/dL Creatinine (0.7-1.2) mg/dl Est GFR ( Amer) Est GFR (Non-Af Amer) POC Glucose (mg/dL) 126 H (65-110) mg/dL Random Glucose (70-110) mg/dL Lactic Acid (0.7-2.1) mmol/L Calcium (8.4-10.5) mg/dL Phosphorus (2.5-4.5) mg/dL Magnesium (1.7-2.2) mg/dL Total Bilirubin (0.2-1.3) mg/dL AST (14-36) U/L ALT (7-56) U/L Alkaline Phosphatase (38-126) U/L Troponin I ng/mL Total Protein (5.8-8.3) g/dL Albumin (3.0-4.8) g/dL Globulin gm/dL Albumin/Globulin Ratio (1.1-1.8) Procalcitonin 1.01 H (0.19-0.49) NG/ML Venous Blood Potassium 4.3 (3.6-5.2) mmol/L Ur L.pneumophila Ag (NEGATIVE) Laboratory Results - last 24 hr 07/15/18 07/15/18 07/15/18 00:15 11:31 11:52 WBC RBC Hgb Hct MCV MCH MCHC RDW Plt Count Manual Plt Count Gran % Lymph % (Auto) [place] % (Auto) Eos % (Auto) Baso % (Auto) Gran # Lymph # (Auto) [place] # (Auto) Eos # (Auto) Baso # (Auto) PT INR pO2 51 VBG pH 7.29 L VBG pCO2 37.0 L VBG HCO3 17.8 L VBG Total CO2 18.9 L VBG O2 Sat (Calc) 88.1 H VBG Base Excess -8.1 L VBG Potassium 4.3 Sodium 150.0 H Chloride 119.0 H Glucose 126 H Lactate 3.6 H FiO2 21.0 Crit Value Called To nickie Blanca Crit Value Called By Blood Gas Notified Time 1158 Potassium Carbon Dioxide Anion Gap BUN Creatinine Est GFR ( Amer) Est GFR (Non-Af Amer) POC Glucose (mg/dL) 126 H Random Glucose Lactic Acid Calcium Phosphorus Magnesium Total Bilirubin AST ALT Alkaline Phosphatase Troponin I Total Protein Albumin Globulin Albumin/Globulin Ratio Procalcitonin 1.01 H Venous Blood Potassium 4.3 Ur L.pneumophila Ag 07/15/18 07/15/18 07/15/18 13:25 16:00 17:40 WBC RBC Hgb Hct MCV MCH MCHC RDW Plt Count Manual Plt Count Gran % Lymph % (Auto) [place] % (Auto) Eos % (Auto) Baso % (Auto) Gran # Lymph # (Auto) [place] # (Auto) Eos # (Auto) Baso # (Auto) PT INR pO2 VBG pH VBG pCO2 VBG HCO3 VBG Total CO2 VBG O2 Sat (Calc) VBG Base Excess VBG Potassium Sodium 150 H Chloride 120 H Glucose Lactate FiO2 Crit Value Called To Crit Value Called By Blood Gas Notified Time Potassium 4.4 Carbon Dioxide 24 Anion Gap 9 L BUN 51 H Creatinine 1.5 H Est GFR ( Amer) 43 Est GFR (Non-Af Amer) 35 POC Glucose (mg/dL) 82 Random Glucose 96 Lactic Acid Calcium 8.5 Phosphorus 3.7 Magnesium 1.7 Total Bilirubin 0.6 AST 641 H D ALT 149 H Alkaline Phosphatase 161 H Troponin I Total Protein 5.3 L Albumin 3.0 Globulin 2.3 Albumin/Globulin Ratio 1.3 Procalcitonin Venous Blood Potassium Ur L.pneumophila Ag Negative 07/15/18 07/15/18 07/16/18 17:40 21:49 06:27 WBC 6.1 D RBC 3.17 L Hgb 7.5 L Hct 24.4 L MCV 77.0 L MCH 23.7 L MCHC 30.7 L RDW 19.3 H Plt Count 68 L Manual Plt Count 50 L Gran % 83.5 H Lymph % (Auto) 11.9 L [place] % (Auto) 4.3 Eos % (Auto) 0.0 L Baso % (Auto) 0.3 Gran # 5.06 Lymph # (Auto) 0.7 L [place] # (Auto) 0.3 Eos # (Auto) 0.0 Baso # (Auto) 0.02 PT INR pO2 VBG pH VBG pCO2 VBG HCO3 VBG Total CO2 VBG O2 Sat (Calc) VBG Base Excess VBG Potassium Sodium Chloride Glucose Lactate FiO2 Crit Value Called To Crit Value Called By Blood Gas Notified Time Potassium Carbon Dioxide Anion Gap BUN Creatinine Est GFR ( Amer) Est GFR (Non-Af Amer) POC Glucose (mg/dL) 134 H Random Glucose Lactic Acid 1.8 Calcium Phosphorus Magnesium Total Bilirubin AST ALT Alkaline Phosphatase Troponin I Total Protein Albumin Globulin Albumin/Globulin Ratio Procalcitonin Venous Blood Potassium Ur L.pneumophila Ag 07/16/18 07/16/18 07/16/18 06:27 06:27 07:48 WBC RBC Hgb Hct MCV MCH MCHC RDW Plt Count Manual Plt Count Gran % Lymph % (Auto) [place] % (Auto) Eos % (Auto) Baso % (Auto) Gran # Lymph # (Auto) [place] # (Auto) Eos # (Auto) Baso # (Auto) PT 18.3 H INR 1.58 pO2 VBG pH VBG pCO2 VBG HCO3 VBG Total CO2 VBG O2 Sat (Calc) VBG Base Excess VBG Potassium Sodium 152 H Chloride 121 H Glucose Lactate FiO2 Crit Value Called To Crit Value Called By Blood Gas Notified Time Potassium 4.0 Carbon Dioxide 24 Anion Gap 11 BUN 53 H Creatinine 1.3 H Est GFR ( Amer) 50 Est GFR (Non-Af Amer) 42 POC Glucose (mg/dL) 130 H Random Glucose 119 H Lactic Acid Calcium 8.6 Phosphorus Magnesium Total Bilirubin 0.6 AST 417 H D ALT 129 H Alkaline Phosphatase 174 H Troponin I 0.31 H* Total Protein 5.1 L Albumin 2.8 L Globulin 2.3 Albumin/Globulin Ratio 1.2 Procalcitonin Venous Blood Potassium Ur L.pneumophila Ag Radiology Impressions: Radiology Impressions Abdomen Ultrasound 07/15/18 10:00 IMPRESSION: Cholecystectomy.. Findings suggest fatty infiltration however other infiltrative hepatocellular disease process including metastatic disease not excluded. Trace amount of perihepatic ascites. Retroperitoneal adenopathy seen on prior CT scan of the chest and prior CT scan abdomen pelvis is not well delineated on this study. Chest X-Ray 07/15/18 10:52 IMPRESSION: Nasogastric tube in satisfactory position Critical Care Progress Note - Nutrition Nutrition: Nutrition Category Date Time Status NPO Diet [DIET] Diets 07/15/18 Dinner Ordered Attending/Attestation - Attestation I have personally seen and examined this patient.: Yes I have fully participated in the care of the patient.: Yes I have reviewed all pertinent clinical information: Yes Notes (Text): 07/16/18 11:17 The patient was seen and examined at the bedside. Patient care was discussed with resident Medical records, lab studies were reviewed and management issues were discussed and formulated. Agree with above treatment plans as outlined in 's note with addition of the following: Septic Shock \ PNA \ Influenza Positive \ NSTEMI \ MADELAINE \ Elevated LFT \ Breast CA on chemotherapy \ DM 2 \ Hypernatremia \ Anemia \ Thrombocytopenia \ Encephalopathy -hemodynamic monitoring to maintain MAP>65 -continue ASA; BBlocker with B\P parameters -f\u serial CE and ECG; cardiology team eval f\u -o2 supplementation to maintain Spo2>90 Pao2>60; currently on NC -broad spectrum ABX and tamiflu; ID team f\u; f\u cultures -f\u Bun\Cr and U\o; continue IVF with 1/2NS ; f\u serial Na+ lvl -tube feeds diet and free H2O flushes; aspiration precautions -ISS and BGM monitoring -f\u serial LFT -Heme\onc f\u -f\u CBC and monitor for bleed -neurology team eval -DVT \ PUD prophylaxis ccm time 32
[2018-07-16] MEDS ORDERED: Vancomycin 1gm in NS 250ml 1 GM/250 ML BAG IVPB STA ×2 (10:50→17:56)
--- NOTE | 2018-07-16 12:04 | CP.PCM.CON ---
History of Present Illness - History of Present Illness History of Present Illness: Palliative consult requested by Dr Elpidio Soria Reason: Goals of care 63 year old female who was snet to ED form Dr Kendall office because of weakness, fatigue. Found to have right sided pneumonia. Positive for H flu. Labs> panctyopneia, elevated liver enzymes, elevated troponin's 0.28,0.30, BNP 4930, procalcitonin 0.65, lacate 1.8 EKG: NSR,RVCD, prolonged QT. Chest x ray: Extensive right sided pneumonia Head CT: No acute intracranial abnormalities US of abdomen: Cholecystectomy,fatty infiltration, however other infiltrative hepatocellur disease processes including metastasis not excluded. Prior retroperitoneal adenopathy is not well delineated in this study PMHx: triple negative metastatic breast cancer receiving immunotherapy, NHL s/p treatment 11/2017, CAD,HTN,HLD,DM, CKD,sickle cell trait. PSHx:CAD s/p stents, cholecystectomy,right mastectomy and reconstructive surgery, left chest port a cath. Social History: Never smoker, no alcohol or drug use Family History: Non contributory Advance Care Planning: The patient has an advanced Directive and prior POLST. She was A DNR/DNI >POA revoked,now full code Review of Systems: As per HPI, patient is altered, unable to obtain comprehensive ROS Past Patient History - Infectious Disease Hx of Infectious Diseases: None - Tetanus Immunizations Tetanus Immunization: Unknown - Past Social History Smoking Status: Never Smoked Alcohol: None Drugs: Denies - CARDIAC Hx Cardiac Disorders: Yes Hx Hypertension: Yes - PULMONARY Hx Respiratory Disorders: No - NEUROLOGICAL Hx Neurological Disorder: No - HEENT Hx HEENT Problems: No - RENAL Hx Chronic Kidney Disease: No - ENDOCRINE/METABOLIC Hx Diabetes Mellitus Type 2: Yes - HEMATOLOGICAL/ONCOLOGICAL Hx Blood Disorders: Yes Hx Cancer: Yes (BREAST) - INTEGUMENTARY Hx Dermatological Problems: No - MUSCULOSKELETAL/RHEUMATOLOGICAL Hx Falls: Yes - GASTROINTESTINAL Hx Gastrointestinal Disorders: No - GENITOURINARY/GYNECOLOGICAL Hx Reproductive Disorders: No - PSYCHIATRIC Hx Psychophysiologic Disorder: No Hx Substance Use: No (UNKNOWN) - SURGICAL HISTORY Hx Mastectomy: Yes (right breast cancer status post mastectomy in 2013, chemo and radiation ) - ANESTHESIA Hx Anesthesia Reactions: Yes (NAUSEA) Hx Malignant Hyperthermia: No Meds Allergies/Adverse Reactions: Allergies Allergy/AdvReac Type Severity Reaction Status Date / Time No Known Allergies Allergy Verified 06/10/18 18:18 - Medications Medications: Current Medications Acetaminophen (Tylenol 325mg Tab) 650 mg PO Q4H PRN PRN Reason: Temp greater than 100.4*F Last Admin: 07/15/18 17:27 Dose: 650 mg Aspirin (Ecotrin) 81 mg PO DAILY [facility] Last Admin: 07/16/18 09:48 Dose: 81 mg Famotidine (Pepcid) 20 mg PO 1000,2200 KLAUDIA Folic Acid (Folic Acid) 1 mg PO DAILY [facility] Last Admin: 07/16/18 09:48 Dose: 1 mg Heparin Sodium (Porcine) (Heparin) 5,000 units SC Q12 KLAUDIA; Protocol Acetaminophen (Ofirmev) 1,000 mg in 100 mls @ 400 mls/hr IVPB Q6H PRN PRN Reason: fever Stop: 07/16/18 23:31 Last Admin: 07/16/18 06:37 Dose: 400 mls/hr Meropenem/Sodium Chloride (Merrem Iv 500 Mg/Ns 50 Ml) 500 mg in 50 mls @ 100 mls/hr IVPB Q12 KLAUDIA; Protocol Stop: 07/22/18 06:46 Last Admin: 07/16/18 09:39 Dose: 100 mls/hr Vancomycin HCl (Vancomycin 1gm) 1 gm in 250 mls @ 167 mls/hr IVPB STAT STA; Protocol Stop: 07/16/18 12:19 Sodium Chloride (Sodium Chloride 0.45%) 1,000 mls @ 40 mls/hr IV .Q24H [facility] Insulin Human Lispro (Humalog Low) 0 units SC ACHS [facility]; Protocol Last Admin: 07/15/18 22:09 Dose: Not Given Levofloxacin/Dextrose (Levaquin 750mg) 750 mg IVPB QOTHERDAY [facility]; Protocol Last Admin: 07/15/18 09:53 Dose: 750 mg Meclizine HCl (Antivert) 12.5 mg PO BID PRN PRN Reason: Dizziness Methylphenidate HCl (Ritalin) 5 mg PO DAILY [facility] Metoprolol Tartrate (Lopressor) 25 mg PO BID [facility] Last Admin: 07/16/18 09:48 Dose: 25 mg Oseltamivir Phosphate (Tamiflu Cap) 30 mg PO Q12 KLAUDIA; Protocol Last Admin: 07/16/18 09:47 Dose: 30 mg Physical Exam - Constitutional Appears: Chronically Ill - Eye Exam Eye Exam: Normal appearance, PERRL - ENT Exam ENT Exam: Mucous Membranes Moist - Respiratory Exam Respiratory Exam: Decreased Breath Sounds - Cardiovascular Exam Cardiovascular Exam: +S1, +S2 - GI/Abdominal Exam GI & Abdominal Exam: Normal Bowel Sounds, Soft - Neurological Exam Neurological exam: Altered - Skin Skin Exam: Dry, Pallor Results - Vital Signs Recent Vital Signs: Last Vital Signs Temp 100.9 F H 07/16/18 10:00 Pulse 110 H 07/16/18 10:00 Resp 31 H 07/16/18 10:00 BP 103/56 L 07/16/18 10:01 Pulse Ox 94 L 07/16/18 10:00 - Labs Result Diagrams: 07/16/18 06:27 07/16/18 06:27 Labs: Laboratory Results - last 24 hr 07/15/18 07/15/18 07/15/18 00:15 06:50 11:31 WBC RBC Hgb Hct MCV MCH MCHC RDW Plt Count Manual Plt Count Gran % Lymph % (Auto) [place] % (Auto) Eos % (Auto) Baso % (Auto) Gran # Lymph # (Auto) [place] # (Auto) Eos # (Auto) Baso # (Auto) PT INR Sodium Potassium Chloride Carbon Dioxide Anion Gap BUN Creatinine Est GFR ( Amer) Est GFR (Non-Af Amer) POC Glucose (mg/dL) 126 H Random Glucose Lactic Acid Calcium Phosphorus Magnesium Total Bilirubin AST ALT Alkaline Phosphatase Troponin I Total Protein Albumin Globulin Albumin/Globulin Ratio Procalcitonin 1.01 H HIV 1&2 Ag/Ab, 4th Gen Nonreactive Ur L.pneumophila Ag 07/15/18 07/15/18 07/15/18 13:25 16:00 17:40 WBC RBC Hgb Hct MCV MCH MCHC RDW Plt Count Manual Plt Count Gran % Lymph % (Auto) [place] % (Auto) Eos % (Auto) Baso % (Auto) Gran # Lymph # (Auto) [place] # (Auto) Eos # (Auto) Baso # (Auto) PT INR Sodium 150 H Potassium 4.4 Chloride 120 H Carbon Dioxide 24 Anion Gap 9 L BUN 51 H Creatinine 1.5 H Est GFR ( Amer) 43 Est GFR (Non-Af Amer) 35 POC Glucose (mg/dL) 82 Random Glucose 96 Lactic Acid Calcium 8.5 Phosphorus 3.7 Magnesium 1.7 Total Bilirubin 0.6 AST 641 H D ALT 149 H Alkaline Phosphatase 161 H Troponin I Total Protein 5.3 L Albumin 3.0 Globulin 2.3 Albumin/Globulin Ratio 1.3 Procalcitonin HIV 1&2 Ag/Ab, 4th Gen Ur L.pneumophila Ag Negative 07/15/18 07/15/18 07/16/18 17:40 21:49 06:27 WBC 6.1 D RBC 3.17 L Hgb 7.5 L Hct 24.4 L MCV 77.0 L MCH 23.7 L MCHC 30.7 L RDW 19.3 H Plt Count 68 L Manual Plt Count 50 L Gran % 83.5 H Lymph % (Auto) 11.9 L [place] % (Auto) 4.3 Eos % (Auto) 0.0 L Baso % (Auto) 0.3 Gran # 5.06 Lymph # (Auto) 0.7 L [place] # (Auto) 0.3 Eos # (Auto) 0.0 Baso # (Auto) 0.02 PT INR Sodium Potassium Chloride Carbon Dioxide Anion Gap BUN Creatinine Est GFR ( Amer) Est GFR (Non-Af Amer) POC Glucose (mg/dL) 134 H Random Glucose Lactic Acid 1.8 Calcium Phosphorus Magnesium Total Bilirubin AST ALT Alkaline Phosphatase Troponin I Total Protein Albumin Globulin Albumin/Globulin Ratio Procalcitonin HIV 1&2 Ag/Ab, 4th Gen Ur L.pneumophila Ag 07/16/18 07/16/18 07/16/18 06:27 06:27 07:48 WBC RBC Hgb Hct MCV MCH MCHC RDW Plt Count Manual Plt Count Gran % Lymph % (Auto) [place] % (Auto) Eos % (Auto) Baso % (Auto) Gran # Lymph # (Auto) [place] # (Auto) Eos # (Auto) Baso # (Auto) PT 18.3 H INR 1.58 Sodium 152 H Potassium 4.0 Chloride 121 H Carbon Dioxide 24 Anion Gap 11 BUN 53 H Creatinine 1.3 H Est GFR ( Amer) 50 Est GFR (Non-Af Amer) 42 POC Glucose (mg/dL) 130 H Random Glucose 119 H Lactic Acid Calcium 8.6 Phosphorus Magnesium Total Bilirubin 0.6 AST 417 H D ALT 129 H Alkaline Phosphatase 174 H Troponin I 0.31 H* Total Protein 5.1 L Albumin 2.8 L Globulin 2.3 Albumin/Globulin Ratio 1.2 Procalcitonin HIV 1&2 Ag/Ab, 4th Gen Ur L.pneumophila Ag 07/16/18 11:52 WBC RBC Hgb Hct MCV MCH MCHC RDW Plt Count Manual Plt Count Gran % Lymph % (Auto) [place] % (Auto) Eos % (Auto) Baso % (Auto) Gran # Lymph # (Auto) [place] # (Auto) Eos # (Auto) Baso # (Auto) PT INR Sodium Potassium Chloride Carbon Dioxide Anion Gap BUN Creatinine Est GFR ( Amer) Est GFR (Non-Af Amer) POC Glucose (mg/dL) 156 H Random Glucose Lactic Acid Calcium Phosphorus Magnesium Total Bilirubin AST ALT Alkaline Phosphatase Troponin I Total Protein Albumin Globulin Albumin/Globulin Ratio Procalcitonin HIV 1&2 Ag/Ab, 4th Gen Ur L.pneumophila Ag Assessment & Plan - Assessment and Plan (Free Text) Assessment: 63 year old female with extensive history(see PMH) who is admitted with right sided pneumonia, H Flu, pancytopenia,hypernatremia, elevated LFT's, elevated troponins On 06/10/18 I met with this patient and her cousin Tresa Dent, the POMily Beck was listening in on speaker phone. Lengthy discussion regarding advance care planning and goals of care ensued. The patient had a pre existing Advanced Directive in which she indicated she wanted to be DNR/DNI. The patient affirmed these wishes in my presence. A POLST DNR/DNI directive was completed. Mrs. Beck was appointed as health care surrogate. Mrs. Beck stated that she was in agreement with patient wishes. I am seeing Ms. Merida today,she is altered ,weak, unable to engage in conversation. Will follow up with SONNY, Ms Beck, regarding goals of care Plan: [place] of care and advance care planning Cardiology recs reviewed, Continue metoprolol,ASA Pneumonia: ID recs reviewed, continue Merrem and Levaquin, chest x ray H Flu: continue Tamaflu Hyperglycemia: Humalog as ordered. Anemia: Hgb 7.5, transfuse? Neutropenia: Granix Thrombocytopenia: Patient receiving ASA, heparin monitor for bleeding
[2018-07-16 12:40] LABS: HEPATITIS B SURFACE AG Negative (NEGATIVE)
[2018-07-16 12:46] LABS: HEPATITIS A IGM NEGATIVE (NEGATIVE); HEPATITIS B CORE AB NEGATIVE (NEGATIVE)
[2018-07-16 12:57] LABS: HEPATITIS C ANTIBODY NEGATIVE (NEGATIVE)
--- NOTE | 2018-07-16 13:27 | PN ---
DATE: 07/17/2018 CARDIOLOGY FOLLOWUP SUBJECTIVE: The patient is slightly more awake but not verbal. PHYSICAL EXAMINATION: VITAL SIGNS: Blood pressure 103/56, heart rate is 100, sinus tachycardia. NECK: Negative JVD. LUNGS: Decreased breath sounds. HEART: Reveal S1, S2. EXTREMITIES: Without change. LABORATORY DATA: Hemoglobin is 7.5. Chemistries, BUN and creatinine 53 and 1.3 with a troponin of 0.31. IMPRESSION: 1. Impaired altered mental status. 2. Non-ST elevation myocardial infarction. 3. Metastatic breast cancer. 4. History of triple-vessel coronary artery disease. 5. Hypercholesterolemia. 6. Diabetes mellitus. Given these findings, the patient is hemodynamically stable. The patient's prognosis is poor. Erich Slater MD
--- NOTE | 2018-07-16 16:13 | CON ---
DATE: 07/16/2018 CHIEF COMPLAINT: Generalized weakness. HISTORY OF PRESENT ILLNESS: History is obtained from medical records, this patient is a very poor historian and very lethargic. No acute events overnight. This is a 63-year-old woman with past medical history of right breast cancer status post mastectomy on the chemotherapy, coronary artery disease status post stent, hyperlipidemia, hypertension, type 2 diabetes mellitus, sickle cell trait is admitted to the ICU for sepsis like secondary underlying flu and right-sided pneumonia. Patient also had a elevated troponins, found to have NSTEMI and Cardiology is on board. Had transaminitis like secondary to hypotensive episodes as well, was called to evaluate for generalized weakness on the extremities. Patient has neutropenia, severe hypernatremia as well as metabolic derangements as well as flu positive, on Tamiflu as a right side pneumonia, had deranged LFTs. Currently, patient withdrawals noxious stimulus, does not track, does not follow simple commands. Speech is hyperphonic. Patient is spontaneously moving all extremities are noted, but has decreased tone in both upper and lower extremities. Toes are downgoing bilaterally. Withdrawals are localized to noxious stimulus. CAT scan of the head showed no acute intracranial abnormality. We will order an MRI of the brain. PAST MEDICAL HISTORY: As above. SOCIAL HISTORY: No illicit drug use, smoking or EtOH abuse. ALLERGIES: NO KNOWN DRUG ALLERGIES. FAMILY HISTORY: Noncontributory. MEDICATIONS: Reviewed by nurse's reconciliation sheet. REVIEW OF SYSTEMS: A 14-point review of systems is negative except as per HPI. LABORATORY DATA: Sodium is 152, potassium 4.121, carbon dioxide 24, BUN of 53, creatinine 1.2, random glucose 119, elevated LFTs are 417, AST look 417, ALT 129, alkaline phosphatase 174, elevated troponins today 0.21. PHYSICAL EXAMINATION VITAL SIGNS: Temperature 100.9, pulse rate of 110, blood pressure 102/56, respiratory rate of 31 and oxygen saturation of 94% via nasal cannula. GENERAL: lethargic. HEENT: Atraumatic, normocephalic. PERRLA. NECK: Tachycardic, S1 and S2 are present. No murmurs. LUNGS: Decreased breath sounds bilaterally especially on the right, scattered rhonchi. ABDOMEN: Soft, nontender, and nondistended. Bowel sounds present. EXTREMITIES: No clubbing and no cyanosis. Peripheral pulses are 2+ bilaterally. NEUROLOGICAL: Patient is lethargic, does not follow simple commands. Tracks ice to voice, it is difficult assess speech at this time due to lethargy. Cranial nerves II-XII are intact. Motor exam, diffuse tone in both upper and lower extremities and has generalized weakness. Sensory, withdraws to localized noxious stimulus. DTRs are 1+ throughout. Coordination and gait deferred for now. ASSESSMENT AND PLAN: This is a 63-year-old woman with past medical history of right breast cancer status post mastectomy on chemotherapy, coronary artery disease status post stent, hypertension, hyperlipidemia, sickle-cell trait, admitted to ICU for sepsis likely secondary to pneumonia as well as flu positive and metabolic derangements. Generalized weakness is secondary to sepsis secondary to flu with superimposed pneumonia as well as metabolic derangements, this is likely severe toxic metabolic encephalopathy, this can cause this type of generalized weakness. At this time; we recommend, 1. Monitor electrolytes currently, correct the sodium. 2. Continue with antibiotics as per ID in regards to extensive right-sided pneumonia as well as Tamiflu for underlying flu positive. 3. Continue with aspirin and also recommend Plavix and statin for stroke prevention as well as history of non-ST elevation myocardial infarction. 4. Could consider methylphenidate 5 mg p.o. q.a.m. to increase neuronal activity to make her more awake. 5. Bedside PT. 6. Continue with DVT and GI prophylaxis and could consider MRI of the brain without contrast. Once again, thank you for this consult. Bari Buitrago MD
[2018-07-16] MEDS: Insulin Lispro (humaLOG) LOW Coverage SC SCH ×4 (17:24→22:58)
--- NOTE | 2018-07-16 23:31 | PN ---
DATE: 07/16/2018 I did review the medical device sales representative's note. I went over the medications and the labs. I also examined the patient myself. The patient remains obtunded. She had left arm that was not moving. I spoke with the patient's nurse, and she stated that the patient had a restful night. She also noted that the patient's left arm was not moving although the right arm had movement. She remains critically ill. I did speak to Ngozi Blackmon, and she spoke with the patient's family. The patient has been made DNR. The patient has a severe sepsis secondary to hospital-acquired pneumonia. She has influenza A that is positive. The patient had an elevated troponin most likely from the sepsis and hypotension. The patient's MADELAINE has improved. The patient's creatinine is down to 1.3. The patient's LFTs were also significantly elevated secondary to hypotension. The LFTs are improving. The patient has a history of breast CA and has a port in place. Neurology has been consulted for the left arm weakness. We will change the patient's fluids to D5W in order to help with the hypernatremia that has developed. The patient is on Tamiflu. She is going to continue with meropenem for antibiotics and heparin for DVT prophylaxis. The patient also on labs has pancytopenia. The patient is being followed by Dr. Griffith's group. Overall prognosis is guarded. Sherman Soria MD
[2018-07-17 07:11] LABS: BASO # 0.03 K/mm3 (0.0-2.0); BASO % 0.5 % (0.0-3.0); GRAN # 4.62 (1.4-6.5); GRAN % 75.9 % (50.0-68.0); HEMOGLOBIN 7.4 g/dL (12.0-16.0); LYMPH # 1.1 (1.2-3.4); LYMPH % 17.3 % (22.0-35.0); MEAN CELL VOLUME 78.1 fl (80.0-105.0); MEAN CORPUSCULAR HEMOGLOBIN 24.9 pg (25.0-35.0); MEAN CORPUSCULAR HGB CONC 31.9 g/dl (31.0-37.0); MONO # 0.4 (0.1-0.6); MONO % 6.3 % (1.0-6.0); PLATELET COUNT 60 10^3/uL (120.0-450.0); RBC 2.97 10^6/uL (3.5-6.1); RED CELL DISTRIBUTION WIDTH 20.1 % (11.5-14.5); WHITE BLOOD COUNT 6.1 10^3/uL (4.5-11.0)
[2018-07-17 07:35] LABS: PLATELET COUNT MANUAL 72 K/mm3 (120-450)
[2018-07-17] MEDS: Insulin Lispro (humaLOG) LOW Coverage SC SCH (08:20)
[2018-07-17 08:22] LABS: ALB/GLOB RATIO 1.2 (1.1-1.8); ALBUMIN 2.5 g/dL (3.0-4.8); CALCIUM 8.5 mg/dL (8.4-10.5)
--- NOTE | 2018-07-17 10:02 | PN ---
DATE: 07/17/2018 TENNIS NET MAKER NOTE SUBJECTIVE: The patient continues to have altered mental status with lethargy. Is getting NG tube feedings and tolerating well. No events overnight. The patient continues to be in isolation for the influenza. PHYSICAL EXAMINATION: VITAL SIGNS: Temperature is 100, pulse is 88, respirations 35, BP is 174/26 and O2 saturation is 99%, this is on 2 liters of nasal cannula. HEENT: Head is atraumatic and normocephalic. Eyes reactive to light. Ear, nose and throat seemed to be within normal limits. NECK: Supple. No JVD. No thyroid enlargement or lymph nodes. HEART: Has regular rate and rhythm. Normal S1 and S2. LUNGS: Reveal mild rhonchi bilaterally. ABDOMEN: Soft. Decreased bowel sounds. GENITALIA: Deferred. RECTAL: Deferred. MUSCULOSKELETAL: No joint deformities. EXTREMITIES: Reveal bilateral heel ulcerations and 1-2+ lower extremity edema. NEUROLOGICALLY: The patient is very lethargic with altered mental status. Seemed to be able to move all extremities. LABORATORY DATA: As far as laboratories, her white count is 6.1, hemoglobin is 7.4, hematocrit 23.2 with platelets of 60,000. The patient's sodium is 152, potassium 4.0, chloride 121 with CO2 of 24, BUN of 53, creatinine of 1.3 and a glucose of 119. The patient's troponin is 0.31 which is elevated. IMPRESSION: This patient has sepsis with right-sided pneumonia. She has a history of breast carcinoma and has also a myocardial infarction. She has acute renal insufficiency, is positive for influenza and has anemia, thrombocytopenia, hypernatremia and hyperchloremia. The patient has a history of coronary artery disease, hyperlipidemia, diabetes and hypertension. PLAN: We will continue O2 support and continue with aggressive pulmonary toilet. The patient is getting NG tube feedings. We will follow chest x-ray. The patient is getting aspirin, folic acid, subcutaneous heparin, Lovenox, Lopressor, meropenem, Pepcid, and Tamiflu. We will continue to treat aggressively along with the other consultants and the primary care doctor. Maykel Zepeda MD
[2018-07-17] MEDS: Meropenem IV 1 gm in NS 1 GM/50 ML BAG IVPB SCH ×2 (10:33→21:12)
[2018-07-17] MEDS: levoFLOXacin 750 mg in D5W 150 ML BAG IVPB SCH (10:34)
[2018-07-17] MEDS ORDERED: Sodium Chloride 0.9% 1,000 ML IV STA (11:22)
[2018-07-17] MEDS ORDERED: Dextrose 50% SYRINGE Inj (50 ml) IV PRN (11:24)
[2018-07-17] MEDS: Insulin Reg-MEDIUM-Coverage SC SCH ×3 (12:07→21:08)
--- NOTE | 2018-07-17 13:31 | CP.PCM.PN ---
Subjective - Date & Time of Evaluation Date of Evaluation: 07/17/18 Time of Evaluation: 12:40 - Subjective Subjective: Still in respiratory distress, still with low grade fevers, ill-appearing. Objective - Vital Signs/Intake and Output Vital Signs (last 24 hours): Temp Pulse Resp BP Pulse Ox 100.0 F H 88 39 H 174/26 H 99 07/17/18 03:00 07/17/18 03:00 07/17/18 03:00 07/17/18 02:00 07/17/18 03:00 - Medications Medications: Current Medications Acetaminophen (Tylenol 325mg Tab) 650 mg PO Q4H PRN PRN Reason: Temp greater than 100.4*F Last Admin: 07/16/18 23:57 Dose: 650 mg Aspirin (Ecotrin) 81 mg PO DAILY [facility] Last Admin: 07/16/18 09:48 Dose: 81 mg Famotidine (Pepcid) 20 mg PO 1000,2200 [facility] Last Admin: 07/16/18 22:58 Dose: 20 mg Folic Acid (Folic Acid) 1 mg PO DAILY [facility] Last Admin: 07/16/18 09:48 Dose: 1 mg Heparin Sodium (Porcine) (Heparin) 5,000 units SC Q12 [facility]; Protocol Last Admin: 07/16/18 22:56 Dose: 5,000 units Meropenem/Sodium Chloride (Merrem Iv 500 Mg/Ns 50 Ml) 500 mg in 50 mls @ 100 mls/hr IVPB Q12 [facility]; Protocol Stop: 07/22/18 06:46 Last Admin: 07/16/18 22:56 Dose: 100 mls/hr Dextrose (Dextrose 5% In Water 1000 Ml) 1,000 mls @ 125 mls/hr IV .Q8H [facility] Stop: 07/17/18 09:29 Last Admin: 07/16/18 19:00 Dose: 125 mls/hr Insulin Human Lispro (Humalog Low) 0 units SC ACHS [facility]; Protocol Last Admin: 07/16/18 22:58 Dose: Not Given Levofloxacin/Dextrose (Levaquin 750mg) 750 mg IVPB QOTHERDAY [facility]; Protocol Last Admin: 07/15/18 09:53 Dose: 750 mg Meclizine HCl (Antivert) 12.5 mg PO BID PRN PRN Reason: Dizziness Methylphenidate HCl (Ritalin) 5 mg PO DAILY [facility] Last Admin: 07/16/18 12:30 Dose: Not Given Metoprolol Tartrate (Lopressor) 25 mg PO BID [facility] Last Admin: 07/16/18 22:30 Dose: 25 mg Oseltamivir Phosphate (Tamiflu Cap) 30 mg PO Q12 [facility]; Protocol Last Admin: 07/16/18 22:58 Dose: 30 mg - Labs Labs: 07/17/18 06:55 07/16/18 06:27 PT 18.3 SECONDS (9.4-12.5) H 07/16/18 06:27 INR 1.58 07/16/18 06:27 APTT 39.3 Seconds (25.1-36.5) H 07/14/18 16:20 - Constitutional Appears: In Acute Distress, Chronically Ill - Head Exam Head Exam: NORMAL INSPECTION - Neck Exam Neck Exam: absent: Lymphadenopathy, Meningismus - Respiratory Exam Respiratory Exam: Decreased Breath Sounds, Rales (on the right lung espinosa) - Cardiovascular Exam Cardiovascular Exam: +S1, +S2 - GI/Abdominal Exam GI & Abdominal Exam: Soft. absent: Tenderness Assessment and Plan - Assessment and Plan (Free Text) Plan: Assessment severe sepsis with acute encephalopathy due to right sided HAP on top of Influenza A infection stage 4 breast cancer s/p mastectomy CAD s/p PCI dyslipidemia Hx of HTN Hx of DM 2 Plan continue Vancomycin IV, Merrem, Levaquin and Tamiflu day 3 and will continue to monitor clinically overall prognosis is poor will trend PCT
[2018-07-17] MEDS ORDERED: NOREPINEPHRINE BIT/0.9 % NACL 4 MG/250 ML BAG IV PRN (15:33)
[2018-07-17] MEDS: NOREPINEPHRINE BIT/0.9 % NACL 4 MG/250 ML BAG IV PRN (16:41)
--- NOTE | 2018-07-17 21:29 | PN ---
DATE: 07/17/2018 This is [facility] visit in the intensive care unit. For Dr. Griffith. SUBJECTIVE: The patient is a 63-year-old female admitted via the emergency room for evaluation of possible pneumonia with x-ray showing significant changes there. At the time of admission, the patient was confused with mental status waxing and waning. She is known to suffer from triple-negative breast cancer, coronary artery disease, diabetes mellitus, sickle cell trait, admitted from [facility]. At present, she is obtunded with nasogastric tube for nutrition. Unresponsive to verbal stimuli, now being with influenza positive findings here with severe sepsis with acute encephalopathy. Her troponin is also elevated for which structural ironworker Dr. Slater is following the patient also. PHYSICAL EXAMINATION: VITAL SIGNS: Temperature 99.9, pulse 97, respirations 36, blood pressure 95/65, and pulse ox 99%. HEENT: Unremarkable. The patient does not open eyes to command. NECK: Supple. HEART: Regular rate. LUNGS: Scattered rhonchi. Decreased breath sounds. ABDOMEN: Soft. EXTREMITIES: Trace pedal edema bilateral. NEUROLOGIC: The patient is obtunded, unresponsive to verbal stimuli. SKIN: Warm and dry. LABORATORY DATA: The patient's labs were done. White blood cell count of 6.1 after Granix recently given two days prior, hemoglobin now depleted to 7.4 possibly related to hemodilution with IV fluids and NG tube feedings, hematocrit 23.2, platelet count of 60,000 with a manual of 72,000. The patient's metabolic panel showed a sodium of 149, chloride of 121, BUN of 60, creatinine of 1.3 with nonfasting glucose of 407, AST of 378, ALT of 141 with a troponin value from yesterday of 0.31. Her ammonia level was done 3 days prior was 18. Her serology showed positive influenza titers. Her sputum Gram-stain from 2 days prior showed yeast species; otherwise, blood cultures have been negative. The patient had a chest x-ray done 2 days prior that was read as nasogastric tube in satisfactory position with diffuse alveolar infiltrate in the right lung. The patient had an abdominal ultrasound done 2 days prior it was read as cholecystectomy findings suggestive of fatty infiltration, trace of perihepatic ascites, and retroperitoneal adenopathy. ASSESSMENT: The assessment for this patient is that of sepsis/pneumonia, influenza, toxic metabolic encephalopathy, abnormal troponins, acute myocardial infarction, transaminitis, history of breast cancer, thrombocytopenia, neutropenia, anemia of chronic disease, diabetes mellitus, and malnutrition. PLAN: Plan for this patient is to continue IV antibiotics and ICU protocols. It should be noted that the patient is now made DNR/DNI as per family with the patient's labs to be monitored with transfusion as indicated. At present, her meds will be adjusted including discontinuation of Periactin, which was used as an appetite stimulant as the patient is n.p.o. and with NG tube feedings. We will also discontinue Ritalin, at present it is on hold with IV fluids adjusted as the patient had IV fluids and NG tube feeding concurrently which fluid overload for which Lasix was given with good effect. This is a complex patient with comprehensive medically necessary and appropriate visit carried out in excess of 40 minutes with the patient's case discussed with nursing staff and shampooer. Donell Rivero MD
[2018-07-18] MEDS: Insulin Reg-MEDIUM-Coverage SC SCH ×3 (01:12→09:15)
[2018-07-18] MEDS ORDERED: Sodium Chloride 0.9% 1,000 ML IV SCH (04:00)
[2018-07-18] MEDS: NOREPINEPHRINE BIT/0.9 % NACL 4 MG/250 ML BAG IV PRN (06:27)
[2018-07-18 06:58] LABS: BLOOD UREA NITROGEN 75 mg/dL (7-21); GFR NON-AFRICAN AMERICAN 29
[2018-07-18 06:59] LABS: ALB/GLOB RATIO 1.1 (1.1-1.8); ALBUMIN 2.6 g/dL (3.0-4.8); ALT/SGPT 324 U/L (7-56); AST/SGOT > 750 U/L (14-36); CALCIUM 8.3 mg/dL (8.4-10.5)
[2018-07-18 07:28] LABS: BASO # 0.17 K/mm3 (0.0-2.0); BASO % 1.7 % (0.0-3.0); EOS % 0.2 % (1.5-5.0); GRAN # 5.35 (1.4-6.5); GRAN % 53.7 % (50.0-68.0); HEMOGLOBIN 7.3 g/dL (12.0-16.0); LYMPH # 3.7 (1.2-3.4); LYMPH % 37.4 % (22.0-35.0); MEAN CELL VOLUME 77.8 fl (80.0-105.0); MEAN CORPUSCULAR HEMOGLOBIN 23.9 pg (25.0-35.0); MEAN CORPUSCULAR HGB CONC 30.7 g/dl (31.0-37.0); MONO # 0.7 (0.1-0.6); PLATELET COUNT 89 10^3/uL (120.0-450.0); RBC 3.06 10^6/uL (3.5-6.1); RED CELL DISTRIBUTION WIDTH 20.5 % (11.5-14.5)
[2018-07-18 09:05] VITALS: BP 116/84; PULSE 42; RESP 33; TEMP 102.4; O2SAT 92
--- NOTE | 2018-07-18 09:17 | PN ---
DATE: 07/18/2018 HAUL DRIVER NOTE SUBJECTIVE: The patient is basically unresponsive this morning, has O2 via nasal cannula and is noted to be a bit tachycardic. The patient had an episode of hypotension this morning, was given normal saline and her Levophed was increased and now her blood pressure is stable. She is a DNR/DNI and she continues to be in isolation for influenza. PHYSICAL EXAMINATION: VITAL SIGNS: Her temperature is 101.6, her pulse is 128, her BP is 115/62 and her respiratory rate is 34. HEENT: Head is atraumatic and normocephalic. Eyes reactive to light. Ear, nose and throat seemed to be within normal limits. NECK: Supple. No JVD. No thyroid enlargement or lymph nodes. HEART: Has a regular rate and rhythm. Normal S1 and S2, but tachycardic. LUNGS: Reveal bilateral rhonchi. ABDOMEN: Soft. Decreased bowel sounds. GENITALIA: Deferred. RECTAL: Deferred. MUSCULOSKELETAL: No joint deformities. EXTREMITIES: Reveal positive lower and upper extremity edema. NEUROLOGICALLY: The patient is basically unresponsive, very obtunded. LABORATORY DATA: Her white count is 10.0, hemoglobin is 7.3, hematocrit 23.8 with platelets of 89,000. Her sodium is 147, potassium 4.6, chloride 119, CO2 of 22 with a BUN of 75, creatinine of 1.8 and a glucose of 262. IMPRESSION: This patient has sepsis with pneumonia. She has a history of breast carcinoma and myocardial infarction. The patient has acute renal insufficiency and is positive for influenza as well as anemia. She has thrombocytopenia, hypernatremia as well as hyperchloremia, coronary artery disease, hyperlipidemia, diabetes and history of hypertension. The patient at this time is hypotensive requiring pressors. PLAN: Note that the patient is a DNR. She will continue with O2 via nasal cannula, continue with aggressive pulmonary toilet. She is getting bronchodilators. The patient is on Levophed to support her blood pressure. She is getting IV D5 to decrease the sodium and we will continue her aspirin, folic acid, subcutaneous heparin, Lopressor, meropenem, Pepcid and Tamiflu. We will continue to treat aggressively along with the other consultants and the primary care doctor. Maykel Zepeda MD [facility] # [id number]
[2018-07-18] MEDS ORDERED: Vancomycin 2 GM in Sodium Chloride 0.9% 500 ML IVPB ONE (09:51)
[2018-07-18] MEDS ORDERED: DEXTROSE 5% IVPB ONE (10:00)
[2018-07-18] MEDS ORDERED: WATER IVPB ONE (10:00)
[2018-07-18] MEDS ORDERED: AMIKACIN IVPB ONE (10:00)
[2018-07-18 10:34] LABS: ATYPICAL LYMPHOCYTE 2 % (0.0-0.0); CORRECTED WBC 8.2 K/mm3 (4.5-11.0); LYMPHOCYTE 25 % (22.0-35.0); METAMYELOCYTE 2 %; MONOCYTE 14 % (1.0-6.0); NEUTROPHIL 57 % (50.0-70.0); NUCLEATED RED BLOOD CELL 22 %
[2018-07-18 10:35] LABS: ANISOCYTOSIS 1+; HYPOCHROMIA 1+; MICROCYTOSIS 2+; POIKILOCYTOSIS 2+; POLYCHROMASIA SLIGHT
[2018-07-18 10:36] LABS: LARGE PLATELETS PRESENT; OVALOCYTES 1+; PLATELET COUNT MANUAL 103 K/mm3 (120-450)
[2018-07-18 10:37] LABS: PLATELET ESTIMATE LOW (NORMAL); SCHISTOCYTES SLIGHT
--- NOTE | 2018-07-18 15:19 | PN ---
DATE: 07/18/2018 EXPIRATION NOTE SUBJECTIVE: The patient presented with a history of severe sepsis and pneumonia. The patient has history of breast CA as well. The patient is a DNR/DNI and with severe sepsis that did not respond to pressors and IV fluids. The patient rested this morning at 9:04 a.m. The patient was being treated aggressively here at [facility] in the Intensive Care Unit. Family as well as primary care doctor, both have been notified and certificate has been filled out. certificate number is [id number]. Maykel Zepeda MD
--- NOTE | 2018-07-19 08:59 | PN ---
DATE: 07/17/2018 SUBJECTIVE: The patient is not able to communicate. PHYSICAL EXAMINATION VITAL SIGNS: Temperature is 99.9, pulse of 97, blood pressure is 95/65, respirations 20. GENERAL: The patient is lying in bed, flat, comfortable. HEENT: No oral lesion. Anicteric sclerae. Moist mucosa. NECK: No JVD, adenopathy, or thyromegaly. CHEST: There is a right-sided port. CARDIOVASCULAR: S1 and S2, regular. No murmurs, rubs, or gallops. LUNGS: Clear to auscultation bilaterally. No wheeze, rales, or rhonchi. ABDOMEN: Bowel sounds are positive, soft, nontender and nondistended. EXTREMITIES: No cyanosis, clubbing or edema. LABORATORY DATA: White count of 6.1, hemoglobin 7.4. Creatinine is 1.3. Sodium is 149. ASSESSMENT: 1. Sepsis. 2. Influenza A. 3. Transaminitis. 4. Thrombocytopenia. 5. Acute kidney injury, improving. 6. Hypernatremia. 7. Dyslipidemia. 8. Right-sided breast carcinoma, status post mastectomy, undergoing . 9. Do not resuscitate. PLAN: The patient remains critically ill. She has a hemoglobin of 7.4. She has been followed by Hematology-Oncology. Her sugars are significantly elevated. She is on D5W because of the hypernatremia. She is on insulin sliding scale. She is receiving meropenem for antibiotics. She is on antibiotics with Levaquin. The patient is on metoprolol. She had an elevated troponin. She is also on aspirin. She has a yeast in her sputum. Her urine culture and blood cultures have been negative. Her hepatitis A, B, and C have been negative. Her urine Legionella is negative. She will continue to stay in the ICU. She remains n.p.o. Sherman Soria MD
== END 2018-07-18 09:04 | DRG 871 ==
LOC: ED 14:53 → ERH 19:05 → ICU 22:42
PROVIDERS: ADMIT Internal Medicine Nephrology; ATTEND Internal Medicine Nephrology
DX: A41.9 Sepsis, unspecified organism (principal); R65.21 Severe sepsis with septic shock; J10.00 Influenza due to other identified influenza virus with unspecified type of pneumonia; G92 Toxic encephalopathy; I21.4 Non-ST elevation (NSTEMI) myocardial infarction; N17.9 Acute kidney failure, unspecified; D61.818 Other pancytopenia; E87.0 Hyperosmolality and hypernatremia; D57.3 Sickle-cell trait; I25.10 Atherosclerotic heart disease of native coronary artery without angina pectoris; E78.5 Hyperlipidemia, unspecified; C50.911 Malignant neoplasm of unspecified site of right female breast; I12.9 Hypertensive chronic kidney disease with stage 1 through stage 4 chronic kidney disease, or unspecified chronic kidney disease; N18.9 Chronic kidney disease, unspecified; E78.00 Pure hypercholesterolemia, unspecified; E11.22 Type 2 diabetes mellitus with diabetic chronic kidney disease; R79.1 Abnormal coagulation profile; Z66 Do not resuscitate; Y95 Nosocomial condition; Z17.1 Estrogen receptor negative status [ER-]; Z78.9 Other specified health status; Z95.5 Presence of coronary angioplasty implant and graft; Z79.4 Long term (current) use of insulin; Z90.11 Acquired absence of right breast and nipple